=== PATIENT | female | born 1975 | race Two or more races ===

== ENCOUNTER → 2020-03-31 14:31 | Outpatient (BNVA) | payer MEDICARE, MEDICAID, SELFPAY | PROVIDERS: Visit Provider Nurse Practitioner | DX: R10.9 Unspecified abdominal pain (principal); K58.2 Mixed irritable bowel syndrome; R82.998 Other abnormal findings in urine; N39.0 Urinary tract infection, site not specified | CPT/HCPCS: 99213 ==

== ENCOUNTER → 2020-04-21 08:48 | Outpatient (BNVA) | payer MEDICARE, MEDICAID, SELFPAY | PROVIDERS: PCP Nurse Practitioner Family; Visit Provider Nurse Practitioner | DX: K21.9 Gastro-esophageal reflux disease without esophagitis (principal); K58.9 Irritable bowel syndrome, unspecified; R82.998 Other abnormal findings in urine; R14.0 Abdominal distension (gaseous); R35.0 Frequency of micturition; R10.33 Periumbilical pain | CPT/HCPCS: 99214 ==

== ENCOUNTER → 2020-04-28 08:06 | Outpatient (REF) | payer MEDICARE, MEDICAID, SELFPAY ==
--- NOTE | 2020-04-28 08:12 | NM_ITS ---
EXAMINATION: BILIARY TRACT IMAGING STUDY WITH CCK CLINICAL INFORMATION: Periumbilical pain.. COMPARISON: No previous biliary scan is available for comparison. The diagnostic CT scan of the abdomen and pelvis, dated 01/29/2020, is available for comparison.. TECHNIQUE: Serial gamma scintillation camera images were obtained over the abdomen for a total observation period of 93 minutes following the intravenous administration of 5.1 mCi Tc-99m Mebrofenin. FINDINGS: There is good concentration of activity in the liver by 5 minutes post injection. Biliary activity is visualized by 8 minutes. The gallbladder is well visualized by 15 minutes. Small bowel is well visualized by 25 minutes. At 60 minutes post radiopharmaceutical injection, a 30-minute infusion of 1.0 micrograms Sincalide was then begun and an additional 40 minutes of images were obtained. There is good emptying of the gallbladder. By the end of the study there is good clearance of activity from the liver and visualization of diffuse small bowel activity. The calculated gallbladder ejection fraction is 90% (normal gallbladder ejection fraction is greater than 35%). NM/NM hepatobiliary w pharm IMPRESSION: Visualization of the gallbladder is evidence of a patent cystic duct and strong evidence against the diagnosis of acute cholecystitis. The common bile duct is patent. Gallbladder emptying and ejection fraction are normal. Liver function appears normal.
== END ==
LOC: HO.NUCMED 08:06
PROVIDERS: PCP Nurse Practitioner Family; Visit Provider Nurse Practitioner
DX: R10.33 Periumbilical pain (principal)
CPT/HCPCS: 78227; A9537

== ENCOUNTER → 2020-05-11 13:29 | Outpatient (BNVA) | payer MEDICARE, MEDICAID, SELFPAY | PROVIDERS: PCP Nurse Practitioner Family; Visit Provider Nurse Practitioner | DX: K58.9 Irritable bowel syndrome, unspecified (principal); K21.9 Gastro-esophageal reflux disease without esophagitis; R10.33 Periumbilical pain; R35.0 Frequency of micturition; R82.998 Other abnormal findings in urine | CPT/HCPCS: 99212 ==

== ENCOUNTER 2020-06-17 09:11 | Outpatient (REF) | payer MEDICARE, MEDICAID, SELFPAY | END 2020-06-17 09:12 | disposition home or self-care (01) | LOC: HO.LAB 09:11 | PROVIDERS: PCP Nurse Practitioner Family; Visit Provider Student in an Organized Health Care Education/Training Program | DX: M25.50 Pain in unspecified joint (principal); R70.0 Elevated erythrocyte sedimentation rate | CPT/HCPCS: 99202 ==

== ENCOUNTER 2020-06-30 11:24 | Outpatient (REF) | payer MEDICARE, MEDICAID, SELFPAY ==
--- NOTE | 2020-06-30 11:55 | XR_ITS ---
EXAMINATION: XR LUMBOSACRAL SPINE CLINICAL INFORMATION: Pain. COMPARISON: CT scan of the abdomen and pelvis dated 01/29/20. TECHNIQUE: Three views of the lumbosacral spine. FINDINGS: There is severe degenerative disc disease at L5-S1 with marked narrowing of the disc space and marginal osteophytosis. There is associated facet arthropathy. The appearance is similar to the prior CT scan. Disc spaces are otherwise well-maintained. Anatomic alignment is maintained. No other abnormality is demonstrated. XR/XR lumbar spine 2-3V IMPRESSION: Severe degenerative disc disease at L5-S1 with associated facet arthropathy. No significant interval change. No other abnormality.
--- NOTE | 2020-06-30 11:55 | XR_ITS ---
EXAMINATION: XR hand LT min 3V, XR hand RT min 3V CLINICAL INFORMATION: Pain. COMPARISON: None. TECHNIQUE: Right hand 3 views. Left hand 3 views. FINDINGS: RIGHT HAND: No bony abnormality is demonstrated. No fracture or malalignment. No bony erosion. Bone density is maintained. Joint spaces are maintained. No soft tissue abnormality is demonstrated. LEFT HAND: 3 views of the left hand are also normal. XR/XR hand LT min 3V IMPRESSION: Normal examination.
--- NOTE | 2020-06-30 11:55 | XR_ITS ---
EXAMINATION: XR hand LT min 3V, XR hand RT min 3V CLINICAL INFORMATION: Pain. COMPARISON: None. TECHNIQUE: Right hand 3 views. Left hand 3 views. FINDINGS: RIGHT HAND: No bony abnormality is demonstrated. No fracture or malalignment. No bony erosion. Bone density is maintained. Joint spaces are maintained. No soft tissue abnormality is demonstrated. LEFT HAND: 3 views of the left hand are also normal. XR/XR hand RT min 3V IMPRESSION: Normal examination.
[2020-06-30 12:39] LABS: MANUAL DIFF FLAG NO
[2020-06-30 12:42] LABS: Basophils Absolute Auto 0.1 X10*3/uL (0.0-0.2); Basophils Percent Auto 0.7 % (0-2); Eosinophils Absolute Auto 0.3 X10*3/uL (0.0-0.4); Eosinophils Percent Auto 4.2 % (0-4); Hematocrit 39.9 % (37-47); Hemoglobin 12.7 g/dl (12.0-16.0); Imm Gran Abs Auto 0.01 X10*3/uL (0.00-0.03); Imm Gran Pct Auto 0.1 % (0.0-0.4); Lymphocytes Absolute Auto 3.2 X10*3/uL (1.2-4.9); Lymphocytes Percent Auto 41.6 % (20-40); Mean Corpuscular HGB Conc 31.8 g/dl (31.0-35.0); Mean Corpuscular Hemoglobin 27.9 pg (27.0-33.0); Mean Corpuscular Volume 87.5 fL (80-98); Mean Platelet Volume 9.1 fL (9.4-12.3); Monocytes Absolute Auto 0.4 X10*3/uL (0.1-1.2); Monocytes Percent Auto 5.5 % (2-11); Neutrophils Absolute Auto 3.7 X10*3/uL (2.0-8.3); Neutrophils Percent Auto 47.9 % (45-73); Platelet Count 476 X10*3/uL (160-400); Red Blood Count 4.56 X10*6/uL (4.20-5.50); Red Cell Distribution Width 14.3 % (11.0-16.0); White Blood Count 7.7 X10*3/uL (4.8-10.8)
[2020-06-30 13:18] LABS: Alanine Aminotransferase 56 U/L (0-31); Albumin Level 4.6 g/dL (3.5-5.0); Alkaline Phosphatase 75 U/L (39-117); Anion Gap 16 (12-20); Aspartate Amino Transferase 28 U/L (5-31); Bilirubin Total 0.2 mg/dL (0.0-1.0); Blood Urea Nitrogen 11 mg/dL (9-16); C Reactive Protein 0.04 mg/dL (< or = 0.50); Calcium 10.3 mg/dL (8.4-10.2); Carbon Dioxide 25 mmol/L (22-29); Chloride 102 mmol/L (96-108); Estimated Glomerular Filt Rate > 60; Glucose Random 111 mg/dL (60-115); Rheumatoid Factor < 15.0 IU/mL (<15.0); Sodium 139 mmol/L (135-145); Total Protein 7.5 g/dL (6.5-8.0)
[2020-06-30 13:25] LABS: Erythrocyte Sedimentation Rate 11 MM/HR (0-20)
[2020-07-02 11:52] LABS: Antibody to SS-A Antigen <1.0 NEG AI (<1.0 NEG); Antibody to SS-B Antigen <1.0 NEG AI (<1.0 NEG)
[2020-07-04 11:47] LABS: Cyclic Citrullinated Peptide <16 UNITS
[2020-07-05 14:31] LABS: Anti Nuclear Antibody Screen POSITIVE (NEGATIVE)
== END 2020-06-30 11:25 | disposition home or self-care (01) ==
LOC: HO.LAB 11:24
PROVIDERS: Visit Provider Student in an Organized Health Care Education/Training Program
DX: M79.642 Pain in left hand (principal); M54.5 Low back pain; M79.641 Pain in right hand
CPT/HCPCS: 36415; 72100; 73130; 80053; 85025; 85652; 86038; 86039; 86140; 86200; 86235; 86431

== ENCOUNTER 2020-07-19 08:00 | Outpatient (RCR) | payer MEDICARE, MEDICAID, SELFPAY ==
--- NOTE | 2020-06-30 12:57 | MHC.PT.EP ---
[facility] [place] Office [place] Office [place] Office [address] Romero Krueger [address] [phone] F: [phone] F: [phone] F: [phone] F: [phone] Physical Therapy Plan of Care Date of Evaluation: 06/30/20 Date of Surgery: NA Diagnosis: Low back pain Assessment: 45 year old female referred for low back pain . Pt reports of having h/o chronic back pain which has gotten worse over the last 7 months. She denies any trauma or falls. Examination reveals a constant low back pain which varies from 5/10 to 9/10, increase pain with bending, prolonged sitting, driving for more than 2 hours and supine lying, TTP over B lumbar PVs and L4- L5 spinous process, decreased trunk ROM, decreased muscle strength, and altered posture. She lives alone and is independent with all ADLs but takes longer to complete them due to pain. She is currently unemployed and is not seeking for employment. She would benefit from PT to decrease pain, improve ROM, increase muscle strength, postural correction and functional training. Frequency and Duration: The patient will be seen 2/week for 5 weeks. Short Term Goals: 1. Pt will have 50% decrease in pain in 2 weeks. 2. Pt will be able to move her trunk through full plane of motion without pain in 3 weeks. Intermediate Goals: 1. Pt will be able to perform all ADLS without pain in 4 weeks. 2. Pt will return to PLOF in 5 weeks. Treatment Plan: Modalities to reduce pain, spasms and effusion. Manual therapy to restore motion and function. Therapeutic exercise to improve strength and flexibility. Neuromuscular re-education for posture and balance. Therapeutic activities to return to functional activities of daily living. Electronically signed by: Azucena Delgado DPT Please sign and return to therapist. Thank you for your referral.
--- NOTE | 2020-08-16 14:23 | MHC.PT.DC ---
[facility] [place] Office [place] Office [place] Office [address] Romero Krueger [address] [phone] F: [phone] F: [phone] F: [phone] F: [phone] Physical Therapy Discharge Report Diagnosis: Low back pain Date of Surgery: NA Date of Evaluation: 06/30/20 Date of Discharge: 08/16/20 Treatments to Date: 5 Cancellations to Date: 3 No Shows to Date: 3 Discharge Status: Visit Non-compliance Discharge Summary: Pt canceled a few visits and no showed for visits after. Pt therefore d/c from therapy for non compliance. Electronically signed by: Azucena Delgado DPT Please sign and return to therapist. Thank you for your referral.
--- NOTE | 2020-08-16 15:19 | MHC.PT.DC ---
[facility] [place] Office [place] Office [place] Office [address] Romero Krueger [address] [phone] F: [phone] F: [phone] F: [phone] F: [phone] Physical Therapy Discharge Report Diagnosis: Low back pain Date of Surgery: NA Date of Evaluation: 06/30/20 Date of Discharge: 08/16/20 Treatments to Date: 5 Cancellations to Date: 3 No Shows to Date: 3 Discharge Status: Visit Non-compliance Discharge Summary: Pt canceled a few visits and no showed for visits after. Pt therefore d/c from therapy for non compliance. Electronically signed by: Azucena Delgado DPT Please sign and return to therapist. Thank you for your referral.
== END 2020-08-16 14:26 | disposition other institution (70) ==
LOC: HO.PT 08:00
PROVIDERS: Visit Provider Student in an Organized Health Care Education/Training Program
DX: M54.5 Low back pain (principal); M25.50 Pain in unspecified joint
CPT/HCPCS: 97110; 97112; 97140; 97161

== ENCOUNTER 2020-07-25 08:30 | Outpatient (RCR) | payer MEDICARE, MEDICAID, SELFPAY | END 2020-12-07 11:28 | disposition other institution (70) | LOC: HO.OT 08:30 | PROVIDERS: Visit Provider Student in an Organized Health Care Education/Training Program | DX: M25.50 Pain in unspecified joint (principal) | CPT/HCPCS: 29125; 97035; 97110; 97165; 97535; 97760 ==

== ENCOUNTER 2020-10-10 07:06 | Emergency (ER) | payer MEDICARE, MEDICAID, SELFPAY ==
--- NOTE | ~2020-10-10 | CT_ITS ---
EXAMINATION: CT ABDOMEN AND PELVIS WITHOUT CONTRAST CLINICAL INFORMATION: Dysuria, flank pain and abdominal pain. COMPARISON: None TECHNIQUE: Multidetector volumetric imaging was performed from the superior aspect of the liver through the pubic symphysis. Sagittal and coronal reformatted images were obtained on the technologist's workstation. This CT examination was performed using dose optimization techniques as appropriate, variously including the following: *Automated exposure control *Adjustment of mA and/or kV according to patient size (this includes techniques or standardized protocols for targeted exams where dose is matched to indication/reason for exam; i.e. extremities or head) *Use of iterative reconstruction technique DLP: 3:30 mGy-cm FINDINGS: LUNG BASES: The visualized lung bases are unremarkable. LIVER, GALLBLADDER, AND BILIARY TREE: The liver is normal in size, shape, and attenuation. No focal hepatic lesion or biliary ductal dilatation is present. The gallbladder is unremarkable with no evidence of radiopaque gallstones, gallbladder wall thickening, or obvious pericholecystic inflammatory changes. PANCREAS: Unremarkable. SPLEEN: Unremarkable. ADRENAL GLANDS: Unremarkable. KIDNEYS AND URETERS: The kidneys are normal in size, shape, and attenuation. No hydronephrosis, hydroureter, or calculi seen. No perinephric stranding. BLADDER: Unremarkable. GASTROINTESTINAL TRACT: There is scattered stool and gas seen throughout the colon without any significant distention. The small bowel loops are normal caliber. The appendix is normal caliber. ABDOMINAL WALL: No significant hernia is appreciated. LYMPH NODES: Normal. VASCULAR: Unremarkable. PELVIC VISCERA: Unremarkable. OSSEOUS STRUCTURES: There are degenerative disc changes, vacuum disc phenomena and ventral and posterior spondylosis L5-S1 disc level. No lytic process seen. CT/CT abdomen pelvis wo con IMPRESSION: No acute intra-abdominal process seen. No definitive urolith or hydroureteronephrosis.
[2020-10-10 07:15] VITALS: BP 147/69; PULSE 107; RESP 20; TEMP 36.8; O2SAT 99; BMI 20.7
--- NOTE | 2020-10-10 07:26 | ED_ITS ---
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 on Saturday - normal pelvic exam, states she had xrays of lower back as well no US or CT scan MD elicited complaint: dysuria, pelvic pain and back pain Pertinent past history: recurrent UTIs Onset (ago): day(s) (3) Location of symptoms: suprapubic and low back Severity: moderate Female Urogenital Radiation: Non-Radiating Quality of pain: cramping, dull and aching Consistency: constant Vaginal discharge: none Vaginal bleeding: none Urinary symptoms: Dysuria and Urgency Exacerbating factors: other (sitting down) Relieving factors: movement Associated symptoms: back pain Treatment prior to arrival: none Patient : No Related Data Home Medications Medication Instructions Recorded Confirmed cetirizine 10 mg tablet 10 mg PO DAILY 03/31/20 03/31/20 lorazepam 1 mg tablet mg PO 03/31/20 03/31/20 ondansetron 4 mg disintegrating 4 mg PO Q6-8H PRN 03/31/20 03/31/20 tablet famotidine 20 mg tablet 20 mg PO DAILY 06/17/20 gabapentin 100 mg capsule 100 mg PO DAILY 06/17/20 Previous Rx's Medication Instructions Recorded simethicone 180 mg capsule 180 mg PO QID 30 Days #120 cap 04/21/20 nitrofurantoin monohyd/m-cryst 100 mg PO BID 7 Days #14 cap 10/10/20 [Macrobid] phenazopyridine [Pyridium] 100 mg PO TID PRN #6 tab 10/10/20 Allergies Allergy/AdvReac Type Severity Reaction Status Date / Time hydrocodone [From VICODIN] Allergy Intermediate DEPRESSES Verified 06/17/20 09:21 BREATHING peach [PEACH] Allergy Intermediate ITCHING Verified 06/17/20 09:21 ibuprofen [IBUPROFEN] Allergy Mild NAUSEA & Verified 06/17/20 09:21 VOMITING oxycodone [From TYLOX] Allergy Mild RASH Verified 06/17/20 09:21 prednisone [PREDNISONE] Allergy Mild RASH Verified 06/17/20 09:21 trazodone AdvReac itch Verified 06/17/20 09:21 Review of Systems Review of Systems: Constitutional : No Weight loss, No Fever, No Chills ENT/Mouth : No sore throat, No Rhinorrhea Eyes: No Swelling, No Redness Cardiovascular : No Chest Pain, No SOB, NoEdema Respiratory : No Cough, No Sputum, No Wheezing Gastrointestinal : no Nausea,no Vomiting,no Diarrhea, positive abdominal Pain, No Hematochezia, No Melena Genitourinary : pos Dysuria, No Urinary Frequency, No Hematuria, No Urgency Musculoskeletal : No joint pain, No Myalgias, No Joint Swelling, pos back pain Skin : No Skin Lesions, No rash Neuro : No Weakness, No Numbness, No Dizziness, No Headache Psych : No Anxiety/Panic, No Depression Heme/Lymph: No Bruising, No Lymphadenopathy Endocrine : No Polyuria, No Polydipsia All other systems reviewed and are negative. [facility] Past Medical History Attestation statement: The following information was validated with the patient. Medical History Tracey infection of genital region Costochondral chest pain Diverticulitis Gastric ulcer UTI (urinary tract infection) Surgical History H/O colonoscopy Hx of endoscopy (01/19/20) Family History Family History Mother CKD (chronic kidney disease) stage 3, GFR 30-59 ml/min Gallbladder calculus with acute cholecystitis Diabetes HTN (hypertension) Father No problems noted. Maternal Grandfather Diabetes HTN (hypertension) Hypercholesteremia Social History Social History Alcohol intake: never Smoking Status: Current every day smoker Tobacco Type: Cigarette Packs Per Day: 0.5 Cigarettes Per Day: 10 Use of substances other than those prescribed or required for medical reasons: No Substance Use Type: Marijuana Advance Directives: Yes Advance Directives Information Provided: Yes Advance Directives on File: No Current occupational status: disabled Physical Exam Vital Signs: Vital Signs: Last Vital Signs Temp 98.2 F 10/10/20 07:15 Pulse 107 H 10/10/20 07:15 Resp 20 10/10/20 07:15 BP 147/69 H 10/10/20 07:15 Pulse Ox 99 10/10/20 07:15 Body Mass Index 20.7 Appearance: Alert. Oriented X3. No acute distress. Eyes: Pupils equal, round and reactive to light. ENT: Pharynx normal. Neck: Normal inspection. Neck supple. CVS: Normal heart rate and rhythm. Pulses normal. Respiratory: No respiratory distress. Breath sounds normal. Abdomen: Soft and moderate suprapubic ttp Back: ttp along lower back Skin: Skin warm and dry. Normal skin color. Normal skin turgor. Extremities: No lower extremity edema. No calf ttp Neuro: Oriented X 3. No motor deficit. No sensory deficit. Course Course Course Narrative: + UA otherwise negative workup MDM - Female Genitourinary MDM Narrative Medical decision making narrative: 45 yo female with hx of UTIs c/o back pain no b/b incontinence no saddle anesthesia no vomiting/diarrhea - could be renal colic vs UTI just had normal pelvic exam with symptoms on Saturday - patient defe rs testing here today at this time labs, UA, CT scan for renal colic/mass ordered Lab Data Result diagrams: 10/10/20 07:51 10/10/20 07:51 Labs: Lab Results 10/10/20 10/10/20 10/10/20 Range/Units 07:51 07:51 07:51 WBC 8.8 (4.8-10.8) X10*3/uL RBC 5.02 (4.20-5.50) X10*6/uL Hgb 13.7 (12.0-16.0) g/dl Hct 43.6 (37-47) % MCV 86.9 (80-98) fL MCH 27.3 (27.0-33.0) pg MCHC 31.4 (31.0-35.0) g/dl RDW 13.4 (11.0-16.0) % Plt Count 417 H (160-400) X10*3/uL MPV 8.5 L (9.4-12.3) fL Immature Gran % (Auto) 0.1 (0.0-0.4) % Neut % (Auto) 51.5 (45-73) % Lymph % (Auto) 39.1 (20-40) % [place] % (Auto) 5.9 (2-11) % Eos % (Auto) 3.1 (0-4) % Baso % (Auto) 0.3 (0-2) % Lymph # (Auto) 3.5 (1.2-4.9) X10*3/uL [place] # (Auto) 0.5 (0.1-1.2) X10*3/uL Eos # (Auto) 0.3 (0.0-0.4) X10*3/uL Baso # (Auto) 0.0 (0.0-0.2) X10*3/uL Abs Immat Gran (auto) 0.01 (0.00-0.03) X10*3/uL Absolute Neuts (auto) 4.6 (2.0-8.3) X10*3/uL Absolute Nucleated RBC 0.000 (0.0-0.012) X10*3/uL Nucleated RBC % (auto) 0.0 (0.0-0.2) /100WBC Hold Blue Top SEE NOTE Sodium 140 (135-145) mmol/L Potassium 4.1 (3.3-5.1) mmol/L Chloride 104 (96-108) mmol/L Carbon Dioxide 24 (22-29) mmol/L Anion Gap 16 (12-20) BUN 13 (9-16) mg/dL Creatinine 0.84 (0.5-1.4) mg/dL Estim Creat Clear Calc 74.9 Estimated GFR > 60 Random Glucose 115 (60-115) mg/dL Calcium 10.2 (8.4-10.2) mg/dL Magnesium 2.0 (1.6-2.6) mg/dL Total Bilirubin 0.3 (0.0-1.0) mg/dL Direct Bilirubin < 0.2 (0.0-0.5) mg/dL AST 16 D (5-31) U/L ALT 9 (0-31) U/L Alkaline Phosphatase 79 (39-117) U/L Total Protein 7.7 (6.5-8.0) g/dL Albumin 4.8 (3.5-5.0) g/dL Lipase 21 (8-78) U/L Urine Color Urine Appearance Urine pH (5.0-8.0) Ur Specific [place] (1.005-1.025) Urine Protein (NEG-TRACE) MG/DL Urine Glucose (UA) (NEG) MG/DL Urine Ketones (NEG) MG/DL Urine Blood (NEG) Urine Nitrite (NEG) Ur Leukocyte Esterase (NEG) Urine RBC (0) /HPF Urine WBC (0-4) /HPF Ur Squamous Epith Cells /LPF Urine Bacteria /LPF 10/10/20 Range/Units 09:06 WBC (4.8-10.8) X10*3/uL RBC (4.20-5.50) X10*6/uL Hgb (12.0-16.0) g/dl Hct (37-47) % MCV (80-98) fL MCH (27.0-33.0) pg MCHC (31.0-35.0) g/dl RDW (11.0-16.0) % Plt Count (160-400) X10*3/uL MPV (9.4-12.3) fL Immature Gran % (Auto) (0.0-0.4) % Neut % (Auto) (45-73) % Lymph % (Auto) (20-40) % [place] % (Auto) (2-11) % Eos % (Auto) (0-4) % Baso % (Auto) (0-2) % Lymph # (Auto) (1.2-4.9) X10*3/uL [place] # (Auto) (0.1-1.2) X10*3/uL Eos # (Auto) (0.0-0.4) X10*3/uL Baso # (Auto) (0.0-0.2) X10*3/uL Abs Immat Gran (auto) (0.00-0.03) X10*3/uL Absolute Neuts (auto) (2.0-8.3) X10*3/uL Absolute Nucleated RBC (0.0-0.012) X10*3/uL Nucleated RBC % (auto) (0.0-0.2) /100WBC Hold Blue Top Sodium (135-145) mmol/L Potassium (3.3-5.1) mmol/L Chloride (96-108) mmol/L Carbon Dioxide (22-29) mmol/L Anion Gap (12-20) BUN (9-16) mg/dL Creatinine (0.5-1.4) mg/dL Estim Creat Clear Calc Estimated GFR Random Glucose (60-115) mg/dL Calcium (8.4-10.2) mg/dL Magnesium (1.6-2.6) mg/dL Total Bilirubin (0.0-1.0) mg/dL Direct Bilirubin (0.0-0.5) mg/dL AST (5-31) U/L ALT (0-31) U/L Alkaline Phosphatase (39-117) U/L Total Protein (6.5-8.0) g/dL Albumin (3.5-5.0) g/dL Lipase (8-78) U/L Urine Color STRAW Urine Appearance CLEAR Urine pH 6.0 (5.0-8.0) Ur Specific [place]wick <= 1.005 (1.005-1.025) Urine Protein NEG (NEG-TRACE) MG/DL Urine Glucose (UA) NEG (NEG) MG/DL Urine Ketones NEG (NEG) MG/DL Urine Blood TRACE (NEG) Urine Nitrite NEG (NEG) Ur Leukocyte Esterase 2+ H (NEG) Urine RBC 0 (0) /HPF Urine WBC 10-14 H (0-4) /HPF Ur Squamous Epith Cells 1+ /LPF Urine Bacteria 1+ /LPF Discharge Plan Discharge Clinical Impression: Cystitis Urinary tract infection Qualifiers: Urinary tract infection type: acute cystitis Hematuria presence: without hematuria Qualified Code(s): N30.00 - Acute cystitis without hematuria Patient Disposition: Home, Self-Care Instructions: Urinary Tract Infection in Women (ED) Additional Instructions: return to ED for any worsening symptoms or concerns Prescriptions: New nitrofurantoin monohyd/m-cryst [Macrobid] 100 mg capsule 100 mg PO BID 7 Days Qty: 14 RF: 0 phenazopyridine [Pyridium] 100 mg tablet 100 mg PO TID PRN (Reason: pain) Qty: 6 RF: 0 No Action cetirizine 10 mg tablet 10 mg PO DAILY RF: 0 lorazepam 1 mg tablet PO RF: 0 ondansetron 4 mg tablet,disintegrating 4 mg PO Q6-8H PRNRF: 0 simethicone 180 mg capsule 180 mg PO QID 30 Days Qty: 120 RF: 3 gabapentin 100 mg capsule 100 mg PO DAILY RF: 0 famotidine 20 mg tablet 20 mg PO DAILY RF: 0 Referrals: Shira Hatch, SHOE FOLDER [Primary Care Provider] - 2 days (if not better)
[2020-10-10] MEDS: diazePAM 5 MG TABLET PO (07:47)
[2020-10-10 07:58] LABS: MANUAL DIFF FLAG NO
[2020-10-10 08:00] LABS: Basophils Percent Auto 0.3 % (0-2); Eosinophils Absolute Auto 0.3 X10*3/uL (0.0-0.4); Eosinophils Percent Auto 3.1 % (0-4); Hematocrit 43.6 % (37-47); Hemoglobin 13.7 g/dl (12.0-16.0); Imm Gran Abs Auto 0.01 X10*3/uL (0.00-0.03); Imm Gran Pct Auto 0.1 % (0.0-0.4); Lymphocytes Absolute Auto 3.5 X10*3/uL (1.2-4.9); Lymphocytes Percent Auto 39.1 % (20-40); Mean Corpuscular HGB Conc 31.4 g/dl (31.0-35.0); Mean Corpuscular Hemoglobin 27.3 pg (27.0-33.0); Mean Corpuscular Volume 86.9 fL (80-98); Mean Platelet Volume 8.5 fL (9.4-12.3); Monocytes Absolute Auto 0.5 X10*3/uL (0.1-1.2); Monocytes Percent Auto 5.9 % (2-11); Neutrophils Absolute Auto 4.6 X10*3/uL (2.0-8.3); Neutrophils Percent Auto 51.5 % (45-73); Platelet Count 417 X10*3/uL (160-400); Red Blood Count 5.02 X10*6/uL (4.20-5.50); Red Cell Distribution Width 13.4 % (11.0-16.0); White Blood Count 8.8 X10*3/uL (4.8-10.8)
[2020-10-10 08:29] LABS: Alanine Aminotransferase 9 U/L (0-31); Albumin Level 4.8 g/dL (3.5-5.0); Alkaline Phosphatase 79 U/L (39-117); Anion Gap 16 (12-20); Aspartate Amino Transferase 16 U/L (5-31); Bilirubin Direct < 0.2 mg/dL (0.0-0.5); Bilirubin Total 0.3 mg/dL (0.0-1.0); Blood Urea Nitrogen 13 mg/dL (9-16); Calcium 10.2 mg/dL (8.4-10.2); Carbon Dioxide 24 mmol/L (22-29); Chloride 104 mmol/L (96-108); Creatinine Clr Calc Pharmacy 74.9; Estimated Glomerular Filt Rate > 60; Glucose Random 115 mg/dL (60-115); Lipase 21 U/L (8-78); Potassium 4.1 mmol/L (3.3-5.1); Sodium 140 mmol/L (135-145); Total Protein 7.7 g/dL (6.5-8.0)
--- NOTE | 2020-10-10 09:38 | PC.NURSE ---
pt ambulating to bathroom w slow, guarded gait to provide ua spec.
[2020-10-10 09:41] LABS: Glucose Urine UA NEG (NEG); Leukocyte Esterase Urine 2+ (NEG); Nitrite Urine NEG (NEG); Specific Gravity - Urine <= 1.005 (1.005-1.025); UACC Culture Trigger YES; Urine Blood TRACE (NEG); Urine Ketones NEG (NEG); Urine Protein NEG (NEG-TRACE)
[2020-10-10 09:45] LABS: Appearance Urine CLEAR; Color Urine STRAW
[2020-10-10 10:04] LABS: Bacteria Urine 1+ /LPF; RBC Urine 0 /HPF (0); Squamous Epithelial Cell Urine 1+ /LPF
[2020-10-10] MEDS: Nitrofurantoin Monohyd/M-Cryst 100 MG CAPSULE PO (10:26)
== END 2020-10-10 10:27 | disposition home or self-care (01) ==
PROVIDERS: Emergency Provider Emergency Medicine; PCP Nurse Practitioner Family
DX: N30.00 Acute cystitis without hematuria (principal); F17.210 Nicotine dependence, cigarettes, uncomplicated; F12.90 Cannabis use, unspecified, uncomplicated
CPT/HCPCS: 36415; 74176; 80048; 80076; 81001; 81003; 83690; 83735; 85025; 87086; 87147; 99284

== ENCOUNTER 2020-10-25 00:37 | Emergency (ER) | payer MEDICARE, MEDICAID, SELFPAY ==
[2020-10-25 00:40] VITALS: BP 170/90; PULSE 111; RESP 18; TEMP 35.9; O2SAT 100; BMI 20.6
--- NOTE | 2020-10-25 01:38 | PC.NURSE ---
Pt ambulatory with steady gait, RR even and unlabored on RA.
[2020-10-25 01:50] VITALS: BP 126/77; PULSE 92; RESP 18; O2SAT 98
[2020-10-25] MEDS: diphenhydrAMINE HCL 25 MG TABLET 50 MG PO (01:52)
--- NOTE | 2020-10-25 01:52 | ED.ALLEREA ---
HPI - Allergic Reaction General Chief complaint: Allergic Reaction Stated complaint: HIVES Time Seen by Provider: 10/25/20 01:42 Source: patient Mode of arrival: ambulatory History of Present Illness HPI narrative: 45-year-old female with history of anxiety presents with onset itchy raised rash this started approximately 4:00 p.m. this afternoon, patient took 1 Benadryl and fell asleep, but when she woke up noted that the rash was ?everywhere?. Patient denies eating any new foods, being placed on any new medications or change in medication does, however she does state that her gabapentin frequency was adjusted from b.i.d. to t.i.d.. Otherwise she denies any detergent, lotions, perfumes, clothing as possible sources. In addition, patient denies any lip/tongue/facial swelling and is able to clear secretions and breathe without difficulty. Related Data Home Medications Medication Instructions Recorded Confirmed cetirizine 10 mg tablet 10 mg PO DAILY 03/31/20 03/31/20 lorazepam 1 mg tablet mg PO 03/31/20 03/31/20 ondansetron 4 mg disintegrating 4 mg PO Q6-8H PRN 03/31/20 03/31/20 tablet famotidine 20 mg tablet 20 mg PO DAILY 06/17/20 gabapentin 100 mg capsule 100 mg PO DAILY 06/17/20 Previous Rx's Medication Instructions Recorded simethicone 180 mg capsule 180 mg PO QID 30 Days #120 cap 04/21/20 nitrofurantoin monohyd/m-cryst 100 mg PO BID 7 Days #14 cap 10/10/20 [Macrobid] phenazopyridine [Pyridium] 100 mg PO TID PRN #6 tab 10/10/20 Allergies Allergy/AdvReac Type Severity Reaction Status Date / Time hydrocodone [From VICODIN] Allergy Intermediate DEPRESSES Verified 06/17/20 09:21 BREATHING peach [PEACH] Allergy Intermediate ITCHING Verified 06/17/20 09:21 ibuprofen [IBUPROFEN] Allergy Mild NAUSEA & Verified 06/17/20 09:21 VOMITING oxycodone [From TYLOX] Allergy Mild RASH Verified 06/17/20 09:21 prednisone [PREDNISONE] Allergy Mild RASH Verified 06/17/20 09:21 trazodone AdvReac itch Verified 06/17/20 09:21 Review of Systems Review of Systems: Pertinent positives and negatives as stated in HPI 10 point review of systems otherwise negative. [facility] Past Medical History Source: nursing notes reviewed Medical History Tracey infection of genital region Costochondral chest pain Diverticulitis Gastric ulcer UTI (urinary tract infection) Surgical History H/O colonoscopy Hx of endoscopy (01/19/20) Family History Family History Mother CKD (chronic kidney disease) stage 3, GFR 30-59 ml/min Gallbladder calculus with acute cholecystitis Diabetes HTN (hypertension) Father No problems noted. Maternal Grandfather Diabetes HTN (hypertension) Hypercholesteremia Social History Social History Alcohol intake: former Smoking Status: Current every day smoker Tobacco Type: Cigarette Packs Per Day: 0.5 Cigarettes Per Day: 10 Use of substances other than those prescribed or required for medical reasons: No Substance Use Type: Marijuana Advance Directives: No Current occupational status: disabled Physical Exam Vital Signs: Vital Signs: Last Vital Signs Temp 96.6 F L 10/25/20 00:40 Pulse 92 10/25/20 01:50 Resp 18 10/25/20 01:50 BP 126/77 10/25/20 01:50 Pulse Ox 98 10/25/20 01:50 Body Mass Index 20.6 VITAL SIGNS: Reviewed. GENERAL: Well developed, well nourished, in no acute distress. HEAD: Normocephalic/atraumatic EYES: PERRLA, EOMI OROPHARYNX: no oral lesions noted, posterior pharynx clear , no for facial/lip/tongue swelling noted NECK: Supple, no adenopathy LUNGS: Normal breath sounds. No adventitious sounds or accessory muscle use. SpO2<98> CARDIOVASCULAR: Regular rate and rhythm without noted murmurs ABDOMEN: Soft, non-tender, non-distended with bowel sounds. SKIN: Inspection of the skin reveals I have noted to neck, bilateral arms as well as bilateral lower extremities. NEUROLOGIC: Alert and oriented x 4. Course Course Course Narrative: 45-year-old female with history and clinical presentation consistent with hives of unknown etiology suspect possibility of increase and gabapentin as that appears to be the only ?new? change. Patient provided with Benadryl 50 mg. Patient re-evaluated and reports improvement with itching as well as rash and continues to deny any facial/lip/tongue swelling. Patient was discharged in stable condition with instructions to continue with Benadryl for the next 24 hours. Discharge Plan Discharge Clinical Impression: Urticaria Patient Disposition: Home, Self-Care Instructions: Urticaria (ED) Additional Instructions: Recommend continue to use Benadryl for the next 24 hours as directed on the outside packaging. Afterwards, may switch to as needed. Return to the emergency department for any acute worsening of your symptoms. Prescriptions: No Action nitrofurantoin monohyd/m-cryst [Macrobid] 100 mg capsule 100 mg PO BID 7 Days Qty: 14 RF: 0 phenazopyridine [Pyridium] 100 mg tablet 100 mg PO TID PRN (Reason: pain) Qty: 6 RF: 0 cetirizine 10 mg tablet 10 mg PO DAILY RF: 0 lorazepam 1 mg tablet PO RF: 0 ondansetron 4 mg tablet,disintegrating 4 mg PO Q6-8H PRNRF: 0 simethicone 180 mg capsule 180 mg PO QID 30 Days Qty: 120 RF: 3 gabapentin 100 mg capsule 100 mg PO DAILY RF: 0 famotidine 20 mg tablet 20 mg PO DAILY RF: 0 Referrals: Physician,Unknown [Primary Care Provider] - 2 days
== END 2020-10-25 03:14 | disposition home or self-care (01) ==
PROVIDERS: Emergency Provider Student in an Organized Health Care Education/Training Program
DX: L50.9 Urticaria, unspecified (principal); F17.210 Nicotine dependence, cigarettes, uncomplicated; F12.90 Cannabis use, unspecified, uncomplicated
CPT/HCPCS: 99284; Q0163

== ENCOUNTER 2020-10-25 13:32 | Emergency (ER) | payer MEDICARE, MEDICAID, SELFPAY ==
[2020-10-25 13:41] VITALS: BP 116/76; PULSE 98; RESP 18; TEMP 36.9; O2SAT 99; BMI 20.6
--- NOTE | 2020-10-25 14:36 | ED_ITS ---
HPI - Skin/Abscess/Foreign Bdy General Chief complaint: Skin/Abscess/Foreign Body Stated complaint: rash Time Seen by Provider: 10/25/20 14:36 History of Present Illness HPI narrative: Patient complains of itchy rash over her body which has been there for 24 hours, she came to the hospital last night for the same thing and it was relieved with Benadryl but then earlier today came back and despite taking Benadryl the rash is spreading and very itchy, no shortness of breath denies any difficulty breathing or swallowing denies any swelling in her throat Related Data Home Medications Medication Instructions Recorded Confirmed cetirizine 10 mg tablet 10 mg PO DAILY 03/31/20 03/31/20 lorazepam 1 mg tablet mg PO 03/31/20 03/31/20 ondansetron 4 mg disintegrating 4 mg PO Q6-8H PRN 03/31/20 03/31/20 tablet famotidine 20 mg tablet 20 mg PO DAILY 06/17/20 gabapentin 100 mg capsule 100 mg PO DAILY 06/17/20 Previous Rx's Medication Instructions Recorded simethicone 180 mg capsule 180 mg PO QID 30 Days #120 cap 04/21/20 phenazopyridine [Pyridium] 100 mg PO TID PRN #6 tab 10/10/20 hydroxyzine HCl 25 mg PO BID PRN #14 tab 10/25/20 lorazepam [Ativan] 0.5 mg PO TID PRN #10 tab 10/25/20 dexamethasone [Decadron] 6 mg PO DAILY 5 Days #5 tab 10/26/20 Allergies Allergy/AdvReac Type Severity Reaction Status Date / Time hydrocodone [From VICODIN] Allergy Intermediate DEPRESSES Verified 10/28/20 10:10 BREATHING nitrofurantoin Allergy Intermediate urticaria Verified 10/28/20 10:10 [From Macrobid] peach [PEACH] Allergy Intermediate ITCHING Verified 10/28/20 10:10 ibuprofen [IBUPROFEN] Allergy Mild NAUSEA & Verified 10/28/20 10:10 VOMITING oxycodone [From TYLOX] Allergy Mild RASH Verified 10/28/20 10:10 prednisone [PREDNISONE] Allergy Mild RASH Verified 10/28/20 10:10 trazodone AdvReac itch Verified 10/28/20 10:10 Review of Systems Review of Systems: Positive for itchy rash Negatives are no fever no chills no headache no neck pain no difficulty breathing or swallowing no throat swelling no chest pain no shortness of breath no abdominal pain no vomiting no joint swelling no numbness weakness or tingling Yes all other systems are reviewed and are negative [facility] Past Medical History Source: nursing notes reviewed Medical History Tracey infection of genital region Costochondral chest pain Diverticulitis Gastric ulcer UTI (urinary tract infection) Surgical History H/O colonoscopy Hx of endoscopy (01/19/20) Family History Family History Mother CKD (chronic kidney disease) stage 3, GFR 30-59 ml/min Gallbladder calculus with acute cholecystitis Diabetes HTN (hypertension) Father No problems noted. Maternal Grandfather Diabetes HTN (hypertension) Hypercholesteremia Social History Social History Alcohol intake: former Smoking Status: Current every day smoker Tobacco Type: Cigarette Packs Per Day: 0.5 Cigarettes Per Day: 10 Substance Use Type: Marijuana Current occupational status: disabled Physical Exam Vital Signs: Vital Signs: Last Vital Signs Temp 98.4 F 10/25/20 13:41 Pulse 98 10/25/20 13:41 Resp 18 10/25/20 13:41 BP 116/76 10/25/20 13:41 Pulse Ox 99 10/25/20 13:41 Body Mass Index 20.6 General appearance no acute distress, cooperative, A&O x3 The pharynx is clear without swelling of tongue and uvula or lips Eyes are clear without discharge or redness The neck is supple Chest is clear to auscultation bilateral with full symmetric equal breath sounds Heart no murmur The skin there is urticarialrash over the body, no petechiae or purpura , no evidence of cellulitis Extremities is full range of motion x4 Course Course Course Narrative: Patient with recurrent hives is treated with a nonsedating long-acting antihistamine, steroid and is well appearing and is discharged Discharge Plan Discharge Clinical Impression: Acute urticaria Patient Disposition: Home, Self-Care Additional Instructions: You can use the cetirizine you have at home once a day starting tomorrow, as we gave you Claritin today which is very similar I wrote a prescription for Atarax which is similar to Benadryl which may be better for itch, you should use 1 or the other every 8 hours but do not take them both at the same time-at night at bedtime it is okay to take 2 of the Atarax tablets, 50 mg We gave 1 dose of steroid Decadron which often helps reduce the hives within 12- 24 hours I wrote a small prescription for Ativan which may help a little with the itch and may help you to sleep at night Return anytime if worse Follow with primary doctor Prescriptions: New hydroxyzine HCl 25 mg tablet 25 mg PO BID PRN (Reason: itching) Qty: 14 RF: 0 lorazepam [Ativan] 0.5 mg tablet 0.5 mg PO TID PRN (Reason: anxiety) Qty: 10 RF: 0 No Action phenazopyridine [Pyridium] 100 mg tablet 100 mg PO TID PRN (Reason: pain) Qty: 6 RF: 0 dexamethasone [Decadron] 6 mg tablet 6 mg PO DAILY 5 Days Qty: 5 RF: 0 cetirizine 10 mg tablet 10 mg PO DAILY RF: 0 lorazepam 1 mg tablet PO RF: 0 ondansetron 4 mg tablet,disintegrating 4 mg PO Q6-8H PRNRF: 0 simethicone 180 mg capsule 180 mg PO QID 30 Days Qty: 120 RF: 3 gabapentin 100 mg capsule 100 mg PO DAILY RF: 0 famotidine 20 mg tablet 20 mg PO DAILY RF: 0 Interventions: ED Discharge Assessment Last Done: 10/25/20 15:08 Discharge Date/Time: 10/25/20 15:09
[2020-10-25] MEDS: Loratadine 10 MG TABLET PO (14:47)
[2020-10-25] MEDS: dexAMETHasone 2 MG TABLET 10 MG PO (14:47)
== END 2020-10-25 15:09 | disposition home or self-care (01) ==
PROVIDERS: Emergency Provider Emergency Medicine; PCP Nurse Practitioner Family
DX: L50.9 Urticaria, unspecified (principal); F17.210 Nicotine dependence, cigarettes, uncomplicated; F12.90 Cannabis use, unspecified, uncomplicated
CPT/HCPCS: 99283; 99284; J8540; Q0163

== ENCOUNTER 2020-10-26 13:27 | Emergency (ER) | payer MEDICARE, MEDICAID, SELFPAY ==
[2020-10-26 13:40] VITALS: BP 128/85; PULSE 104; RESP 18; TEMP 36.6; O2SAT 97; BMI 20.6
--- NOTE | 2020-10-26 15:11 | ED.ALLEREA ---
HPI - Allergic Reaction General Chief complaint: Allergic Reaction Stated complaint: ALLERGIC REACTION Time Seen by Provider: 10/26/20 14:35 Source: patient Mode of arrival: ambulatory Limitations: no limitations History of Present Illness HPI narrative: Patient is a 45-year-old female with a past medical history of diverticulitis, gastric ulcer and IBS who is presenting for the 3rd visit in 2 days complaining of the same allergic reaction. Patient is complaining of full body itching starting 2 days ago. She denies any new foods, drinks, lotions, perfumes, detergents. Denies any difficulty breathing, throat itching or tongue swelling. In the past 48 hours, the Patient has been given shot of Decadron in the ED, Benadryl, Atarax and Ativan but her symptoms are getting worse, spreading and very itchy. She went to her primary care doctor's office and he sent her to the emergency room. She was prescribed Macrobid on 10/10 which she says she took in full. Related Data Home Medications Medication Instructions Recorded Confirmed cetirizine 10 mg tablet 10 mg PO DAILY 03/31/20 03/31/20 lorazepam 1 mg tablet mg PO 03/31/20 03/31/20 ondansetron 4 mg disintegrating 4 mg PO Q6-8H PRN 03/31/20 03/31/20 tablet famotidine 20 mg tablet 20 mg PO DAILY 06/17/20 gabapentin 100 mg capsule 100 mg PO DAILY 06/17/20 Previous Rx's Medication Instructions Recorded simethicone 180 mg capsule 180 mg PO QID 30 Days #120 cap 04/21/20 nitrofurantoin monohyd/m-cryst 100 mg PO BID 7 Days #14 cap 10/10/20 [Macrobid] phenazopyridine [Pyridium] 100 mg PO TID PRN #6 tab 10/10/20 hydroxyzine HCl 25 mg PO BID PRN #14 tab 10/25/20 lorazepam [Ativan] 0.5 mg PO TID PRN #10 tab 10/25/20 dexamethasone [Decadron] 6 mg PO DAILY 5 Days #5 tab 10/26/20 Allergies Allergy/AdvReac Type Severity Reaction Status Date / Time hydrocodone [From VICODIN] Allergy Intermediate DEPRESSES Verified 10/25/20 13:44 BREATHING nitrofurantoin Allergy Intermediate urticaria Verified 10/26/20 15:20 [From Macrobid] peach [PEACH] Allergy Intermediate ITCHING Verified 10/25/20 13:44 ibuprofen [IBUPROFEN] Allergy Mild NAUSEA & Verified 10/25/20 13:44 VOMITING oxycodone [From TYLOX] Allergy Mild RASH Verified 10/25/20 13:44 prednisone [PREDNISONE] Allergy Mild RASH Verified 10/25/20 13:44 trazodone AdvReac itch Verified 10/25/20 13:44 Review of Systems Review of Systems: Yes all other systems are reviewed and are negative [facility] Past Medical History Medical History Tracey infection of genital region Costochondral chest pain Diverticulitis Gastric ulcer UTI (urinary tract infection) Surgical History H/O colonoscopy Hx of endoscopy (01/19/20) Family History Family History Mother CKD (chronic kidney disease) stage 3, GFR 30-59 ml/min Gallbladder calculus with acute cholecystitis Diabetes HTN (hypertension) Father No problems noted. Maternal Grandfather Diabetes HTN (hypertension) Hypercholesteremia Social History Social History Alcohol intake: former Smoking Status: Current every day smoker Tobacco Type: Cigarette Packs Per Day: 0.5 Cigarettes Per Day: 10 Substance Use Type: Marijuana Advance Directives: No Advance Directives Information Provided: No Current occupational status: disabled Physical Exam Vital Signs: Vital Signs: Last Vital Signs Temp 98 F 10/26/20 13:40 Pulse 91 10/26/20 15:27 Resp 16 10/26/20 15:27 BP 129/87 10/26/20 15:27 Pulse Ox 98 10/26/20 15:27 Body Mass Index 20.6 Const: General: cooperative, healthy appearing, comfortable, no acute distress (Scratching incessantly) and well developed Orientation/consciousness: patient oriented x3 Limitations: no limitations HENMT: Head: Yes normal to inspection Eyes: General: appearance normal, both eyes and all related structures EOM: EOMs intact bilaterally Neck: Neck: Yes normal visual inspection and Yes full ROM Resp: Effort & Inspection: normal respiratory effort and able to speak in complete sentences Cardio: Rate: regular rate Skin: General skin exam: turgor normal, dry skin, no erythema, no petechiae and scars (left forearm) Rashes: rashes noted (urticarial rash: b/l upper extremities, b/l lower extremities, trunk, back) Hair: normal Neuro: General: patient oriented x3 Extrem: General: Yes normal to inspection Psych: Appearance: grossly normal Course Course Course Narrative: Patient is a 45-year-old female with a past medical history of diverticulitis, gastric ulcer and IBS who is presenting for the 3rd visit in 2 days complaining of the same allergic reaction. Patient is complaining of full body itching starting 2 days ago. Patient has been taking all the meds prescribed to her but hasn't been rx'd a steroid yet. This rash is likely secondary to a course of Macrobid she took from October 10 to October 15. I will add Macrobid to her allergy list. Reevaluation(s) Reevaluation #1: Patient states she is feeling better. Okay to discharge from, reviewed instructions on when to take each medication. Oddly enough, patient's elevated white blood cell count was due to elevated lymphocytes not Eosinophil's. Time: 16:53 MDM - Allergic Reaction Lab Data Result diagrams: 10/26/20 15:33 Labs: Lab Results 10/26/20 Range/Units 15:33 WBC 17.2 H (4.8-10.8) X10*3/uL RBC 4.66 (4.20-5.50) X10*6/uL Hgb 13.0 (12.0-16.0) g/dl Hct 39.2 (37-47) % MCV 84.1 (80-98) fL MCH 27.9 (27.0-33.0) pg MCHC 33.2 (31.0-35.0) g/dl RDW 13.2 (11.0-16.0) % Plt Count 418 H (160-400) X10*3/uL MPV 8.2 L (9.4-12.3) fL Immature Gran % (Auto) 0.3 (0.0-0.4) % Neut % (Auto) 74.3 H (45-73) % Lymph % (Auto) 19.2 L (20-40) % Cherry % (Auto) 6.1 (2-11) % Eos % (Auto) 0.0 (0-4) % Baso % (Auto) 0.1 (0-2) % Lymph # (Auto) 3.3 (1.2-4.9) X10*3/uL Cherry # (Auto) 1.0 (0.1-1.2) X10*3/uL Eos # (Auto) 0.0 (0.0-0.4) X10*3/uL Baso # (Auto) 0.0 (0.0-0.2) X10*3/uL Abs Immat Gran (auto) 0.05 H (0.00-0.03) X10*3/uL Absolute Neuts (auto) 12.8 H (2.0-8.3) X10*3/uL Absolute Nucleated RBC 0.000 (0.0-0.012) X10*3/uL Nucleated RBC % (auto) 0.0 (0.0-0.2) /100WBC Discharge Plan Discharge Clinical Impression: Urticaria due to drug allergy Patient Disposition: Home, Self-Care Instructions: Antibiotic Medication Allergy (ED) Additional Instructions: As discussed, I have given you a dose of Decadron today in the emergency department, I have also written for you to continue this for 5 more days and sent the prescription to your pharmacy. You may also take Benadryl, Zantac and Atarax with the steroid. I would recommend you follow-up with your PCP in 2-3 days and possibly a health administration teacher if the rash does not get better. If you develop any tingling in the back of your throat or throat tightness tongue swelling or become short of breath, please return to the emergency department [facility] or call 911. Prescriptions: New dexamethasone [Decadron] 6 mg tablet 6 mg PO DAILY 5 Days Qty: 5 RF: 0 No Action nitrofurantoin monohyd/m-cryst [Macrobid] 100 mg capsule 100 mg PO BID 7 Days Qty: 14 RF: 0 phenazopyridine [Pyridium] 100 mg tablet 100 mg PO TID PRN (Reason: pain) Qty: 6 RF: 0 hydroxyzine HCl 25 mg tablet 25 mg PO BID PRN (Reason: itching) Qty: 14 RF: 0 lorazepam [Ativan] 0.5 mg tablet 0.5 mg PO TID PRN (Reason: anxiety) Qty: 10 RF: 0 cetirizine 10 mg tablet 10 mg PO DAILY RF: 0 lorazepam 1 mg tablet PO RF: 0 ondansetron 4 mg tablet,disintegrating 4 mg PO Q6-8H PRNRF: 0 simethicone 180 mg capsule 180 mg PO QID 30 Days Qty: 120 RF: 3 gabapentin 100 mg capsule 100 mg PO DAILY RF: 0 famotidine 20 mg tablet 20 mg PO DAILY RF: 0 Referrals: Shira Hatch, REBECCA [Nurse Practitioner] - 2 days (follow up from urticarial reaction to Macrobid)
[2020-10-26 15:27] VITALS: BP 129/87; PULSE 91; RESP 16; O2SAT 98
[2020-10-26 15:37] LABS: MANUAL DIFF FLAG NO
[2020-10-26 15:39] LABS: Basophils Percent Auto 0.1 % (0-2); Hematocrit 39.2 % (37-47); Imm Gran Abs Auto 0.05 X10*3/uL (0.00-0.03); Imm Gran Pct Auto 0.3 % (0.0-0.4); Lymphocytes Absolute Auto 3.3 X10*3/uL (1.2-4.9); Lymphocytes Percent Auto 19.2 % (20-40); Mean Corpuscular HGB Conc 33.2 g/dl (31.0-35.0); Mean Corpuscular Hemoglobin 27.9 pg (27.0-33.0); Mean Corpuscular Volume 84.1 fL (80-98); Mean Platelet Volume 8.2 fL (9.4-12.3); Monocytes Percent Auto 6.1 % (2-11); Neutrophils Absolute Auto 12.8 X10*3/uL (2.0-8.3); Neutrophils Percent Auto 74.3 % (45-73); Platelet Count 418 X10*3/uL (160-400); Red Blood Count 4.66 X10*6/uL (4.20-5.50); Red Cell Distribution Width 13.2 % (11.0-16.0); White Blood Count 17.2 X10*3/uL (4.8-10.8)
[2020-10-26] MEDS: diphenhydrAMINE HCL 50 MG/ML VIAL IVPUSH (15:39)
[2020-10-26] MEDS: Famotidine/PF 20 MG/2 ML VIAL IVPUSH (15:40)
== END 2020-10-26 17:15 | disposition home or self-care (01) ==
PROVIDERS: Physician Assistant; Emergency Provider Internal Medicine
DX: L50.0 Allergic urticaria (principal); F17.210 Nicotine dependence, cigarettes, uncomplicated; Z71.6 Tobacco abuse counseling; Z79.899 Other long term (current) drug therapy
CPT/HCPCS: 36415; 85025; 96374; 96375; 99284; J1100; J1200

== ENCOUNTER → 2020-10-28 10:07 | Outpatient (BNVA) | payer MEDICARE, MEDICAID, SELFPAY | PROVIDERS: PCP Nurse Practitioner Family; Visit Provider Student in an Organized Health Care Education/Training Program | CPT/HCPCS: Q3014 ==

== ENCOUNTER 2020-10-31 10:56 | Outpatient (REF) | payer MEDICARE, MEDICAID, SELFPAY ==
[2020-10-31 11:54] LABS: Glucose Urine UA NEG (NEG); Leukocyte Esterase Urine NEG (NEG); Nitrite Urine NEG (NEG); Specific Gravity - Urine 1.025 (1.005-1.025); Urine Blood NEG (NEG); Urine Ketones NEG (NEG); Urine Protein NEG (NEG-TRACE)
[2020-10-31 12:23] LABS: Appearance Urine HAZY; Color Urine YELLOW
[2020-10-31 13:14] LABS: Bacteria Urine 2+ /LPF; Calcium Oxalate Crystals Urine 1+ /LPF; RBC Urine 0 /HPF (0); Squamous Epithelial Cell Urine 4+ /LPF; WBC Urine 0-2 /HPF (0-4)
[2020-11-01 10:27] LABS: Anti DNA DS Antibody <1 IU/mL; SM/Ribonucleoprotein Ab <1.0 NEG AI (<1.0 NEG); Smith Protein <1.0 NEG AI (<1.0 NEG)
[2020-11-01 10:52] LABS: Thyroid Peroxidase Antibodies 1 IU/mL (<9)
[2020-11-01 13:17] LABS: Complement C3 112 mg/dL (83-193)
[2020-11-01 17:42] LABS: Thyroglobulin Antibodies <1 IU/mL (< or = 1)
== END 2020-10-31 10:57 | disposition home or self-care (01) ==
LOC: HO.LAB 10:56
PROVIDERS: PCP Nurse Practitioner Family; Visit Provider Student in an Organized Health Care Education/Training Program
DX: R76.8 Other specified abnormal immunological findings in serum (principal)
CPT/HCPCS: 36415; 81001; 86160; 86225; 86235; 86376; 86800

== ENCOUNTER → 2020-11-08 14:55 | Outpatient (BNVA) | payer MEDICARE, MEDICAID, SELFPAY | PROVIDERS: PCP Nurse Practitioner Family; Visit Provider Nurse Practitioner | CPT/HCPCS: Q3014 ==

== ENCOUNTER → 2020-12-09 08:05 | Outpatient (BNVA) | payer MEDICARE, MEDICAID, SELFPAY | PROVIDERS: PCP Nurse Practitioner Family; Visit Provider Student in an Organized Health Care Education/Training Program | CPT/HCPCS: Q3014 ==

== ENCOUNTER 2020-12-16 14:49 | Outpatient (REF) | payer MEDICARE, MEDICAID, SELFPAY ==
[2020-12-16 16:20] LABS: Urine Cytology See Pathology rpt
== END 2020-12-16 14:50 | disposition home or self-care (01) ==
LOC: HO.LNP 14:49
DX: R31.9 Hematuria, unspecified (principal); K59.04 Chronic idiopathic constipation; Z79.899 Other long term (current) drug therapy
CPT/HCPCS: 88112; 99202

== ENCOUNTER → 2021-01-06 10:02 | Outpatient (BNVA) | payer MEDICARE, MEDICAID, SELFPAY | DX: R31.9 Hematuria, unspecified (principal) | CPT/HCPCS: 99212 ==

== ENCOUNTER 2021-02-02 10:04 | Outpatient (REF) | payer MEDICARE, MEDICAID, SELFPAY ==
--- NOTE | ~2021-02-02 | US_ITS ---
EXAMINATION: US RETROPERITONEAL COMPLETE (RENAL) CLINICAL INFORMATION: Hematuria, unspecified. COMPARISON: CT abdomen and pelvis without contrast dated 10/10/2020. Renal only ultrasound dated 03/18/2020. Ultrasound abdomen complete dated 06/23/2019. TECHNIQUE: Real-time imaging of the kidneys and bladder. FINDINGS: RIGHT KIDNEY: 10.2 x 4.3 x 4.3 cm (SAG x AP x TRV). The kidney is normal in size, contour, and echogenicity. Renal cortical thickness is normal. No calculi or focal parenchymal lesions. No hydronephrosis. LEFT KIDNEY: 10.1 x 5.0 x 5.2 cm (SAG x AP x TRV). The kidney is normal in size, contour, and echogenicity. Renal cortical thickness is normal. No calculi or focal parenchymal lesions. No hydronephrosis. BLADDER: Well distended and normal. Bilateral ureteral jets are demonstrated. Prevoid bladder volume is 223 mL. Postvoid bladder volume is 9.9 mL. US/US retroperitoneal comp IMPRESSION: Normal renal and bladder ultrasound.
== END 2021-02-02 10:05 | disposition home or self-care (01) ==
LOC: HO.US 10:04
DX: R31.9 Hematuria, unspecified (principal)
CPT/HCPCS: 76770

== ENCOUNTER 2022-01-30 09:34 | Emergency (ER) | payer MEDICARE, MEDICAID, SELFPAY ==
[2022-01-30 10:47] VITALS: BP 137/76; PULSE 67; RESP 18; TEMP 36.1; O2SAT 100
--- NOTE | 2022-01-30 12:43 | ED.SKABFB ---
HPI - Skin/Abscess/Foreign Bdy General Chief complaint: Skin/Abscess/Foreign Body Stated complaint: Bug bite Time Seen by Provider: 01/30/22 12:06 Source: patient Mode of arrival: ambulatory History of Present Illness HPI narrative: 46-year-old female with a past medical history of diverticulitis and gastric ulcer, presents with a new skin rash. She reports symptoms beginning 4 days ago with itching and pain surrounding bites. She states she tried Benadryl and an eczema ointment with no relief. Patient reports rash noted to right upper arm and posterior right thigh. She denies any active medication use or exposure to any new detergents or dyes. Patient denies any fever, chills, nausea, vomiting, abdominal pain, tick or insect bites, or any other sick symptoms. MD complaint: rash Onset (ago): day(s) Related Data Home Medications Medication Instructions Recorded Confirmed cetirizine 10 mg tablet 10 mg PO DAILY 03/31/20 03/31/20 lorazepam 1 mg tablet mg PO 03/31/20 03/31/20 ondansetron 4 mg disintegrating 4 mg PO Q6-8H PRN 03/31/20 03/31/20 tablet famotidine 20 mg tablet 20 mg PO DAILY 06/17/20 gabapentin 100 mg capsule 100 mg PO DAILY 06/17/20 docusate sodium 100 mg capsule 100 mg PO DAILY 11/08/20 cholecalciferol (vitamin D3) 25 25 mcg PO DAILY 12/09/20 mcg (1,000 unit) capsule mecobalamin (vitamin B12) 1,000 1,000 mcg PO DAILY 12/09/20 mcg chewable tablet acetaminophen 500 mg tablet 500 mg PO Q4H PRN pain 01/06/21 cyanocobalamin (vitamin B-12) 1,000 mcg PO DAILY 01/06/21 1,000 mcg tablet gabapentin 300 mg capsule 0 mg PO 01/06/21 loratadine 10 mg tablet 10 mg PO DAILY 01/06/21 naproxen 375 mg tablet 375 mg PO BID 01/06/21 Previous Rx's Medication Instructions Recorded simethicone 180 mg capsule 180 mg PO QID 30 days #120 caps 04/21/20 phenazopyridine 100 mg tablet 100 mg PO TID PRN pain 6 doses #6 10/10/20 (Pyridium) tabs hydroxyzine HCl 25 mg tablet 25 mg PO BID PRN itching #14 tabs 10/25/20 sennosides 8.6 mg capsule (senna) 17.2 mg PO BEDTIME constipation 30 11/08/20 days #60 caps diazepam 2 mg tablet (Valium) 2 mg PO DAILY anxiety #2 tabs 03/30/21 cetirizine 10 mg tablet (Zyrtec) 10 mg PO DAILY #14 tabs 01/30/22 diphenhydramine HCl 25 mg capsule 25 mg PO TID PRN itching #14 caps 01/30/22 (Benadryl) permethrin 5 % topical cream 1 appl topical Q14D 2 doses #60 01/30/22 grams Allergies Allergy/AdvReac Type Severity Reaction Status Date / Time hydrocodone [From VICODIN] Allergy Intermediate DEPRESSES Verified 01/30/22 10:47 BREATHING nitrofurantoin Allergy Intermediate urticaria Verified 01/30/22 10:47 [From Macrobid] peach [PEACH] Allergy Intermediate ITCHING Verified 01/30/22 10:47 ibuprofen [IBUPROFEN] Allergy Mild NAUSEA & Verified 01/30/22 10:47 VOMITING oxycodone [From TYLOX] Allergy Mild RASH Verified 01/30/22 10:47 prednisone [PREDNISONE] Allergy Mild RASH Verified 01/30/22 10:47 trazodone AdvReac Intermediate itch Verified 01/30/22 10:47 Review of Systems Review of Systems: Constitutional: No Weight loss, No Fever, No Chills ENT/Mouth: No Nasal Congestion, No Sore Throat, No Rhinorrhea, No Swallowing Difficulty Cardiovascular: No Chest Pain, No SOB Respiratory: No Cough, No Sputum, No Wheezing Gastrointestinal: No Nausea, No Vomiting, No Diarrhea, No Constipation, No Abdominal pain Genitourinary: No Dysuria, No Urinary Frequency, No Flank Pain Musculoskeletal: No joint pain, No Myalgias, No Joint Swelling Skin: +Rash Neuro: No Weakness, No Numbness, No Paresthesias Yes all other systems are reviewed and are negative Constitutional: Constitutional: Reports as per [facility] Past Medical History Attestation statement: The following information was validated with the patient. Medical History Tracey infection of genital region Costochondral chest pain Diverticulitis Gastric ulcer UTI (urinary tract infection) Surgical History H/O colonoscopy Hx of endoscopy (01/19/20) Family History Family History Mother CKD (chronic kidney disease) stage 3, GFR 30-59 ml/min Gallbladder calculus with acute cholecystitis Diabetes HTN (hypertension) Father No problems noted. 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 at [employer] Physical Exam Vital Signs: Vital Signs: Last Vital Signs Temp 97.0 F 01/30/22 10:47 Pulse 67 01/30/22 10:47 Resp 18 01/30/22 10:47 BP 137/76 01/30/22 10:47 Pulse Ox 100 01/30/22 10:47 O2 Del Method 01/30/22 10:47 BMI result Body Mass Index 20.0 Const: General: cooperative, healthy appearing and no acute distress Orientation/consciousness: patient oriented x3 Limitations: no limitations HEENT: Head: Yes normal to inspection and Yes atraumatic Ears: hearing grossly normal bilaterally General nose exam: Normal external nose present Face and sinus: Yes normal facial exam Eyes: General: appearance normal, both eyes and all related structures EOM: EOMs intact bilaterally Neck: Neck: Yes normal visual inspection and Yes no meningeal signs Resp: Effort & Inspection: normal respiratory effort and no respiratory distress Auscultation: clear to auscultation bilaterally Cardio: Rate: regular rate Heart sounds: S1 normal heart sound present and S2 normal heart sound present Skin: Other: + small papules located on right upper arm and right posterior thigh with mild surrounding swelling. Mucous membranes, palms, and soles of feet are negative for rash. No evidence of cellulitis, no fluctuance/induration or streaking Wounds: no wounds Neuro: General: patient oriented x3, tone normal and no meningeal signs Gait exam (Neuro): Normal gait present Extrem: General: Yes normal to inspection MDM - Skin/Abscess/Foreign Bdy MDM Narrative Medical decision making narrative: 46-year-old female with a past medical history of diverticulitis and gastric ulcer, presents with a new skin rash. Patient physical exam as above. Mucous membranes, palms, and soles of feet are negative for rash. Suspicious for possible bed bugs vs. scabies vs. fleas. Plan: -Start Permethrin -Benadryl or Zyrtec as needed -Patient to follow up with PCP Differential Diagnosis Differential diagnosis: Likely insect bites; Unlikely cellulitis Medical Records Attestation: I reviewed the patient's medical records. Lab Data Attestation: I reviewed the patient's lab results. Discharge Plan Discharge Clinical Impression: Rash Patient Disposition: Home, Self-Care Instructions: Acute Rash (ED) Additional Instructions: Use permethrin cream as prescribed to help with rash/itching for possible scabies/bugs In addition take Benadryl and Zyrtec for itching. Follow up with your primary care doctor & Dermatology as needed. If symptoms persist or worsen/18 becomes unbearable return to the emergency department Prescriptions: New cetirizine [Zyrtec] 10 mg tablet 10 mg PO DAILY Qty: 14 0RF diphenhydramine HCl [Benadryl] 25 mg capsule 25 mg PO TID PRN (Reason: itching) Qty: 14 0RF permethrin 5 % cream 1 appl topical Q14D Qty: 60 0RF Rx Instructions: apply second treatment 14 days after first treatment if live lice remain No Action diazepam [Valium] 2 mg tablet 2 mg PO DAILY Qty: 2 0RF Rx Instructions: take one tab when arrive for procedure phenazopyridine [Pyridium] 100 mg tablet 100 mg PO TID PRN (Reason: pain) Qty: 6 0RF hydroxyzine HCl 25 mg tablet 25 mg PO BID PRN (Reason: itching) Qty: 14 0RF cetirizine 10 mg tablet 10 mg PO DAILY lorazepam 1 mg tablet PO ondansetron 4 mg tablet,disintegrating 4 mg PO Q6-8H PRN simethicone 180 mg capsule 180 mg PO QID 30 Days Qty: 120 3RF Rx Instructions: after meals gabapentin 100 mg capsule 100 mg PO DAILY famotidine 20 mg tablet 20 mg PO DAILY docusate sodium 100 mg capsule 100 mg PO DAILY senna 8.6 mg capsule 17.2 mg PO BEDTIME 30 Days Qty: 60 6RF cholecalciferol (vitamin D3) 25 mcg (1,000 unit) capsule 25 mcg PO DAILY mecobalamin (vitamin B12) 1,000 mcg tablet,chewable 1,000 mcg PO DAILY Referrals: Caroline Russo PA [Physician Hot Metal Crane Operator] - Miguel Ford MD [Physician] - Jose Guadalupe Richardson MD [Physician] - Mitra Denise PA-C [Physician [employer] Metal Crane Operator] - Stand Alone Forms: Work/School Release Interventions: ED Discharge Assessment Last Done: 01/30/22 13:04 Discharge Date/Time: 01/30/22 13:04
== END 2022-01-30 13:04 | disposition home or self-care (01) ==
PROVIDERS: Emergency Provider Emergency Medicine Emergency Medical Services
DX: R21 Rash and other nonspecific skin eruption (principal)
CPT/HCPCS: 99282; 99283

== ENCOUNTER 2022-02-16 13:16 | Emergency (ER) | payer MEDICARE, MEDICAID, SELFPAY ==
--- NOTE | ~2022-02-16 | XR_ITS ---
EXAMINATION: XR CHEST CLINICAL INFORMATION: Body aches COMPARISON: 05/09/2018 TECHNIQUE: 2 views of the chest were obtained. FINDINGS: No acute finding. No failure or infiltrate. There is no effusion. The cardiac silhouette is comparable to previous. The hilar regions do not appear pathologically enlarged. There is no effusion. XR/XR chest 2V IMPRESSION: No acute finding.
[2022-02-16 13:42] VITALS: BP 118/70; BP 160/88; PULSE 108; PULSE 95; RESP 20; TEMP 37.1; O2SAT 100; O2SAT 99
[2022-02-16 13:47] VITALS: TEMP 38.9
[2022-02-16 13:51] VITALS: BP 152/70; PULSE 100; RESP 19; TEMP 38.9; O2SAT 100; BMI 19.3
--- NOTE | 2022-02-16 13:57 | ED.GENADULT ---
HPI - General Adult General Chief complaint: Fever Stated complaint: FEVER, SKIN PAIN S/P INSECT BITE Time Seen by Provider: 02/16/22 13:46 Source: patient and family () Mode of arrival: ambulatory Limitations: no limitations History of Present Illness HPI narrative: Patient is a 46 year old female presenting to the emergency department today with a fever and body aches. Patient states that she has been having these zinging type feelings all over her body that she thinks are bug bites. Patient states that she has not seen any actual bugs or caught any of them actually biting her. Patient states that she has had a fever and body aches over the last few days. Patient states that she has a history of fibromyalgia and has been seen by our rheumatologists. Patient denies any dizziness, lightheadedness, abdominal pain, nausea, vomiting, chills, blurry vision, double vision, loss of vision, chest pain, difficulty breathing, shortness of breath, back pain, night sweats, pain with urination, increased urinary frequency, increased urinary urgency, blood in her urine or stool, syncope or a near syncopal episode, recent trauma or falls, bowel incontinence, bladder incontinence, bowel retention, bladder retention, or any other complaints at this time. Onset (ago): day(s) Severity: mild Severity scale (1-10): 3 Quality: sharp Pain Consistency: intermittent Relieving factors: none Exacerbating factors: none Associated symptoms: fever/chills and malaise Treatments prior to arrival: none Related Data Home Medications Medication Instructions Recorded Confirmed cetirizine 10 mg tablet 10 mg PO DAILY 03/31/20 03/31/20 lorazepam 1 mg tablet mg PO 03/31/20 03/31/20 ondansetron 4 mg disintegrating 4 mg PO Q6-8H PRN 03/31/20 03/31/20 tablet famotidine 20 mg tablet 20 mg PO DAILY 06/17/20 gabapentin 100 mg capsule 100 mg PO DAILY 06/17/20 docusate sodium 100 mg capsule 100 mg PO DAILY 11/08/20 cholecalciferol (vitamin D3) 25 25 mcg PO DAILY 12/09/20 mcg (1,000 unit) capsule mecobalamin (vitamin B12) 1,000 1,000 mcg PO DAILY 12/09/20 mcg chewable tablet acetaminophen 500 mg tablet 500 mg PO Q4H PRN pain 01/06/21 cyanocobalamin (vitamin B-12) 1,000 mcg PO DAILY 01/06/21 1,000 mcg tablet gabapentin 300 mg capsule 0 mg PO 01/06/21 loratadine 10 mg tablet 10 mg PO DAILY 01/06/21 naproxen 375 mg tablet 375 mg PO BID 01/06/21 Previous Rx's Medication Instructions Recorded simethicone 180 mg capsule 180 mg PO QID 30 days #120 caps 04/21/20 phenazopyridine 100 mg tablet 100 mg PO TID PRN pain 6 doses #6 10/10/20 (Pyridium) tabs hydroxyzine HCl 25 mg tablet 25 mg PO BID PRN itching #14 tabs 10/25/20 sennosides 8.6 mg capsule (senna) 17.2 mg PO BEDTIME constipation 30 11/08/20 days #60 caps diazepam 2 mg tablet (Valium) 2 mg PO DAILY anxiety #2 tabs 03/30/21 cetirizine 10 mg tablet (Zyrtec) 10 mg PO DAILY #14 tabs 01/30/22 diphenhydramine HCl 25 mg capsule 25 mg PO TID PRN itching #14 caps 01/30/22 (Benadryl) permethrin 5 % topical cream 1 appl topical Q14D 2 doses #60 01/30/22 grams ondansetron 4 mg disintegrating 4 mg PO Q8H 3 days #9 tabs 02/16/22 tablet Allergies Allergy/AdvReac Type Severity Reaction Status Date / Time hydrocodone [From VICODIN] Allergy Intermediate DEPRESSES Verified 01/30/22 10:47 BREATHING nitrofurantoin Allergy Intermediate urticaria Verified 01/30/22 10:47 [From Macrobid] peach [PEACH] Allergy Intermediate ITCHING Verified 01/30/22 10:47 ibuprofen [IBUPROFEN] Allergy Mild NAUSEA & Verified 01/30/22 10:47 VOMITING oxycodone [From TYLOX] Allergy Mild RASH Verified 01/30/22 10:47 prednisone [PREDNISONE] Allergy Mild RASH Verified 01/30/22 10:47 trazodone AdvReac Intermediate itch Verified 01/30/22 10:47 Review of Systems Constitutional: Constitutional: Reports no additional constitutional complaints, Reports body ache(s), Denies chills, Reports fever(s) and Denies night sweats Eyes: Eyes: Reports no additional eye complaints, Denies blurry vision, Denies change in vision, Denies diplopia, Denies eye discharge, Denies loss of vision and Denies eye pain ENT: Denies dizziness Cardiovascular: Cardiovascular: Reports no additional cardiovascular complaints, Denies chest pain, Denies lightheadedness, Denies Loss of Consciousness and Denies dyspnea Respiratory: Respiratory: Reports no additional respiratory complaints and Denies dyspnea Gastrointestinal: Gastrointestinal: Reports no additional gastrointestinal complaints, Denies abdominal pain, Denies melena, Denies hematochezia, Denies change in bowel habits and Denies change in stool character Genitourinary: Genitourinary: Denies hematuria, Denies urinary frequency, Denies dysuria, Denies urinary incontinence, Denies urinary hesitancy and Denies urinary urgency Musculoskeletal: Musculoskeletal: Reports no additional musculoskeletal complaints, Denies numbness and Denies tingling Neurologic: Denies dizziness, Denies loss of vision, Denies numbness and Denies tingling Psychiatric: Psychiatric: Reports no additional psychiatric complaints Endocrine: Endocrine: Reports no additional endocrine complaints Hematologic/Lymphatic: Hematologic/Lymphatic: Reports no additional hematologic/lymphatic complaints Allergic/Immunologic: Allergic/Immunologic: Reports no additional allergic/immunologic complaints [facility] Past Medical History Attestation statement: The following information was validated with the patient. Source: old records reviewed Medical History Tracey infection of genital region Costochondral chest pain Diverticulitis Gastric ulcer UTI (urinary tract infection) Surgical History H/O colonoscopy Hx of endoscopy (01/19/20) Family History Family History Mother CKD (chronic kidney disease) stage 3, GFR 30-59 ml/min Gallbladder calculus with acute cholecystitis Diabetes HTN (hypertension) Father No problems noted. 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 at [employer] Physical Exam ED Vital Signs: Vital Signs - 24 hr 02/16/22 13:42 02/16/22 13:47 02/16/22 13:51 Temperature 98.7 F 102.1 F H 102.1 F H Pulse Rate 95 100 Respiratory Rate 20 19 Blood Pressure 118/70 152/70 H Pulse Oximetry 100 100 Oxygen Delivery Method Room Air Room Air 02/16/22 15:39 Temperature 100.3 F Pulse Rate Respiratory Rate Blood Pressure Pulse Oximetry Oxygen Delivery Method BMI result Body Mass Index 19.3 Const General: cooperative, no acute distress, alert and awake Nutritional Appearance: well nourished Orientation/consciousness: patient oriented x3 Limitations: no limitations HENMT Head: Yes normal to inspection and Yes atraumatic Ears: hearing grossly normal bilaterally and external ears normal General nose exam: Normal external nose present, no nasal discharge noted and no epistaxis Face and sinus: Yes normal facial exam, No abrasion and No laceration Mouth: Normal oral and palatal mucosa present, no drooling and no muffled voice Eyes General: appearance normal, both eyes and all related structures Periorbital: periorbital findings normal Eyelids: Yes eyelids normal Conjunctivae: conjunctivae normal Pupils: Equal, round and reactive pupils present EOM: EOMs intact bilaterally Neck Neck: Yes normal visual inspection, Yes full ROM and Yes no lymphadenopathy Chest Chest palpation & inspection: normal inspection of the chest Resp Effort & Inspection: normal respiratory effort and able to speak in complete sentences Auscultation: clear to auscultation bilaterally Cardio Rate: regular rate Rhythm: regular rhythm GI Inspection: Yes normal to inspection Neuro General: patient oriented x3 and moves all extremities Cranial nerves: Yes Equal, round and reactive pupils present Cognition (Neuro): normal cognition Motor exam (neuro): 5/5 motor strength present throughout Sensory Exam: Normal double simultaneous stimulation for sensation Coordination: [id number] test normal Extrem General: Yes normal to inspection, Yes full ROM and Yes capillary refill normal Psych Appearance: grossly normal Mental Status: mental status grossly normal Affect: Anxious affect present Attitude: cooperative Thought process: Normal thought process present Thought content: Normal thought content present Insight: Good insight present (Psych) Medical Decision Making MDM Narrative Medical decision making narrative: Patient is a 46 year old female presenting to the emergency department today with fever and body aches. Patient's physical exam showed a febrile and anxious individual but was otherwise unremarkable. No bite li were appreciated anywhere on the patient's body. Patient's fever improved with PO Tylenol. Patient's blood work showed a slightly elevated lactic acid at 2.1 with a repeat of 0.7 after 1 liter of IV fluids. Patient's urine showed no acute process. Patient's EKG was unremarkable. Patient's chest x-ray showed no acute process. I spoke to MARJORIE Albert and Dr. Funez from [facility]. They believed the bite / zing type feelings to be a flair from her fibromyalgia that could be secondary to a viral infection. Patient's presentation is not consistent with sepsis and at no point did I consider this patient to be septic. I explained my physical exam findings as well as all test results to the patient and the patient's . I answered all questions asked by the patient and the patient's . Patient received PO Ativan and IV fluids which he stated helped her symptoms significantly. I stressed the importance of the patient taking her medication as prescribed. I stressed the importance of the patient following up with her primary care provider. I stressed the importance of the patient returning to the emergency department immediately if her symptoms were to worsen or if she were to develop any dizziness, shortness of breath, difficulty breathing, chest pain, blurry vision, loss of vision, nausea, vomiting, abdominal pain, fever, chills, back pain, or any other complaints. Patient and the patient's verbalized agreement and understanding with this treatment plan and discharge. Differential Diagnosis Differential Diagnosis: viral illness, fibromyalgia Medical Records Medical records reviewed: Yes I reviewed the patient's medical records. Lab Data Lab results reviewed: Yes I reviewed the patient's lab results. Result diagrams: 02/16/22 14:17 02/16/22 14:16 Labs: Lab Results 02/16/22 02/16/22 02/16/22 Range/Units 14:16 14:16 14:17 WBC 6.2 (4.8-10.8) X10*3/uL RBC 4.78 (4.20-5.50) X10*6/uL Hgb 13.4 (12.0-16.0) g/dl Hct 41.1 (37.0-47.0) % MCV 86.0 (80.0-98.0) fL MCH 28.0 (27.0-33.0) pg MCHC 32.6 (31.0-35.0) g/dl RDW 14.4 (11.0-16.0) % Plt Count 441 H (160-400) X10*3/uL MPV 8.4 L (9.4-12.3) fL Immature Gran % (Auto) 0.3 (0.0-0.4) % Neut % (Auto) 75.0 H (45-73) % Lymph % (Auto) 10.4 L (20-40) % [place] % (Auto) 12.0 H (2-11) % Eos % (Auto) 1.8 (0-4) % Baso % (Auto) 0.5 (0-2) % Lymph # (Auto) 0.6 L (1.2-4.9) X10*3/uL [place] # (Auto) 0.7 (0.1-1.2) X10*3/uL Eos # (Auto) 0.1 (0.0-0.4) X10*3/uL Baso # (Auto) 0.0 (0.0-0.2) X10*3/uL Abs Immat Gran (auto) 0.02 (0.00-0.03) X10*3/uL Absolute Neuts (auto) 4.6 (2.0-8.3) x10*3/uL Absolute Nucleated RBC 0.000 (0.0-0.012) X10*3/uL Nucleated RBC % (auto) 0.0 (0.0-0.2) /100WBC ESR (0-20) MM/HR Fibrinogen (259-690) MG/DL VBG pH (7.32-7.43) VBG pCO2 mmHg VBG pO2 mmHg VBG HCO3 (22-26) mmol/L VBG O2 Saturation % VBG Base Excess mmol/L Sodium 139 (135-145) mmol/L Potassium 4.2 (3.3-5.1) mmol/L Chloride 104 (96-108) mmol/L Carbon Dioxide 23 (22-29) mmol/L Anion Gap 16 (12-20) BUN 8 L (9-16) mg/dL Creatinine 0.81 (0.5-1.4) mg/dL Estim Creat Clear Calc 73.7 Estimated GFR > 60 Random Glucose 90 (60-115) mg/dL Lactic Acid (0.5-2.0) mmol/L Lactic Acid F/U @ 2Hr (0.5-2.0) mmol/L Calcium 10.4 H (8.4-10.2) mg/dL Magnesium 1.7 (1.6-2.6) mg/dL Total Bilirubin 0.4 (0.0-1.0) mg/dL AST 29 D (5-31) U/L ALT 38 H (0-31) U/L Alkaline Phosphatase 101 D (39-117) U/L Troponin I High Sens < 3.5 (<3.5-17.0) ng/L C-Reactive Protein 0.08 (< or = 0.50) mg/dL Total Protein 8.0 (6.5-8.0) g/dL Albumin 4.9 (3.5-5.0) g/dL Urine Color Urine Appearance Urine pH (5.0-8.0) Ur Specific [place] (1.005-1.025) Urine Protein (Neg-Trace) mg/dL Urine Glucose (UA) (Negative) mg/dL Urine Ketones (Negative) mg/dL Urine Blood (Negative) Urine Nitrite (Negative) Ur Leukocyte Esterase (Negative) COVID-19 (LEBRON) (Negative) COVID-19 Clin Com 02/16/22 02/16/22 02/16/22 Range/Units 14:18 14:18 14:20 WBC (4.8-10.8) X10*3/uL RBC (4.20-5.50) X10*6/uL Hgb (12.0-16.0) g/dl Hct (37.0-47.0) % MCV (80.0-98.0) fL MCH (27.0-33.0) pg MCHC (31.0-35.0) g/dl RDW (11.0-16.0) % Plt Count (160-400) X10*3/uL MPV (9.4-12.3) fL Immature Gran % (Auto) (0.0-0.4) % Neut % (Auto) (45-73) % Lymph % (Auto) (20-40) % [place] % (Auto) (2-11) % Eos % (Auto) (0-4) % Baso % (Auto) (0-2) % Lymph # (Auto) (1.2-4.9) X10*3/uL [place] # (Auto) (0.1-1.2) X10*3/uL Eos # (Auto) (0.0-0.4) X10*3/uL Baso # (Auto) (0.0-0.2) X10*3/uL Abs Immat Gran (auto) (0.00-0.03) X10*3/uL Absolute Neuts (auto) (2.0-8.3) x10*3/uL Absolute Nucleated RBC (0.0-0.012) X10*3/uL Nucleated RBC % (auto) (0.0-0.2) /100WBC ESR 7 (0-20) MM/HR Fibrinogen (259-690) MG/DL VBG pH (7.32-7.43) VBG pCO2 mmHg VBG pO2 mmHg VBG HCO3 (22-26) mmol/L VBG O2 Saturation % VBG Base Excess mmol/L Sodium (135-145) mmol/L Potassium (3.3-5.1) mmol/L Chloride (96-108) mmol/L Carbon Dioxide (22-29) mmol/L Anion Gap (12-20) BUN (9-16) mg/dL Creatinine (0.5-1.4) mg/dL Estim Creat Clear Calc Estimated GFR Random Glucose (60-115) mg/dL Lactic Acid 2.1 H* (0.5-2.0) mmol/L Lactic Acid F/U @ 2Hr (0.5-2.0) mmol/L Calcium (8.4-10.2) mg/dL Magnesium (1.6-2.6) mg/dL Total Bilirubin (0.0-1.0) mg/dL AST (5-31) U/L ALT (0-31) U/L Alkaline Phosphatase (39-117) U/L Troponin I High Sens (<3.5-17.0) ng/L C-Reactive Protein (< or = 0.50) mg/dL Total Protein (6.5-8.0) g/dL Albumin (3.5-5.0) g/dL Urine Color Urine Appearance Urine pH (5.0-8.0) Ur Specific [place] (1.005-1.025) Urine Protein (Neg-Trace) mg/dL Urine Glucose (UA) (Negative) mg/dL Urine Ketones (Negative) mg/dL Urine Blood (Negative) Urine Nitrite (Negative) Ur Leukocyte Esterase (Negative) COVID-19 (LEBRON) Negative (Negative) COVID-19 Clin Com See Note 02/16/22 02/16/22 02/16/22 Range/Units 14:24 16:44 16:44 WBC (4.8-10.8) X10*3/uL RBC (4.20-5.50) X10*6/uL Hgb (12.0-16.0) g/dl Hct (37.0-47.0) % MCV (80.0-98.0) fL MCH (27.0-33.0) pg MCHC (31.0-35.0) g/dl RDW (11.0-16.0) % Plt Count (160-400) X10*3/uL MPV (9.4-12.3) fL Immature Gran % (Auto) (0.0-0.4) % Neut % (Auto) (45-73) % Lymph % (Auto) (20-40) % [place] % (Auto) (2-11) % Eos % (Auto) (0-4) % Baso % (Auto) (0-2) % Lymph # (Auto) (1.2-4.9) X10*3/uL [place] # (Auto) (0.1-1.2) X10*3/uL Eos # (Auto) (0.0-0.4) X10*3/uL Baso # (Auto) (0.0-0.2) X10*3/uL Abs Immat Gran (auto) (0.00-0.03) X10*3/uL Absolute Neuts (auto) (2.0-8.3) x10*3/uL Absolute Nucleated RBC (0.0-0.012) X10*3/uL Nucleated RBC % (auto) (0.0-0.2) /100WBC ESR (0-20) MM/HR Fibrinogen 475 (259-690) MG/DL VBG pH 7.37 (7.32-7.43) VBG pCO2 36 mmHg VBG pO2 56 mmHg VBG HCO3 21 L (22-26) mmol/L VBG O2 Saturation 82.0 % VBG Base Excess -3.2 mmol/L Sodium (135-145) mmol/L Potassium (3.3-5.1) mmol/L Chloride (96-108) mmol/L Carbon Dioxide (22-29) mmol/L Anion Gap (12-20) BUN (9-16) mg/dL Creatinine (0.5-1.4) mg/dL Estim Creat Clear Calc Estimated GFR Random Glucose (60-115) mg/dL Lactic Acid (0.5-2.0) mmol/L Lactic Acid F/U @ 2Hr 0.7 (0.5-2.0) mmol/L Calcium (8.4-10.2) mg/dL Magnesium (1.6-2.6) mg/dL Total Bilirubin (0.0-1.0) mg/dL AST (5-31) U/L ALT (0-31) U/L Alkaline Phosphatase (39-117) U/L Troponin I High Sens (<3.5-17.0) ng/L C-Reactive Protein (< or = 0.50) mg/dL Total Protein (6.5-8.0) g/dL Albumin (3.5-5.0) g/dL Urine Color Urine Appearance Urine pH (5.0-8.0) Ur Specific [place] (1.005-1.025) Urine Protein (Neg-Trace) mg/dL Urine Glucose (UA) (Negative) mg/dL Urine Ketones (Negative) mg/dL Urine Blood (Negative) Urine Nitrite (Negative) Ur Leukocyte Esterase (Negative) COVID-19 (LEBRON) (Negative) COVID-19 Clin Com 02/16/22 Range/Units 17:34 WBC (4.8-10.8) X10*3/uL RBC (4.20-5.50) X10*6/uL Hgb (12.0-16.0) g/dl Hct (37.0-47.0) % MCV (80.0-98.0) fL MCH (27.0-33.0) pg MCHC (31.0-35.0) g/dl RDW (11.0-16.0) % Plt Count (160-400) X10*3/uL MPV (9.4-12.3) fL Immature Gran % (Auto) (0.0-0.4) % Neut % (Auto) (45-73) % Lymph % (Auto) (20-40) % [place] % (Auto) (2-11) % Eos % (Auto) (0-4) % Baso % (Auto) (0-2) % Lymph # (Auto) (1.2-4.9) X10*3/uL [place] # (Auto) (0.1-1.2) X10*3/uL Eos # (Auto) (0.0-0.4) X10*3/uL Baso # (Auto) (0.0-0.2) X10*3/uL Abs Immat Gran (auto) (0.00-0.03) X10*3/uL Absolute Neuts (auto) (2.0-8.3) x10*3/uL Absolute Nucleated RBC (0.0-0.012) X10*3/uL Nucleated RBC % (auto) (0.0-0.2) /100WBC ESR (0-20) MM/HR Fibrinogen (259-690) MG/DL VBG pH (7.32-7.43) VBG pCO2 mmHg VBG pO2 mmHg VBG HCO3 (22-26) mmol/L VBG O2 Saturation % VBG Base Excess mmol/L Sodium (135-145) mmol/L Potassium (3.3-5.1) mmol/L Chloride (96-108) mmol/L Carbon Dioxide (22-29) mmol/L Anion Gap (12-20) BUN (9-16) mg/dL Creatinine (0.5-1.4) mg/dL Estim Creat Clear Calc Estimated GFR Random Glucose (60-115) mg/dL Lactic Acid (0.5-2.0) mmol/L Lactic Acid F/U @ 2Hr (0.5-2.0) mmol/L Calcium (8.4-10.2) mg/dL Magnesium (1.6-2.6) mg/dL Total Bilirubin (0.0-1.0) mg/dL AST (5-31) U/L ALT (0-31) U/L Alkaline Phosphatase (39-117) U/L Troponin I High Sens (<3.5-17.0) ng/L C-Reactive Protein (< or = 0.50) mg/dL Total Protein (6.5-8.0) g/dL Albumin (3.5-5.0) g/dL Urine Color Yellow Urine Appearance Clear Urine pH 5.5 (5.0-8.0) Ur Specific [place] <= 1.005 (1.005-1.025) Urine Protein Negative (Neg-Trace) mg/dL Urine Glucose (UA) Negative (Negative) mg/dL Urine Ketones Negative (Negative) mg/dL Urine Blood Negative (Negative) Urine Nitrite Negative (Negative) Ur Leukocyte Esterase Negative (Negative) COVID-19 ([facility]) (Negative) COVID-19 Clin Com Imaging Data Chest x-ray: Attestation: I personally reviewed and interpreted this imaging study as follows: My impression: No acute process. Radiologist's impression: EXAMINATION: XR CHEST CLINICAL INFORMATION: Body aches COMPARISON: 05/09/2018 TECHNIQUE: 2 views of the chest were obtained. FINDINGS: No acute finding. No failure or infiltrate. There is no effusion. The cardiac silhouette is comparable to previous. The hilar regions do not appear pathologically enlarged. There is no effusion. XR/XR chest 2V IMPRESSION: No acute finding. Dictated By: Dharmesh Gonzalez MD Signed By: Electronically signed by Dharmesh Gonzalez MD 02/16/22 1664 ECG Data Attestation: I personally reviewed and interpreted this ECG as follows: Prior ECG tracings: available for review Interpretation: Vent. Rate: 094 BPM ? ? Atrial Rate: 094 BPM P-R Int: 156 ms? QRS Dur: 064 ms QT Int: 360 ms ? ? ? P-R-T Axes: 036 042 024 degrees QTc Int: 450 ms ? Normal sinus rhythm Normal ECG When compared with ECG of 08-JAN-2020 07:32, No significant change was found DD/ [id number] Discharge Plan Discharge Clinical Impression: Viral illness, Fibromyalgia Patient Disposition: Home, Self-Care Instructions: Fibromyalgia (ED), Viral Syndrome (ED) Additional Instructions: Follow up with your primary care provider. Return to the emergency department immediately if your symptoms worsen or if you develop any dizziness, shortness of breath, difficulty breathing, chest pain, blurry vision, loss of vision, nausea, vomiting, abdominal pain, fever, chills, back pain, or any other complaints. Prescriptions: New ondansetron 4 mg tablet,disintegrating 4 mg PO Q8H 3 Days Qty: 9 0RF No Action diazepam [Valium] 2 mg tablet 2 mg PO DAILY Qty: 2 0RF Rx Instructions: take one tab when arrive for procedure phenazopyridine [Pyridium] 100 mg tablet 100 mg PO TID PRN (Reason: pain) Qty: 6 0RF hydroxyzine HCl 25 mg tablet 25 mg PO BID PRN (Reason: itching) Qty: 14 0RF cetirizine [Zyrtec] 10 mg tablet 10 mg PO DAILY Qty: 14 0RF diphenhydramine HCl [Benadryl] 25 mg capsule 25 mg PO TID PRN (Reason: itching) Qty: 14 0RF permethrin 5 % cream 1 appl topical Q14D Qty: 60 0RF Rx Instructions: apply second treatment 14 days after first treatment if live lice remain cetirizine 10 mg tablet 10 mg PO DAILY lorazepam 1 mg tablet PO ondansetron 4 mg tablet,disintegrating 4 mg PO Q6-8H PRN simethicone 180 mg capsule 180 mg PO QID 30 Days Qty: 120 3RF Rx Instructions: after meals gabapentin 100 mg capsule 100 mg PO DAILY famotidine 20 mg tablet 20 mg PO DAILY docusate sodium 100 mg capsule 100 mg PO DAILY senna 8.6 mg capsule 17.2 mg PO BEDTIME 30 Days Qty: 60 6RF cholecalciferol (vitamin D3) 25 mcg (1,000 unit) capsule 25 mcg PO DAILY mecobalamin (vitamin B12) 1,000 mcg tablet,chewable 1,000 mcg PO DAILY Referrals: [facility] [Provider Group] (Call to establish and follow up with a primary care provider. If you already have a primary care provider, please follow up with them. ) [facility] [Provider Group] (Call to establish and follow up with a primary care provider. If you already have a primary care provider, please follow up with them. ) [facility] (Call to establish and follow up with a primary care provider. If you already have a primary care provider, please follow up with them. ) [facility] Rheumatology Service [Provider Group] [facility] [Physician] - (Call to establish and follow up with a primary care provider. If you already have a primary care provider, please follow up with them. ) Interventions: ED Discharge Assessment Last Done: 02/16/22 18:15 Discharge Date/Time: 02/16/22 18:15 Print Language: Citizen Of [place]
[2022-02-16] MEDS: Acetaminophen 325 MG TABLET 650 MG PO (14:22)
[2022-02-16] MEDS: LORazepam 1 MG TABLET 2 MG PO (14:22)
[2022-02-16] MEDS: 0.9 % Sodium Chloride 1,000 ML 999 ML IV (14:26)
[2022-02-16 14:28] LABS: MANUAL DIFF FLAG NO
[2022-02-16 14:28] LABS: Venous Blood Gas Refer to POC result
[2022-02-16 14:29] LABS: Basophils Percent Auto 0.5 % (0-2); Eosinophils Absolute Auto 0.1 X10*3/uL (0.0-0.4); Eosinophils Percent Auto 1.8 % (0-4); Hematocrit 41.1 % (37.0-47.0); Hemoglobin 13.4 g/dl (12.0-16.0); Imm Gran Abs Auto 0.02 X10*3/uL (0.00-0.03); Imm Gran Pct Auto 0.3 % (0.0-0.4); Lymphocytes Absolute Auto 0.6 X10*3/uL (1.2-4.9); Lymphocytes Percent Auto 10.4 % (20-40); Mean Corpuscular HGB Conc 32.6 g/dl (31.0-35.0); Mean Platelet Volume 8.4 fL (9.4-12.3); Monocytes Absolute Auto 0.7 X10*3/uL (0.1-1.2); Neutrophils Absolute Auto 4.6 x10*3/uL (2.0-8.3); Platelet Count 441 X10*3/uL (160-400); Red Blood Count 4.78 X10*6/uL (4.20-5.50); Red Cell Distribution Width 14.4 % (11.0-16.0); White Blood Count 6.2 X10*3/uL (4.8-10.8)
[2022-02-16] MEDS: ondansetron HCL 4 MG/2 ML VIAL IVPUSH (14:29)
[2022-02-16 14:30] LABS: VBG Base Excess -3.2 mmol/L; VBG HCO3 21 mmol/L (22-26); VBG pCO2 36 mmHg; VBG pH 7.37 (7.32-7.43); VBG pO2 56 mmHg
[2022-02-16 14:47] LABS: Lactic Acid 2.1 mmol/L (0.5-2.0)
[2022-02-16 14:49] LABS: Alanine Aminotransferase 38 U/L (0-31); Albumin Level 4.9 g/dL (3.5-5.0); Alkaline Phosphatase 101 U/L (39-117); Anion Gap 16 (12-20); Aspartate Amino Transferase 29 U/L (5-31); Bilirubin Total 0.4 mg/dL (0.0-1.0); Blood Urea Nitrogen 8 mg/dL (9-16); C Reactive Protein 0.08 mg/dL (< or = 0.50); Calcium 10.4 mg/dL (8.4-10.2); Carbon Dioxide 23 mmol/L (22-29); Chloride 104 mmol/L (96-108); Creatinine Clr Calc Pharmacy 73.7; Estimated Glomerular Filt Rate > 60; Glucose Random 90 mg/dL (60-115); Magnesium 1.7 mg/dL (1.6-2.6); Potassium 4.2 mmol/L (3.3-5.1); Sodium 139 mmol/L (135-145)
[2022-02-16 14:50] LABS: COVID-19 Test Negative (Negative)
[2022-02-16 14:53] LABS: Troponin-I High Sensitivity < 3.5 ng/L (<3.5-17.0)
[2022-02-16 15:08] LABS: Erythrocyte Sedimentation Rate 7 MM/HR (0-20)
[2022-02-16 15:39] VITALS: TEMP 37.9
[2022-02-16 16:25] LABS: Reflex Lactate? Lactic Acid Added
--- NOTE | 2022-02-16 16:32 | ECG_ITS ---
Test Reason : FEVER Blood Pressure : / mmHG Vent. Rate : 094 BPM Atrial Rate : 094 BPM P-R Int : 156 ms QRS Dur : 064 ms QT Int : 360 ms P-R-T Axes : 036 042 024 degrees QTc Int : 450 ms Normal sinus rhythm Normal ECG When compared with ECG of 08-JAN-2020 07:32, No significant change was found Referred By: Marleny Patel Electronically Signed By:GOYO HENDERSON
--- NOTE | 2022-02-16 16:46 | PC.NURSE ---
remaining labs drawn, pt provided with urine container for clean catch.
[2022-02-16 16:56] LABS: Fibrinogen 475 MG/DL (259-690)
[2022-02-16 17:03] LABS: ~Lactic Acid-LAB USE ONLY 0.7 mmol/L (0.5-2.0)
[2022-02-16 17:44] LABS: Appearance Urine Clear; Color Urine Yellow; Glucose Urine UA Negative (Negative); Leukocyte Esterase Urine Negative (Negative); Nitrite Urine Negative (Negative); PH 5.5 (5.0-8.0); Specific Gravity - Urine <= 1.005 (1.005-1.025); Urine Blood Negative (Negative); Urine Ketones Negative (Negative); Urine Protein Negative (Neg-Trace)
[2022-02-19 19:22] LABS: A. Phagocytphilium DNA,RT-PCR NOT DETECTED (NOT DETECTED); Babesia Microti DNA, RT-PCR NOT DETECTED (NOT DETECTED); Borrelia Miyamotoi,DNA RT-PCR NOT DETECTED (NOT DETECTED); E.Chaffeensis DNA RT-PCR NOT DETECTED (NOT DETECTED); Lyme(Borrelia ssp)DNA RT-PCR NOT DETECTED (NOT DETECTED)
== END 2022-02-16 18:15 | disposition home or self-care (01) ==
PROVIDERS: Physician Assistant Medical; Emergency Provider Emergency Medicine
DX: B34.9 Viral infection, unspecified (principal); R50.9 Fever, unspecified; R06.02 Shortness of breath; M79.10 Myalgia, unspecified site; F17.210 Nicotine dependence, cigarettes, uncomplicated; Z20.822 Contact with and (suspected) exposure to COVID-19; Z71.6 Tobacco abuse counseling; Z79.899 Other long term (current) drug therapy
CPT/HCPCS: 36415; 71046; 80053; 81003; 82803; 83605; 83735; 84484; 85025; 85384; 85652; 86140; 87040; 87635; 87798; 87801; 93005; 96361; 96374; 99284; J2405

== ENCOUNTER 2022-02-27 00:12 | Emergency (ER) | payer MEDICARE, MEDICAID, SELFPAY ==
--- NOTE | ~2022-02-27 | CT_ITS ---
EXAMINATION: CT ABDOMEN AND PELVIS WITH CONTRAST CLINICAL INFORMATION: Severe abdominal pain COMPARISON: 10/10/2020 TECHNIQUE: Multidetector volumetric images were obtained from the superior aspect of the liver through the pubic symphysis following administration 85 mL of Omnipaque 350 intravenous contrast. Sagittal and coronal reformatted images were obtained on the technologist's workstation. Oral contrast: No This CT examination was performed using dose optimization techniques as appropriate, variously including the following: *Automated exposure control *Adjustment of mA and/or kV according to patient size (this includes techniques or standardized protocols for targeted exams where dose is matched to indication/reason for exam; i.e. extremities or head) *Use of iterative reconstruction technique DLP: 318 mGy-cm FINDINGS: LUNG BASES: The visualized lung bases are unremarkable. LIVER, GALLBLADDER, AND BILIARY TREE: The liver is normal in size, shape, and attenuation. No focal hepatic lesion or biliary ductal dilatation is present. Gallbladder unremarkable. PANCREAS: Unremarkable. SPLEEN: Unremarkable. ADRENAL GLANDS: Unremarkable. KIDNEYS AND URETERS: The kidneys are normal in size, shape, and attenuation. No hydronephrosis, hydroureter, or calculi seen. No perinephric stranding. BLADDER: Unremarkable. GASTROINTESTINAL TRACT: Mild submucosal edema within the ascending colon suggestive of colitis. Remainder of the colon unremarkable. Normal appendix. Stomach and small bowel unremarkable. ABDOMINAL WALL: No significant hernia is appreciated. LYMPH NODES: Normal. VASCULAR: Unremarkable. PELVIC VISCERA: Unremarkable. OSSEOUS STRUCTURES: Unremarkable. CT/CT abdomen pelvis w con IMPRESSION: Finding suggestive of mild colitis involving the ascending colon.
[2022-02-27 00:24] VITALS: BP 121/68; PULSE 97; O2SAT 98
[2022-02-27 01:31] VITALS: BP 121/52; PULSE 89; RESP 16; TEMP 36.8; O2SAT 99; BMI 19.8
--- NOTE | 2022-02-27 03:08 | ED.ABDPAIN ---
HPI - Abdominal Pain General Chief Complaint: Abdominal Pain Stated Complaint: abd pain Time Seen by Provider: 02/27/22 03:05 Source: patient Limitations: no limitations History of Present Illness HPI narrative: This is a 46-year-old female who the evening before yesterday developed abdominal pain and some vomiting when she tried to drink water. The pain has progressed and is now worse. The patient had been able to go sleep but woke up with severe pain. She denies any constipation or diarrhea. She denies any fever. She denies any dysuria or urinary frequency. She denies alcohol use. Denies any prior abdominal surgery. Pain is severe, worse with straightening her body/extending her hips, better in a position Related Data Home Medications Medication Instructions Recorded Confirmed cetirizine 10 mg tablet 10 mg PO DAILY 03/31/20 03/31/20 lorazepam 1 mg tablet mg PO 03/31/20 03/31/20 ondansetron 4 mg disintegrating 4 mg PO Q6-8H PRN 03/31/20 03/31/20 tablet famotidine 20 mg tablet 20 mg PO DAILY 06/17/20 gabapentin 100 mg capsule 100 mg PO DAILY 06/17/20 docusate sodium 100 mg capsule 100 mg PO DAILY 11/08/20 cholecalciferol (vitamin D3) 25 25 mcg PO DAILY 12/09/20 mcg (1,000 unit) capsule mecobalamin (vitamin B12) 1,000 1,000 mcg PO DAILY 12/09/20 mcg chewable tablet acetaminophen 500 mg tablet 500 mg PO Q4H PRN pain 01/06/21 cyanocobalamin (vitamin B-12) 1,000 mcg PO DAILY 01/06/21 1,000 mcg tablet gabapentin 300 mg capsule 0 mg PO 01/06/21 loratadine 10 mg tablet 10 mg PO DAILY 01/06/21 naproxen 375 mg tablet 375 mg PO BID 01/06/21 Previous Rx's Medication Instructions Recorded simethicone 180 mg capsule 180 mg PO QID 30 days #120 caps 04/21/20 phenazopyridine 100 mg tablet 100 mg PO TID PRN pain 6 doses #6 10/10/20 (Pyridium) tabs hydroxyzine HCl 25 mg tablet 25 mg PO BID PRN itching #14 tabs 10/25/20 sennosides 8.6 mg capsule (senna) 17.2 mg PO BEDTIME constipation 30 11/08/20 days #60 caps diazepam 2 mg tablet (Valium) 2 mg PO DAILY anxiety #2 tabs 03/30/21 cetirizine 10 mg tablet (Zyrtec) 10 mg PO DAILY #14 tabs 01/30/22 diphenhydramine HCl 25 mg capsule 25 mg PO TID PRN itching #14 caps 01/30/22 (Benadryl) permethrin 5 % topical cream 1 appl topical Q14D 2 doses #60 01/30/22 grams ondansetron 4 mg disintegrating 4 mg PO Q8H 3 days #9 tabs 02/16/22 tablet tramadol 50 mg tablet 50 - 100 mg PO Q6H PRN pain #20 02/27/22 tabs Allergies Allergy/AdvReac Type Severity Reaction Status Date / Time hydrocodone [From VICODIN] Allergy Intermediate DEPRESSES Verified 01/30/22 10:47 BREATHING nitrofurantoin Allergy Intermediate urticaria Verified 01/30/22 10:47 [From Macrobid] peach [PEACH] Allergy Intermediate ITCHING Verified 01/30/22 10:47 ibuprofen [IBUPROFEN] Allergy Mild NAUSEA & Verified 01/30/22 10:47 VOMITING oxycodone [From TYLOX] Allergy Mild RASH Verified 01/30/22 10:47 prednisone [PREDNISONE] Allergy Mild RASH Verified 01/30/22 10:47 trazodone AdvReac Intermediate itch Verified 01/30/22 10:47 Review of Systems Review of Systems Yes all other systems are reviewed and are negative Constitutional: Reports as per HPI and Denies fever(s) Eyes: Reports as per HPI and Reports no additional eye complaints Reports system reviewed and no additional complaints, except as documented, Reports as per HPI, Denies nasal congestion, Denies nasal discharge and Denies sore throat Cardiovascular: Reports as per HPI, Denies chest pain and Denies dyspnea Respiratory: Reports as per HPI, Denies cough and Denies dyspnea Gastrointestinal: Reports as per HPI, Reports abdominal pain, Denies diarrhea, Reports nausea and Reports vomiting Genitourinary: Reports as per HPI, Denies hematuria, Denies urinary frequency and Denies dysuria Musculoskeletal: Reports no additional musculoskeletal complaints and Denies numbness Skin/Breast: Reports as per HPI and Denies rash Reports as per HPI, Denies focal weakness and Denies numbness Psychiatric: Reports no additional psychiatric complaints and Reports as per HPI Endocrine: Reports no additional endocrine complaints and Reports as per HPI Hematologic/Lymphatic: Reports no additional hematologic/lymphatic complaints, Reports as per HPI and Reports other (No peripheral edema) [facility], [facility] Past Medical History Medical History Tracey infection of genital region Costochondral chest pain Diverticulitis Gastric ulcer UTI (urinary tract infection) Surgical History H/O colonoscopy Hx of endoscopy (01/19/20) Family History Family History Mother CKD (chronic kidney disease) stage 3, GFR 30-59 ml/min Gallbladder calculus with acute cholecystitis Diabetes HTN (hypertension) Father No problems noted. Maternal Grandfather Diabetes HTN (hypertension) Hypercholesteremia Social History Social History Alcohol intake: never Patient Tobacco Use Status: Current everyday Tobacco user Cigarette Packs Per Day: 0.5 Cigarettes Per Day: 10 Use of substances other than those prescribed or required for medical reasons: No Substance Use Type: Marijuana Advance Directives: No Advance Directives Information Provided: No Patient : No Current occupational status: disabled Current occupation: She is currently taking classes at [employer] Physical Exam ED Vital Signs: Vital Signs - 24 hr 02/27/22 01:31 Temperature 98.3 F Pulse Rate 89 Respiratory Rate 16 Blood Pressure 121/52 L Pulse Oximetry 99 Oxygen Delivery Method Room Air BMI result Body Mass Index 19.8 Const Other: Patient uncomfortable appearing, lying in a position on her left side General: no acute distress Orientation/consciousness: patient oriented x3 HENMT Head: Yes normal to inspection General nose exam: Normal external nose present Mouth: moist mucous membranes Throat: Yes posterior oropharynx normal, Yes tonsils normal and Yes uvula midline Eyes Eyelids: Yes eyelids normal Conjunctivae: conjunctivae normal Pupils: Equal, round and reactive pupils present Neck Neck: Yes supple Resp Effort & Inspection: normal respiratory effort Auscultation: clear to auscultation bilaterally Cardio Rate: regular rate Rhythm: regular rhythm Heart sounds: S1 normal heart sound present, S2 normal heart sound present, no gallops, no murmurs and no rubs GI Inspection: No distended Palpation (GI): Soft to palpation and Tenderness to palpation present (GI) (Epigastric, left upper quadrant, left lower quadrant) Auscultation: normal bowel sounds Skin General skin exam: other (Warm and dry) Neuro General: patient oriented x3 and CN's II-XI intact bilaterally Cranial nerves: Yes Equal, round and reactive pupils present Extrem General: Yes no pedal edema Psych Affect: normal affect Attitude: cooperative MDM - Abdominal Pain MDM Narrative Medical decision making narrative: Patient with reported severe abdominal pain, was improved after medicine. Labs unremarkable including urinalysis. CT showed mild edema the right colon submucosa suggestive of colitis, however patient's pain is bilateral patient has not had any diarrhea, so colitis is unlikely. Recommend supportive treatment with pain medicine, PCP follow-up Lab Data Attestation: I reviewed the patient's lab results. Result diagrams: 02/27/22 03:23 02/27/22 03:23 Labs: Lab Results 02/27/22 02/27/22 02/27/22 Range/Units 03:23 03:23 05:22 WBC 7.2 (4.8-10.8) X10*3/uL RBC 4.34 (4.20-5.50) X10*6/uL Hgb 11.9 L (12.0-16.0) g/dl Hct 37.1 (37.0-47.0) % MCV 85.5 (80.0-98.0) fL MCH 27.4 (27.0-33.0) pg MCHC 32.1 (31.0-35.0) g/dl RDW 13.8 (11.0-16.0) % Plt Count 359 (160-400) X10*3/uL MPV 9.0 L (9.4-12.3) fL Immature Gran % (Auto) 0.3 (0.0-0.4) % Neut % (Auto) 55.3 (45-73) % Lymph % (Auto) 36.7 (20-40) % [place] % (Auto) 6.4 (2-11) % Eos % (Auto) 1.0 (0-4) % Baso % (Auto) 0.3 (0-2) % Lymph # (Auto) 2.6 (1.2-4.9) X10*3/uL [place] # (Auto) 0.5 (0.1-1.2) X10*3/uL Eos # (Auto) 0.1 (0.0-0.4) X10*3/uL Baso # (Auto) 0.0 (0.0-0.2) X10*3/uL Abs Immat Gran (auto) 0.02 (0.00-0.03) X10*3/uL Absolute Neuts (auto) 4.0 (2.0-8.3) x10*3/uL Absolute Nucleated RBC 0.000 (0.0-0.012) X10*3/uL Nucleated RBC % (auto) 0.0 (0.0-0.2) /100WBC Sodium 146 H (135-145) mmol/L Potassium 4.1 (3.3-5.1) mmol/L Chloride 108 (96-108) mmol/L Carbon Dioxide 26 (22-29) mmol/L Anion Gap 16 (12-20) BUN 12 (9-16) mg/dL Creatinine 0.76 (0.5-1.4) mg/dL Estim Creat Clear Calc 77.9 Estimated GFR > 60 Random Glucose 127 H (60-115) mg/dL Calcium 9.6 D (8.4-10.2) mg/dL Total Bilirubin 0.3 (0.0-1.0) mg/dL AST 14 D (5-31) U/L ALT 13 (0-31) U/L Alkaline Phosphatase 82 (39-117) U/L Total Protein 6.8 (6.5-8.0) g/dL Albumin 4.2 (3.5-5.0) g/dL Lipase 27 (8-78) U/L Beta HCG, Quant < 2 mIU/mL Urine Color Yellow Urine Appearance Clear Urine pH 6.0 (5.0-8.0) Ur Specific [place] >= 1.030 H (1.005-1.025) Urine Protein Trace (Neg-Trace) mg/dL Urine Glucose (UA) Negative (Negative) mg/dL Urine Ketones Negative (Negative) mg/dL Urine Blood Negative (Negative) Urine Nitrite Negative (Negative) Ur Leukocyte Esterase Negative (Negative) Imaging Data CT abdomen and pelvis with IV contrast: Radiologist's impression: IMPRESSION: Finding suggestive of mild colitis involving the ascending colon. Discharge Plan Discharge Clinical Impression: Abdominal pain Patient Disposition: Home, Self-Care Instructions: Abdominal Pain (ED) Additional Instructions: Drink plenty of fluids. Use tramadol as prescribed for pain. Follow up with your primary care physician Prescriptions: New tramadol 50 mg tablet 50 - 100 mg PO Q6H PRN (Reason: pain) Qty: 20 0RF No Action diazepam [Valium] 2 mg tablet 2 mg PO DAILY Qty: 2 0RF Rx Instructions: take one tab when arrive for procedure phenazopyridine [Pyridium] 100 mg tablet 100 mg PO TID PRN (Reason: pain) Qty: 6 0RF hydroxyzine HCl 25 mg tablet 25 mg PO BID PRN (Reason: itching) Qty: 14 0RF cetirizine [Zyrtec] 10 mg tablet 10 mg PO DAILY Qty: 14 0RF diphenhydramine HCl [Benadryl] 25 mg capsule 25 mg PO TID PRN (Reason: itching) Qty: 14 0RF permethrin 5 % cream 1 appl topical Q14D Qty: 60 0RF Rx Instructions: apply second treatment 14 days after first treatment if live lice remain ondansetron 4 mg tablet,disintegrating 4 mg PO Q8H 3 Days Qty: 9 0RF cetirizine 10 mg tablet 10 mg PO DAILY lorazepam 1 mg tablet PO ondansetron 4 mg tablet,disintegrating 4 mg PO Q6-8H PRN simethicone 180 mg capsule 180 mg PO QID 30 Days Qty: 120 3RF Rx Instructions: after meals gabapentin 100 mg capsule 100 mg PO DAILY famotidine 20 mg tablet 20 mg PO DAILY docusate sodium 100 mg capsule 100 mg PO DAILY senna 8.6 mg capsule 17.2 mg PO BEDTIME 30 Days Qty: 60 6RF cholecalciferol (vitamin D3) 25 mcg (1,000 unit) capsule 25 mcg PO DAILY mecobalamin (vitamin B12) 1,000 mcg tablet,chewable 1,000 mcg PO DAILY
[2022-02-27] MEDS: 0.9 % Sodium Chloride 1,000 ML 999 ML IV (03:24)
[2022-02-27] MEDS: HYDROmorphone HCl 1 MG/ML SYRINGE IVPUSH (03:24)
[2022-02-27] MEDS: ondansetron HCL 4 MG/2 ML VIAL IVPUSH (03:24)
[2022-02-27 03:31] LABS: MANUAL DIFF FLAG NO
[2022-02-27 03:32] LABS: Basophils Percent Auto 0.3 % (0-2); Eosinophils Absolute Auto 0.1 X10*3/uL (0.0-0.4); Hematocrit 37.1 % (37.0-47.0); Hemoglobin 11.9 g/dl (12.0-16.0); Imm Gran Abs Auto 0.02 X10*3/uL (0.00-0.03); Imm Gran Pct Auto 0.3 % (0.0-0.4); Lymphocytes Absolute Auto 2.6 X10*3/uL (1.2-4.9); Lymphocytes Percent Auto 36.7 % (20-40); Mean Corpuscular HGB Conc 32.1 g/dl (31.0-35.0); Mean Corpuscular Hemoglobin 27.4 pg (27.0-33.0); Mean Corpuscular Volume 85.5 fL (80.0-98.0); Monocytes Absolute Auto 0.5 X10*3/uL (0.1-1.2); Monocytes Percent Auto 6.4 % (2-11); Neutrophils Percent Auto 55.3 % (45-73); Platelet Count 359 X10*3/uL (160-400); Red Blood Count 4.34 X10*6/uL (4.20-5.50); Red Cell Distribution Width 13.8 % (11.0-16.0); White Blood Count 7.2 X10*3/uL (4.8-10.8)
[2022-02-27 03:49] LABS: Alanine Aminotransferase 13 U/L (0-31); Albumin Level 4.2 g/dL (3.5-5.0); Alkaline Phosphatase 82 U/L (39-117); Anion Gap 16 (12-20); Aspartate Amino Transferase 14 U/L (5-31); Bilirubin Total 0.3 mg/dL (0.0-1.0); Blood Urea Nitrogen 12 mg/dL (9-16); Calcium 9.6 mg/dL (8.4-10.2); Carbon Dioxide 26 mmol/L (22-29); Chloride 108 mmol/L (96-108); Creatinine Clr Calc Pharmacy 77.9; Estimated Glomerular Filt Rate > 60; Glucose Random 127 mg/dL (60-115); Lipase 27 U/L (8-78); Potassium 4.1 mmol/L (3.3-5.1); Sodium 146 mmol/L (135-145); Total Protein 6.8 g/dL (6.5-8.0)
[2022-02-27 03:55] LABS: HCG Quantitative < 2 mIU/mL
[2022-02-27] MEDS: iohexoL 350 MG/ML 100 ML INFUS..BTL IV (04:14)
[2022-02-27 05:32] LABS: Appearance Urine Clear; Color Urine Yellow; Glucose Urine UA Negative (Negative); Leukocyte Esterase Urine Negative (Negative); Nitrite Urine Negative (Negative); Specific Gravity - Urine >= 1.030 (1.005-1.025); Urine Blood Negative (Negative); Urine Ketones Negative (Negative); Urine Protein Trace mg/dL (Neg-Trace)
== END 2022-02-27 06:16 | disposition home or self-care (01) ==
PROVIDERS: Emergency Provider Emergency Medicine
DX: R10.9 Unspecified abdominal pain (principal); F17.210 Nicotine dependence, cigarettes, uncomplicated; F12.90 Cannabis use, unspecified, uncomplicated
CPT/HCPCS: 36415; 74177; 80053; 81003; 83690; 84702; 85025; 96361; 96374; 96375; 99284; J1170; J2405; Q9967

== ENCOUNTER 2022-11-06 13:33 | Emergency (ER) | payer MEDICARE, MEDICAID, SELFPAY ==
--- NOTE | ~2022-11-06 | XR_ITS ---
EXAMINATION: XR CERVICAL SPINE CLINICAL INFORMATION: Cervical radiculopathy COMPARISON: None available. TECHNIQUE: 4views of the cervical spine were obtained. FINDINGS: Bone alignment is normal. No fracture or dislocation. Degenerative spondylosis and disc space narrowing at C3-C4 C5-C6 and C6-C7. Prevertebral soft tissues are normal. XR/XR cervical spine 3V IMPRESSION: Degenerative changes.
--- NOTE | ~2022-11-06 | XR_ITS ---
EXAMINATION: XR CHEST CLINICAL INFORMATION: Shortness of breath COMPARISON: Previous chest x-ray most recent January 2022 TECHNIQUE: 2 views of the chest were obtained. FINDINGS: No significant abnormality is noted involving the heart, lungs, mediastinum, bony thorax or soft tissues. XR/XR chest 2V IMPRESSION: Unremarkable examination.
[2022-11-06 13:35] VITALS: BP 136/86; PULSE 100; RESP 17; TEMP 36.7; O2SAT 100; BMI 22.6
--- NOTE | 2022-11-06 13:36 | ED_ITS ---
HPI - General Adult General Chief complaint: General Medical <BERNABE Schuster - Last Filed: 11/06/22 13:43> Stated complaint: L arm pain/shoulder pain diff breathing <BERNABE Schuster - Last Filed: 11/06/22 13:43> Time Seen by Provider: 11/06/22 14:08 <BERNABE Schuster - Last Filed: 11/06/22 13:43> Source: patient <Drew Song MD - Last Filed: 11/06/22 15:49> Mode of arrival: ambulatory <Drew Song MD - Last Filed: 11/06/22 15:49> Limitations: no limitations <Drew Song MD - Last Filed: 11/06/22 15:49> History of Present Illness HPI narrative: 46-year-old female with a past medical history of diverticulitis, gastric ulcer, GERD, anxiety presents to the ED c/o SOB & L shoulder pain radiating down LUE since yesterday. +cigarette smoker. denies CP, travel. Patient states that she has had neck issues in the past and does suffer from anxiety and panic attacks <Drew Song MD - Last Filed: 11/06/22 15:49> Onset (ago): day(s) <Drew Song MD - Last Filed: 11/06/22 15:49> Location: left and upper extremity <Drew Song MD - Last Filed: 11/06/22 15:49> Severity: moderate <Drew Song MD - Last Filed: 11/06/22 15:49> Pain Consistency: constant <Drew Song MD - Last Filed: 11/06/22 15:49> Associated symptoms: shortness of breath <Drew Song MD - Last Filed: 11/06/22 15:49> Related Data Home medications: Home Medications Medication Instructions Recorded Confirmed cetirizine 10 mg tablet 10 mg PO DAILY 03/31/20 03/31/20 lorazepam 1 mg tablet mg PO 03/31/20 03/31/20 ondansetron 4 mg disintegrating 4 mg PO Q6-8H PRN 03/31/20 03/31/20 tablet famotidine 20 mg tablet 20 mg PO DAILY 06/17/20 gabapentin 100 mg capsule 100 mg PO DAILY 06/17/20 docusate sodium 100 mg capsule 100 mg PO DAILY 11/08/20 cholecalciferol (vitamin D3) 25 25 mcg PO DAILY 12/09/20 mcg (1,000 unit) capsule mecobalamin (vitamin B12) 1,000 1,000 mcg PO DAILY 12/09/20 mcg chewable tablet acetaminophen 500 mg tablet 500 mg PO Q4H PRN pain 01/06/21 cyanocobalamin (vitamin B-12) 1,000 mcg PO DAILY 01/06/21 1,000 mcg tablet gabapentin 300 mg capsule 0 mg PO 01/06/21 loratadine 10 mg tablet 10 mg PO DAILY 01/06/21 naproxen 375 mg tablet 375 mg PO BID 01/06/21 Previous Rx's Medication Instructions Recorded simethicone 180 mg capsule 180 mg PO QID 30 days #120 caps 04/21/20 phenazopyridine 100 mg tablet 100 mg PO TID PRN pain 6 doses #6 10/10/20 (Pyridium) tabs hydroxyzine HCl 25 mg tablet 25 mg PO BID PRN itching #14 tabs 10/25/20 sennosides 8.6 mg capsule (senna) 17.2 mg PO BEDTIME constipation 30 11/08/20 days #60 caps diazepam 2 mg tablet (Valium) 2 mg PO DAILY anxiety #2 tabs 03/30/21 cetirizine 10 mg tablet (Zyrtec) 10 mg PO DAILY #14 tabs 01/30/22 diphenhydramine HCl 25 mg capsule 25 mg PO TID PRN itching #14 caps 01/30/22 (Benadryl) permethrin 5 % topical cream 1 appl topical Q14D 2 doses #60 01/30/22 grams ondansetron 4 mg disintegrating 4 mg PO Q8H 3 days #9 tabs 02/16/22 tablet tramadol 50 mg tablet 50 - 100 mg PO Q6H PRN pain #20 02/27/22 tabs naproxen 500 mg tablet (Naprosyn) 500 mg PO BID #20 tabs 11/06/22 <BERNABE Schuster - Last Filed: 11/06/22 13:43> Allergies/adverse reactions: Allergies Allergy/AdvReac Type Severity Reaction Status Date / Time hydrocodone [From VICODIN] Allergy Intermediate DEPRESSES Verified 01/30/22 10:47 BREATHING nitrofurantoin Allergy Intermediate urticaria Verified 01/30/22 10:47 [From Macrobid] peach [PEACH] Allergy Intermediate ITCHING Verified 01/30/22 10:47 ibuprofen [IBUPROFEN] Allergy Mild NAUSEA & Verified 01/30/22 10:47 VOMITING oxycodone [From TYLOX] Allergy Mild RASH Verified 01/30/22 10:47 prednisone [PREDNISONE] Allergy Mild RASH Verified 01/30/22 10:47 trazodone AdvReac Intermediate itch Verified 01/30/22 10:47 <BERNABE Schuster - Last Filed: 11/06/22 13:43> Review of Systems Review of Systems: Yes all other systems are reviewed and are negative <Drew Song MD - Last Filed: 11/06/22 15:49> ENT: Reports neck pain <Drew Song MD - Last Filed: 11/06/22 15:49> Cardiovascular: Cardiovascular: Reports dyspnea <Drew Song MD - Last Filed: 11/06/22 15:49> Respiratory: Respiratory: Reports dyspnea <Drew Song MD - Last Filed: 11/06/22 15:49> Musculoskeletal: Musculoskeletal: Reports neck pain <Drew Song MD - Last Filed: 11/06/22 15:49> Psychiatric: Psychiatric: Reports panic attacks <Drew Song MD - Last Filed: 11/06/22 15:49> [facility] Past Medical History Medical History: Medical History Tracey infection of genital region Costochondral chest pain Diverticulitis Gastric ulcer UTI (urinary tract infection) <BERNABE Schuster - Last Filed: 11/06/22 13:43> Surgical History: Surgical History H/O colonoscopy Hx of endoscopy (01/19/20) <BERNABE Schuster - Last Filed: 11/06/22 13:43> Family History Family History: Family History Mother CKD (chronic kidney disease) stage 3, GFR 30-59 ml/min Gallbladder calculus with acute cholecystitis Diabetes HTN (hypertension) Father No problems noted. Maternal Grandfather Diabetes HTN (hypertension) Hypercholesteremia <BERNABE Schuster - Last Filed: 11/06/22 13:43> Social History Social History: Social History Alcohol intake: never Patient Tobacco Use Status: Current everyday Tobacco user Cigarette Packs Per Day: 0.5 Cigarettes Per Day: 10 Substance Use Type: Marijuana Current occupational status: disabled Current occupation: She is currently taking classes at [employer] <BERNABE Schuster - Last Filed: 11/06/22 13:43> Physical Exam ED Vital Signs: Vital Signs - 24 hr 11/06/22 13:35 11/06/22 14:00 Temperature 98.0 F 98.7 F Pulse Rate 100 92 Respiratory Rate 17 18 Blood Pressure 136/86 133/97 H Pulse Oximetry 100 99 Oxygen Delivery Method Room Air Room Air BMI result Body Mass Index 22.6 <BERNABE Schuster - Last Filed: 11/06/22 13:43> Vital Signs - 24 hr 11/06/22 13:35 11/06/22 14:00 Temperature 98.0 F 98.7 F Pulse Rate 100 92 Respiratory Rate 17 18 Blood Pressure 136/86 133/97 H Pulse Oximetry 100 99 Oxygen Delivery Method Room Air Room Air BMI result Body Mass Index 22.6 <Drew Song MD - Last Filed: 11/06/22 15:49> Const Other: severely anxious <Drew Song MD - Last Filed: 11/06/22 15:49> General: healthy appearing <Drew Song MD - Last Filed: 11/06/22 15:49> Nutritional Appearance: average body habitus <Drew Song MD - Last Filed: 11/06/22 15:49> Orientation/consciousness: oriented to person and patient oriented x3 <Drew Song MD - Last Filed: 11/06/22 15:49> Limitations: no limitations <Drew Song MD - Last Filed: 11/06/22 15:49> HENMT Head: Yes normal to inspection <Drew Song MD - Last Filed: 11/06/22 15:49> Ears: external ears normal <Drew Song MD - Last Filed: 11/06/22 15:49> General nose exam: Normal external nose present <Drew Song MD - Last Filed: 11/06/22 15:49> Mouth: Normal oral and palatal mucosa present and oropharynx normal <Drew Song MD - Last Filed: 11/06/22 15:49> Throat: Yes posterior oropharynx normal <Drew Song MD - Last Filed: 11/06/22 15:49> Eyes General: appearance normal, both eyes and all related structures <Drew Song MD - Last Filed: 11/06/22 15:49> Neck Neck: Yes normal visual inspection <Drew Song MD - Last Filed: 11/06/22 15:49> Chest Chest palpation & inspection: normal inspection of the chest <Drew Song MD - Last Filed: 11/06/22 15:49> Resp Auscultation: clear to auscultation bilaterally <Drew Song MD - Last Filed: 11/06 15:49> Cardio Jugular venous distension: no JVD <Drew Song MD - Last Filed: 11/06/22 15:49> Rate: regular rate <Drew Song MD - Last Filed: 11/06/22 15:49> Rhythm: regular rhythm <Drew Song MD - Last Filed: 11/06/22 15:49> Heart sounds: S1 normal heart sound present and S2 normal heart sound present <Drew Song MD - Last Filed: 11/06/22 15:49> GI Inspection: Yes normal to inspection <Drew Song MD - Last Filed: 11/06/22 15:49> Palpation (GI): Soft to palpation, nontender and No hepatosplenomegaly present <MD Dong Lizarraga Last Filed: 11/06/22 15:49> Auscultation: normal bowel sounds <Drew Song MD - Last Filed: 11/06/22 15:49> General: Yes no CVA tenderness <Drew Song MD - Last Filed: 11/06/22 15:49> Back/Spine/Pelvis Back: no CVA tenderness <Drew Song MD - Last Filed: 11/06/22 15:49> Skin General skin exam: no rashes or lesions noted <Drew Song MD - Last Filed: 11/06/22 15:49> Neuro General: oriented to person and patient oriented x3 <Drew Song MD - Last Filed: 11/06/22 15:49> Cranial nerves: Yes CN's II-XII intact bilaterally <Drew Song MD - Last Filed: 0 11/06/22 15:49> Motor exam (neuro): 5/5 motor strength present throughout <Drew Song MD - Last Filed: 11/06/22 15:49> Extrem General: Yes normal to inspection <Drew Song MD - Last Filed: 11/06/22 15:49> Psych Other: anxious tearful <Drew Song MD - Last Filed: 11/06/22 15:49> Course Course Course Narrative: RME: 46-year-old female with a past medical history of diverticulitis, gastric ulcer, GERD, anxiety presents to the ED c/o SOB & L shoulder pain radiating down LUE since yesterday. +cigarette smoker. denies CP, travel Diminished lung sounds throughout, patient grunting, appears uncomfortable EKG, labs, CXR ordered Full HPI, ROS and PE to be performed by primary ED provider. <BERNABE Schuster - Last Filed: 11/06/22 13:43> Reevaluation(s) Reevaluation #1: Labs and EKG and CXR are normal. Cervical films show moderated DJD. Will dc with diagnosis of cervical radiculopathy and anxiety <Drew Song MD - Last Filed: 11/06/22 15:49> Time: 15:43 <Drew Song MD - Last Filed: 11/06/22 15:49> Medical Decision Making Differential Diagnosis Differential Diagnoses: The differential diagnosis associated with the presentation includes (cervical radiculopathy, anxiety, panic attack, cardiac ischemia) <Drew Song MD - Last Filed: 11/06/22 15:49> Admission/Observation Consideration of admission/observation: Escalation of care including admission/observation considered (in this 47 yo female who presents with arm pain and shortness of breath, admission was considered) <Drew Song MD - Last Filed: 11/06/22 15:49> Lab Data MDM Lab Attestation statement: I reviewed the patient's lab results. <Drew Song MD - Last Filed: 11/06/22 15:49> Result Diagrams: 11/06/22 14:19 11/06/22 14:19 <BERNABE Schuster - Last Filed: 11/06/22 13:43> Labs: Lab Results 11/06/22 11/06/22 11/06/22 Range/Units 13:48 14:19 14:19 WBC 9.3 (4.8-10.8) X10*3/uL RBC 4.77 (4.20-5.50) X10*6/uL Hgb 13.1 (12.0-16.0) g/dl Hct 39.7 (37.0-47.0) % MCV 83.2 (80.0-98.0) fL MCH 27.5 (27.0-33.0) pg MCHC 33.0 (31.0-35.0) g/dl RDW 14.6 (11.0-16.0) % Plt Count 457 H D (160-400) X10*3/uL MPV 8.4 L (9.4-12.3) fL Immature Gran % (Auto) 0.2 (0.0-0.4) % Neut % (Auto) 50.0 (45-73) % Lymph % (Auto) 42.1 H (20-40) % [place] % (Auto) 5.6 (2-11) % Eos % (Auto) 1.7 (0-4) % Baso % (Auto) 0.4 (0-2) % Lymph # (Auto) 3.9 (1.2-4.9) X10*3/uL [place] # (Auto) 0.5 (0.1-1.2) X10*3/uL Eos # (Auto) 0.2 (0.0-0.4) X10*3/uL Baso # (Auto) 0.0 (0.0-0.2) X10*3/uL Abs Immat Gran (auto) 0.02 (0.00-0.03) X10*3/uL Absolute Neuts (auto) 4.7 (2.0-8.3) x10*3/uL Absolute Nucleated RBC 0.000 (0.0-0.012) X10*3/uL Nucleated RBC % (auto) 0.0 (0.0-0.2) /100WBC PT (10.0-13.1) SEC INR (0.9-1.1) Sodium 143 (135-145) mmol/L Potassium 3.9 (3.3-5.1) mmol/L Chloride 110 H (96-108) mmol/L Carbon Dioxide 24 (22-29) mmol/L Anion Gap 13 (12-20) BUN 10 (9-16) mg/dL Creatinine 0.86 (0.5-1.4) mg/dL Estim Creat Clear Calc 74.9 Estimated GFR > 60 POC Glucose 97 (60-115) mg/dL Random Glucose 90 (60-115) mg/dL Calcium 10.8 H D (8.4-10.2) mg/dL Total Bilirubin 0.4 (0.0-1.0) mg/dL Direct Bilirubin 0.1 (0.0-0.5) mg/dL AST 14 (5-31) U/L ALT 9 (0-31) U/L Alkaline Phosphatase 83 (39-117) U/L Troponin I High Sens (<3.5-17.0) ng/L B-Natriuretic Peptide (<100) pg/mL Total Protein 7.3 (6.5-8.0) g/dL Albumin 4.6 (3.5-5.0) g/dL 11/06/22 11/06/22 11/06/22 Range/Units 14:19 14:19 14:19 WBC (4.8-10.8) X10*3/uL RBC (4.20-5.50) X10*6/uL Hgb (12.0-16.0) g/dl Hct (37.0-47.0) % MCV (80.0-98.0) fL MCH (27.0-33.0) pg MCHC (31.0-35.0) g/dl RDW (11.0-16.0) % Plt Count (160-400) X10*3/uL MPV (9.4-12.3) fL Immature Gran % (Auto) (0.0-0.4) % Neut % (Auto) (45-73) % Lymph % (Auto) (20-40) % [place] % (Auto) (2-11) % Eos % (Auto) (0-4) % Baso % (Auto) (0-2) % Lymph # (Auto) (1.2-4.9) X10*3/uL [place] # (Auto) (0.1-1.2) X10*3/uL Eos # (Auto) (0.0-0.4) X10*3/uL Baso # (Auto) (0.0-0.2) X10*3/uL Abs Immat Gran (auto) (0.00-0.03) X10*3/uL Absolute Neuts (auto) (2.0-8.3) x10*3/uL Absolute Nucleated RBC (0.0-0.012) X10*3/uL Nucleated RBC % (auto) (0.0-0.2) /100WBC PT 11.9 (10.0-13.1) SEC INR 1.0 (0.9-1.1) Sodium (135-145) mmol/L Potassium (3.3-5.1) mmol/L Chloride (96-108) mmol/L Carbon Dioxide (22-29) mmol/L Anion Gap (12-20) BUN (9-16) mg/dL Creatinine (0.5-1.4) mg/dL Estim Creat Clear Calc Estimated GFR POC Glucose (60-115) mg/dL Random Glucose (60-115) mg/dL Calcium (8.4-10.2) mg/dL Total Bilirubin (0.0-1.0) mg/dL Direct Bilirubin (0.0-0.5) mg/dL AST (5-31) U/L ALT (0-31) U/L Alkaline Phosphatase (39-117) U/L Troponin I High Sens < 2.7 (<3.5-17.0) ng/L B-Natriuretic Peptide 11 (<100) pg/mL Total Protein (6.5-8.0) g/dL Albumin (3.5-5.0) g/dL <BERNABE Schuster - Last Filed: 11/06/22 13:43> Lab Results 11/06/22 11/06/22 11/06/22 Range/Units 13:48 14:19 14:19 WBC 9.3 (4.8-10.8) X10*3/uL RBC 4.77 (4.20-5.50) X10*6/uL Hgb 13.1 (12.0-16.0) g/dl Hct 39.7 (37.0-47.0) % MCV 83.2 (80.0-98.0) fL MCH 27.5 (27.0-33.0) pg MCHC 33.0 (31.0-35.0) g/dl RDW 14.6 (11.0-16.0) % Plt Count 457 H D (160-400) X10*3/uL MPV 8.4 L (9.4-12.3) fL Immature Gran % (Auto) 0.2 (0.0-0.4) % Neut % (Auto) 50.0 (45-73) % Lymph % (Auto) 42.1 H (20-40) % [place] % (Auto) 5.6 (2-11) % Eos % (Auto) 1.7 (0-4) % Baso % (Auto) 0.4 (0-2) % Lymph # (Auto) 3.9 (1.2-4.9) X10*3/uL [place] # (Auto) 0.5 (0.1-1.2) X10*3/uL Eos # (Auto) 0.2 (0.0-0.4) X10*3/uL Baso # (Auto) 0.0 (0.0-0.2) X10*3/uL Abs Immat Gran (auto) 0.02 (0.00-0.03) X10*3/uL Absolute Neuts (auto) 4.7 (2.0-8.3) x10*3/uL Absolute Nucleated RBC 0.000 (0.0-0.012) X10*3/uL Nucleated RBC % (auto) 0.0 (0.0-0.2) /100WBC PT (10.0-13.1) SEC INR (0.9-1.1) Sodium 143 (135-145) mmol/L Potassium 3.9 (3.3-5.1) mmol/L Chloride 110 H (96-108) mmol/L Carbon Dioxide 24 (22-29) mmol/L Anion Gap 13 (12-20) BUN 10 (9-16) mg/dL Creatinine 0.86 (0.5-1.4) mg/dL Estim Creat Clear Calc 74.9 Estimated GFR > 60 POC Glucose 97 (60-115) mg/dL Random Glucose 90 (60-115) mg/dL Calcium 10.8 H D (8.4-10.2) mg/dL Total Bilirubin 0.4 (0.0-1.0) mg/dL Direct Bilirubin 0.1 (0.0-0.5) mg/dL AST 14 (5-31) U/L ALT 9 (0-31) U/L Alkaline Phosphatase 83 (39-117) U/L Troponin I High Sens (<3.5-17.0) ng/L B-Natriuretic Peptide (<100) pg/mL Total Protein 7.3 (6.5-8.0) g/dL Albumin 4.6 (3.5-5.0) g/dL 11/06/22 11/06/22 11/06/22 Range/Units 14:19 14:19 14:19 WBC (4.8-10.8) X10*3/uL RBC (4.20-5.50) X10*6/uL Hgb (12.0-16.0) g/dl Hct (37.0-47.0) % MCV (80.0-98.0) fL MCH (27.0-33.0) pg MCHC (31.0-35.0) g/dl RDW (11.0-16.0) % Plt Count (160-400) X10*3/uL MPV (9.4-12.3) fL Immature Gran % (Auto) (0.0-0.4) % Neut % (Auto) (45-73) % Lymph % (Auto) (20-40) % [place] % (Auto) (2-11) % Eos % (Auto) (0-4) % Baso % (Auto) (0-2) % Lymph # (Auto) (1.2-4.9) X10*3/uL [place] # (Auto) (0.1-1.2) X10*3/uL Eos # (Auto) (0.0-0.4) X10*3/uL Baso # (Auto) (0.0-0.2) X10*3/uL Abs Immat Gran (auto) (0.00-0.03) X10*3/uL Absolute Neuts (auto) (2.0-8.3) x10*3/uL Absolute Nucleated RBC (0.0-0.012) X10*3/uL Nucleated RBC % (auto) (0.0-0.2) /100WBC PT 11.9 (10.0-13.1) SEC INR 1.0 (0.9-1.1) Sodium (135-145) mmol/L Potassium (3.3-5.1) mmol/L Chloride (96-108) mmol/L Carbon Dioxide (22-29) mmol/L Anion Gap (12-20) BUN (9-16) mg/dL Creatinine (0.5-1.4) mg/dL Estim Creat Clear Calc Estimated GFR POC Glucose (60-115) mg/dL Random Glucose (60-115) mg/dL Calcium (8.4-10.2) mg/dL Total Bilirubin (0.0-1.0) mg/dL Direct Bilirubin (0.0-0.5) mg/dL AST (5-31) U/L ALT (0-31) U/L Alkaline Phosphatase (39-117) U/L Troponin I High Sens < 2.7 (<3.5-17.0) ng/L B-Natriuretic Peptide 11 (<100) pg/mL Total Protein (6.5-8.0) g/dL Albumin (3.5-5.0) g/dL <Drew Song MD - Last Filed: 11/06/22 15:49> Independent Interpretation I performed an independent interpretation of an: Plain X-Ray <Drew Song MD - Last Filed: 11/06/22 15:49> Interpretation: CXR no ptx or infiltrate, cervical xray shows moderate djd <Drew Song MD - Last Filed: 11/06/22 15:49> Chronic Conditions Patient?s care impacted by: Hypertension <Drew Song MD - Last Filed: 11/06/22 15:49> Discharge Plan Discharge Clinical Impression: Cervical radiculopathy, Anxiety <BERNABE Schuster - Last Filed: 11/06/22 13:43> Patient Disposition: Home, Self-Care <BERNABE Schuster - Last Filed: 11/06/22 13:43> Instructions: Cervical Radiculopathy (ED), Anxiety (ED) <BERNABE Schuster - Last Filed: 11/06/22 13:43> Prescriptions: New naproxen [Naprosyn] 500 mg tablet 500 mg PO BID Qty: 20 0RF No Action diazepam [Valium] 2 mg tablet 2 mg PO DAILY Qty: 2 0RF Rx Instructions: take one tab when arrive for procedure phenazopyridine [Pyridium] 100 mg tablet 100 mg PO TID PRN (Reason: pain) Qty: 6 0RF hydroxyzine HCl 25 mg tablet 25 mg PO BID PRN (Reason: itching) Qty: 14 0RF cetirizine [Zyrtec] 10 mg tablet 10 mg PO DAILY Qty: 14 0RF diphenhydramine HCl [Benadryl] 25 mg capsule 25 mg PO TID PRN (Reason: itching) Qty: 14 0RF permethrin 5 % cream 1 appl topical Q14D Qty: 60 0RF Rx Instructions: apply second treatment 14 days after first treatment if live lice remain ondansetron 4 mg tablet,disintegrating 4 mg PO Q8H 3 Days Qty: 9 0RF tramadol 50 mg tablet 50 - 100 mg PO Q6H PRN (Reason: pain) Qty: 20 0RF cetirizine 10 mg tablet 10 mg PO DAILY lorazepam 1 mg tablet PO ondansetron 4 mg tablet,disintegrating 4 mg PO Q6-8H PRN simethicone 180 mg capsule 180 mg PO QID 30 Days Qty: 120 3RF Rx Instructions: after meals gabapentin 100 mg capsule 100 mg PO DAILY famotidine 20 mg tablet 20 mg PO DAILY docusate sodium 100 mg capsule 100 mg PO DAILY senna 8.6 mg capsule 17.2 mg PO BEDTIME 30 Days Qty: 60 6RF cholecalciferol (vitamin D3) 25 mcg (1,000 unit) capsule 25 mcg PO DAILY mecobalamin (vitamin B12) 1,000 mcg tablet,chewable 1,000 mcg PO DAILY <BERNABE Schuster - Last Filed: 11/06/22 13:43> Referrals: Mohamud Yanez MD [Primary Care Provider] - 5 days <BERNABE Schuster - Last Filed: 11/06/22 13:43>
--- NOTE | 2022-11-06 13:38 | ECG_ITS ---
Test Reason : sob Blood Pressure : / mmHG Vent. Rate : 082 BPM Atrial Rate : 082 BPM P-R Int : 148 ms QRS Dur : 078 ms QT Int : 388 ms P-R-T Axes : 042 058 029 degrees QTc Int : 453 ms Normal sinus rhythm Normal ECG When compared with ECG of 16-FEB-2022 17:19, No significant change was found Referred By: Karine Dubose Electronically Signed By:DANIA BRO
[2022-11-06 13:52] LABS: Glucose, Whole Blood 97 mg/dL (60-115)
--- NOTE | 2022-11-06 13:54 | PC.NURSE ---
Patient felt dizzy and passed out in xray. A & o x 3. no head strike. no loc. no injury. blood sugar-97. Will notify Carlos Villela RN.
[2022-11-06 14:00] VITALS: BP 133/97; PULSE 92; RESP 18; TEMP 37.1; O2SAT 99
[2022-11-06 14:25] LABS: MANUAL DIFF FLAG NO
[2022-11-06 14:28] LABS: Basophils Percent Auto 0.4 % (0-2); Eosinophils Absolute Auto 0.2 X10*3/uL (0.0-0.4); Eosinophils Percent Auto 1.7 % (0-4); Hematocrit 39.7 % (37.0-47.0); Hemoglobin 13.1 g/dl (12.0-16.0); Imm Gran Abs Auto 0.02 X10*3/uL (0.00-0.03); Imm Gran Pct Auto 0.2 % (0.0-0.4); Lymphocytes Absolute Auto 3.9 X10*3/uL (1.2-4.9); Lymphocytes Percent Auto 42.1 % (20-40); Mean Corpuscular Hemoglobin 27.5 pg (27.0-33.0); Mean Corpuscular Volume 83.2 fL (80.0-98.0); Mean Platelet Volume 8.4 fL (9.4-12.3); Monocytes Absolute Auto 0.5 X10*3/uL (0.1-1.2); Monocytes Percent Auto 5.6 % (2-11); Neutrophils Absolute Auto 4.7 x10*3/uL (2.0-8.3); Platelet Count 457 X10*3/uL (160-400); Red Blood Count 4.77 X10*6/uL (4.20-5.50); Red Cell Distribution Width 14.6 % (11.0-16.0); White Blood Count 9.3 X10*3/uL (4.8-10.8)
[2022-11-06 14:34] LABS: Prothrombin Time 11.9 SEC (10.0-13.1)
[2022-11-06 14:46] LABS: Alanine Aminotransferase 9 U/L (0-31); Albumin Level 4.6 g/dL (3.5-5.0); Alkaline Phosphatase 83 U/L (39-117); Anion Gap 13 (12-20); Aspartate Amino Transferase 14 U/L (5-31); Bilirubin Direct 0.1 mg/dL (0.0-0.5); Bilirubin Total 0.4 mg/dL (0.0-1.0); Blood Urea Nitrogen 10 mg/dL (9-16); Calcium 10.8 mg/dL (8.4-10.2); Carbon Dioxide 24 mmol/L (22-29); Chloride 110 mmol/L (96-108); Creatinine Clr Calc Pharmacy 74.9; Estimated Glomerular Filt Rate > 60; Glucose Random 90 mg/dL (60-115); Potassium 3.9 mmol/L (3.3-5.1); Sodium 143 mmol/L (135-145); Total Protein 7.3 g/dL (6.5-8.0)
[2022-11-06 14:49] LABS: B Type Natriuretic Peptide 11 pg/mL (<100)
[2022-11-06 14:54] LABS: Troponin-I High Sensitivity < 2.7 ng/L (<3.5-17.0)
[2022-11-06] MEDS: LORazepam 1 MG TABLET 2 MG PO (15:38)
[2022-11-06] MEDS: Ketorolac Tromethamine 60 MG/2 ML VIAL IM (15:39)
[2022-11-06 15:45] VITALS: BP 132/82; PULSE 71; RESP 12; TEMP 36.7; O2SAT 99
== END 2022-11-06 17:31 | disposition home or self-care (01) ==
PROVIDERS: Physician Assistant; Emergency Provider Emergency Medicine; PCP Family Medicine
DX: M54.12 Radiculopathy, cervical region (principal); F41.9 Anxiety disorder, unspecified; R42 Dizziness and giddiness; R06.02 Shortness of breath; I10 Essential (primary) hypertension; F17.210 Nicotine dependence, cigarettes, uncomplicated; F12.90 Cannabis use, unspecified, uncomplicated; Z79.899 Other long term (current) drug therapy
CPT/HCPCS: 36415; 71046; 72040; 80048; 80076; 82947; 83880; 84484; 85025; 85610; 93005; 96372; 99284; J1885

== ENCOUNTER 2022-12-31 13:50 | Emergency (ER) | payer MEDICARE, MEDICAID, SELFPAY ==
[2022-12-31 14:16] VITALS: BP 150/87; PULSE 80; RESP 16; TEMP 36.8; O2SAT 100; BMI 21.0
--- NOTE | 2022-12-31 14:21 | ED.GENADULT ---
HPI - General Adult General Chief complaint: General Medical Stated complaint: R arm inj/Pain when breathing Time Seen by Provider: 12/31/22 21:31 Source: patient, RN notes reviewed and old records reviewed Mode of arrival: ambulatory Limitations: no limitations History of Present Illness HPI narrative: 47-year-old female past medical history significant for GERD, arthritis, fibromyalgia presents for evaluation of right upper back pain Patient reports her pain started immediately after getting out of bed early this morning She has pain in her right mid upper back The pain radiates into her right arm She reports any kind of movement including standing up causes her pain to be worse She states when she takes a deep breath she also has increased pain in her back No chest pain or abdominal pain Denies any coughing shortness of breath, fevers, chills Related Data Home Medications Medication Instructions Recorded Confirmed cetirizine 10 mg tablet 10 mg PO DAILY 03/31/20 03/31/20 lorazepam 1 mg tablet mg PO 03/31/20 03/31/20 ondansetron 4 mg disintegrating 4 mg PO Q6-8H PRN 03/31/20 03/31/20 tablet famotidine 20 mg tablet 20 mg PO DAILY 06/17/20 gabapentin 100 mg capsule 100 mg PO DAILY 06/17/20 docusate sodium 100 mg capsule 100 mg PO DAILY 11/08/20 cholecalciferol (vitamin D3) 25 25 mcg PO DAILY 12/09/20 mcg (1,000 unit) capsule mecobalamin (vitamin B12) 1,000 1,000 mcg PO DAILY 12/09/20 mcg chewable tablet acetaminophen 500 mg tablet 500 mg PO Q4H PRN pain 01/06/21 cyanocobalamin (vitamin B-12) 1,000 mcg PO DAILY 01/06/21 1,000 mcg tablet gabapentin 300 mg capsule 0 mg PO 01/06/21 loratadine 10 mg tablet 10 mg PO DAILY 01/06/21 naproxen 375 mg tablet 375 mg PO BID 01/06/21 Previous Rx's Medication Instructions Recorded simethicone 180 mg capsule 180 mg PO QID 30 days #120 caps 04/21/20 phenazopyridine 100 mg tablet 100 mg PO TID PRN pain 6 doses #6 10/10/20 (Pyridium) tabs hydroxyzine HCl 25 mg tablet 25 mg PO BID PRN itching #14 tabs 10/25/20 sennosides 8.6 mg capsule (senna) 17.2 mg PO BEDTIME constipation 30 11/08/20 days #60 caps diazepam 2 mg tablet (Valium) 2 mg PO DAILY anxiety #2 tabs 03/30/21 cetirizine 10 mg tablet (Zyrtec) 10 mg PO DAILY #14 tabs 01/30/22 diphenhydramine HCl 25 mg capsule 25 mg PO TID PRN itching #14 caps 01/30/22 (Benadryl) permethrin 5 % topical cream 1 appl topical Q14D 2 doses #60 01/30/22 grams ondansetron 4 mg disintegrating 4 mg PO Q8H 3 days #9 tabs 02/16/22 tablet tramadol 50 mg tablet 50 - 100 mg PO Q6H PRN pain #20 02/27/22 tabs naproxen 500 mg tablet (Naprosyn) 500 mg PO BID #20 tabs 11/06/22 lidocaine 5 % topical patch 1 patch topical DAILY PRN pain #15 12/31/22 ea methocarbamol 500 mg tablet 500 mg PO QID muscle spasms #20 12/31/22 tabs tramadol 50 mg tablet 50 mg PO Q6H PRN severe pain 12/31/22 (scale score 7-10) #12 tabs Allergies Allergy/AdvReac Type Severity Reaction Status Date / Time hydrocodone [From VICODIN] Allergy Intermediate DEPRESSES Verified 01/30/22 10:47 BREATHING nitrofurantoin Allergy Intermediate urticaria Verified 01/30/22 10:47 [From Macrobid] peach [PEACH] Allergy Intermediate ITCHING Verified 01/30/22 10:47 ibuprofen [IBUPROFEN] Allergy Mild NAUSEA & Verified 01/30/22 10:47 VOMITING oxycodone [From TYLOX] Allergy Mild RASH Verified 01/30/22 10:47 prednisone [PREDNISONE] Allergy Mild RASH Verified 01/30/22 10:47 trazodone AdvReac Intermediate itch Verified 01/30/22 10:47 Review of Systems Constitutional: Constitutional: Denies chills and Denies fever(s) Cardiovascular: Cardiovascular: Denies chest pain and Denies dyspnea Respiratory: Respiratory: Denies cough and Denies dyspnea Gastrointestinal: Gastrointestinal: Denies abdominal pain, Denies nausea and Denies vomiting Musculoskeletal: Musculoskeletal: Reports back pain PMFSH Past Medical History Medical History Tracey infection of genital region Costochondral chest pain Diverticulitis Gastric ulcer UTI (urinary tract infection) Surgical History H/O colonoscopy Hx of endoscopy (01/19/20) Family History Family History Mother CKD (chronic kidney disease) stage 3, GFR 30-59 ml/min Gallbladder calculus with acute cholecystitis Diabetes HTN (hypertension) Father No problems noted. Maternal Grandfather Diabetes HTN (hypertension) Hypercholesteremia Social History Social History Alcohol intake: never Patient Tobacco Use Status: Current everyday Tobacco user Cigarette Packs Per Day: 0.5 Cigarettes Per Day: 10 Smoked in Last 30 Days: Yes Use of substances other than those prescribed or required for medical reasons: No Substance Use Type: Marijuana Advance Directives: No Advance Directives Information Provided: Yes Patient : No Current occupational status: disabled Current occupation: She is currently taking classes at [employer] Physical Exam ED Vital Signs: Vital Signs - 24 hr 12/31/22 14:16 12/31/22 20:32 Temperature 98.3 F 97.0 F Pulse Rate 80 73 Respiratory Rate 16 16 Blood Pressure 150/87 H 122/77 Pulse Oximetry 100 99 Oxygen Delivery Method Room Air Room Air BMI result Body Mass Index 21.0 Const General: healthy appearing, comfortable, no acute distress, alert and awake Nutritional Appearance: well nourished Orientation/consciousness: patient oriented x3 HENMT Head: Yes normocephalic and Yes atraumatic Eyes Eyelids: Yes eyelids normal Conjunctivae: conjunctivae normal Sclerae: sclerae normal Corneas: corneas normal Pupils: Equal, round and reactive pupils present EOM: EOMs intact bilaterally Neck Neck: Yes full ROM Resp Effort & Inspection: normal respiratory effort, able to speak in complete sentences, no audible wheezes and not labored Auscultation: clear to auscultation bilaterally Cardio Rate: regular rate Rhythm: regular rhythm Back/Spine/Pelvis Other: Patient is tender to palpation in the right thoracic paraspinous region overlying the scapula. No overlying skin changes. No significant edema, no palpable deformities. Cervical Spine: No cervical muscular tenderness and No Cervical spine tenderness Skin General skin exam: no rashes or lesions noted and elasticity normal Neuro General: patient oriented x3 Cranial nerves: Yes Equal, round and reactive pupils present and Yes Bilaterally intact EOM present Cognition (Neuro): normal cognition Extrem Other: Moving all extremities well without any obvious deformities. No deformity, visual or palpable to the right shoulder. No tenderness in this area. Patient has pain elicited in the right upper back when abduct in her right upper extremity Course Course Course Narrative: RmE: 47 yold male presents to the ED for right sided rib pain after trying to move off the bed and felt pain immeidatley in right rib. patinet is worse on movmenet and has pleurisy. deneis any blunt trauma, leg swellign, calf pain, or recent travel. EKG labs, and d dimder ordered due to pleurisy Medical Decision Making Medical Decision Making MDM Narrative: 39-year-old female presents for evaluation of right upper back pain after getting out of bed. History and exam is consistent musculoskeletal origin. Her labs are without significant abnormalities. She had an extensive workup including chest x-ray, EKG, troponin and D-dimer all of which was reassuring. The patient cannot take NSAIDs due to GERD, will discharge the patient with methocarbamol, tramadol and lidocaine patches Differential Diagnosis Differential Diagnoses: The differential diagnosis associated with the presentation includes Back pain Muscle strain Radiculopathy Fibromyalgia Pneumonia ACS less likely Lab Data [facility] Lab Attestation statement: I reviewed the patient's lab results. (No leukocytosis or anemia. Electrolytes within normal limits, troponin negative, LFTs in normal limits) 12/31/22 17:38 12/31/22 17:38 Labs: Lab Results 12/31/22 12/31/22 12/31/22 Range/Units 17:38 17:38 17:38 WBC 8.3 (4.8-10.8) X10*3/uL RBC 4.53 (4.20-5.50) X10*6/uL Hgb 12.6 (12.0-16.0) g/dl Hct 39.5 (37.0-47.0) % MCV 87.2 (80.0-98.0) fL MCH 27.8 (27.0-33.0) pg MCHC 31.9 (31.0-35.0) g/dl RDW 14.2 (11.0-16.0) % Plt Count 457 H (160-400) X10*3/uL MPV 8.3 L (9.4-12.3) fL Immature Gran % (Auto) 0.1 (0.0-0.4) % Neut % (Auto) 48.3 (45-73) % Lymph % (Auto) 43.6 H (20-40) % Dyer % (Auto) 5.4 (2-11) % Eos % (Auto) 2.0 (0-4) % Baso % (Auto) 0.6 (0-2) % Lymph # (Auto) 3.6 (1.2-4.9) X10*3/uL Dyer # (Auto) 0.5 (0.1-1.2) X10*3/uL Eos # (Auto) 0.2 (0.0-0.4) X10*3/uL Baso # (Auto) 0.1 (0.0-0.2) X10*3/uL Abs Immat Gran (auto) 0.01 (0.00-0.03) X10*3/uL Absolute Neuts (auto) 4.0 (2.0-8.3) x10*3/uL Absolute Nucleated RBC 0.000 (0.0-0.012) X10*3/uL Nucleated RBC % (auto) 0.0 (0.0-0.2) /100WBC PT 12.3 (10.0-13.1) SEC INR 1.1 (0.9-1.1) APTT 30.4 (26.0-36.4) SEC D-Dimer High Sensitivty < 150 NG/ML Sodium 140 (135-145) mmol/L Potassium 4.1 (3.3-5.1) mmol/L Chloride 105 (96-108) mmol/L Carbon Dioxide 23 (22-29) mmol/L Anion Gap 16 (12-20) BUN 10 (9-16) mg/dL Creatinine 0.83 (0.5-1.4) mg/dL Estim Creat Clear Calc 77.1 Estimated GFR > 60 Random Glucose 83 (60-115) mg/dL Calcium 10.2 (8.4-10.2) mg/dL Total Bilirubin 0.5 (0.0-1.0) mg/dL AST 18 (5-31) U/L ALT 20 (0-31) U/L Alkaline Phosphatase 80 (39-117) U/L Troponin I High Sens (<3.5-17.0) ng/L Total Protein 7.7 (6.5-8.0) g/dL Albumin 4.5 (3.5-5.0) g/dL 12/31/22 Range/Units 17:38 WBC (4.8-10.8) X10*3/uL RBC (4.20-5.50) X10*6/uL Hgb (12.0-16.0) g/dl Hct (37.0-47.0) % MCV (80.0-98.0) fL MCH (27.0-33.0) pg MCHC (31.0-35.0) g/dl RDW (11.0-16.0) % Plt Count (160-400) X10*3/uL MPV (9.4-12.3) fL Immature Gran % (Auto) (0.0-0.4) % Neut % (Auto) (45-73) % Lymph % (Auto) (20-40) % Dyer % (Auto) (2-11) % Eos % (Auto) (0-4) % Baso % (Auto) (0-2) % Lymph # (Auto) (1.2-4.9) X10*3/uL Dyer # (Auto) (0.1-1.2) X10*3/uL Eos # (Auto) (0.0-0.4) X10*3/uL Baso # (Auto) (0.0-0.2) X10*3/uL Abs Immat Gran (auto) (0.00-0.03) X10*3/uL Absolute Neuts (auto) (2.0-8.3) x10*3/uL Absolute Nucleated RBC (0.0-0.012) X10*3/uL Nucleated RBC % (auto) (0.0-0.2) /100WBC PT (10.0-13.1) SEC INR (0.9-1.1) APTT (26.0-36.4) SEC D-Dimer High Sensitivty NG/ML Sodium (135-145) mmol/L Potassium (3.3-5.1) mmol/L Chloride (96-108) mmol/L Carbon Dioxide (22-29) mmol/L Anion Gap (12-20) BUN (9-16) mg/dL Creatinine (0.5-1.4) mg/dL Estim Creat Clear Calc Estimated GFR Random Glucose (60-115) mg/dL Calcium (8.4-10.2) mg/dL Total Bilirubin (0.0-1.0) mg/dL AST (5-31) U/L ALT (0-31) U/L Alkaline Phosphatase (39-117) U/L Troponin I High Sens < 2.7 (<3.5-17.0) ng/L Total Protein (6.5-8.0) g/dL Albumin (3.5-5.0) g/dL Independent Interpretation I performed an independent interpretation of an: EKG (Sinus rhythm with a rate of 73 beats per minute. No ST segment elevation or depressions. No ectopy) and Plain X-Ray (Rib x-rays without acute fractures. Chest x-ray without infiltrates or pneumothorax) Radiology Impression Discussion of test interpretation with radiology: I have reviewed the radiologist's reading. Radiologist Impression: No significant pathology to the chest or ribs Discharge Plan Discharge Clinical Impression: Upper back pain on right side Patient Disposition: Home, Self-Care Instructions: Muscle Strain (ED) Additional Instructions: Your history and exam is most consistent with a muscle strain Your workup in the emergency department including your blood work, chest x-ray, rib x-ray and EKG were reassuring Use Tylenol and the lidocaine patches as needed for the pain You may use methocarbamol as needed for muscle spasms Use tramadol for more severe, breakthrough pain These medications may make you sleepy, did not drink alcohol or drive after taking them Follow-up with your primary doctor Prescriptions: New lidocaine 5 % adhesive patch,medicated 1 patch topical DAILY PRN (Reason: pain) Qty: 15 0RF Rx Instructions: leave on most painful area for up to 12 hrs methocarbamol 500 mg tablet 500 mg PO QID Qty: 20 0RF tramadol 50 mg tablet 50 mg PO Q6H PRN (Reason: severe pain (scale score 7-10)) Qty: 12 0RF No Action diazepam [Valium] 2 mg tablet 2 mg PO DAILY Qty: 2 0RF Rx Instructions: take one tab when arrive for procedure phenazopyridine [Pyridium] 100 mg tablet 100 mg PO TID PRN (Reason: pain) Qty: 6 0RF hydroxyzine HCl 25 mg tablet 25 mg PO BID PRN (Reason: itching) Qty: 14 0RF cetirizine [Zyrtec] 10 mg tablet 10 mg PO DAILY Qty: 14 0RF diphenhydramine HCl [Benadryl] 25 mg capsule 25 mg PO TID PRN (Reason: itching) Qty: 14 0RF permethrin 5 % cream 1 appl topical Q14D Qty: 60 0RF Rx Instructions: apply second treatment 14 days after first treatment if live lice remain ondansetron 4 mg tablet,disintegrating 4 mg PO Q8H 3 Days Qty: 9 0RF tramadol 50 mg tablet 50 - 100 mg PO Q6H PRN (Reason: pain) Qty: 20 0RF naproxen [Naprosyn] 500 mg tablet 500 mg PO BID Qty: 20 0RF cetirizine 10 mg tablet 10 mg PO DAILY lorazepam 1 mg tablet PO ondansetron 4 mg tablet,disintegrating 4 mg PO Q6-8H PRN simethicone 180 mg capsule 180 mg PO QID 30 Days Qty: 120 3RF Rx Instructions: after meals gabapentin 100 mg capsule 100 mg PO DAILY famotidine 20 mg tablet 20 mg PO DAILY docusate sodium 100 mg capsule 100 mg PO DAILY senna 8.6 mg capsule 17.2 mg PO BEDTIME 30 Days Qty: 60 6RF cholecalciferol (vitamin D3) 25 mcg (1,000 unit) capsule 25 mcg PO DAILY mecobalamin (vitamin B12) 1,000 mcg tablet,chewable 1,000 mcg PO DAILY Interventions: ED Discharge Assessment Last Done: 12/31/22 22:03 Discharge Date/Time: 12/31/22 22:03
--- NOTE | 2022-12-31 17:25 | MHC.EDTECH ---
called this patient when EKG was put in twice the patient did not answer will try again RN AWARE
[2022-12-31 20:32] VITALS: BP 122/77; PULSE 73; RESP 16; TEMP 36.1; O2SAT 99
== END 2022-12-31 22:03 | disposition home or self-care (01) ==
PROVIDERS: Emergency Provider Internal Medicine; PCP Family Medicine
DX: M54.6 Pain in thoracic spine (principal); M79.601 Pain in right arm; M79.7 Fibromyalgia; F17.210 Nicotine dependence, cigarettes, uncomplicated; F12.90 Cannabis use, unspecified, uncomplicated; Z79.899 Other long term (current) drug therapy
CPT/HCPCS: 36415; 71046; 71100; 80053; 84484; 85025; 85379; 85610; 85730; 93005; 99283; 99284

== ENCOUNTER 2023-06-30 21:54 | Emergency (ER) | payer MEDICARE, MEDICAID, SELFPAY ==
--- NOTE | 2023-06-30 | ECG_ITS ---
Test Reason : DIZZINESS Blood Pressure : / mmHG Vent. Rate : 085 BPM Atrial Rate : 085 BPM P-R Int : 144 ms QRS Dur : 074 ms QT Int : 368 ms P-R-T Axes : 052 047 019 degrees QTc Int : 437 ms Normal sinus rhythm Normal ECG When compared with ECG of 31-DEC-2022 17:28, No significant change was found Referred By: Generic ED Physician Electronically Signed By:DANIA BRO
--- NOTE | ~2023-06-30 | CT_ITS ---
EXAMINATION: CTA NECK WITH CONTRAST (STROKE) CTA BRAIN WITH CONTRAST (STROKE) CLINICAL INFORMATION: Pain. Rule out aneurysm. COMPARISON: None available. TECHNIQUE: CTA of the head and neck was performed in the axial plane from the mediastinum to the skull vertex using 80 mL Ultravist-370 intravenous contrast. Additional reformatted multiplanar images including maximum intensity projection MIP images are generated on the CT workstation. This CT examination was performed using dose optimization techniques as appropriate, variously including the following: *Automated exposure control *Adjustment of mA and/or kV according to patient size (this includes techniques or standardized protocols for targeted exams where dose is matched to indication/reason for exam; i.e. extremities or head) *Use of iterative reconstruction technique DLP: 479 mGy-cm FINDINGS: The degree of stenosis determined by criteria similar to NASCET. Head CT: The lateral, third and fourth ventricles are normally outlined. The cortical sulci and basal cisterns are normally outlined as well. There is no acute territorial defect, hemorrhage or midline shift. The extra-axial spaces are unremarkable. Calvarium: Intact. Maxillofacial sinuses and mastoids: Clear as visualized. Chest CTA: The visualized upper lung gupta are clear. Aortic arch is not seen. There is an apparent three-vessel branching pattern from the aortic arch. Neck CTA: The bilateral common carotid, internal and external carotid arteries are patent. The left vertebral artery is dominant. Both vertebral arteries are patent. Brain CTA: The intracranial internal carotid arteries, middle and anterior cerebral arteries are patent. The distal vertebral arteries, basilar artery and branches as well as posterior cerebral arteries are also patent. No aneurysm is seen. CT/CT angio head neck IMPRESSION: 1. Unremarkable CT angiogram of the neck. 2. Unremarkable CT angiogram of the head. Fleischner guidelines were followed.
[2023-06-30 22:02] VITALS: BP 138/88; PULSE 100; RESP 18; TEMP 36.7; O2SAT 99; BMI 24.9
[2023-06-30 22:34] LABS: Basophils Percent Auto 0.5 % (0-2); Eosinophils Absolute Auto 0.3 X10*3/uL (0.0-0.4); Eosinophils Percent Auto 3.6 % (0-4); Hematocrit 39.3 % (37.0-47.0); Imm Gran Abs Auto 0.01 X10*3/uL (0.00-0.03); Imm Gran Pct Auto 0.1 % (0.0-0.4); Lymphocytes Absolute Auto 3.9 X10*3/uL (1.2-4.9); Lymphocytes Percent Auto 46.9 % (20-40); MANUAL DIFF FLAG NO; Mean Corpuscular HGB Conc 33.1 g/dl (31.0-35.0); Mean Corpuscular Hemoglobin 27.5 pg (27.0-33.0); Mean Corpuscular Volume 83.3 fL (80.0-98.0); Monocytes Absolute Auto 0.5 X10*3/uL (0.1-1.2); Monocytes Percent Auto 5.8 % (2-11); Neutrophils Absolute Auto 3.6 x10*3/uL (2.0-8.3); Neutrophils Percent Auto 43.1 % (45-73); Platelet Count 466 X10*3/uL (160-400); Red Blood Count 4.72 X10*6/uL (4.20-5.50); Red Cell Distribution Width 14.1 % (11.0-16.0); White Blood Count 8.4 X10*3/uL (4.8-10.8)
[2023-06-30 22:52] LABS: Alanine Aminotransferase 20 U/L (0-31); Albumin Level 4.5 g/dL (3.5-5.0); Alkaline Phosphatase 92 U/L (39-117); Anion Gap 16 (12-20); Aspartate Amino Transferase 22 U/L (5-31); Bilirubin Total 0.3 mg/dL (0.0-1.0); Blood Urea Nitrogen 11 mg/dL (9-16); Calcium 10.1 mg/dL (8.4-10.2); Carbon Dioxide 26 mmol/L (22-29); Chloride 105 mmol/L (96-108); Creatinine Clr Calc Pharmacy 74.6; Estimated Glomerular Filt Rate > 60; Glucose Random 102 mg/dL (60-115); Magnesium 1.8 mg/dL (1.6-2.6); Potassium 4.1 mmol/L (3.3-5.1); Sodium 143 mmol/L (135-145); Total Protein 7.9 g/dL (6.5-8.0)
[2023-06-30 22:59] LABS: Troponin-I High Sensitivity < 2.7 ng/L (<3.5-17.0)
--- NOTE | 2023-06-30 23:18 | ED.DIZZY ---
HPI - Dizziness General Chief Complaint: Dizziness Stated Complaint: dizziness,nausea,headache Time Seen by Provider: 06/30/23 23:00 Source: patient and family Mode of arrival: ambulatory Limitations: no limitations History of Present Illness HPI Narrative: 48-year-old female came in for evaluation of severe headache. Mild headache started last night but then today headache becoming very severe described as 10/10 not relieved with Tylenol or Sudafed headache is associated with photophobia, nausea no vomiting and intermittent blurry vision feeling dizzy, unsteady to walk. patient had a history of migraine when she was younger, no family history of cerebral aneurysm or intracranial bleed. No fever, no chills. Related Data Home Medications Medication Instructions Recorded Confirmed cetirizine 10 mg tablet 10 mg PO DAILY 03/31/20 03/31/20 lorazepam 1 mg tablet mg PO 03/31/20 03/31/20 ondansetron 4 mg disintegrating 4 mg PO Q6-8H PRN 03/31/20 03/31/20 tablet famotidine 20 mg tablet 20 mg PO DAILY 06/17/20 gabapentin 100 mg capsule 100 mg PO DAILY 06/17/20 docusate sodium 100 mg capsule 100 mg PO DAILY 11/08/20 cholecalciferol (vitamin D3) 25 25 mcg PO DAILY 12/09/20 mcg (1,000 unit) capsule mecobalamin (vitamin B12) 1,000 1,000 mcg PO DAILY 12/09/20 mcg chewable tablet acetaminophen 500 mg tablet 500 mg PO Q4H PRN pain 01/06/21 cyanocobalamin (vitamin B-12) 1,000 mcg PO DAILY 01/06/21 1,000 mcg tablet gabapentin 300 mg capsule 0 mg PO 01/06/21 loratadine 10 mg tablet 10 mg PO DAILY 01/06/21 naproxen 375 mg tablet 375 mg PO BID 01/06/21 Previous Rx's Medication Instructions Recorded simethicone 180 mg capsule 180 mg PO QID 30 days #120 caps 04/21/20 phenazopyridine 100 mg tablet 100 mg PO TID PRN pain 6 doses #6 10/10/20 (Pyridium) tabs hydroxyzine HCl 25 mg tablet 25 mg PO BID PRN itching #14 tabs 10/25/20 sennosides 8.6 mg capsule (senna) 17.2 mg (2 x 8.6 mg) PO BEDTIME 11/08/20 constipation 30 days #60 caps diazepam 2 mg tablet (Valium) 2 mg PO DAILY anxiety #2 tabs 03/30/21 cetirizine 10 mg tablet (Zyrtec) 10 mg PO DAILY #14 tabs 01/30/22 diphenhydramine HCl 25 mg capsule 25 mg PO TID PRN itching #14 caps 01/30/22 (Benadryl) permethrin 5 % topical cream 1 appl topical Q14D 2 doses #60 01/30/22 grams ondansetron 4 mg disintegrating 4 mg PO Q8H 3 days #9 tabs 02/16/22 tablet tramadol 50 mg tablet 50 - 100 mg (1 - 2 x 50 mg) PO Q6H 02/27/22 PRN pain #20 tabs naproxen 500 mg tablet (Naprosyn) 500 mg PO BID #20 tabs 11/06/22 lidocaine 5 % topical patch 1 patch topical DAILY PRN pain #15 12/31/22 ea methocarbamol 500 mg tablet 500 mg PO QID muscle spasms #20 12/31/22 tabs tramadol 50 mg tablet 50 mg PO Q6H PRN severe pain 12/31/22 (scale score 7-10) #12 tabs Allergies Allergy/AdvReac Type Severity Reaction Status Date / Time hydrocodone [From VICODIN] Allergy Intermediate DEPRESSES Verified 06/30/23 22:01 BREATHING nitrofurantoin Allergy Intermediate urticaria Verified 06/30/23 22:01 [From Macrobid] peach [PEACH] Allergy Intermediate ITCHING Verified 06/30/23 22:01 ibuprofen [IBUPROFEN] Allergy Mild NAUSEA & Verified 06/30/23 22:01 VOMITING oxycodone [From TYLOX] Allergy Mild RASH Verified 06/30/23 22:01 prednisone [PREDNISONE] Allergy Mild RASH Verified 06/30/23 22:01 trazodone AdvReac Intermediate itch Verified 06/30/23 22:01 Review of Systems Review of Systems: All other systems are reviewed and are negative Constitutional: Reports as per HPI and Reports no additional constitutional complaints Eyes: Reports as per HPI and Reports no additional eye complaints Reports system reviewed and no additional complaints, except as documented Cardiovascular: Reports as per HPI and Reports no additional cardiovascular complaints Respiratory: Reports as per HPI and Reports no additional respiratory complaints Gastrointestinal: Reports as per HPI and Reports no additional gastrointestinal complaints Genitourinary: Reports no additional female genitourinary complaints Musculoskeletal: Reports no additional musculoskeletal complaints Skin/Breast: Reports system reviewed and no additional complaints, except as docu Psychiatric: Reports no additional psychiatric complaints Endocrine: Reports no additional endocrine complaints Hematologic/Lymphatic: Reports no additional hematologic/lymphatic complaints Allergic/Immunologic: Reports no additional allergic/immunologic complaints Reports system reviewed and no additional complaints, except as documented and Reports Abnormal speech present [facility] Past Medical History Medical History Tracey infection of genital region UTI (urinary tract infection) Costochondral chest pain Diverticulitis Gastric ulcer Surgical History H/O colonoscopy Hx of endoscopy (01/19/20) Family History Family History Mother CKD (chronic kidney disease) stage 3, GFR 30-59 ml/min Gallbladder calculus with acute cholecystitis Diabetes HTN (hypertension) Father No problems noted. Maternal Grandfather Diabetes HTN (hypertension) Hypercholesteremia Social History Social History Alcohol intake: never Patient Tobacco Use Status: Current everyday Tobacco user Cigarette Packs Per Day: 0.5 Cigarettes Per Day: 10 Substance Use Type: Marijuana Advance Directives: No Advance Directives Information Provided: Yes Current occupational status: disabled Current occupation: She is currently taking classes at [employer] Physical Exam Vital Signs: Vital Signs: Last Vital Signs Temp 98.0 F 06/30/23 22:02 Pulse 100 06/30/23 22:02 Resp 18 06/30/23 22:02 BP 138/88 06/30/23 22:02 Pulse Ox 99 06/30/23 22:02 O2 Del Method Room Air 06/30/23 22:02 BMI result Body Mass Index 24.9 Vital signs have been reviewed and appear to be correct. Blood pressure elevated. Heart rate normal. Respiratory rate normal. Temperature normal. Oxygen saturation normal. Appearance: Alert. Oriented X3. No acute distress. Head: Normal external exam. Normocephalic. Atraumatic. No Winslow signs noted. No raccoon eyes noted Eyes: PERRLA. EOMI. Conjunctiva and sclera normal. Eyelids normal. ENT: TM's Normal. Pharynx normal. Uvula midline. Moist mucous membranes. No trismus noted. No drooling noted. No muffled voice noted. Neck: Normal inspection. Neck supple. FROM. No adenopathy. Thyroid Normal. No meningeal signs. No neck mass noted. CVS: Normal heart rate and rhythm. Heart sound normal. No murmurs noted. Pulses normal throughout. Respiratory: No respiratory distress. Painless inspiration. Breath sounds normal. No wheezes/rales/rhonchi noted. Chest nontender. No accessory muscle usage noted or decreased air movement noted. Abdomen: Soft and nontender. Bowel sounds normal in all 4 quadrants. No distention noted. No organomegaly noted. No visible injury noted. Back: No CVA tenderness. Full range of motion noted. Skin: Skin warm and dry. Normal skin color. Normal skin turgor. No rashes/lesions/lacerations noted. Extremities: No lower extremity edema. Extremities exhibit normal range of motion. Extremities nontender. Neuro: Oriented X 3. Cranial nerve exam: II-XII are grossly intact No motor deficit. No sensory deficit. Reflexes normal. NIH Stroke Scale Time: 23:22 Level of Consciousness: Alert Level of Consciousness Questions: Answers both questions correctly Level of Consciousness Commands: Performs both tasks correctly Best Gaze: Normal Visual: No visual loss Facial Palsy: Normal Motor Arm (Right): No drift Motor Arm (Left): No drift Motor Leg (Right): No drift Motor Leg (Left): No drift Limb Ataxia: Absent Sensory: Normal Best Language: No aphasia Dysarthia: Normal Extinction and Inattention: No abnormality Score: 0 Course Reevaluation(s) Reevaluation #1: headache improved to 7/10 less dizzy with improvement of the nausea and vomiting, awaiting for CT/CT angio rule out cerebral aneurysm case signed out to . Time: 02:17 Medications Administered Discontinued Medications Generic Name Dose Route Start Last Admin Trade Name Freq PRN Reason Stop Dose Admin Diphenhydramine HCl 50 mg 06/30/23 23:08 06/30/23 23:39 Diphenhydramine Hcl 50 Mg/Ml Vial IVPUSH 06/30/23 23:09 50 mg ONCE ONE Administration Sodium Chloride 1,000 mls @ 999 mls/hr 06/30/23 23:08 06/30/23 23:34 Ns IV 07/01/23 00:08 999 mls/hr .Q1H1M ONE Administration Iohexol 70 ml 07/01/23 00:20 07/01/23 00:20 Iohexol 350 Mg/Ml 100 Ml Infus..Btl IV 07/01/23 00:21 70 ml ONCE ONE Administration Ondansetron HCl 4 mg 06/30/23 23:08 06/30/23 23:39 Ondansetron Hcl 4 Mg/2 Ml Vial IVPUSH 06/30/23 23:09 4 mg ONCE ONE Administration Medical Decision Making Differential Diagnosis Differential Diagnoses: The differential diagnosis associated with the presentation includes ( subarachnoid hemorrhage, intracranial bleed, cerebral aneurysm, migraine, headache, viral infection.) Admission/Observation Consideration of admission/observation: Escalation of care including admission/observation considered Lab Data MDM Lab Attestation statement: I reviewed the patient's lab results. 06/30/23 22:29 06/30/23 22:29 Labs: Lab Results 06/30/23 07/01/23 Range/Units 22:29 01:02 WBC 8.4 (4.8-10.8) X10*3/uL RBC 4.72 (4.20-5.50) X10*6/uL Hgb 13.0 (12.0-16.0) g/dl Hct 39.3 (37.0-47.0) % MCV 83.3 (80.0-98.0) fL MCH 27.5 (27.0-33.0) pg MCHC 33.1 (31.0-35.0) g/dl RDW 14.1 (11.0-16.0) % Plt Count 466 H (160-400) X10*3/uL MPV 8.0 L (9.4-12.3) fL Immature Gran % (Auto) 0.1 (0.0-0.4) % Neut % (Auto) 43.1 L (45-73) % Lymph % (Auto) 46.9 H (20-40) % [place] % (Auto) 5.8 (2-11) % Eos % (Auto) 3.6 (0-4) % Baso % (Auto) 0.5 (0-2) % Lymph # (Auto) 3.9 (1.2-4.9) X10*3/uL [place] # (Auto) 0.5 (0.1-1.2) X10*3/uL Eos # (Auto) 0.3 (0.0-0.4) X10*3/uL Baso # (Auto) 0.0 (0.0-0.2) X10*3/uL Abs Immat Gran (auto) 0.01 (0.00-0.03) X10*3/uL Absolute Neuts (auto) 3.6 (2.0-8.3) x10*3/uL Absolute Nucleated RBC 0.000 (0.0-0.012) X10*3/uL Nucleated RBC % (auto) 0.0 (0.0-0.2) /100WBC Sodium 143 (135-145) mmol/L Potassium 4.1 (3.3-5.1) mmol/L Chloride 105 (96-108) mmol/L Carbon Dioxide 26 (22-29) mmol/L Anion Gap 16 (12-20) BUN 11 (9-16) mg/dL Creatinine 0.82 (0.5-1.4) mg/dL Estim Creat Clear Calc 74.6 Estimated GFR > 60 Random Glucose 102 (60-115) mg/dL Calcium 10.1 (8.4-10.2) mg/dL Magnesium 1.8 (1.6-2.6) mg/dL Total Bilirubin 0.3 (0.0-1.0) mg/dL AST 22 (5-31) U/L ALT 20 (0-31) U/L Alkaline Phosphatase 92 (39-117) U/L Troponin I High Sens < 2.7 (<3.5-17.0) ng/L Total Protein 7.9 (6.5-8.0) g/dL Albumin 4.5 (3.5-5.0) g/dL Influenza Type A (PCR) NEGATIVE (Negative) Influenza Type B (PCR) NEGATIVE (Negative) RSV RNA Qual (PCR) NEGATIVE (Negative) SARS-CoV-2 RNA (RT-PCR) NEGATIVE (Negative) Discharge Plan Discharge Clinical Impression: Headache, Dizziness Patient Disposition: Still a Patient Prescriptions: No Action diazepam [Valium] 2 mg tablet 2 mg PO DAILY Qty: 2 0RF Rx Instructions: take one tab when arrive for procedure phenazopyridine [Pyridium] 100 mg tablet 100 mg PO TID PRN (Reason: pain) Qty: 6 0RF hydroxyzine HCl 25 mg tablet 25 mg PO BID PRN (Reason: itching) Qty: 14 0RF cetirizine [Zyrtec] 10 mg tablet 10 mg PO DAILY Qty: 14 0RF diphenhydramine HCl [Benadryl] 25 mg capsule 25 mg PO TID PRN (Reason: itching) Qty: 14 0RF permethrin 5 % cream 1 appl topical Q14D Qty: 60 0RF Rx Instructions: apply second treatment 14 days after first treatment if live lice remain ondansetron 4 mg tablet,disintegrating 4 mg PO Q8H 3 Days Qty: 9 0RF tramadol 50 mg tablet 50 - 100 mg PO Q6H PRN (Reason: pain) Qty: 20 0RF lidocaine 5 % adhesive patch,medicated 1 patch topical DAILY PRN (Reason: pain) Qty: 15 0RF Rx Instructions: leave on most painful area for up to 12 hrs methocarbamol 500 mg tablet 500 mg PO QID Qty: 20 0RF tramadol 50 mg tablet 50 mg PO Q6H PRN (Reason: severe pain (scale score 7-10)) Qty: 12 0RF naproxen [Naprosyn] 500 mg tablet 500 mg PO BID Qty: 20 0RF cetirizine 10 mg tablet 10 mg PO DAILY lorazepam 1 mg tablet PO ondansetron 4 mg tablet,disintegrating 4 mg PO Q6-8H PRN simethicone 180 mg capsule 180 mg PO QID 30 Days Qty: 120 3RF Rx Instructions: after meals gabapentin 100 mg capsule 100 mg PO DAILY famotidine 20 mg tablet 20 mg PO DAILY docusate sodium 100 mg capsule 100 mg PO DAILY senna 8.6 mg capsule 17.2 mg PO BEDTIME 30 Days Qty: 60 6RF cholecalciferol (vitamin D3) 25 mcg (1,000 unit) capsule 25 mcg PO DAILY mecobalamin (vitamin B12) 1,000 mcg tablet,chewable 1,000 mcg PO DAILY
[2023-06-30] MEDS: 0.9 % Sodium Chloride 1,000 ML 999 ML IV (23:34)
[2023-06-30] MEDS: diphenhydrAMINE HCL 50 MG/ML VIAL IVPUSH (23:39)
[2023-06-30] MEDS: ondansetron HCL 4 MG/2 ML VIAL IVPUSH (23:39)
[2023-07-01] MEDS: iohexoL 350 MG/ML 100 ML INFUS..BTL 70 ML IV (00:20)
[2023-07-01 02:03] LABS: Influenza A PCR NEGATIVE (Negative); Influenza B PCR NEGATIVE (Negative); Resp Syncy Virus RNA Qual PCR NEGATIVE (Negative); SARS COV2 PCR INHOUSE NEGATIVE (Negative)
[2023-07-01 02:17] VITALS: BP 119/63; PULSE 87; RESP 16; TEMP 36.7; O2SAT 99
--- NOTE | 2023-07-01 02:52 | PC.NURSE ---
pt states she is still in 9 out of 10 pain. offered tylenol that MD has ordered. pt very upset, states she has been here for hours and feels like nothing has been done. explained still waiting on results of CT scan, to which patient expressed that she did not find this acceptable. pt then asked to speak to the MD immediately in regards to her pain control. MD notified - will see patient shortly.
[2023-07-01] MEDS: HYDROmorphone HCl 1 MG/ML SYRINGE IVPUSH ×2 (03:05→05:55)
[2023-07-01 05:10] VITALS: BP 105/63; PULSE 73; RESP 15; O2SAT 99
== END 2023-07-01 06:06 | disposition home or self-care (01) ==
PROVIDERS: Emergency Medicine; Emergency Provider Emergency Medicine Emergency Medical Services; PCP Family Medicine
DX: R42 Dizziness and giddiness (principal); R51.9 Headache, unspecified; Z20.822 Contact with and (suspected) exposure to COVID-19; Z20.828 Contact with and (suspected) exposure to other viral communicable diseases
CPT/HCPCS: 0241U; 36415; 70496; 70498; 80053; 83735; 84484; 85025; 93005; 96361; 96374; 96375; 96376; 99284; 99285; J1170; J1200; J2405; Q9967

== ENCOUNTER → 2023-06-30 22:22 | Outpatient (BNV) | payer OTHER, MEDICAID, SELFPAY | PROVIDERS: Emergency Provider Emergency Medicine Emergency Medical Services; PCP Family Medicine; Visit Provider Internal Medicine | DX: R42 Dizziness and giddiness (principal) | CPT/HCPCS: 93010 ==

== ENCOUNTER 2023-08-28 10:17 | Outpatient (AMB) | payer OTHER, MEDICAID, SELFPAY ==
--- NOTE | 2023-08-28 10:22 | A.OFFVIS_ITS ---
Intake Vital Signs 08/28/23 10:30 Height 5 ft 5 in Weight 148 lb 9.465 oz BMI 24.7 BP 93/55 L Blood Pressure Location Rt brachial Position Sitting Pulse 79 Intake Visit Reasons: Stomach issues Intake Note: Patient presents to in office visit today for stomach issues . CC: She c/o abdominal bloating, feeling her abdomen gets stiff and hard , lower abdominal pain when she needs to have a BM. She also c/o nausea loose stools with different colors like yellow, rodrigues, ligth brown, and dark colored stools. Per patients symptoms onset about a year ago. Allergies hydrocodone [From VICODIN] Allergy (Intermediate, Verified 08/28/23 10:36) DEPRESSES BREATHING nitrofurantoin [From Macrobid] Allergy (Intermediate, Verified 08/28/23 10:36) urticaria peach [PEACH] Allergy (Intermediate, Verified 08/28/23 10:36) ITCHING ibuprofen [IBUPROFEN] Allergy (Mild, Verified 08/28/23 10:36) NAUSEA & VOMITING oxycodone [From TYLOX] Allergy (Mild, Verified 08/28/23 10:36) RASH prednisone [PREDNISONE] Allergy (Mild, Verified 08/28/23 10:36) RASH trazodone Adverse Reaction (Intermediate, Verified 08/28/23 10:36) itch acetaminophen [From Excedrin Extra Strength] Adverse Reaction (Unknown, Verified 08/28/23 10:41) stomach issues aspirin [From Excedrin Extra Strength] Adverse Reaction (Unknown, Verified 08/28/23 10:41) stomach issues caffeine [From Excedrin Extra Strength] Adverse Reaction (Unknown, Verified 08/28/23 10:41) stomach issues HPI Stomach issues HPI Details Assessment & Plan (1) Periumbilical abdominal pain: Code(s): R10.33 - Periumbilical pain Plan - ARAM Reece-C: She has been having constipation recently, she had a bottle of mag citrate at home, but this gave her too strong of a response. I suggest we try something more mild like senna 1-2 tabs qhs and that she try to titrate a regular regimen of 1 tab a day or qod to keep her bowels in a good habit. She is already taking 1 colace a day. She has a poor appetite, no pain or nausea but no desire to eat. She has some bloating after eating. This is around the umbilcus. She has intermittent RLQ pain that wraps around to her back. She has had pain in the LLQ at times as well in the exact same location. She tells she is quite worried because the career technical education teacher called and told her she ?might have lupus great? she does not see her for another month and she finds this concerning. I try to explain that specially providers are quite backed up with the COVID situation but she could try calling the office to see if they can put her on a waiting list. [facility] is [facility] so I gave her the phone number to the urology office so she can call and confirm if she has a patient there yet her not. She does have a history of calcium oxalate crystals in her urine. She tells me she has a soreness starts in the bilateral axillary area and goes down the sides to her waist. This sounds like more of a hematologic or muscle soreness problem so I have made her aware that she should report this to her career technical education teacher. She is having bloating after eating but the bloating manifests more in the periumbilical area than the upper abdomen. This sounds to me like it is gas trapping with her constipation so if moving her bowels does not alleviate the problem then will consider if any other intervention is needed. She had a bad reaction to the neck natural feel ran 10 breaking out in a rash, or at least that is what they think might have done it. This seems like it is a highly uncertain diagnosis and she was treated with some steroids to make this highly itchy welt like rash disappear. She is agreeable to follow-up in 2-3 weeks to evaluate evac this of these interventions. (2) Abdominal bloating: Code(s): R14.0 - Abdominal distension (gaseous) (3) IBS (irritable bowel syndrome): Comment: Not helped by dicyclomine Code(s): K58.9 - Irritable bowel syndrome without diarrhea (4) GERD (gastroesophageal reflux diseas e): Code(s): K21.9 - Gastro-esophageal reflux disease without esophagitis (5) Chronic idiopathic constipation: Comment: not currently a problem Code(s): K59.04 - Chronic idiopathic constipation Medications: New: sennosides (senna) 17.2 mg (2 x 8.6 m g) PO BEDTIME 30 d ays 60 caps 6RF co nstipation (6) Calcium oxalate crystals in urine: Code(s): R82.998 - Other abnormal findings in urine Orders: Referrals: Urology Referral TODAY'S VISIT THIS PATIENT HAS BEEN LOST TO FOLLOW-UP SINCE 10/2020 Over the past year she has had a lot of bloating. At one point it was extremely swollen and tight and she presented to the ER. She also presented for migraines - she was given fioricet which made my stomach worse. At times she is so bloated she can't eat; she feels over satiety. Her stools have been loose and goes from yellow to dark brown. She moves her bowels well with this, the BM's will be preceded by stomach cramping. She actually had one fecal accident because I thought is was gas. Moving her bowels does not relieve the bloating. It seems to start in the lower abdomen, but when bad it is the whole abdomen. Obviously this is a change from her stooling patterns when she used to have constipation. She stopped taking the famotidine and omeprazole because it was not doing anything for her. Sauces seem to bother her the most, and pizza - these will also give her a burning CP sensation. She eats a lot of fruits and veggies and fish (flounder) but no sushi. She has cut out fried foods, but this will cause bloating. New dx FMS, sciatica, migraines, IBS. ROV 3 weeks. [facility] Medical History (Updated 08/28/23 @ 11:08 by SHARON Reece) Chronic idiopathic constipation Tracey infection of genital region UTI (urinary tract infection) Costochondral chest pain Diverticulitis Gastric ulcer Surgical History H/O colonoscopy Hx of endoscopy (01/19/20) Family History Mother CKD (chronic kidney disease) stage 3, GFR 30-59 ml/min Gallbladder calculus with acute cholecystitis Diabetes HTN (hypertension) Father No problems noted. Maternal Grandfather Diabetes HTN (hypertension) Hypercholesteremia Social History Alcohol intake: never Patient Tobacco Use Status: Current everyday Tobacco user Cigarette Packs Per Day: 0.5 Cigarettes Per Day: 10 Substance Use Type: Marijuana Current occupational status: disabled Current occupation: She is currently taking classes at [employer] [facility] [place] Review of Systems Const Denies fatigue, Denies fever(s), Denies night sweats, Reports poor appetite and Denies weight loss ENT Reports Normal hearing present, Denies dental pain, Denies dysphagia, Denies hearing loss, Denies mouth pain, Denies odynophagia, Denies throat swelling, Denies tongue swelling and Reports other (Dentition adequate) Card Reports no additional complaints Resp Reports no additional complaints GI Details: Reports abdominal pain, Denies melena, Reports bloating, Denies hematochezia, Denies constipation, Reports GI cramping, Denies dysphagia, Denies excessive flatus, Reports early satiety, Reports heartburn, Reports diarrhea, Reports loose stools, Denies nausea, Denies odynophagia, Denies vomiting and Denies hematemesis Skin/Breast Denies pruritus, Denies lesions, Denies rash and Denies jaundice Neuro Reports Normal hearing present and Denies Abnormal speech present Endo Denies fatigue Aller/Immun Denies throat swelling and Denies tongue swelling Physical Exam Vital Signs: Last Vital Signs Pulse 79 08/28/23 10:30 BP 93/55 L 08/28/23 10:30 BMI result Body Mass Index 24.7 Const General: cooperative, no acute distress, well developed and well groomed Nutritional Appearance: average body habitus and well nourished Orientation/consciousness: oriented to person, oriented to place and oriented to time Limitations: No language barrier HEENT Head: Yes normocephalic and Yes atraumatic Eyes General: appearance normal, both eyes and all related structures Pupils: Equal, round and reactive pupils present Neck Neck: Yes normal visual inspection and Yes no lymphadenopathy Thyroid: Thyroid normal Resp Effort & Inspection: normal respiratory effort and able to speak in complete sentences Auscultation: clear to auscultation bilaterally Cardio Rate: regular rate Rhythm: regular rhythm Heart sounds: Normal, physiologic split S2 sound present Peripheral pulses: radial pulses present and posterior tibial pulses present GI Inspection: Yes distended and No Abdominal panniculus present Palpation (GI): Soft to palpation, Tenderness to palpation present (GI) in the epigastrum, in the LUQ and periumbilically, no guarding, not rigid and No hepatosplenomegaly present Percussion: Yes normal to percussion Auscultation: normal bowel sounds Rectal Exam - Female: deferred Skin General skin exam: no rashes or lesions noted, turgor normal, skin not dry, no jaundice, No spider nevi and no striae Rashes: no rashes Nails: normal Neuro General: oriented to person, oriented to place and oriented to time Cranial nerves: Yes Equal, round and reactive pupils present and Yes Normal hearing present Speech: No Abnormal speech present Extrem General: Yes normal to inspection, No clubbing, No cyanosis and No edema Psych Appearance: grossly normal and well kempt Mental Status: mental status grossly normal Speech and movement: Normal speech and movement present Affect: normal affect Attitude: cooperative Thought process: Normal thought process present and not confabulating Thought content: Normal thought content present Insight: Limited insight present (Psych) Judgement: Limited judgement present (Psych) Assessment & Plan Assessment & Plan (1) Abdominal bloating: Code(s): R14.0 - Abdominal distension (gaseous) (2) IBS (irritable bowel syndrome): Comment: Not helped by dicyclomine Code(s): K58.9 - Irritable bowel syndrome without diarrhea (3) GERD (gastroesophageal reflux disease): Code(s): K21.9 - Gastro-esophageal reflux disease without esophagitis (4) Loose stools: Code(s): R19.5 - Other fecal abnormalities Plan THIS PATIENT HAS BEEN LOST TO FOLLOW-UP SINCE 10/2020 Over the past year she has had a lot of bloating. At one point it was extremely swollen and tight and she presented to the ER. She also presented for migraines - she was given fioricet which made my stomach worse. At times she is so bloated she can't eat; she feels over satiety. Her stools have been loose and goes from yellow to dark brown. She moves her bowels well with this, the BM's will be preceded by stomach cramping. She actually had one fecal accident because I thought is was gas. Moving her bowels does not relieve the bloating. It seems to start in the lower abdomen, but when bad it is the whole abdomen. Obviously this is a change from her stooling patterns when she used to have constipation. She stopped taking the famotidine and omeprazole because it was not doing anything for her. Sauces seem to bother her the most, and pizza - these will also give her a burning CP sensation. She eats a lot of fruits and veggies and fish (flounder) but no sushi. She has cut out fried foods, but this will cause bloating. New dx FMS, sciatica, migraines, IBS. ROV 3 weeks. Orders: Orders TSH reflex Free T4 Today R14.0 - Abdominal distension (gaseous), R19.5 - Other fecal abnormalities Transglutaminase IgA Today R14.0 - Abdominal distension (gaseous), R19.5 - Other fecal abnormalities Pancreatic Elastase-1 Today R14.0 - Abdominal distension (gaseous), R19.5 - Other fecal abnormalities Rast Allergen Today R14.0 - Abdominal distension (gaseous), R19.5 - Other fecal abnormalities Transglutaminase Ab IgG Today R14.0 - Abdominal distension (gaseous), R19.5 - Other fecal abnormalities C Reactive Protein Today R14.0 - Abdominal distension (gaseous), R19.5 - Other fecal abnormalities Calprotectin, Fecal Today R14.0 - Abdominal distension (gaseous), R19.5 - Other fecal abnormalities US abdomen complete Today R14.0 - Abdominal distension (gaseous), R19.5 - Other fecal abnormalities Medications: New metronidazole 500 mg PO TID 10 days 30 tabs 0RF Discontinued ondansetron Discontinued Reason: Patient no longer taking 4 mg PO Q8H 3 days 9 tabs 0RF metoclopramide HCl (Reglan) Discontinued Reason: Patient Completed Course 10 mg PO Q6H PRN 14 tabs 0RF nausea and vomiting simethicone after meals Discontinued Reason: Doctor's Order 180 mg PO QID 30 days 120 caps 3RF R14.0 - Abdominal distension (gaseous) sennosides (senna) Discontinued Reason: Doctor's Order 17.2 mg (2 x 8.6 mg) PO BEDTIME 30 days 60 caps 6RF constipation K59.04 - Chronic idiopathic constipation Coding Level of Care Code Est Pt Level 4 (61759) Diagnoses Abdominal bloating R14.0 IBS (irritable bowel syndrome) K58.9 GERD (gastroesophageal reflux disease) K21.9 Loose stools R19.5
[2023-08-28 10:30] VITALS: BP 93/55; PULSE 79; BMI 24.7
== END 2023-08-28 11:20 | disposition home or self-care (01) ==
PROVIDERS: PCP Family Medicine; Visit Provider Nurse Practitioner
DX: R14.0 Abdominal distension (gaseous) (principal); K58.9 Irritable bowel syndrome, unspecified; K21.9 Gastro-esophageal reflux disease without esophagitis; R19.5 Other fecal abnormalities
CPT/HCPCS: 99214

== ENCOUNTER → 2023-08-28 10:17 | Outpatient (BNVA) | payer OTHER, MEDICAID, SELFPAY | PROVIDERS: PCP Family Medicine; Visit Provider Nurse Practitioner ==

== ENCOUNTER 2023-09-19 10:31 | Outpatient (REF) | payer OTHER, MEDICAID, SELFPAY ==
--- NOTE | ~2023-09-19 | US_ITS ---
EXAMINATION: US ABDOMEN COMPLETE CLINICAL INFORMATION: Abdominal distension (gaseous). COMPARISON: CT abdomen and pelvis 02/27/2022. Ultrasound kidneys and bladder 02/02/2021. Renal ultrasound 03/18/2020. TECHNIQUE: Real-time imaging of the abdominal viscera. FINDINGS: PANCREAS: Normal. ABDOMINAL AORTA: The proximal, mid, and distal segments are normal in caliber. INFERIOR VENA CAVA: Visualized portions are normal. LIVER: Normal. The liver is normal in size. The liver contour is normal. Parenchymal echogenicity is normal. No focal hepatic lesion. There is no intrahepatic biliary duct dilatation seen. GALLBLADDER: Normal. The gallbladder is physiologically distended without evidence of stones, sludge, polyps, wall thickening or pericholecystic fluid. COMMON BILE DUCT: Normal in caliber measuring 0.2 cm in diameter. RIGHT KIDNEY: Normal. No hydronephrosis. No renal calculi or focal parenchymal lesions. The kidney measures 9.0 cm in maximum dimension. LEFT KIDNEY: Normal. No hydronephrosis. No renal calculi or focal parenchymal lesions. The kidney measures 8.8 cm in maximum dimension. SPLEEN: Normal. The spleen measures 9.2 cm in maximum dimension. FREE FLUID: None. US/US abdomen complete IMPRESSION: Unremarkable examination.
== END 2023-09-19 10:32 | disposition home or self-care (01) ==
LOC: HO.HMGCX 10:31
PROVIDERS: PCP Family Medicine; Visit Provider Nurse Practitioner
DX: R14.0 Abdominal distension (gaseous) (principal); R19.5 Other fecal abnormalities
CPT/HCPCS: 76700

== ENCOUNTER 2023-09-26 11:35 | Outpatient (REF) | payer OTHER, MEDICAID, SELFPAY ==
[2023-09-26 13:00] LABS: C Reactive Protein < 0.10 mg/dL (< or = 0.50)
[2023-09-26 13:18] LABS: TSH reflex Free T4 1.01 uIU/mL (0.32-4.0)
[2023-09-27 19:37] LABS: Transglutaminase Ab IgG <1.0 U/mL; Transglutaminase IgA <1.0 U/mL
== END 2023-09-26 11:36 | disposition home or self-care (01) ==
LOC: HO.LAB 11:35
PROVIDERS: PCP Family Medicine; Visit Provider Nurse Practitioner
DX: R14.0 Abdominal distension (gaseous) (principal); R19.5 Other fecal abnormalities; Z91.09 Other allergy status, other than to drugs and biological substances
CPT/HCPCS: 36415; 84443; 86003; 86140; 86364

== ENCOUNTER → 2023-09-27 13:09 | Outpatient (BNVA) | payer OTHER, MEDICAID, SELFPAY | PROVIDERS: PCP Family Medicine; Visit Provider Nurse Practitioner ==

== ENCOUNTER 2023-10-01 14:59 | Outpatient (AMB) | payer OTHER, MEDICAID, SELFPAY ==
--- NOTE | 2023-10-01 15:06 | A.OFFVIS_ITS ---
Vital Signs 10/01/23 15:11 Height 5 ft 5 in Weight 152 lb 1.903 oz BMI 25.3 BP 115/66 Blood Pressure Location Lt brachial Position Sitting Pulse 72 Intake Visit Reasons: Follow up labs Intake Note: Patient presents to in office visit today in follow up of labs. CC: She continue having lower abdominal pain that are getting more intense before having a BM and abdominal bloating. Patient states that she never got the Metronidazole from the pharmacy. Capacity Planning Manager Required: No Accompanied by: Self / Same As Patient Allergies hydrocodone [From VICODIN] Allergy (Intermediate, Verified 10/01/23 15:14) DEPRESSES BREATHING nitrofurantoin [From Macrobid] Allergy (Intermediate, Verified 10/01/23 15:14) urticaria peach [PEACH] Allergy (Intermediate, Verified 10/01/23 15:14) ITCHING ibuprofen [IBUPROFEN] Allergy (Mild, Verified 10/01/23 15:14) NAUSEA & VOMITING oxycodone [From TYLOX] Allergy (Mild, Verified 10/01/23 15:14) RASH prednisone [PREDNISONE] Allergy (Mild, Verified 10/01/23 15:14) RASH trazodone Adverse Reaction (Intermediate, Verified 10/01/23 15:14) itch acetaminophen [From Excedrin Extra Strength] Adverse Reaction (Unknown, Verified 10/01/23 15:14) stomach issues aspirin [From Excedrin Extra Strength] Adverse Reaction (Unknown, Verified 10/01/23 15:14) stomach issues caffeine [From Excedrin Extra Strength] Adverse Reaction (Unknown, Verified 10/01/23 15:14) stomach issues HPI HPI Follow up labs: Details: Assessment & Plan (1) Abdominal bloating: Code(s): R14.0 - Abdominal distension (gaseous) (2) IBS (irritable bowel syndrome): Comment: Not helped by dicyclomine Code(s): K58.9 - Irritable bowel syndrome without diarrhea (3) GERD (gastroesophageal reflux disease): Code(s): K21.9 - Gastro-esophageal reflux disease without esophagitis (4) Loose stools: Code(s): R19.5 - Other fecal abnormalities Plan THIS PATIENT HAS BEEN LOST TO FOLLOW-UP SINCE 10/2020 Over the past year she has had a lot of bloating. At one point it was extremely swollen and tight and she presented to the ER. She also presented for migraines - she was given fioricet which made my stomach worse. At times she is so bloated she can't eat; she feels over satiety. Her stools have been loose and goes from yellow to dark brown. She moves her bowels well with this, the BM's will be preceded by stomach cramping. She actually had one fecal accident because I thought is was gas. Moving her bowels does not relieve the bloating. It seems to start in the lower abdomen, but when bad it is the whole abdomen. Obviously this is a change from her stooling patterns when she used to have constipation. She stopped taking the famotidine and omeprazole because it was not doing anything for her. Sauces seem to bother her the most, and pizza - these will also give her a burning CP sensation. She eats a lot of fruits and veggies and fish (flounder) but no sushi. She has cut out fried foods, but this will cause bloating. New dx FMS, sciatica, migraines, IBS. ROV 3 weeks. Orders: Orders TSH reflex Free T4 Today R14.0 - Abdominal distension (gaseous), R19.5 - Other fecal abnormalities Transglutaminase IgA Today R14.0 - Abdominal distension (gaseous), R19.5 - Other fecal abnormalities Pancreatic Elastase-1 Today R14.0 - Abdominal distension (gaseous), R19.5 - Other fecal abnormalities Rast Allergen Today R14.0 - Abdominal distension (gaseous), R19.5 - Other fecal abnormalities Transglutaminase Ab IgG Today R14.0 - Abdominal distension (gaseous), R19.5 - Other fecal abnormalities C Reactive Protein Today R14.0 - Abdominal distension (gaseous), R19.5 - Other fecal abnormalities Calprotectin, Fecal Today R14.0 - Abdominal distension (gaseous), R19.5 - Other fecal abnormalities US abdomen complete Today R14.0 - Abdominal distension (gaseous), R19.5 - Other fecal abnormalities Medications: New metronidazole 500 mg PO TID 10 days 30 tabs 0RF Discontinued ondansetron Discontinued Reason: Patient no longer taking 4 mg PO Q8H 3 days 9 tabs 0RF metoclopramide HCl (Reglan) Discontinued Reason: Patient Completed Course 10 mg PO Q6H PRN 14 tabs 0RF nausea and vomiting simethicone after meals Discontinued Reason: Doctor's Order 180 mg PO QID 30 days 120 caps 3RF R14.0 - Abdominal distension (gaseous) sennosides (senna) Discontinued Reason: Doctor's Order 17.2 mg (2 x 8.6 mg) PO BEDTIME 30 days 60 caps 6RF constipation K59.04 - Chronic idiopathic constipation LABS: Laboratory Tests 09/26/23 11:53 C-Reactive Protein < 0.10 TSH 1.01 RAST Allergens Pending Tiss Transglutamin IgG <1.0 Tiss Transglutamin IgA <1.0 THE STOOL STUDIES HAVE NOT BEEN OBTAINED ULTRASOUND OF THE ABDOMEN 09/24/23 FINDINGS: PANCREAS: Normal. ABDOMINAL AORTA: The proximal, mid, and distal segments are normal in caliber. INFERIOR VENA CAVA: Visualized portions are normal. LIVER: Normal. The liver is normal in size. The liver contour is normal. Parenchymal echogenicity is normal. No focal hepatic lesion. There is no intrahepatic biliary duct dilatation seen. GALLBLADDER: Normal. The gallbladder is physiologically distended without evidence of stones, sludge, polyps, wall thickening or pericholecystic fluid. COMMON BILE DUCT: Normal in caliber measuring 0.2 cm in diameter. RIGHT KIDNEY: Normal. No hydronephrosis. No renal calculi or focal parenchymal lesions. The kidney measures 9.0 cm in maximum dimension. LEFT KIDNEY: Normal. No hydronephrosis. No renal calculi or focal parenchymal lesions. The kidney measures 8.8 cm in maximum dimension. SPLEEN: Normal. The spleen measures 9.2 cm in maximum dimension. FREE FLUID: None. US/US abdomen complete IMPRESSION: Unremarkable examination. TODAY'S VISIT Her stooling his some what less watery unsure why. She did not get the flagyl, although there is confusing information about what abx and whether she got it per pharmacy. Will resend it. We review all the current labs and testing in nothing is coming back with a definitive results although the RAST panel is still pending. She has early satiety and she says she had a gastric emptying study in the past that may have been abnormal. I can not find any record of that in our system so it may have been [place] of [place]. Will reorder the gastric emptying study but in the meantime will start her on an empiric trial of Reglan 3 times a day with meals. She has been applying for disability and apparently they say they have not heard from our office even though we have nothing to do with her disability situation. I give her my business card so they can see if they are faxing the forms to the correct place and will go from there since I do not like to hold her up. However we do not like to give out medical records without good reason. Return office visit in 6 weeks [facility] Medical History Chronic idiopathic constipation Tracey infection of genital region UTI (urinary tract infection) Costochondral chest pain Diverticulitis Gastric ulcer Surgical History H/O colonoscopy Hx of endoscopy (01/19/20) Family History Mother CKD (chronic kidney disease) stage 3, GFR 30-59 ml/min Gallbladder calculus with acute cholecystitis Diabetes HTN (hypertension) Father No problems noted. Maternal Grandfather Diabetes HTN (hypertension) Hypercholesteremia Social History Alcohol intake: never Patient Tobacco Use Status: Current everyday Tobacco user Cigarette Packs Per Day: 0.5 Cigarettes Per Day: 10 Substance Use Type: Marijuana Current occupational status: disabled Current occupation: She is currently taking classes at [employer] [facility] [place] Review of Systems Const Denies fatigue, Denies fever(s), Reports headache(s), Denies night sweats, Reports poor appetite and Denies weight loss ENT Reports Normal hearing present, Denies dental pain, Denies dysphagia, Reports headache(s), Denies hearing loss, Denies mouth pain, Denies odynophagia, Denies throat swelling, Denies tongue swelling and Reports other (Dentition adequate) Card Reports no additional complaints Resp Reports no additional complaints GI Details: Reports abdominal pain, Denies melena, Reports bloating, Denies hematochezia, Denies constipation, Denies GI cramping, Denies dysphagia, Denies excessive flatus, Reports early satiety, Denies heartburn, Reports diarrhea, Denies nausea, Denies odynophagia, Denies vomiting and Denies hematemesis Musc Details: Myalgias Reports back pain, Reports myalgias and Reports radiating pain into limb Skin/Breast Denies pruritus, Denies lesions, Denies rash and Denies jaundice Neuro Reports Normal hearing present, Denies Abnormal speech present and Reports headache(s) Endo Denies fatigue Aller/Immun Denies throat swelling and Denies tongue swelling Physical Exam Vital Signs: Last Vital Signs Pulse 72 10/01/23 15:11 BP 115/66 10/01/23 15:11 BMI result Body Mass Index 25.3 Const General: cooperative, no acute distress, well developed and well groomed Nutritional Appearance: average body habitus and well nourished Orientation/consciousness: oriented to person, oriented to place and oriented to time Limitations: No language barrier HEENT Head: Yes normocephalic and Yes atraumatic Eyes General: appearance normal, both eyes and all related structures Pupils: Equal, round and reactive pupils present Neck Neck: Yes normal visual inspection and Yes no lymphadenopathy Thyroid: Thyroid normal Resp Effort & Inspection: normal respiratory effort and able to speak in complete sentences Auscultation: clear to auscultation bilaterally Cardio Rate: regular rate Rhythm: regular rhythm Heart sounds: Normal, physiologic split S2 sound present Peripheral pulses: radial pulses present and posterior tibial pulses present GI Inspection: No distended and No Abdominal panniculus present Palpation (GI): Soft to palpation, nontender, no guarding, not rigid and No hepatosplenomegaly present Percussion: Yes normal to percussion Auscultation: normal bowel sounds Rectal Exam - Female: deferred Skin General skin exam: no rashes or lesions noted, turgor normal, skin not dry, no jaundice, No spider nevi and no striae Rashes: no rashes Nails: normal Neuro General: oriented to person, oriented to place and oriented to time Cranial nerves: Yes Equal, round and reactive pupils present and Yes Normal hearing present Speech: No Abnormal speech present Extrem General: Yes normal to inspection, No clubbing, No cyanosis and No edema Psych Appearance: grossly normal and well kempt Mental Status: mental status grossly normal Speech and movement: Normal speech and movement present Affect: normal affect Attitude: cooperative Thought process: Normal thought process present and not confabulating Thought content: Normal thought content present Insight: Limited insight present (Psych) Judgement: Limited judgement present (Psych) Results Reviewed Results Reviewed: Laboratory Tests 09/26/23 11:53 C-Reactive Protein < 0.10 TSH 1.01 RAST Allergens Pending Tiss Transglutamin IgG <1.0 Tiss Transglutamin IgA <1.0 THE STOOL STUDIES HAVE NOT BEEN OBTAINED ULTRASOUND OF THE ABDOMEN 09/24/23 FINDINGS: PANCREAS: Normal. ABDOMINAL AORTA: The proximal, mid, and distal segments are normal in caliber. INFERIOR VENA CAVA: Visualized portions are normal. LIVER: Normal. The liver is normal in size. The liver contour is normal. Parenchymal echogenicity is normal. No focal hepatic lesion. There is no intrahepatic biliary duct dilatation seen. GALLBLADDER: Normal. The gallbladder is physiologically distended without evidence of stones, sludge, polyps, wall thickening or pericholecystic fluid. COMMON BILE DUCT: Normal in caliber measuring 0.2 cm in diameter. RIGHT KIDNEY: Normal. No hydronephrosis. No renal calculi or focal parenchymal lesions. The kidney measures 9.0 cm in maximum dimension. LEFT KIDNEY: Normal. No hydronephrosis. No renal calculi or focal parenchymal lesions. The kidney measures 8.8 cm in maximum dimension. SPLEEN: Normal. The spleen measures 9.2 cm in maximum dimension. FREE FLUID: None. US/US abdomen complete IMPRESSION: Unremarkable examination. Assessment & Plan Assessment & Plan (1) Loose stools: Code(s): R19.5 - Other fecal abnormalities Category: Medical (2) Periumbilical abdominal pain: Code(s): R10.33 - Periumbilical pain Category: Medical (3) Abdominal bloating: Code(s): R14.0 - Abdominal distension (gaseous) Category: Medical (4) GERD (gastroesophageal reflux disease): Code(s): K21.9 - Gastro-esophageal reflux disease without esophagitis Category: Medical (5) IBS (irritable bowel syndrome): Comment: Not helped by dicyclomine Code(s): K58.9 - Irritable bowel syndrome without diarrhea Category: Medical (6) Early satiety: Code(s): R68.81 - Early satiety Category: Medical Plan Her stooling his some what less watery unsure why. She did not get the flagyl, although there is confusing information about what abx and whether she got it per pharmacy. Will resend it. We review all the current labs and testing in nothing is coming back with a definitive results although the RAST panel is still pending. She has early satiety and she says she had a gastric emptying study in the past that may have been abnormal. I can not find any record of that in our system so it may have been out of state. Will reorder the gastric emptying study but in the meantime will start her on an empiric trial of Reglan 3 times a day with meals. She has been applying for disability and apparently they say they have not heard from our office even though we have nothing to do with her disability situation. I give her my business card so they can see if they are faxing the forms to the correct place and will go from there since I do not like to hold her up. Harvey jacobo we do not like to give out medical records without good reason. Return office visit in 6 weeks Orders: Orders NM gastric emptying study 10/01/23 R68.81 - Early satiety Medications: New metoclopramide HCl (Reglan) 5 mg PO .tidac 90 tabs 6RF R68.81 - Early satiety Refilled metronidazole 500 mg PO TID 30 tabs 0RF 10 days Coding Level of Care Code Est Pt Level 3 (58602) Diagnoses Loose stools R19.5 Periumbilical abdominal pain R10.33 Abdominal bloating R14.0 GERD (gastroesophageal reflux disease) K21.9 IBS (irritable bowel syndrome) K58.9 Early satiety R68.81
[2023-10-01 15:11] VITALS: BP 115/66; PULSE 72; BMI 25.3
== END 2023-10-01 15:56 | disposition home or self-care (01) ==
PROVIDERS: PCP Family Medicine; Visit Provider Nurse Practitioner
DX: R19.5 Other fecal abnormalities (principal); R10.33 Periumbilical pain; R14.0 Abdominal distension (gaseous); K21.9 Gastro-esophageal reflux disease without esophagitis; K58.9 Irritable bowel syndrome, unspecified; R68.81 Early satiety
CPT/HCPCS: 99213

== ENCOUNTER → 2023-10-01 14:59 | Outpatient (BNVA) | payer OTHER, MEDICAID, SELFPAY | PROVIDERS: PCP Family Medicine; Visit Provider Nurse Practitioner ==

== ENCOUNTER → 2023-11-12 07:37 | Outpatient (REF) | payer OTHER, MEDICAID, SELFPAY ==
--- NOTE | ~2023-11-12 | NM_ITS ---
EXAMINATION: RI RADIONUCLIDE SOLID FOOD GASTRIC EMPTYING 4-HOUR STUDY CLINICAL INFORMATION: Early satiety. COMPARISON: None TECHNIQUE: A standard meal consisting of 4 oz of Egg Beaters brand tagged with 1000 microcuries Tc-99m Sulfur Colloid, 8 oz water and 2 slices of toast with jelly was administered orally to the patient. Images were obtained using a dual head gamma camera in the anterior and posterior projections over of the stomach immediately post ingestion and at hourly intervals up to 4 hours post ingestion. The anterior and posterior counts at each time interval were averaged using the geometric mean and expressed as percentage of the immediate post ingestion counts. FINDINGS: There is good visualization of activity in the stomach immediately post ingestion. As the study progresses, there is good clearance of activity from the stomach and visualization of progressively increasing small bowel activity. By the end of the study, there is mild retention noted in the stomach. Retention in the stomach at each time interval was: 1 hour 86% (normal 37%-90%) 2 hours 66% (normal 30%-60%) 3 hours 37% 4 hours 16% (normal 0%-10%) RI/RI gastric emptying study IMPRESSION: Mild 4 hours delayed gastric emptying time (grade 1 retention). For solid meal, rapid gastric emptying is less than 30% at 60 minutes. Delayed gastric emptying criteria is more than 60% remaining at 120 minutes or more than 10% at 240 minutes. The 4-hour value is the best discriminator of a normal or abnormal result). Gastric emptying study grading per JNMT Consensus Recommendations in 2008 (https://tech.snmjournals.org/content/36/144) Grade 1 (mild retention): 11-20% at 4h Grade 2 (moderate retention): 21-35% at 4h Grade 3 (severe retention): 36-50% at 4h Grade 4 (very severe retention): >50% retention at 4h
== END ==
LOC: HO.NUCMED 07:37
PROVIDERS: PCP Family Medicine; Visit Provider Nurse Practitioner
DX: R68.81 Early satiety (principal)
CPT/HCPCS: 78264; A9541

== ENCOUNTER 2023-11-19 08:50 | Outpatient (AMB) | payer OTHER, MEDICAID, SELFPAY ==
--- NOTE | 2023-11-19 09:06 | A.OFFVIS_ITS ---
Vital Signs 11/19/23 09:07 Height 5 ft 5 in Weight 154 lb 5.177 oz BMI 25.7 BP 126/67 Blood Pressure Location Lt brachial Position Sitting Pulse 78 Intake Visit Reasons: early satiety, bloating Intake Note: Vera presents in the office as a follow up for early satiety and abdominal bloating. CC: She states that she got the flagyl and reglan - she states that one of them upset her stomach and the other had her having spams in her cheek. First it felt like a numbing and then cheek would start jumping. She took medications for 3 days and the symptoms all went away. Allergies hydrocodone [From VICODIN] Allergy (Intermediate, Verified 11/19/23 09:08) DEPRESSES BREATHING nitrofurantoin [From Macrobid] Allergy (Intermediate, Verified 11/19/23 09:08) urticaria peach [PEACH] Allergy (Intermediate, Verified 11/19/23 09:08) ITCHING ibuprofen [IBUPROFEN] Allergy (Mild, Verified 11/19/23 09:08) NAUSEA & VOMITING oxycodone [From TYLOX] Allergy (Mild, Verified 11/19/23 09:08) RASH prednisone [PREDNISONE] Allergy (Mild, Verified 11/19/23 09:08) RASH trazodone Adverse Reaction (Intermediate, Verified 11/19/23 09:08) itch acetaminophen [From Excedrin Extra Strength] Adverse Reaction (Unknown, Verified 11/19/23 09:08) stomach issues aspirin [From Excedrin Extra Strength] Adverse Reaction (Unknown, Verified 11/19/23 09:08) stomach issues caffeine [From Excedrin Extra Strength] Adverse Reaction (Unknown, Verified 11/19/23 09:08) stomach issues Medication List - Last Reconciled 11/19/23 by SHARON Reece acetaminophen 500 mg PO Q4H PRN calcium carbonate-vitamin D3 600 mg-20 mcg (800 unit) 1 tab PO BID cyanocobalamin (vitamin B-12) 1,000 mcg PO DAILY diphenhydramine HCl (Benadryl) 25 mg PO TID PRN loratadine 10 mg PO DAILY lorazepam 1 mg PO DAILY PRN metoclopramide HCl (Reglan) 5 mg PO .tidac naproxen 375 mg PO BID senna leaf mL PO simethicone 180 mg PO QID 30 days HPI HPI early satiety, bloating: Details: Assessment & Plan (1) Loose stools: Code(s): R19.5 - Other fecal abnormalities Category: Medical (2) Periumbilical abdominal pain: Code(s): R10.33 - Periumbilical pain Category: Medical (3) Abdominal bloating: Code(s): R14.0 - Abdominal distension (gaseous) Category: Medical (4) GERD (gastroesophageal reflux disease): Code(s): K21.9 - Gastro-esophageal reflux disease without esophagitis Category: Medical (5) IBS (irritable bowel syndrome): Comment: Not helped by dicyclomine Code(s): K58.9 - Irritable bowel syndrome without diarrhea Category: Medical (6) Early satiety: Code(s): R68.81 - Early satiety Category: Medical Plan Her stooling his some what less watery unsure why. She did not get the flagyl, although there is confusing information about what abx and whether she got it per pharmacy. Will resend it. We review all the current labs and testing in no thing is coming back with a definitive results although the RAST panel is still pending. She has early satiety and she says she had a gastric emptying study in the past that may have been abnormal. I can not find any record of that in our system so it may have been [place] of state. Will reorder the gastric emptying study but in the meantime will start her on an empiric trial of Reglan 3 times a day with meals. She has been applying for disability and apparently they say they have not heard from our office even though we have nothing to do with her disability situation. I give her my business card so they can see if they are faxing the forms to the correct place and will go from there since I do not like to hold her up. However we do not like to give out medical records without good reason. Return office visit in 6 weeks Orders: Orders NM gastric emptying study 10/01/23 R68.81 - Early satiety Medications: New metoclopramide HCl (Reglan) 5 mg PO .tidac 90 tabs 6RF R68.81 - Early satiety Refilled metronidazole 500 mg PO TID 30 tabs 0RF 10 days GASTRIC EMPTYING STUDY Not read at the time of prepping this chart RAST panel shows no significant food allergies STOOL STUDIES STILL HAVE NOT BEEN OBTAINED TODAY'S VISIT She had an upset stomach from one of the pills (was taking reglan and Flagyl) and something caused her facial numbness. Uncertain which med but she stopped both. She has senna tea at home and this has worked for her in the past. She was taking chronic dulcolax but stopped r/t varying opinions of multiple healthcare providers. She does not like taking meds, so will start with this. also discussed magnesium supplements. Will try Gas X. her severe bloating continues. We could consider moving to [facility] or even to [facility] except her dislike of medications is definitely a barrier to this method of treatment. ROV 4 weeks. PFSH Medical History Chronic idiopathic constipation Tracey infection of genital region UTI (urinary tract infection) Costochondral chest pain Diverticulitis Gastric ulcer Surgical History H/O colonoscopy Hx of endoscopy (01/19/20) Family History Mother CKD (chronic kidney disease) stage 3, GFR 30-59 ml/min Gallbladder calculus with acute cholecystitis Diabetes HTN (hypertension) Father No problems noted. Maternal Grandfather Diabetes HTN (hypertension) Hypercholesteremia Social History Alcohol intake: never Patient Tobacco Use Status: Current everyday Tobacco user Cigarette Packs Per Day: 0.5 Cigarettes Per Day: 10 Substance Use Type: Marijuana Current occupational status: disabled Current occupation: She is currently taking classes at [employer] [facility] [employer] [facility] [place] Review of Systems Const Denies fatigue, Denies fever(s), Denies night sweats, Denies poor appetite and Denies weight loss ENT Reports Normal hearing present, Denies dental pain, Denies dysphagia, Denies hearing loss, Denies mouth pain, Denies odynophagia, Denies throat swelling, Denies tongue swelling and Reports other (Dentition adequate) Card Reports no additional complaints Resp Reports no additional complaints GI Details: Denies abdominal pain, Denies melena, Reports bloating, Denies hematochezia, Denies constipation, Denies GI cramping, Denies dysphagia, Denies excessive flatus, Denies early satiety, Denies heartburn, Denies diarrhea, Denies nausea, Denies odynophagia, Denies vomiting and Denies hematemesis Skin/Breast Denies pruritus, Denies lesions, Denies rash and Denies jaundice Neuro Reports Normal hearing present and Denies Abnormal speech present Endo Denies fatigue Aller/Immun Denies throat swelling and Denies tongue swelling Physical Exam Vital Signs: Last Vital Signs Pulse 78 11/19/23 09:07 BP 126/67 11/19/23 09:07 BMI result Body Mass Index 25.7 Const General: cooperative, no acute distress, well developed and well groomed Nutritional Appearance: average body habitus and well nourished Orientation/consciousness: oriented to person, oriented to place and oriented to time Limitations: No language barrier HEENT Head: Yes normocephalic and Yes atraumatic Eyes General: appearance normal, both eyes and all related structures Pupils: Equal, round and reactive pupils present Neck Neck: Yes normal visual inspection and Yes no lymphadenopathy Thyroid: Thyroid normal Resp Effort & Inspection: normal respiratory effort and able to speak in complete sentences Auscultation: clear to auscultation bilaterally Cardio Rate: regular rate Rhythm: regular rhythm Heart sounds: Normal, physiologic split S2 sound present Peripheral pulses: radial pulses present and posterior tibial pulses present GI Inspection: No distended and No Abdominal panniculus present Palpation (GI): Soft to palpation, nontender, no guarding, not rigid and No hepatosplenomegaly present Percussion: Yes normal to percussion Auscultation: normal bowel sounds Rectal Exam - Female: deferred Skin General skin exam: no rashes or lesions noted, turgor normal, skin not dry, no jaundice, No spider nevi and no striae Rashes: no rashes Nails: normal Neuro General: oriented to person, oriented to place and oriented to time Cranial nerves: Yes Equal, round and reactive pupils present and Yes Normal hearing present Speech: No Abnormal speech present Extrem General: Yes normal to inspection, No clubbing, No cyanosis and No edema Psych Appearance: grossly normal and well kempt Mental Status: mental status grossly normal Speech and movement: Normal speech and movement present Affect: normal affect Attitude: cooperative Thought process: Normal thought process present and not confabulating Thought content: Normal thought content present Insight: Fair insight present (Psych) and Limited insight present (Psych) Judgement: Fair judgement present (Psych) and Limited judgement present (Psych) Results Reviewed Results Reviewed: GASTRIC EMPTYING STUDY Not read at the time of prepping this chart RAST panel shows no significant food allergies STOOL STUDIES STILL HAVE NOT BEEN OBTAINED Assessment & Plan Assessment & Plan (1) Early satiety: Code(s): R68.81 - Early satiety Category: Medical (2) Loose stools: Code(s): R19.5 - Other fecal abnormalities Category: Medical (3) Abdominal bloating: Code(s): R14.0 - Abdominal distension (gaseous) Category: Medical (4) IBS (irritable bowel syndrome): Comment: Not helped by dicyclomine Code(s): K58.9 - Irritable bowel syndrome without diarrhea Category: Medical (5) GERD (gastroesophageal reflux disease): Code(s): K21.9 - Gastro-esophageal reflux disease without esophagitis Category: Medical Plan She had an upset stomach from one of the pills (was taking reglan and Flagyl) and something caused her facial numbness. Uncertain which med but she stopped both. She has senna tea at home and this has worked for her in the past. She was taking chronic dulcolax but stopped r/t varying opinions of multiple healthcare providers. She does not like taking meds, so will start with this. also discussed magnesium supplements. Will try Gas X. her severe bloating continues. We could consider moving to [facility] or even to [facility] except her dislike of medications is definitely a barrier to this method of treatment. ROV 4 weeks. GASTRIC EMPTYING STUDY Not read at the time of prepping this chart STOOL STUDIES STILL HAVE NOT BEEN OBTAINED Medications: New simethicone after meals 180 mg PO QID 120 caps 3RF 30 days Discontinued metronidazole Discontinued Reason: Patient Completed Course 500 mg PO TID 10 days 30 tabs 0RF On Hold metoclopramide HCl (Reglan) Hold Comment: Doctor's Order 5 mg PO .tidac 90 tabs 6RF R68.81 - Early satiety Coding Level of Care Code Est Pt Level 3 (07446) Diagnoses Early satiety R68.81 Loose stools R19.5 Abdominal bloating R14.0 IBS (irritable bowel syndrome) K58.9 GERD (gastroesophageal reflux disease) K21.9
[2023-11-19 09:07] VITALS: BP 126/67; PULSE 78; BMI 25.7
== END 2023-11-19 09:50 | disposition home or self-care (01) ==
PROVIDERS: PCP Family Medicine; Visit Provider Nurse Practitioner
DX: R68.81 Early satiety (principal); R19.5 Other fecal abnormalities; R14.0 Abdominal distension (gaseous); K58.9 Irritable bowel syndrome, unspecified; K21.9 Gastro-esophageal reflux disease without esophagitis
CPT/HCPCS: 99213

== ENCOUNTER → 2023-11-19 08:50 | Outpatient (BNVA) | payer OTHER, MEDICAID, SELFPAY | PROVIDERS: PCP Family Medicine; Visit Provider Nurse Practitioner ==

== ENCOUNTER 2023-12-02 16:54 | Emergency (ER) | payer MEDICARE, MEDICAID, SELFPAY ==
[2023-12-02 17:22] VITALS: BP 130/76; PULSE 81; RESP 16; TEMP 36.7; O2SAT 99; BMI 26.2
== END 2023-12-03 00:34 | disposition left against medical advice (07) ==
PROVIDERS: Emergency Provider Emergency Medicine; PCP Family Medicine
DX: Z53.21 Procedure and treatment not carried out due to patient leaving prior to being seen by health care provider (principal); L29.9 Pruritus, unspecified
CPT/HCPCS: 99281

== ENCOUNTER 2023-12-26 10:37 | Outpatient (AMB) | payer MEDICARE, MEDICAID, SELFPAY ==
[2023-12-26 10:39] VITALS: BP 117/68; PULSE 98; BMI 26.1
--- NOTE | 2023-12-26 10:39 | A.OFFVIS_ITS ---
Vital Signs 12/26/23 10:39 Height 5 ft 5 in Weight 156 lb 15.506 oz BMI 26.1 BP 117/68 Blood Pressure Location Lt brachial Position Sitting Pulse 98 Intake Visit Reasons: follow up Intake Note: Vera presents in the office as a follow up for early satiety and abdominal bloating. CC: She states that she continues to have abdominal bloating and she feels full even when she had not eaten anything. Per patient she wants to start exercising but it hurts her stomach. Denies other GI symptoms today. Equipment Records Supervisor Required: No Accompanied by: Self / Same As Patient Allergies hydrocodone [From VICODIN] Allergy (Intermediate, Verified 12/26/23 10:44) DEPRESSES BREATHING nitrofurantoin [From Macrobid] Allergy (Intermediate, Verified 12/26/23 10:44) urticaria peach [PEACH] Allergy (Intermediate, Verified 12/26/23 10:44) ITCHING ibuprofen [IBUPROFEN] Allergy (Mild, Verified 12/26/23 10:44) NAUSEA & VOMITING oxycodone [From TYLOX] Allergy (Mild, Verified 12/26/23 10:44) RASH prednisone [PREDNISONE] Allergy (Mild, Verified 12/26/23 10:44) RASH trazodone Adverse Reaction (Intermediate, Verified 12/26/23 10:44) itch acetaminophen [From Excedrin Extra Strength] Adverse Reaction (Unknown, Verified 12/26/23 10:44) stomach issues aspirin [From Excedrin Extra Strength] Adverse Reaction (Unknown, Verified 12/26/23 10:44) stomach issues caffeine [From Excedrin Extra Strength] Adverse Reaction (Unknown, Verified 12/26/23 10:44) stomach issues HPI HPI follow up: Details: Assessment & Plan (1) Early satiety: Code(s): R68.81 - Early satiety Category: Medical (2) Loose stools: Code(s): R19.5 - Other fecal abnormalities Category: Medical (3) Abdominal bloating: Code(s): R14.0 - Abdominal distension (gaseous) Category: Medical (4) IBS (irritable bowel syndrome): Comment: Not helped by dicyclomine Code(s): K58.9 - Irritable bowel syndrome without diarrhea Category: Medical (5) GERD (gastroesophageal reflux disease): Code(s): K21.9 - Gastro-esophageal reflux disease without esophagitis Category: Medical Plan She had an upset stomach from one of the pills (was taking reglan and Flagyl) and something caused her facial numbness. Uncertain which med but she stopped both. She has senna tea at home and this has worked for her in the past. She was taking chronic dulcolax but stopped r/t varying opinions of multiple healthcare providers. She does not like taking meds, so will start with this. also discussed magnesium supplements. Will try Gas X. her severe bloating continues. We could consider moving to [place] or even to [facility] except her dislike of medications is definitely a barrier to this method of treatment. ROV 4 weeks. Medications: New simethicone after meals 180 mg PO QID 120 caps 3RF 30 days Discontinued metronidazole Discontinued Reason: Patient Completed Course 500 mg PO TID 10 days 30 tabs 0RF On Hold metoclopramide HCl (Reglan) Hold Comment: Doctor's Order 5 mg PO .tidac 90 tabs 6RF R68.81 - Early satiety TODAY'S VISIT Bloating not better with simethicone. She gets to bloated that she will feel too full and can't eat anymore. She does get diarrhea from milk products, but she also has loose stools with salads (? EPI). Trial of creon. She is due for screening colonoscopy - agreeable. There are no prior problems with anesthesia or sedation. She denies any cardiac or respiratory problems. There are no infectious disease problems. She says that her mother had a colon polyp removed. ROV 6 weeks. PFSH Medical History Chronic idiopathic constipation Tracey infection of genital region UTI (urinary tract infection) Costochondral chest pain Diverticulitis Gastric ulcer Surgical History H/O colonoscopy Hx of endoscopy (01/19/20) Family History Mother CKD (chronic kidney disease) stage 3, GFR 30-59 ml/min Gallbladder calculus with acute cholecystitis Diabetes HTN (hypertension) Father No problems noted. Maternal Grandfather Diabetes HTN (hypertension) Hypercholesteremia Social History Alcohol intake: never Patient Tobacco Use Status: Current everyday Tobacco user Cigarette Packs Per Day: 0.5 Cigarettes Per Day: 10 Substance Use Type: Marijuana Current occupational status: disabled Current occupation: She is currently taking classes at [employer] [facility] [place] Review of Systems Const Denies fatigue, Denies fever(s), Denies night sweats, Denies poor appetite and Denies weight loss ENT Reports Normal hearing present, Denies dental pain, Denies dysphagia, Denies hearing loss, Denies mouth pain, Denies odynophagia, Denies throat swelling, Denies tongue swelling and Reports other (Dentition adequate) Card Reports no additional complaints Resp Reports no additional complaints GI Details: Denies abdominal pain, Denies melena, Reports bloating, Denies hematochezia, Denies constipation, Denies GI cramping, Denies dysphagia, Denies excessive flatus, Denies early satiety, Denies heartburn, Denies diarrhea, Reports loose stools, Denies nausea, Denies odynophagia, Denies vomiting and Denies hematemesis Skin/Breast Denies pruritus, Denies lesions, Denies rash and Denies jaundice Neuro Reports Normal hearing present and Denies Abnormal speech present Endo Denies fatigue Aller/Immun Denies throat swelling and Denies tongue swelling Physical Exam Vital Signs: Last Vital Signs Pulse 98 12/26/23 10:39 BP 117/68 12/26/23 10:39 BMI result Body Mass Index 26.1 Const General: cooperative, no acute distress, well developed and well groomed Nutritional Appearance: average body habitus and well nourished Orientation/consciousness: oriented to person, oriented to place and oriented to time Limitations: No language barrier HEENT Head: Yes normocephalic and Yes atraumatic Eyes General: appearance normal, both eyes and all related structures Pupils: Equal, round and reactive pupils present Neck Neck: Yes normal visual inspection and Yes no lymphadenopathy Thyroid: Thyroid normal Resp Effort & Inspection: normal respiratory effort and able to speak in complete sentences Auscultation: clear to auscultation bilaterally Cardio Rate: regular rate Rhythm: regular rhythm Heart sounds: Normal, physiologic split S2 sound present Peripheral pulses: radial pulses present and posterior tibial pulses present GI Inspection: No distended and No Abdominal panniculus present Palpation (GI): Soft to palpation, nontender, no guarding, not rigid and No hepatosplenomegaly present Percussion: Yes normal to percussion Auscultation: normal bowel sounds Rectal Exam - Female: deferred Skin General skin exam: no rashes or lesions noted, turgor normal, skin not dry, no jaundice, No spider nevi and no striae Rashes: no rashes Nails: normal Neuro General: oriented to person, oriented to place and oriented to time Cranial nerves: Yes Equal, round and reactive pupils present and Yes Normal hearing present Speech: No Abnormal speech present Extrem General: Yes normal to inspection, No clubbing, No cyanosis and No edema Psych Appearance: grossly normal and well kempt Mental Status: mental status grossly normal Speech and movement: Normal speech and movement present Affect: normal affect Attitude: cooperative Thought process: Normal thought process present and not confabulating Thought content: Normal thought content present Insight: Fair insight present (Psych) and Limited insight present (Psych) Judgement: Fair judgement present (Psych) and Limited judgement present (Psych) Assessment & Plan Assessment & Plan (1) Abdominal bloating: Code(s): R14.0 - Abdominal distension (gaseous) Category: Medical (2) IBS (irritable bowel syndrome): Comment: Not helped by dicyclomine Code(s): K58.9 - Irritable bowel syndrome without diarrhea Category: Medical (3) GERD (gastroesophageal reflux disease): Code(s): K21.9 - Gastro-esophageal reflux disease without esophagitis Category: Medical (4) Early satiety: Comment: Unsure if Reglan or Flagyl caused her facial numbness aeb Code(s): R68.81 - Early satiety Category: Medical (5) Pre-op examination: Code(s): Z01.818 - Encounter for other preprocedural examination Category: Medical (6) Family history of polyps in the colon: Comment: Mother Code(s): Z83.719 - Family history of colon polyps, unspecified Category: Medical Plan Bloating not better with simethicone. She gets to bloated that she will feel too full and can't eat anymore. She does get diarrhea from milk products, but she also has loose stools with salads (? EPI). Trial of creon. She is due for screening colonoscopy - agreeable. There are no prior problems with anesthesia or sedation. She denies any cardiac or respiratory problems. There are no infectious disease problems. She says that her mother had a colon polyp removed. ROV 6 weeks. Orders: Orders Complete Blood Count Auto Diff Today Z01.818 - Encounter for other preprocedural examination Colonoscopy - GI Use Only Today Z01.818 - Encounter for other preprocedural examination Comprehensive Met. Panel Today Z.818 - Encounter for other preprocedural examination Medications: New anurih-ruawyxxl-ryeaxgi 36,000-114,000- 180,000 unit (Creon) administer with meals and/or snacks 2 caps PO BID 120 caps 6RF K58.9 - Irritable bowel syndrome without diarrhea bisacodyl (Dulcolax (bisacodyl)) 10 mg (2 x 5 mg) PO BEDTIME 4 tabs 0RF 2 days peg 3350-electrolytes 236-22.74-6.74 -5.86 gram (Golytely) until fecal effluent is clear; do not exceed a total volume of 2,000 mL 240 mL PO Q10M 4,000 mL 0RF 1 day Z12.11 - Encounter for screening for malignant neoplasm of colon Coding Level of Care Code Est Pt Level 4 (23840) Diagnoses Abdominal bloating R14.0 IBS (irritable bowel syndrome) K58.9 GERD (gastroesophageal reflux disease) K21.9 Early satiety R68.81 Pre-op examination Z01.818 Family history of polyps in the colon Z83.719
== END 2023-12-26 11:29 | disposition home or self-care (01) ==
PROVIDERS: PCP Family Medicine; Visit Provider Nurse Practitioner
DX: R14.0 Abdominal distension (gaseous) (principal); K58.9 Irritable bowel syndrome, unspecified; K21.9 Gastro-esophageal reflux disease without esophagitis; R68.81 Early satiety; Z01.818 Encounter for other preprocedural examination; Z83.719 Family history of colon polyps, unspecified
CPT/HCPCS: 99214

== ENCOUNTER → 2023-12-26 10:37 | Outpatient (BNVA) | payer MEDICARE, MEDICAID, SELFPAY | PROVIDERS: PCP Family Medicine; Visit Provider Nurse Practitioner | DX: Z01.818 Encounter for other preprocedural examination (principal); R68.81 Early satiety; R14.0 Abdominal distension (gaseous); R19.5 Other fecal abnormalities; K58.9 Irritable bowel syndrome, unspecified; K21.9 Gastro-esophageal reflux disease without esophagitis; Z83.719 Family history of colon polyps, unspecified | CPT/HCPCS: 99212 ==

== ENCOUNTER 2024-02-06 12:34 | Outpatient (REF) | payer MEDICARE, MEDICAID, SELFPAY ==
[2024-02-06 12:45] LABS: MANUAL DIFF FLAG NO
[2024-02-06 13:40] LABS: Basophils Percent Auto 0.5 % (0-2); Eosinophils Absolute Auto 0.3 X10*3/uL (0.0-0.4); Eosinophils Percent Auto 3.5 % (0-4); Hematocrit 39.3 % (37.0-47.0); Hemoglobin 12.5 g/dl (12.0-16.0); Imm Gran Abs Auto 0.02 X10*3/uL (0.00-0.03); Imm Gran Pct Auto 0.3 % (0.0-0.4); Lymphocytes Absolute Auto 3.1 X10*3/uL (1.2-4.9); Lymphocytes Percent Auto 41.1 % (20-40); Mean Corpuscular HGB Conc 31.8 g/dl (31.0-35.0); Mean Corpuscular Hemoglobin 27.5 pg (27.0-33.0); Mean Corpuscular Volume 86.6 fL (80.0-98.0); Mean Platelet Volume 8.9 fL (9.4-12.3); Monocytes Absolute Auto 0.6 X10*3/uL (0.1-1.2); Monocytes Percent Auto 7.5 % (2-11); Neutrophils Absolute Auto 3.5 x10*3/uL (2.0-8.3); Neutrophils Percent Auto 47.1 % (45-73); Platelet Count 471 X10*3/uL (160-400); Red Blood Count 4.54 X10*6/uL (4.20-5.50); Red Cell Distribution Width 14.4 % (11.0-16.0); White Blood Count 7.5 X10*3/uL (4.8-10.8)
[2024-02-06 14:12] LABS: Alanine Aminotransferase 13 U/L (0-31); Albumin Level 4.3 g/dL (3.5-5.0); Alkaline Phosphatase 90 U/L (39-117); Anion Gap 10 (12-20); Aspartate Amino Transferase 15 U/L (5-31); Bilirubin Total 0.2 mg/dL (0.0-1.0); Blood Urea Nitrogen 13 mg/dL (9-16); Calcium 10.1 mg/dL (8.4-10.2); Carbon Dioxide 28 mmol/L (22-29); Chloride 108 mmol/L (96-108); Estimated Glomerular Filt Rate > 60; Glucose Random 119 mg/dL (60-115); Sodium 142 mmol/L (135-145); Total Protein 7.2 g/dL (6.5-8.0)
== END 2024-02-06 12:35 | disposition home or self-care (01) ==
LOC: HO.LAB 12:34
PROVIDERS: PCP Family Medicine; Visit Provider Nurse Practitioner
DX: Z01.818 Encounter for other preprocedural examination (principal)
CPT/HCPCS: 36415; 80053; 85025

== ENCOUNTER 2024-03-19 14:42 | Outpatient (AMB) | payer MEDICARE, MEDICAID, SELFPAY ==
[2024-03-19 14:44] VITALS: BP 134/80; PULSE 93; BMI 26.8
--- NOTE | 2024-03-19 14:44 | A.OFFVIS_ITS ---
Vital Signs 03/19/24 14:44 Height 5 ft 5 in Weight 160 lb 14.999 oz BMI 26.8 BP 134/80 Blood Pressure Location Lt brachial Position Sitting Pulse 93 Intake Visit Reasons: Labs FUV. R/S from 02/05 (PROV EMERG) Intake Note: Patient presents to in office follow up of labs. CC: Patient reports having a little bit of abdominal bloating and sometimes a sharp pain in her stomach. Release Of Information Clerk Required: No Accompanied by: Self / Same As Patient Allergies hydrocodone [From VICODIN] Allergy (Intermediate, Verified 03/19/24 15:02) DEPRESSES BREATHING nitrofurantoin [From Macrobid] Allergy (Intermediate, Verified 03/19/24 15:02) urticaria peach [PEACH] Allergy (Intermediate, Verified 03/19/24 15:02) ITCHING ibuprofen [IBUPROFEN] Allergy (Mild, Verified 03/19/24 15:02) NAUSEA & VOMITING oxycodone [From TYLOX] Allergy (Mild, Verified 03/19/24 15:02) RASH prednisone [PREDNISONE] Allergy (Mild, Verified 03/19/24 15:02) RASH trazodone Adverse Reaction (Intermediate, Verified 03/19/24 15:02) itch acetaminophen [From Excedrin Extra Strength] Adverse Reaction (Unknown, Verified 03/19/24 15:02) stomach issues aspirin [From Excedrin Extra Strength] Adverse Reaction (Unknown, Verified 03/19/24 15:02) stomach issues caffeine [From Excedrin Extra Strength] Adverse Reaction (Unknown, Verified 03/19/24 15:02) stomach issues HPI HPI Labs FUV. R/S from 02/05 (PROV EMERG): Details: Assessment & Plan (1) Abdominal bloating: Code(s): R14.0 - Abdominal distension (gaseous) Category: Medical (2) IBS (irritable bowel syndrome): Comment: Not helped by dicyclomine Code(s): K58.9 - Irritable bowel syndrome without diarrhea Category: Medical (3) GERD (gastroesophageal reflux disease): Code(s): K21.9 - Gastro-esophageal reflux disease without esophagitis Category: Medical (4) Early satiety: Comment: Unsure if Reglan or Flagyl caused her facial numbness aeb Code(s): R68.81 - Early satiety Category: Medical (5) Pre-op examination: Code(s): Z01.818 - Encounter for other preprocedural examination Category: Medical (6) Family history of polyps in the colon: Comment: Mother Code(s): Z83.719 - Family history of colon polyps, unspecified Category: Medical Plan Bloating not better with simethicone. She gets to bloated that she will feel too full and can't eat anymore. She does get diarrhea from milk products, but she also has loose stools with salads (? EPI). Trial of creon. She is due for screening colonoscopy - agreeable. There are no prior problems with anesthesia or sedation. She denies any cardiac or respiratory problems. There are no infectious disease problems. She says that her mother had a colon polyp removed. ROV 6 weeks. Orders: Orders Complete Blood Count Auto Diff Today Z01.818 - Encounter for other preprocedural examination Colonoscopy - GI Use Only Today Z01.818 - Encounter for other preprocedural examination Comprehensive Met. Panel Today Z01.818 - Encounter for other preprocedural examination Medications: New vjkxyp-nnruryth-qdkrlzv 36,000-114,000- 180,000 unit (Creon) administer with meals and/or snacks 2 caps PO BID 120 caps 6RF K58.9 - Irritable bowel syndrome without diarrhea bisacodyl (Dulcolax (bisacodyl)) 10 mg (2 x 5 mg) PO BEDTIME 4 tabs 0RF 2 days peg 3350-electrolytes 236-22.74-6.74 -5.86 gram (Golytely) until fecal effluent is clear; do not exceed a total volume of 2,000 mL 240 mL PO Q10M 4,000 mL 0RF 1 day Z12.11 - Encounter for screening for malignant neoplasm of colon LABS: Laboratory Tests 02/06/24 12:43 WBC 7.5 Hgb 12.5 Hct 39.3 Plt Count 471 H Estimated GFR > 60 Total Bilirubin 0.2 AST 15 ALT 13 Alkaline Phosphatase 90 COLONOSCOPY 05/26/2024 BIOPSY TODAY'S VISIT She did not get the Creon because apparently it was not covered by insurance and her insurance company did not notify us. We will try to get on this and see if they want another brand or if we need a prior approval. Of course her symptoms continue. She also experiences severe fecal urgency of sudden onset, this does not produce diarrhea or loose stools but soft to solid stooling but if she does not get to a bathroom she will not be able to control the outcome. This is usually preceded by severe cramping. She also has been having some episodes of near regurg especially later in the day. 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 I explained how this could be working against her in terms of gas motility and how these things tend to feed on each other. For now we are going to continue to work on getting her the digestive enzymes and I have also suggested that she do a trial of IV guard since meant has a lot of clinical evidence that it works well for this kind of thing. She is also getting tired of eating yogurt for her probiotic so we discussed things like Amanda and Tanisha narayan. And of course she could always consider an inexpensive store brand probiotic supplement. ROV 6 weeks. [facility] Medical History Pre-op examination Chronic idiopathic constipation Tracey infection of genital region UTI (urinary tract infection) Costochondral chest pain Diverticulitis Gastric ulcer Surgical History H/O colonoscopy Hx of endoscopy (01/19/20) Family History Mother CKD (chronic kidney disease) stage 3, GFR 30-59 ml/min Gallbladder calculus with acute cholecystitis Diabetes HTN (hypertension) Father No problems noted. Maternal Grandfather Diabetes HTN (hypertension) Hypercholesteremia Social History Alcohol intake: never Patient Tobacco Use Status: Current everyday Tobacco user Cigarette Packs Per Day: 0.5 Cigarettes Per Day: 10 Substance Use Type: Marijuana Current occupational status: disabled Current occupation: She is currently taking classes at [employer] Review of Systems Const Denies fatigue, Denies fever(s), Denies night sweats, Denies poor appetite and Denies weight loss Eyes Reports requires corrective lenses ENT Reports Normal hearing present, Denies dental pain, Denies dysphagia, Denies hearing loss, Denies mouth pain, Denies odynophagia, Denies throat swelling, Denies tongue swelling and Reports other (Dentition adequate) GI Details: Denies abdominal pain, Denies melena, Denies bloating, Denies hematochezia, Denies constipation, Denies GI cramping, Denies dysphagia, Denies excessive flatus, Denies early satiety, Denies heartburn, Denies diarrhea, Denies nausea, Denies odynophagia, Denies vomiting and Denies hematemesis Skin/Breast Denies pruritus, Denies lesions, Denies rash and Denies jaundice Neuro Reports Normal hearing present and Denies Abnormal speech present Endo Denies fatigue Aller/Immun Denies throat swelling and Denies tongue swelling Physical Exam Vital Signs: Last Vital Signs Pulse 93 03/19/24 14:44 BP 134/80 03/19/24 14:44 BMI result Body Mass Index 26.8 Const General: cooperative, no acute distress, well developed and well groomed Nutritional Appearance: well nourished, obese and overweight Orientation/consciousness: oriented to person, oriented to place and oriented to time Limitations: No language barrier, ambulation with cane, ambulation with walker and wheelchair HEENT Head: Yes normocephalic and Yes atraumatic Eyes General: appearance normal, both eyes and all related structures Pupils: Equal, round and reactive pupils present Neck Neck: Yes normal visual inspection and Yes no lymphadenopathy Thyroid: Thyroid normal Resp Effort & Inspection: normal respiratory effort and able to speak in complete sentences Auscultation: clear to auscultation bilaterally Cardio Rate: regular rate Rhythm: regular rhythm Heart sounds: Normal, physiologic split S2 sound present Peripheral pulses: radial pulses present and posterior tibial pulses present GI Inspection: No distended and No Abdominal panniculus present Palpation (GI): Soft to palpation, nontender, no guarding, not rigid, No hepatosplenomegaly present and Hepatosplenomegaly present Percussion: Yes normal to percussion Auscultation: normal bowel sounds Rectal Exam - Female: deferred Skin General skin exam: no rashes or lesions noted, turgor normal, skin not dry, no jaundice, No spider nevi and no striae Rashes: no rashes Nails: normal Neuro General: oriented to person, oriented to place and oriented to time Cranial nerves: Yes Equal, round and reactive pupils present and Yes Normal hearing present Speech: No Abnormal speech present Extrem General: Yes normal to inspection, No clubbing, No cyanosis and No edema Psych Thought process: Normal thought process present and not confabulating Thought content: Normal thought content present Insight: Good insight present (Psych) Judgement: Good judgement present (Psych) Results Reviewed Results Reviewed: Laboratory Tests 02/06/24 12:43 WBC 7.5 Hgb 12.5 Hct 39.3 Plt Count 471 H Estimated GFR > 60 Total Bilirubin 0.2 AST 15 ALT 13 Alkaline Phosphatase 90 Assessment & Plan Assessment & Plan (1) Loose stools: Code(s): R19.5 - Other fecal abnormalities Category: Medical (2) GERD (gastroesophageal reflux disease): Code(s): K21.9 - Gastro-esophageal reflux disease without esophagitis Category: Medical (3) Abdominal bloating: Code(s): R14.0 - Abdominal distension (gaseous) Category: Medical Plan She did not get the Creon because apparently it was not covered by insurance and her insurance company did not notify us. We will try to get on this and see if they want another brand or if we need a prior approval. Of course her symptoms continue. She also experiences severe fecal urgency of sudden onset, this does not produce diarrhea or loose stools but soft to solid stooling but if she does not get to a bathroom she will not be able to control the outcome. This is usually preceded by severe cramping. She also has been having some episodes of near regurg especially later in the day. 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 I explained how this could be working against her in terms of gas motility and how these things tend to feed on each other. For now we are going to continue to work on getting her the digestive enzymes and I have also suggested that she do a trial of IV guard since meant has a lot of clinical evidence that it works well for this kind of thing. She is also getting tired of eating yogurt for her probiotic so we discussed things like Kombucha and Tanisha narayan. And of course she could always consider an inexpensive store brand probiotic supplement. ROV 6 weeks. COLONOSCOPY 05/26/2024 BIOPSY Coding Level of Care Code Est Pt Level 3 (66834) Diagnoses Loose stools R19.5 GERD (gastroesophageal reflux disease) K21.9 Abdominal bloating R14.0
== END 2024-03-19 15:48 | disposition home or self-care (01) ==
PROVIDERS: PCP Family Medicine; Visit Provider Nurse Practitioner
DX: R19.5 Other fecal abnormalities (principal); K21.9 Gastro-esophageal reflux disease without esophagitis; R14.0 Abdominal distension (gaseous)
CPT/HCPCS: 99213

== ENCOUNTER → 2024-03-19 14:42 | Outpatient (BNVA) | payer MEDICARE, MEDICAID, SELFPAY | PROVIDERS: PCP Family Medicine; Visit Provider Nurse Practitioner | DX: Z01.818 Encounter for other preprocedural examination (principal); R14.0 Abdominal distension (gaseous); K58.9 Irritable bowel syndrome, unspecified; K21.9 Gastro-esophageal reflux disease without esophagitis; R68.81 Early satiety; Z83.719 Family history of colon polyps, unspecified | CPT/HCPCS: 99212 ==

== ENCOUNTER 2024-07-07 09:14 | Emergency (ER) | payer MEDICARE, MEDICAID, SELFPAY ==
[2024-07-07 09:26] VITALS: BP 145/72; PULSE 85; RESP 16; TEMP 36.1; O2SAT 100; BMI 27.6
[2024-07-07 11:30] VITALS: BP 119/61; PULSE 65; RESP 16; TEMP 36.4; O2SAT 100
--- NOTE | 2024-07-07 11:38 | ED.SKABFB ---
HPI - Skin/Abscess/Foreign Bdy General Chief complaint: Skin/Abscess/Foreign Body Stated complaint: Bumps/rash on hands & feet Time Seen by Provider: 07/07/24 11:25 Source: patient Mode of arrival: ambulatory Limitations: no limitations History of Present Illness ED Provider: Leighann Marsh PA-C HPI narrative: 49 y/o female with history of eczema, psoriasis previously on otezla and following with Dr. Arias (Derm) who presents to the ER for evaluation of acute on chronic bilateral hand and foot rash that is painful and very itchy. She was supposed to start a new treatment with her golf course assistant today but they told her they no longer take her insurance. She has been using topical betamethadone cream with some relief in the itch. She reports the rash and blisters have been present for 10 months and are not getting better. She has pain with walking and using her hands. No fevers. No drainage from the rash. MD complaint: rash Onset (ago): month(s) Location: L hand, R hand, L foot and R foot Severity: severe Quality: burning and pruritic Pain Consistency: constant Relieving factors: topical medication Exacerbating factors: none Context: none Associated symptoms: denies other symptoms Treatments prior to arrival: bandages Related Data Home Medications ?Medication ?Instructions ?Recorded ?Confirmed acetaminophen 500 mg tablet 500 mg PO Q4H PRN pain 01/06/21 11/19/23 cyanocobalamin (vitamin B-12) 1,000 mcg PO DAILY 01/06/21 11/19/23 1,000 mcg tablet calcium 600 mg (as 1 tab PO BID 08/28/23 11/19/23 carbonate)-vitamin D3 20 mcg (800 unit) tablet lorazepam 1 mg tablet 1 mg PO DAILY PRN 08/28/23 11/19/23 senna leaf ml PO 11/19/23 11/19/23 Previous Rx's ?Medication ?Instructions ?Recorded diphenhydramine HCl 25 mg capsule 25 mg PO TID PRN itching #14 caps 01/30/22 (Benadryl) metoclopramide HCl 5 mg tablet 5 mg PO .tidac #90 tabs 10/01/23 (Reglan) simethicone 180 mg capsule 180 mg PO QID 30 days #120 caps 11/19/23 bisacodyl 5 mg tablet,delayed 10 mg (2 x 5 mg) PO BEDTIME 2 days 12/26/23 release (Dulcolax (bisacodyl)) #4 tabs ifzfsi-fiyketnf-medsyhl 2 cap PO BID #120 caps 12/26/23 36,000-114,000-180,000 unit capsule,delay rel (Creon) peg 3350-electrolytes 236 240 ml PO Q10M 1 day #4,000 mL 12/26/23 gram-22.74 gram-6.74 gram-5.86 gram solution (Golytely) triamcinolone acetonide 0.5 % 1 appl topical BID #15 grams 07/07/24 topical ointment Allergies Allergy/AdvReac Type Severity Reaction Status Date / Time hydrocodone [From VICODIN] Allergy Intermediate DEPRESSES Verified 07/07/24 09:29 BREATHING nitrofurantoin Allergy Intermediate urticaria Verified 07/07/24 09:29 [From Macrobid] peach [PEACH] Allergy Intermediate ITCHING Verified 07/07/24 09:29 ibuprofen [IBUPROFEN] Allergy Mild NAUSEA & Verified 07/07/24 09:29 VOMITING oxycodone [From TYLOX] Allergy Mild RASH Verified 07/07/24 09:29 prednisone [PREDNISONE] Allergy Mild RASH Verified 07/07/24 09:29 trazodone AdvReac Intermediate itch Verified 07/07/24 09:29 acetaminophen AdvReac Unknown stomach Verified 07/07/24 09:29 [From Excedrin Extra issues Strength] aspirin AdvReac Unknown stomach Verified 07/07/24 09:29 [From Excedrin Extra issues Strength] caffeine AdvReac Unknown stomach Verified 07/07/24 09:29 [From Excedrin Extra issues Strength] apremilast [From Otezla] AdvReac Gastrointestinal Verified 07/07/24 09:31 Upset Review of Systems Review of Systems: Yes all other systems are reviewed and are negative PMFSH Past Medical History Medical History Pre-op examination Chronic idiopathic constipation Tracey infection of genital region UTI (urinary tract infection) Costochondral chest pain Diverticulitis Gastric ulcer Surgical History H/O colonoscopy Hx of endoscopy (01/19/20) Family History Family History Mother CKD (chronic kidney disease) stage 3, GFR 30-59 ml/min Gallbladder calculus with acute cholecystitis Diabetes HTN (hypertension) Father No problems noted. Maternal Grandfather Diabetes HTN (hypertension) Hypercholesteremia Social History Social History Alcohol intake: never Patient Tobacco Use Status: Current everyday Tobacco user Cigarette Packs Per Day: 0.5 Cigarettes Per Day: 10 Substance Use Type: Marijuana Advance Directives: No Advance Directives Information Provided: Yes Current occupational status: disabled Current occupation: She is currently taking classes at [employer] Physical Exam Vital Signs: Vital Signs: Last Vital Signs Temp 97.7 F 07/07/24 13:34 Pulse 71 07/07/24 13:34 Resp 16 07/07/24 13:34 BP 124/59 L 07/07/24 13:34 Pulse Ox 100 07/07/24 13:34 O2 Del Method Room Air 07/07/24 13:34 BMI result Body Mass Index 27.6 Appearance: Alert. Oriented X3. No acute distress. HEENT: normal inspection CVS: Normal heart rate and rhythm. Pulses normal. Respiratory: No respiratory distress. Skin: Skin warm and dry. Normal skin color. Normal skin turgor. bilateral hands and feet have a blistering rash with flaking dry skin, on the palms and soles. no surrounding erythema or induration, no drainage. Extremities: no peripheral edema, no joint swelling Neuro: Oriented X 3. grossly normal, nonfocal Medications Administered Discontinued Medications Generic Name Dose Route Start Last Admin Trade Name Freq PRN Reason Stop Dose Admin Hydrocortisone 1 appl 07/07/24 12:17 07/07/24 13:30 Hydrocortisone 1 % Ointment 28.35 Gm Tube TOPICAL 07/07/24 12:18 1 appl ONCE ONE Administration Protocol Medical Decision Making Medical Decision Making [facility] Narrative: 49-year-old female with reported history eczema, psoriasis, psoriatic arthritis who presents to the ER for evaluation of an acute on chronic rash in her bilateral hands and feet. Rash is extremely itchy and burning sensation. She previously had a golf course assistant who no longer takes her insurance. She was due to start new treatment today. Rash is consistent with dyshidrotic eczema. No evidence of a superimposed bacterial infection or cellulitis. We discussed the importance of PCP and Dermatology follow-up, treatments are limited here in the emergency department. She reports allergy to prednisone but able to tolerate topical steroids. Will prescribe a higher potency triamcinolone ointment for her to try. Will provide other options for dermatology office is to call, also encouraged to call her insurance company to see which Dermatology officers would be taking her insurance at this time. Patient is stable for discharge home with local wound care, derm and PCP follow-up. Differential Diagnosis Differential Diagnoses: The differential diagnosis associated with the presentation includes Dyshidrotic eczema, psoriasis, syphilis, inflammatory arthritis, hand foot and mouth Independent Historian Clinical information obtained from an independent historian. History obtained from or confirmed by: Spouse External Record Review External record reviewed: Outpatient record and Prior outpatient labs Prescription Management I considered prescription management with: Pain Medication, Antibiotic and Other (steroids ) Chronic Conditions Patient?s care impacted by: Other (eczema, psoriasis) Social Determinants Patient?s care significantly limited by Social Determinants of Health including: Other Social Determinant of Health (insurance issues) Critical Care Time Critical Care Time Critical Care Time: No Discharge Plan Discharge Clinical Impression: Dyshidrotic eczema Patient Disposition: Home, Self-Care Instructions: Dyshidrotic Eczema (ED) Additional Instructions: Recommend trial of the prescribed higher potency steroid ointment to your hands and feet. Recommend starting daily Clairitin or Zyrtec to help with the itch Call your insurance company to see which dermatologists take your insurance Call your PCP to see if they can help prescribe biologic agents to treat you Topical treatments:?Creams, lotions, or ointments that can help with inflammation, dry skin, and itching:?recommend CereVe or Eucerin Corticosteroids to reduce inflammation? Calcineurin creams, like tacrolimus (Protopic), to limit steroid exposure? Prescription anti-itch medicines?like benadryl Phototherapy:?A special lamp emits ultraviolet light to treat the skin:? Narrowband UVB:?A type of ultraviolet light therapy? PUVA (psoralen and ultraviolet A):?A type of ultraviolet light therapy for chronic, severe disease? Controlling sweating:?Anti-perspirants or injections with botulinum toxin A can help reduce sweating? Draining blisters:?A healthcare professional can drain very large blisters? Avoiding triggers:?Wear breathable clothing and shoes, and avoid things that cause symptoms You can also try [facility] ([phone]) or the Dermatologists listed below Prescriptions: New triamcinolone acetonide 0.5 % ointment 1 appl topical BID Qty: 15 1RF No Action diphenhydramine HCl [Benadryl] 25 mg capsule 25 mg PO TID PRN (Reason: itching) Qty: 14 0RF lorazepam 1 mg tablet 1 mg PO DAILY PRN acetaminophen 500 mg tablet 500 mg PO Q4H PRN (Reason: pain) cyanocobalamin (vitamin B-12) 1,000 mcg tablet 1,000 mcg PO DAILY calcium carbonate-vitamin D3 600 mg-20 mcg (800 unit) tablet 1 tab PO BID metoclopramide HCl [Reglan] 5 mg tablet 5 mg PO .tidac Qty: 90 6RF Creon 36,000-114,000- 180,000 unit capsule,delayed release(DR/EC) 2 cap PO BID Qty: 120 6RF Rx Instructions: administer with meals and/or snacks peg 3350-electrolytes [Golytely] 236-22.74-6.74 -5.86 gram recon soln 240 ml PO Q10M 1 Days Qty: 4000 0RF Rx Instructions: until fecal effluent is clear; do not exceed a total volume of 2,000 mL bisacodyl [Dulcolax (bisacodyl)] 5 mg tablet,delayed release (DR/EC) 10 mg PO BEDTIME 2 Days Qty: 4 0RF simethicone 180 mg capsule 180 mg PO QID 30 Days Qty: 120 3RF Rx Instructions: after meals senna leaf Tea PO Referrals: Kar Serna MD [Physician] - Miguel Araujo MD [Physician] - Interventions: ED Discharge Assessment Last Done: 07/07/24 13:34 Discharge Date/Time: 07/07/24 13:42 Print Language: Turkish
[2024-07-07 12:34] VITALS: BP 124/59; PULSE 71; RESP 16; TEMP 36.5; O2SAT 100
[2024-07-07] MEDS: Hydrocortisone 1 % Ointment 28.35 GM TUBE 1 APPL TOPICAL (13:30)
[2024-07-07 13:34] VITALS: BP 124/59; PULSE 71; RESP 16; TEMP 36.5; O2SAT 100
== END 2024-07-07 13:42 | disposition home or self-care (01) ==
PROVIDERS: Emergency Provider Emergency Medicine; PCP Family Medicine
DX: L30.1 Dyshidrosis [pompholyx] (principal); F17.210 Nicotine dependence, cigarettes, uncomplicated; Z79.899 Other long term (current) drug therapy
CPT/HCPCS: 99283

== ENCOUNTER 2024-08-24 15:46 | Emergency (ER) | payer MEDICARE, MEDICAID, SELFPAY ==
[2024-08-24 15:55] VITALS: BP 129/74; PULSE 104; O2SAT 98
[2024-08-24 16:28] VITALS: BP 108/78; PULSE 112; RESP 18; TEMP 37.5; O2SAT 96; BMI 26.3
[2024-08-24 17:55] LABS: MANUAL DIFF FLAG NO
[2024-08-24 17:56] LABS: Basophils Percent Auto 0.2 % (0-2); Hematocrit 38.9 % (37.0-47.0); Hemoglobin 13.1 g/dl (12.0-16.0); Imm Gran Abs Auto 0.03 X10*3/uL (0.00-0.03); Imm Gran Pct Auto 0.2 % (0.0-0.4); Lymphocytes Absolute Auto 0.8 X10*3/uL (1.2-4.9); Lymphocytes Percent Auto 6.3 % (20-40); Mean Corpuscular HGB Conc 33.7 g/dl (31.0-35.0); Mean Corpuscular Hemoglobin 27.8 pg (27.0-33.0); Mean Corpuscular Volume 82.6 fL (80.0-98.0); Monocytes Absolute Auto 0.7 X10*3/uL (0.1-1.2); Monocytes Percent Auto 5.2 % (2-11); Neutrophils Absolute Auto 11.2 x10*3/uL (2.0-8.3); Neutrophils Percent Auto 88.1 % (45-73); Platelet Count 443 X10*3/uL (160-400); Red Blood Count 4.71 X10*6/uL (4.20-5.50); Red Cell Distribution Width 14.6 % (11.0-16.0); White Blood Count 12.8 X10*3/uL (4.8-10.8)
[2024-08-24 18:19] LABS: Alanine Aminotransferase 18 U/L (0-31); Albumin Level 4.5 g/dL (3.5-5.0); Alkaline Phosphatase 94 U/L (39-117); Anion Gap 14 (12-20); Aspartate Amino Transferase 25 U/L (5-31); Bilirubin Total 0.5 mg/dL (0.0-1.0); Blood Urea Nitrogen 9 mg/dL (9-16); Calcium 9.8 mg/dL (8.4-10.2); Carbon Dioxide 21 mmol/L (22-29); Chloride 108 mmol/L (96-108); Creatinine Clr Calc Pharmacy 80.4; Estimated Glomerular Filt Rate > 60; Glucose Random 117 mg/dL (60-115); Potassium 3.9 mmol/L (3.3-5.1); Sodium 139 mmol/L (135-145); Total Protein 8.2 g/dL (6.5-8.0)
[2024-08-24 18:31] LABS: Influenza A PCR POSITIVE (Negative); Influenza B PCR NEGATIVE (Negative); Resp Syncy Virus RNA Qual PCR NEGATIVE (Negative); SARS COV2 PCR INHOUSE NEGATIVE (Negative)
--- OUTSIDE RECORDS SUMMARY | 2024-08-24 18:46 | XMS_ITS | Clinical Summary ---
Author Organization [address] [facility] Address [address] [place] [address] Phone Care Team Providers Care Senior Accounting Analyst Name Role Phone Helder Mason MD Primary Care Provider [phone] Social History Tobacco Use Types Packs/Day Years Used Date Smoking Tobacco: Never Assessed Comments Unknown Sex and Gender Information Value Date Recorded Sex Assigned at Not on file Legal Sex Female 4:25 PM EST Gender Identity Not on file Sexual Orientation Not on file Plan of Treatment Health Maintenance Due Date Last Done Comments Breast Cancer Screening 1974 DTaP,Tdap,and Td Vaccines (1 - Tdap) 1993 Hepatitis B Vaccines (1 of 3 - 19+ 3-dose series) 1993 Cervical Cancer Screening: P ap Smear 1995 COVID-19 Vaccine ( - 2023-2 5 season) 2024 Influenza Vaccine (#1) 2024 Pneumococcal Vaccine: 50+ Ye ars (1 of 1 - PCV) 2024 Zoster Vaccines (1 of 2) 2024 Colorectal Cancer Screening: Colonoscopy 08/18/2024 Depression Screening 08/18/2024 HIV Screening 08/18/2024 Hepatitis C Screening 08/18/2024 Medicare Annual Wellness Visit 08/18/2024 Social Influencers of Health Screening 08/18/2024 HIB Vaccines Aged Out No longer eligi ble based on patient's age to complete this topic HPV Vaccines Aged Out No longer eligi ble based on patient's age to complete this topic Hepatitis A Vaccines Aged Out No long er eligible based on patient's age to complete this topic IPV Vaccines Aged Out No longer eligi ble based on patient's age to complete this topic MMR Vaccines Aged Out No longer eligi ble based on patient's age to complete this topic Meningococcal ACWY Vaccine Aged Out N o longer eligible based on patient's age to complete this topic Meningococcal B Vacine Aged Out No lo nger eligible based on patient's age to complete this topic Pneumococcal Vaccine: Pediat rics (0 to 5 Years) and At-Risk Patients (6 to 64 Years) Aged Out No longer eligible b ased on patient's age to complete this topic RSV Immunization Patients Un nita 20 months Aged Out No longer eligible b ased on patient's age to complete this topic Varicella Vaccines Aged Out No longer eligible based on patient's age to complete this topic Insurance MEDICARE MEDICAID - [place] Care Teams Senior Accounting Analyst Relationship Specialty Start Date End Date Helder Mason MD [address] [facility] [address] [place] [address] PCP - General Internal Medicine 08/18/24
[2024-08-24] MEDS: Ondansetron ODT 4 MG TAB.RAPDIS TRANSLINGU (23:02)
[2024-08-24] MEDS: Acetaminophen 325 MG TABLET 975 MG PO (23:02)
[2024-08-24 23:37] VITALS: BP 127/67; PULSE 116; RESP 20; TEMP 37.7; O2SAT 95
--- NOTE | 2024-08-24 23:38 | ED_ITS ---
HPI - Nausea/Vomiting/Diarrhea General Chief complaint: Nausea/Vomiting/Diarrhea Stated complaint: flu like symtoms Time Seen by Provider: 08/24/24 21:45 Source: patient Limitations: no limitations History of Present Illness ED Provider: Sarah Soares PA-C HPI Narrative: 49-year-old female presents with viral symptoms x1 day. Patient's partner is sick with the same symptoms. Associated fever, body aches, headache, nausea vomiting diarrhea. Associated nausea: Yes Related Data Home Medications ?Medication ?Instructions ?Recorded ?Confirmed acetaminophen 500 mg tablet 500 mg PO Q4H PRN pain 01/06/21 11/19/23 cyanocobalamin (vitamin B-12) 1,000 mcg PO DAILY 01/06/21 11/19/23 1,000 mcg tablet calcium 600 mg (as 1 tab PO BID 08/28/23 11/19/23 carbonate)-vitamin D3 20 mcg (800 unit) tablet lorazepam 1 mg tablet 1 mg PO DAILY PRN 08/28/23 11/19/23 senna leaf ml PO 11/19/23 11/19/23 Previous Rx's ?Medication ?Instructions ?Recorded diphenhydramine HCl 25 mg capsule 25 mg PO TID PRN itching #14 caps 01/30/22 (Benadryl) metoclopramide HCl 5 mg tablet 5 mg PO .tidac #90 tabs 10/01/23 (Reglan) simethicone 180 mg capsule 180 mg PO QID 30 days #120 caps 11/19/23 bisacodyl 5 mg tablet,delayed 10 mg (2 x 5 mg) PO BEDTIME 2 days 12/26/23 release (Dulcolax (bisacodyl)) #4 tabs [id number]-bdykygt 2 cap PO BID #120 caps 12/26/23 36,000-114,000-180,000 unit capsule,delay rel (Creon) peg 3350-electrolytes 236 240 ml PO Q10M 1 day #4,000 mL 12/26/23 gram-22.74 gram-6.74 gram-5.86 gram solution (Golytely) triamcinolone acetonide 0.5 % 1 appl topical BID #15 grams 07/07/24 topical ointment dicyclomine 20 mg tablet 20 mg PO BID PRN diarrhea #6 tabs 08/24/24 ondansetron HCl 4 mg tablet 4 mg PO Q8H PRN nausea and 08/24/24 vomiting #10 tabs Allergies Allergy/AdvReac Type Severity Reaction Status Date / Time hydrocodone [From VICODIN] Allergy Intermediate DEPRESSES Verified 08/24/24 16:30 BREATHING nitrofurantoin Allergy Intermediate urticaria Verified 08/24/24 16:30 [From Macrobid] peach [PEACH] Allergy Intermediate ITCHING Verified 08/24/24 16:30 ibuprofen [IBUPROFEN] Allergy Mild NAUSEA & Verified 08/24/24 16:30 VOMITING oxycodone [From TYLOX] Allergy Mild RASH Verified 08/24/24 16:30 prednisone [PREDNISONE] Allergy Mild RASH Verified 08/24/24 16:30 trazodone AdvReac Intermediate itch Verified 08/24/24 16:30 acetaminophen AdvReac Unknown stomach Verified 08/24/24 16:30 [From Excedrin Extra issues Strength] aspirin AdvReac Unknown stomach Verified 08/24/24 16:30 [From Excedrin Extra issues Strength] caffeine AdvReac Unknown stomach Verified 08/24/24 16:30 [From Excedrin Extra issues Strength] apremilast [From Otezla] AdvReac Gastrointestinal Verified 08/24/24 16:30 Upset Review of Systems 2 Review of Systems: Yes all other systems are reviewed and are negative Constitutional: Constitutional: Reports fatigue, Reports fever(s) and Reports malaise Cardiovascular: Cardiovascular: Denies chest pain and Denies dyspnea Respiratory: Respiratory: Denies chest congestion, Reports cough, Denies dyspnea and Denies wheezing Gastrointestinal: Gastrointestinal: Denies abdominal pain, Reports diarrhea, Reports nausea and Reports vomiting Endocrine: Endocrine: Reports fatigue Allergic/Immunologic: Allergic/Immunologic: Denies wheezing PMFSH Past Medical History Attestation statement: The following information was validated with the patient. Medical History Pre-op examination Chronic idiopathic constipation Tracey infection of genital region UTI (urinary tract infection) Costochondral chest pain Diverticulitis Gastric ulcer Surgical History H/O colonoscopy Hx of endoscopy (01/19/20) Family History Family History Mother CKD (chronic kidney disease) stage 3, GFR 30-59 ml/min Gallbladder calculus with acute cholecystitis Diabetes HTN (hypertension) Father No problems noted. Maternal Grandfather Diabetes HTN (hypertension) Hypercholesteremia Social History Social History Alcohol intake: never Patient Tobacco Use Status: Current everyday Tobacco user Cigarette Packs Per Day: 0.5 Cigarettes Per Day: 10 Substance Use Type: Marijuana Advance Directives: No Advance Directives Information Provided: No Current occupational status: disabled Current occupation: She is currently taking classes at [employer] Physical Exam 2 Vital Signs: Vital Signs: Last Vital Signs Temp 99.5 F 08/24/24 16:28 Pulse 112 H 08/24/24 16:28 Resp 18 08/24/24 16:28 BP 108/78 08/24/24 16:28 Pulse Ox 96 08/24/24 16:28 BMI result Body Mass Index 26.3 Const: Other: Alert Orientation/consciousness: patient oriented x3 Resp: Other: Active dry cough Effort & Inspection: normal respiratory effort Cardio: Other: Normal peripheral perfusion Skin: Other: Warm dry no rash Neuro: General: patient oriented x3, gait normal, no focal motor deficits and CN's II-XI intact bilaterally Psych: Other: Cooperative Medications Administered Discontinued Medications Generic Name Dose Route Start Last Admin Trade Name Freq PRN Reason Stop Dose Admin Acetaminophen 975 mg 08/24/24 22:34 08/24/24 23:02 Acetaminophen 325 Mg Tablet PO 08/24/24 22:35 975 mg ONCE ONE Administration Ondansetron HCl 4 mg 08/24/24 22:34 08/24/24 23:02 Ondansetron Odt 4 Mg Tab.Rapdis TRANSLINGU 08/24/24 22:35 4 mg ONCE ONE Administration Medical Decision Making Medical Decision Making MDM Narrative: 49-year-old female presents with viral symptoms x1 day. Patient's partner is sick with the same symptoms. Associated fever, body aches, headache, nausea vomiting diarrhea. No relevant chronic issues History: Per patient I have considered the following differential diagnoses: Viral syndrome, pneumonia, bronchitis, gastroenteritis Plan: Viral panel obtained from triage the patient is positive for influenza a, the other screening labs were normal. We will send with home care instructions. I have independently reviewed the following tests: Labs: No leukocytosis, not anemic, no electrolyte abnormality noted, influenza a positive Lab Data 08/24/24 17:45 08/24/24 17:45 Labs: Lab Results 08/24/24 Range/Units 17:45 WBC 12.8 H (4.8-10.8) X10*3/uL RBC 4.71 (4.20-5.50) X10*6/uL Hgb 13.1 (12.0-16.0) g/dl Hct 38.9 (37.0-47.0) % MCV 82.6 (80.0-98.0) fL MCH 27.8 (27.0-33.0) pg MCHC 33.7 (31.0-35.0) g/dl RDW 14.6 (11.0-16.0) % Plt Count 443 H (160-400) X10*3/uL MPV 8.0 L (9.4-12.3) fL Immature Gran % (Auto) 0.2 (0.0-0.4) % Neut % (Auto) 88.1 H (45-73) % Lymph % (Auto) 6.3 L (20-40) % [place] % (Auto) 5.2 (2-11) % Eos % (Auto) 0.0 (0-4) % Baso % (Auto) 0.2 (0-2) % Lymph # (Auto) 0.8 L (1.2-4.9) X10*3/uL [place] # (Auto) 0.7 (0.1-1.2) X10*3/uL Eos # (Auto) 0.0 (0.0-0.4) X10*3/uL Baso # (Auto) 0.0 (0.0-0.2) X10*3/uL Abs Immat Gran (auto) 0.03 (0.00-0.03) X10*3/uL Absolute Neuts (auto) 11.2 H (2.0-8.3) x10*3/uL Absolute Nucleated RBC 0.000 (0.0-0.012) X10*3/uL Nucleated RBC % (auto) 0.0 (0.0-0.2) /100WBC Sodium 139 (135-145) mmol/L Potassium 3.9 (3.3-5.1) mmol/L Chloride 108 (96-108) mmol/L Carbon Dioxide 21 L (22-29) mmol/L Anion Gap 14 (12-20) BUN 9 (9-16) mg/dL Creatinine 0.83 (0.5-1.4) mg/dL Estim Creat Clear Calc 80.4 Estimated GFR > 60 Random Glucose 117 H (60-115) mg/dL Calcium 9.8 (8.4-10.2) mg/dL Total Bilirubin 0.5 (0.0-1.0) mg/dL AST 25 (5-31) U/L ALT 18 (0-31) U/L Alkaline Phosphatase 94 (39-117) U/L Total Protein 8.2 H (6.5-8.0) g/dL Albumin 4.5 (3.5-5.0) g/dL Influenza Type A (PCR) POSITIVE A (Negative) Influenza Type B (PCR) NEGATIVE (Negative) RSV RNA Qual (PCR) NEGATIVE (Negative) SARS-CoV-2 RNA (RT-PCR) NEGATIVE (Negative) Discharge Plan Discharge Clinical Impression: Influenza A Patient Disposition: Home, Self-Care Instructions: Influenza (ED) Additional Instructions: You tested positive for influenza a, the rest your screening labs were normal. See home care instructions. Use [id number] Tylenol 1000 mg taken every 8 hours as needed for fever, headache and body ache. Uses Zofran as needed for nausea. Use the dicyclomine as needed if the diarrhea becomes bothersome. Follow up with your primary care provider. Prescriptions: New ondansetron HCl 4 mg tablet 4 mg PO Q8H PRN (Reason: nausea and vomiting) Qty: 10 0RF dicyclomine 20 mg tablet 20 mg PO BID PRN (Reason: diarrhea) Qty: 6 0RF No Action diphenhydramine HCl [Benadryl] 25 mg capsule 25 mg PO TID PRN (Reason: itching) Qty: 14 0RF triamcinolone acetonide 0.5 % ointment 1 appl topical BID Qty: 15 1RF lorazepam 1 mg tablet 1 mg PO DAILY PRN acetaminophen 500 mg tablet 500 mg PO Q4H PRN (Reason: pain) cyanocobalamin (vitamin B-12) 1,000 mcg tablet 1,000 mcg PO DAILY calcium carbonate-vitamin D3 600 mg-20 mcg (800 unit) tablet 1 tab PO BID metoclopramide HCl [Reglan] 5 mg tablet 5 mg PO .tidac Qty: 90 6RF Creon 36,000-114,000- 180,000 unit capsule,delayed release(DR/EC) 2 cap PO BID Qty: 120 6RF Rx Instructions: administer with meals and/or snacks peg 3350-electrolytes [Golytely] 236-22.74-6.74 -5.86 gram recon soln 240 ml PO Q10M 1 Days Qty: 4000 0RF Rx Instructions: until fecal effluent is clear; do not exceed a total volume of 2,000 mL bisacodyl [Dulcolax (bisacodyl)] 5 mg tablet,delayed release (DR/EC) 10 mg PO BEDTIME 2 Days Qty: 4 0RF simethicone 180 mg capsule 180 mg PO QID 30 Days Qty: 120 3RF Rx Instructions: after meals senna leaf Tea PO Print Language: Ghanaian
[2024-08-24 23:52] VITALS: BP 127/67; PULSE 116; RESP 20; TEMP 37.7; O2SAT 95
== END 2024-08-24 23:52 | disposition home or self-care (01) ==
PROVIDERS: Emergency Provider Emergency Medicine; PCP Family Medicine
DX: J10.1 Influenza due to other identified influenza virus with other respiratory manifestations (principal); R11.2 Nausea with vomiting, unspecified; R50.9 Fever, unspecified; M79.10 Myalgia, unspecified site; R19.7 Diarrhea, unspecified; F17.210 Nicotine dependence, cigarettes, uncomplicated; Z03.818 Encounter for observation for suspected exposure to other biological agents ruled out; Z79.899 Other long term (current) drug therapy
CPT/HCPCS: 0241U; 80053; 85025; 99283; 99284

== ENCOUNTER 2024-08-25 07:40 | Emergency (ER) | payer MEDICARE, MEDICAID, SELFPAY ==
[2024-08-25 07:43] VITALS: BP 152/80; PULSE 125; RESP 20; TEMP 37.7; O2SAT 95; BMI 25.2
--- NOTE | 2024-08-25 07:49 | ECG_ITS ---
Test Reason : tachycardia Blood Pressure : */* mmHG Vent. Rate : 125 BPM Atrial Rate : 125 BPM P-R Int : 156 ms QRS Dur : 68 ms QT Int : 298 ms P-R-T Axes : 78 64 6 degrees QTcB Int : 430 ms Sinus tachycardia Otherwise normal ECG When compared with ECG of 30-Jun-2023 22:22, No significant change was found Referred By: Generic ED Physician Electronically Signed By: DANIA BRO
--- NOTE | 2024-08-25 08:17 | ED.NAVMDI ---
HPI - Nausea/Vomiting/Diarrhea General Chief complaint: Upper Respiratory Symptoms Stated complaint: flu+ , high fever Time Seen by Provider: 08/25/24 08:09 Source: patient Mode of arrival: ambulatory Limitations: no limitations History of Present Illness HPI Narrative: THIS IS A 49 YEARS OLD THE PATIENT PRESENTED TO THE EMERGENCY DEPARTMENT WITH A CHIEF COMPLAINT OF NAUSEA VOMITING UNABLE TO KEEP ANY FLUIDS THE DOWN, SHE WAS SEEN IN THE EMERGENCY ROOM YESTERDAY DIAGNOSED WITH INFLUENZA. SHE HAS A HISTORY OF POLYARTHRALGIA MD elicited complaint: nausea and vomiting Onset (ago): day(s) (1) Description of vomiting: watery Associated nausea: Yes Associated abdominal pain: Yes Related Data Home Medications ?Medication ?Instructions ?Recorded ?Confirmed acetaminophen 500 mg tablet 500 mg PO Q4H PRN pain 01/06/21 11/19/23 cyanocobalamin (vitamin B-12) 1,000 mcg PO DAILY 01/06/21 11/19/23 1,000 mcg tablet calcium 600 mg (as 1 tab PO BID 08/28/23 11/19/23 carbonate)-vitamin D3 20 mcg (800 unit) tablet lorazepam 1 mg tablet 1 mg PO DAILY PRN 08/28/23 11/19/23 senna leaf ml PO 11/19/23 11/19/23 Previous Rx's ?Medication ?Instructions ?Recorded diphenhydramine HCl 25 mg capsule 25 mg PO TID PRN itching #14 caps 01/30/22 (Benadryl) metoclopramide HCl 5 mg tablet 5 mg PO .tidac #90 tabs 10/01/23 (Reglan) simethicone 180 mg capsule 180 mg PO QID 30 days #120 caps 11/19/23 bisacodyl 5 mg tablet,delayed 10 mg (2 x 5 mg) PO BEDTIME 2 days 12/26/23 release (Dulcolax (bisacodyl)) #4 tabs zbkmlk-skkktdfo-xtwlorq 2 cap PO BID #120 caps 12/26/23 36,000-114,000-180,000 unit capsule,delay rel (Creon) peg 3350-electrolytes 236 240 ml PO Q10M 1 day #4,000 mL 12/26/23 gram-22.74 gram-6.74 gram-5.86 gram solution (Golytely) triamcinolone acetonide 0.5 % 1 appl topical BID #15 grams 07/07/24 topical ointment dicyclomine 20 mg tablet 20 mg PO BID PRN diarrhea #6 tabs 08/24/24 ondansetron HCl 4 mg tablet 4 mg PO Q8H PRN nausea and 08/24/24 vomiting #10 tabs oxycodone 5 mg tablet 5 mg PO Q8H PRN pain #10 tabs 08/25/24 Allergies Allergy/AdvReac Type Severity Reaction Status Date / Time hydrocodone [From VICODIN] Allergy Intermediate DEPRESSES Verified 08/25/24 07:47 BREATHING nitrofurantoin Allergy Intermediate urticaria Verified 08/25/24 07:47 [From Macrobid] peach [PEACH] Allergy Intermediate ITCHING Verified 08/25/24 07:47 ibuprofen [IBUPROFEN] Allergy Mild NAUSEA & Verified 08/25/24 07:47 VOMITING oxycodone [From TYLOX] Allergy Mild RASH Verified 08/25/24 07:47 prednisone [PREDNISONE] Allergy Mild RASH Verified 08/25/24 07:47 trazodone AdvReac Intermediate itch Verified 08/25/24 07:47 aspirin AdvReac Unknown stomach Verified 08/25/24 07:47 [From Excedrin Extra issues Strength] caffeine AdvReac Unknown stomach Verified 08/25/24 07:47 [From Excedrin Extra issues Strength] apremilast [From Otezla] AdvReac Gastrointestinal Verified 08/25/24 07:47 Upset Review of Systems Constitutional: Constitutional: Reports no additional constitutional complaints Gastrointestinal: Gastrointestinal: Reports nausea and Reports vomiting PMFSH Past Medical History Source: unable to obtain Medical History Pre-op examination Chronic idiopathic constipation Tracey infection of genital region UTI (urinary tract infection) Costochondral chest pain Diverticulitis Gastric ulcer Surgical History H/O colonoscopy Hx of endoscopy (01/19/20) Family History Family History Mother CKD (chronic kidney disease) stage 3, GFR 30-59 ml/min Gallbladder calculus with acute cholecystitis Diabetes HTN (hypertension) Father No problems noted. Maternal Grandfather Diabetes HTN (hypertension) Hypercholesteremia Social History Social History Alcohol intake: never Patient Tobacco Use Status: Current everyday Tobacco user Cigarette Packs Per Day: 0.5 Cigarettes Per Day: 10 Substance Use Type: Marijuana Advance Directives: No Advance Directives Information Provided: Yes Do you have a plan to hurt others: No Plan Current occupational status: disabled Current occupation: She is currently taking classes at [employer] Physical Exam Vital Signs: Vital Signs: Last Vital Signs Temp 98.9 F 08/25/24 10:04 Pulse 106 H 08/25/24 10:04 Resp 18 08/25/24 10:04 BP 121/65 08/25/24 10:04 Pulse Ox 98 08/25/24 10:04 O2 Del Method Room Air 08/25/24 10:04 BMI result Body Mass Index 25.2 MILD DISTRESS TACHYCARDIC HEART RATE 125 Const: General: cooperative Nutritional Appearance: well nourished Orientation/consciousness: patient oriented x3 HEENT: Head: Yes normal to inspection Ears: hearing grossly normal bilaterally Face and sinus: Yes normal facial exam Neck: Neck: Yes normal visual inspection and Yes full ROM Chest: Chest palpation & inspection: normal inspection of the chest Resp: Effort & Inspection: normal respiratory effort Auscultation: clear to auscultation bilaterally Cardio: Jugular venous distension: no JVD Rate: regular rate Rhythm: regular rhythm GI: Inspection: Yes normal to inspection Palpation (GI): Soft to palpation, not firm, nontender and no guarding : General: Yes no CVA tenderness Back/Spine/Pelvis: Back: no CVA tenderness Skin: General skin exam: no rashes or lesions noted and elasticity normal Lesions: no lesions Rashes: no rashes Neuro: General: patient oriented x3 Extrem: General: Yes normal to inspection and Yes full ROM Right upper extremity: normal to inspection Course Reevaluation(s) Reevaluation #1: PATIENT WAS RE-EXAMINED AT THIS TIME SHE IS DOING MUCH BETTER TOLERATING P.O. WELL LABS WITHIN NORMAL LIMITS ELECTROLYTES NORMAL ANTICIPATE DISCHARGE Time: 10:02 Reevaluation #2: Doing much better, she is complaining of body aches she can not take ibuprofen I will send a prescription for 10 oxycodone Time: 11:03 Reevaluation #3: Feeling better okay to discharge she has multiple allergy for ibuprofen the Tylenol is not enough to control her body aches I will send a 10 oxycodone Time: 11:47 Medications Administered Discontinued Medications Generic Name Dose Route Start Last Admin Trade Name Rich PRN Reason Stop Dose Admin Guaifenesin 10 ml 08/25/24 08:56 08/25/24 09:20 Guaifenesin 200 Mg/10 Ml 10 Ml Liquid PO 08/25/24 08:57 10 ml ONCE ONE Administration Sodium Chloride 1,000 mls @ 999 mls/hr 08/25/24 08:30 08/25/24 10:07 Ns IVCONT 08/25/24 09:30 Infused .Q1H1M ANAMIKA Infusion Acetaminophen 1,000 mg in 100 mls @ 400 mls/hr 08/25/24 08:16 08/25/24 09:22 Ofirmev IV 08/25/24 08:30 Infused ONCE ONE Infusion Ketorolac Tromethamine 15 mg 08/25/24 09:52 08/25/24 10:06 Ketorolac Tromethamine 15 Mg/Ml Vial IVPUSH 08/25/24 09:53 15 mg ONCE ONE Administration Lorazepam 1 mg 08/25/24 10:26 08/25/24 10:36 Lorazepam 2 Mg/Ml Vial IVPUSH 08/25/24 10:27 1 mg ONCE ONE Administration Ondansetron HCl 4 mg 08/25/24 08:16 08/25/24 09:00 Ondansetron Hcl 4 Mg/2 Ml Vial IVPUSH 08/25/24 08:17 4 mg ONCE ONE Administration Oxycodone HCl 5 mg 08/25/24 11:07 08/25/24 11:12 Oxycodone Hcl Immed Release 5 Mg Tablet PO 08/25/24 11:08 5 mg ONCE ONE Administration Medical Decision Making Medical Decision Making [facility] Narrative: PATIENT WAS SEEN IN THE EMERGENCY ROOM YESTERDAY WITH INFLUENZA BACK TODAY WITH NAUSEA VOMITING, NOTED TO BE TACHYCARDIC HEART RATE 125 IT IS REASONABLE TO ADMINISTER IV FLUID CHECK BLOOD WORK Differential Diagnosis Differential Diagnoses: The differential diagnosis associated with the presentation includes DEHYDRATION/LIZ/GASTROENTERITIS Lab Data [facility] Lab Attestation statement: I reviewed the patient's lab results. 08/25/24 09:02 08/25/24 09:02 Labs: Lab Results 02/25/25 Range/Units 09:02 WBC 8.1 (4.8-10.8) X10*3/uL RBC 4.51 (4.20-5.50) X10*6/uL Hgb 12.7 (12.0-16.0) g/dl Hct 38.1 (37.0-47.0) % MCV 84.5 (80.0-98.0) fL MCH 28.2 (27.0-33.0) pg MCHC 33.3 (31.0-35.0) g/dl RDW 14.7 (11.0-16.0) % Plt Count 380 (160-400) X10*3/uL MPV 8.3 L (9.4-12.3) fL Immature Gran % (Auto) 0.5 H (0.0-0.4) % Neut % (Auto) 85.0 H (45-73) % Lymph % (Auto) 5.3 L (20-40) % [place] % (Auto) 8.9 (2-11) % Eos % (Auto) 0.1 (0-4) % Baso % (Auto) 0.2 (0-2) % Lymph # (Auto) 0.4 L (1.2-4.9) X10*3/uL [place] # (Auto) 0.7 (0.1-1.2) X10*3/uL Eos # (Auto) 0.0 (0.0-0.4) X10*3/uL Baso # (Auto) 0.0 (0.0-0.2) X10*3/uL Abs Immat Gran (auto) 0.04 H (0.00-0.03) X10*3/uL Absolute Neuts (auto) 6.9 (2.0-8.3) x10*3/uL Absolute Nucleated RBC 0.000 (0.0-0.012) X10*3/uL Nucleated RBC % (auto) 0.0 (0.0-0.2) /100WBC Sodium 139 (135-145) mmol/L Potassium 3.8 (3.3-5.1) mmol/L Chloride 106 (96-108) mmol/L Carbon Dioxide 22 (22-29) mmol/L Anion Gap 15 (12-20) BUN 13 (9-16) mg/dL Creatinine 0.89 (0.5-1.4) mg/dL Estim Creat Clear Calc 70.7 Estimated GFR > 60 Random Glucose 100 (60-115) mg/dL Calcium 9.8 (8.4-10.2) mg/dL Magnesium 1.9 (1.6-2.6) mg/dL Total Bilirubin 0.4 (0.0-1.0) mg/dL AST 30 (5-31) U/L ALT 24 (0-31) U/L Alkaline Phosphatase 88 (39-117) U/L Total Protein 8.0 (6.5-8.0) g/dL Albumin 4.3 (3.5-5.0) g/dL Lipase 12 (8-78) U/L Independent Historian Clinical information obtained from an independent historian. History obtained from or confirmed by: Spouse External Record Review External record reviewed: Inpatient record Discharge Plan Discharge Clinical Impression: Influenza Vomiting Qualifiers: Vomiting type: unspecified Nausea presence: with nausea Qualified Code(s): R11.2 - Nausea with vomiting, unspecified Patient Disposition: Home, Self-Care Instructions: Influenza (DC), Acute Nausea and Vomiting (ED) Additional Instructions: FOLLOW-UP WITH YOUR PRIMARY CARE PHYSICIAN DRINK LOT OF FLUIDS RETURN IN 4 Prescriptions: New oxycodone 5 mg tablet 5 mg PO Q8H PRN (Reason: pain) Qty: 10 0RF Rx Instructions: Partial Fill upon patient request. No Action diphenhydramine HCl [Benadryl] 25 mg capsule 25 mg PO TID PRN (Reason: itching) Qty: 14 0RF triamcinolone acetonide 0.5 % ointment 1 appl topical BID Qty: 15 1RF ondansetron HCl 4 mg tablet 4 mg PO Q8H PRN (Reason: nausea and vomiting) Qty: 10 0RF dicyclomine 20 mg tablet 20 mg PO BID PRN (Reason: diarrhea) Qty: 6 0RF lorazepam 1 mg tablet 1 mg PO DAILY PRN acetaminophen 500 mg tablet 500 mg PO Q4H PRN (Reason: pain) cyanocobalamin (vitamin B-12) 1,000 mcg tablet 1,000 mcg PO DAILY calcium carbonate-vitamin D3 600 mg-20 mcg (800 unit) tablet 1 tab PO BID metoclopramide HCl [Reglan] 5 mg tablet 5 mg PO .tidac Qty: 90 6RF Creon 36,000-114,000- 180,000 unit capsule,delayed release(DR/EC) 2 cap PO BID Qty: 120 6RF Rx Instructions: administer with meals and/or snacks peg 3350-electrolytes [Golytely] 236-22.74-6.74 -5.86 gram recon soln 240 ml PO Q10M 1 Days Qty: 4000 0RF Rx Instructions: until fecal effluent is clear; do not exceed a total volume of 2,000 mL bisacodyl [Dulcolax (bisacodyl)] 5 mg tablet,delayed release (DR/EC) 10 mg PO BEDTIME 2 Days Qty: 4 0RF simethicone 180 mg capsule 180 mg PO QID 30 Days Qty: 120 3RF Rx Instructions: after meals senna leaf Tea PO Print Language: Tajik
--- OUTSIDE RECORDS SUMMARY | 2024-08-25 08:18 | XMS_ITS | Clinical Summary ---
Author Organization [address] [facility] Address [address] [place] [address] Phone Care Team Providers Care Moth Proofer Name Role Phone Helder Mason MD Primary Care Provider [phone] Social History Tobacco Use Types Packs/Day Years [...] Insurance MEDICARE MEDICAID - [place] Care Teams Moth Proofer Relationship Specialty Start Date End Date Helder Mason MD [address] [facility] [address] [place] [address] PCP - General Internal Medicine 08/18/24
[2024-08-25] MEDS: ondansetron HCL 4 MG/2 ML VIAL IVPUSH (09:00)
[2024-08-25] MEDS: Acetaminophen 1,000 MG/100 ML PIGGYBACK 400 MG IV (09:00)
[2024-08-25] MEDS: 0.9 % Sodium Chloride 1,000 ML 999 ML IVCONT (09:01)
[2024-08-25 09:06] LABS: MANUAL DIFF FLAG NO
[2024-08-25 09:09] LABS: Basophils Percent Auto 0.2 % (0-2); Eosinophils Percent Auto 0.1 % (0-4); Hematocrit 38.1 % (37.0-47.0); Hemoglobin 12.7 g/dl (12.0-16.0); Imm Gran Abs Auto 0.04 X10*3/uL (0.00-0.03); Imm Gran Pct Auto 0.5 % (0.0-0.4); Lymphocytes Absolute Auto 0.4 X10*3/uL (1.2-4.9); Lymphocytes Percent Auto 5.3 % (20-40); Mean Corpuscular HGB Conc 33.3 g/dl (31.0-35.0); Mean Corpuscular Hemoglobin 28.2 pg (27.0-33.0); Mean Corpuscular Volume 84.5 fL (80.0-98.0); Mean Platelet Volume 8.3 fL (9.4-12.3); Monocytes Absolute Auto 0.7 X10*3/uL (0.1-1.2); Monocytes Percent Auto 8.9 % (2-11); Neutrophils Absolute Auto 6.9 x10*3/uL (2.0-8.3); Platelet Count 380 X10*3/uL (160-400); Red Blood Count 4.51 X10*6/uL (4.20-5.50); Red Cell Distribution Width 14.7 % (11.0-16.0); White Blood Count 8.1 X10*3/uL (4.8-10.8)
[2024-08-25] MEDS: guaiFENesin 200 MG/10 ML 10 ML LIQUID PO (09:20)
[2024-08-25 09:26] LABS: Alanine Aminotransferase 24 U/L (0-31); Albumin Level 4.3 g/dL (3.5-5.0); Alkaline Phosphatase 88 U/L (39-117); Anion Gap 15 (12-20); Aspartate Amino Transferase 30 U/L (5-31); Bilirubin Total 0.4 mg/dL (0.0-1.0); Blood Urea Nitrogen 13 mg/dL (9-16); Calcium 9.8 mg/dL (8.4-10.2); Carbon Dioxide 22 mmol/L (22-29); Chloride 106 mmol/L (96-108); Creatinine Clr Calc Pharmacy 70.7; Estimated Glomerular Filt Rate > 60; Glucose Random 100 mg/dL (60-115); Lipase 12 U/L (8-78); Magnesium 1.9 mg/dL (1.6-2.6); Potassium 3.8 mmol/L (3.3-5.1); Sodium 139 mmol/L (135-145)
[2024-08-25 10:04] VITALS: BP 121/65; PULSE 106; RESP 18; TEMP 37.2; O2SAT 98
[2024-08-25] MEDS: Ketorolac Tromethamine 15 MG/ML VIAL IVPUSH (10:06)
[2024-08-25] MEDS: LORazepam 2 MG/ML VIAL 1 MG IVPUSH (10:36)
[2024-08-25] MEDS: oxyCODONE HCl Immed Release 5 MG TABLET PO (11:12)
--- NOTE | 2024-08-25 11:12 | PC.NURSE ---
per MD Vargas to give oxycodone and will monitor for allergic reaction
[2024-08-25 11:54] VITALS: BP 121/65; PULSE 106; RESP 18; TEMP 37.2; O2SAT 98
== END 2024-08-25 11:55 | disposition home or self-care (01) ==
PROVIDERS: Emergency Provider Emergency Medicine; PCP Family Medicine
DX: J10.1 Influenza due to other identified influenza virus with other respiratory manifestations (principal); R00.0 Tachycardia, unspecified; R11.2 Nausea with vomiting, unspecified; Z79.899 Other long term (current) drug therapy
CPT/HCPCS: 36415; 80053; 83690; 83735; 85025; 93005; 96361; 96365; 96375; 99284; J0131; J1885; J2060; J2405

== ENCOUNTER → 2024-08-25 07:49 | Outpatient (BNV) | payer MEDICARE, MEDICAID, SELFPAY | PROVIDERS: Emergency Provider Emergency Medicine; PCP Family Medicine; Visit Provider Internal Medicine | DX: R00.0 Tachycardia, unspecified (principal) | CPT/HCPCS: 93010 ==

== ENCOUNTER 2025-01-03 22:36 | Emergency (ER) | payer MEDICAID, SELFPAY ==
--- NOTE | ~2025-01-03 | XR_ITS ---
CLINICAL HISTORY: R pleuritic pain 2 view chest x-ray. Comparison: CR/SR - XR CHEST 2V - 12/31/22 14:37 EDT Findings: The lungs appear clear. There is no consolidation, effusion, or pneumothorax. Cardiomediastinal silhouette is within normal limits. No fracture is seen. IMPRESSION: No acute cardiopulmonary abnormality. This document has been electronically signed by: Ajit Olsen MD on 01/04/2025 02:22:55
[2025-01-03 22:39] VITALS: BP 153/82; PULSE 89; RESP 19; TEMP 36.9; O2SAT 99; BMI 23.3
[2025-01-03 22:56] LABS: MANUAL DIFF FLAG NO
[2025-01-03 22:58] LABS: Hematocrit 36.2 % (37.0-47.0); Hemoglobin 12.0 g/dl (12.0-16.0); Imm Gran Abs Auto 0.01 X10*3/uL (0.00-0.03); Imm Gran Pct Auto 0.1 % (0.0-0.4); Lymphocytes Absolute Auto 4.1 X10*3/uL (1.2-4.9); Mean Corpuscular HGB Conc 33.1 g/dl (31.0-35.0); Mean Corpuscular Hemoglobin 27.7 pg (27.0-33.0); Mean Corpuscular Volume 83.6 fL (80.0-98.0); NRBC Abs Auto 0.000 X10*3/uL (0.0-0.012); NRBC Pct Auto 0.0 /100WBC (0.0-0.2); Platelet Count 393 X10*3/uL (160-400); Red Blood Count 4.33 X10*6/uL (4.20-5.50); White Blood Count 7.2 X10*3/uL (4.8-10.8)
[2025-01-03 23:09] LABS: Alanine Aminotransferase 14 U/L (0-31); Albumin Level 4.6 g/dL (3.5-5.0); Alkaline Phosphatase 79 U/L (39-117); Anion Gap 13 (12-20); Aspartate Amino Transferase 23 U/L (5-31); Blood Urea Nitrogen 9 mg/dL (9-16); Calcium 9.4 mg/dL (8.4-10.2); Carbon Dioxide 22 mmol/L (22-29); Chloride 113 mmol/L (96-108); Creatinine Clr Calc Pharmacy 86.4; Estimated Glomerular Filt Rate > 60; Potassium 4.4 mmol/L (3.3-5.1); Sodium 144 mmol/L (135-145); Total Protein 7.3 g/dL (6.5-8.0)
[2025-01-03 23:20] VITALS: BP 131/65; PULSE 72; RESP 18; TEMP 36.7; O2SAT 100
--- OUTSIDE RECORDS SUMMARY | 2025-01-03 23:32 | XMS_ITS | Data Portability ---
Author Organization [place] - [facility] Address [address] [place] [id number] Assessment Encounter Date Assessment Date Assessment LastModified by Organization Details LastModified Time 10/28/2020 10/28/2020 Time On Scene with Patient: 00:35:12 DDX; allergic dermatitis, urticaria, medications reaction, anxiety Pt has no visible rash with complaints of urticaria. She has no involvement of other organ systems. She has no respiratory or airway involvement. PT has been evaluated 3 times prior in the ED over the past 3 days for these symptoms. They overall seem to be improving. Reviewed prescriptions given to patient and advised the followin. Take the dexamethasone once daily as prescribed by provider in ED 2. Take the cetirizine daily in the morning as prescribed for itchiness. 3. Take the hydroxyzine only as needed for itchiness that persists after taking cetirizine. 4. Abstain from using ativan unless unable to sleep and then take one dose only . 5. Take the pepcid every 12 hours as prescribed. Pt was grateful to review these medications and to have a plan for her urticaria. She is feeling that her symptoms are improving but was concerned with the persistent itchiness. PT walked staff to the door, in NAD, resp easy, and speaking complete sentences without difficulty Not available 10/28/2020 18:21:36 Plan of Treatment Reminders Order Date Submit Date Provider Last Modified By Organization Details Last Modified Time Details Appointments None record ed. Lab None record ed. Referral None record ed. Procedures None record ed. Surgeries None record ed. Imaging None record ed. Medication Orders None record ed. Patient TargetsNo targets recorded. Patient Instructions Encounter Date Encounter Id Patient Instructions Last Modified By Organization Details Last Modified Time 10/28/2020 [id number] [facility] came to evaluate you for a rash. you have had this itchiness now for 5 days and the rash is gone. We looked at all of your medications that were prescribed to you over the past 3 ED visits. This is the plan: 1. take the dexamethasone,pepc id (famotidine) and cetirizine every morning. 2. If you have continued itchiness, you can take the hydroxyzine. 3. Take your other medications - Vit B12 Vit D, gabapentin as prescribed. 4. The lorazepam can be taken at night to help you sleep. If this does not improve, please call PCP and get re-evaluated. Thank you for your visit with [facility] today. We cannot always find the exact cause of your symptoms during your initial visit. Please follow up with your primary care provider or specialist to be rechecked or seek medical attention if your symptoms do not go away or get worse. If you develop any new or worsening symptoms and need after hours care, please go to nearest ER and/or call 911. If you have additional concerns or develop a change in your condition between 8am-10pm, please call [facility] at [phone] to help navigate your care. Please seek care or call your primary provider if the rash: 1. Worsens 2. Lasts longer than one week 3. Shows signs of local infection (redness, oozing, or swelling) 4. Occurs together with fever, chills, swollen glands, or other symptoms of infection 5. Looks dark purple or spotted 6. Occurs together with symptoms that suggest autoimmune disorder (recurring fever, malaise, fatigue, unexplained weight loss, or joint swelling) If you have additional concerns or develop a change in your condition between 8am-10pm, please call [facility] at [phone] to help navigate your care. Not available 10/28/2020 13:33:27 Reason for Referral None Reported. Medical Equipment None Reported. Allergies Allergen ID Allergen Name Allergen Category Reaction Reaction Severity Criticality Documentation Date Start Date Code Code System Note Provider Name and Address Organization Details Recorded Time [id number] [facility] Not available Not available Not available Not available 10/28/2020 5489 RxNorm ENRIQUE CHAPMAN NP [address] [place], [phone] , [place] [facility] 13:07:42 [id number] prednison e medicatio n Not available Not available Not available 10/28/2020 8640 RxNorm ENRIQUE CHAPMAN, [employer] [address], [place], [address], [place] [facility] 13:07:51 [id number] codeine medicatio n Not available Not available Not available 10/28/2020 2670 RxNorm ENRIQUE CHAPMAN, [employer] [address], [place], [phone], [place] [facility] 13:08:01 [id number] ibuprofen medicatio n Not available Not available Not available 10/28/2020 5640 RxNorm ENRIQUE CHAPMAN, [employer] [address], [place], [address], [place] [facility] 13:08:33 [id number] Macrobid medicatio n itching Not available Not available 10/28/2020 55175 1 RxNorm ENRIQUE CHAPMAN, [employer] [address], [place], [phone], [place] [facility] 13:09:15 Medications Name Sig Start Date Stop Date Status Note LastModified by Organization Details LastModified Time doxycycline hyclate 100 mg capsule TK 1 C PO BID FOR 14 DAYS active Not Available Not Available No t Available naproxen 375 mg tablet TAKE 1 TABLET BY MOUTH TWICE DAILY WITH FOOD active Not Available Not Available No t Available cetirizine 10 mg tablet TAKE 1 TABLET BY MOUTH DAILY NEEDED FOR ALLERGY SYMPTOMS active Not Available Not Available No t Available senna 8.6 mg tablet TK 2 TS PO HS PRN active Not Available Not Available No t Available fluconazole 200 mg tablet TK 1 T PO D FOR 1 DAY active Not Available Not Available No t Available phenazopyrid ine 200 mg tablet TK 1 T PO Q 8 H PRF URINARY PROBLEMS active Not Available Not Available No t Available metronidazol e 0.75 % (37.5 mg/5 gram) vaginal gel I 1 APL VAGINALLY D HS FOR 5 DAYS active Not Available Not Available No t Available dexamethason e 6 mg tablet TAKE 1 TABLET BY MOUTH DAILY FOR 5 DAYS active Not Available Not Available N ot Available miconazole nitrate 2 % vaginal cream INSERT 1 APPLICATORF UL VAGINALLY HS FOR 7 DAYS active Not Available Not Available No t Available cyanocobalam in (vit B-12) 1,000 mcg tablet TAKE 1 TABLET BY MOUTH DAILY active Not Available Not Available Not Available metronidazol e 500 mg tablet TK 1 T PO Q 12 H FOR 7 DAYS. DO NOT DRK ALCOHOL. MAY TK WF TO MINIMIZE ABD DISCOMFORT active Not Available Not Available N ot Available prochlorpera zine maleate 10 mg tablet TK 1 T PO TID FOR 10 DAYS PRN active Not Available Not Available No t Available sulfamethoxa zole 800 mg-trimethop rim 160 mg tablet TK 1 T PO BID FOR 10 DAYS active Not Available Not Available No t Available acetaminophe n 500 mg tablet TAKE 1 TABLET BY MOUTH EVERY 4 HOURS NEEDED FOR PAIN active Not Available Not Available No t Available famotidine 20 mg tablet TAKE 1 TABLET BY MOUTH TWICE DAILY active Not Available Not Available No t Available lorazepam 0.5 mg tablet TAKE 1 TABLET BY MOUTH THREE TIMES DAILY NEEDED FOR ANXIETY active Not Available Not Available Not Available DOK 100 mg capsule TAKE 1 CAPSULE BY MOUTH DAILY active Not Available Not Available Not Available pantoprazole 40 mg tablet,delay ed release TK 1 T PO QD. DISCONTINUE RANITIDINE active Not Available Not Available N ot Available gabapentin 300 mg capsule active Not Available Not Available Not Available sertraline 25 mg tablet TAKE 1 TABLET BY MOUTH DAILY FOR 10 DAYS active Not Available Not Available Not Available omeprazole 20 mg capsule,elizabeth yed release TK 1 C PO BID active Not Available Not Available No t Available hydroxyzine HCl 25 mg tablet TAKE 1 TABLET BY MOUTH TWICE DAILY NEEDED FOR ITCHING active Not Available Not Available No t Available lorazepam 1 mg tablet TAKE 1 TABLET BY MOUTH DAILY FOR 10 DAYS NEEDED FOR ANXIETY active Not Available Not Available Not Available cefuroxime axetil 500 mg tablet TK 1 T PO Q 12 H FOR 5 DAYS active Not Available Not Available No t Available ondansetron 4 mg disintegrati ng tablet DIS ONE T PO Q 8 H PRF NAUSEA AND VOMITING active Not Available Not Available No t Available doxycycline hyclate 100 mg tablet TK 1 T PO BID FOR 10 DAYS. MAY TK WF TO MINIMIZE ABD DISCOMFORT active Not Available Not Available N ot Available dicyclomine 10 mg capsule TK 1 TO 2 CS PO PRF CRAMPING QID active Not Available Not Available No t Available naproxen 500 mg tablet TK 1 T PO EVERY 12 HOURS NEEDED FOR PAIN active Not Available Not Available No t Available metocloprami de 10 mg tablet TK 1 T PO QID. 30 MIN BEFORE EACH MEAL AND HS active Not Available Not Available Not Available Gas Relief (simethicone ) 180 mg capsule TK 1 C PO QID AFTER MEALS active Not Available Not Available No t Available Vitamin D3 25 mcg (1,000 unit) capsule TAKE 1 CAPSULE BY MOUTH DAILY active Not Available Not Available Not Available nitrofuranto in monohydrate/ macrocrystal s 100 mg capsule TAKE 1 CAPSULE BY MOUTH TWICE DAILY FOR 7 DAYS active Not Available Not Available No t Available Vitals Date Recorded Heart rate Respiratory rate Oxygen saturation Oxygen saturation in Arterial blood by Pulse oximetry Body temperature Systolic And Diastolic Provider Name and Address Organization Details Last Updated DateTime 1 100 /min 18 /min 98 % 98 % 96.8 [degF] 130/60 mm[Hg] Not Available [facility] 13:11:27 Social History None recorded. Functional Status None recorded. Mental Status None recorded. Family History Nothing Reported. Medical History No medical history recorded. Gynecological HistoryNo gynecological history recorded. Obstetrics History GPAL:G 0 P 0 0 0 0 Past Encounters Encounter ID Performer Location Encounter Start Date Encounter Closed Date Diagnosis/Indication Diagnosis SNOMED-CT Code Diagnosis ICD10 Code Diagnosis Note [id number] ENRIQUE CHAPMAN NP [facility] [address] [place] [address] 10/28/2020 13:05:41 10/30/2020 15:42:45 [place] 906016235 L50.9 Health Concerns Section Related Observation LastModified by Organization Detai ls LastModified Time None Recorded Concern Status LastModified by Organization Details LastModified Time None Recorded Advance Directives Directive None Recorded Payers Insurance Date Sequence Insurance Name Policy Number Policy Judd Covered Member ID Judd Member ID Guarantor Name 10/31/2020 1 [place] [employer] Vera Olivas [id number] Vera Olivas 10/31/2020 2 [place] [facility] Vera Olivas [id number] Vera Olivas 10/28/2020 1 [place] [employer] Vera Olivas [id number] Vera Olivas 10/28/2020 1 *SELF PAY* Vera Olivas [id number] Vera Olivas Notes Date Note Type Note Provider Name and Address Organization Details Recorded Time 10/28/2020 text/html 4 days ago - itc hy whereever there was hair, then welts showed up on arms, legs, armpits, swollen knees. She went to see ED - given dexamethasone for it. Once home no better and 12 hours later, rash all over body. She went back to ED - then she was given rx for hydroxyzine with claritin. The rash didn't get any better and then she went back again 12 hours later, given ativan, dexamethasone and hydoxyzine. She then went home - this was yesterday. She was given meds in the ED and she felt better. Once home she has been taking the dexamethasone and hydroxyzine as prescribed and they give her help but this morning when she took them, the itchiness persisted. There is no further rash. She denies any fevers, malaise, body aches, swollen joints, shortness of breath, chest pain, abdominal pain, nausea or vomiting. She has been eating well and having normal bowel and bladder patterns for her.She finished macrobid about 2 weeks prior to this rash and itchiness starting. She has not had any other medications. She admits to feeling nervous about this rash and that she got a phone call from PCP office that her tests were inconclusive regarding having lupus and they need more tests done. ENRIQUE CHAPMAN, REBECCA [facility] [address], [place], [address], [place] [facility] 10/28/2020 18:21:44 OBGyn Episode No OBEpisode recorded.
--- NOTE | 2025-01-03 23:48 | ED_ITS ---
HPI - General Adult General Chief complaint: General Medical Stated complaint: pain behind ear/down back,abd Time Seen by Provider: 01/03/25 23:47 History of Present Illness ED Provider: rusty HPI narrative: 49-year-old female with right neck pain abruptly no trauma feel sensitive over the sternocleidomastoid and right-sided neck musculature. No midline pain no recent injuries or falls denies focal neurologic symptoms pain radiates to the right side anterior chest she says ?behind my breast? no cough, difficulty breathing denies chest pain no history of DVT PE Related Data Home Medications ?Medication ?Instructions ?Recorded ?Confirmed acetaminophen 500 mg tablet 500 mg PO Q4H PRN pain 03/2111/19/23 cyanocobalamin (vitamin B-12) 1,000 mcg PO DAILY 01/0611/19/23 1,000 mcg tablet calcium 600 mg (as 1 tab PO BID 08/28/23 carbonate)-vitamin D3 20 mcg (800 unit) tablet lorazepam 1 mg tablet 1 mg PO DAILY PRN 08/28/23 0 11/19/23 senna leaf ml PO 11/19/23 11/19/23 Previous Rx's ?Medication ?Instructions ?Recorded diphenhydramine HCl 25 mg capsule 25 mg PO TID PRN itc candis #14 caps 01/30/22 (Benadryl) metoclopramide HCl 5 mg tablet 5 mg PO .tidac #90 tabs 10/01/23 (Reglan) Held on 11/19/23. Instructions: Doctor's Order simethicone 180 mg capsule 180 mg PO QID 30 days #120 caps 11/19/23 bisacodyl 5 mg tablet,delayed 10 mg (2 x 5 mg) PO BEDT VIRGIL 2 days 12/26/23 release (Dulcolax (bisacodyl)) #4 tabs fytrxt-ebjtuadt-shaceoo 2 cap PO BID #120 caps 12/25 36,000-114,000-180,000 unit capsule,delay rel (Creon) peg 3350-electrolytes 236 240 ml PO Q10M 1 day #4,000 mL 12/26/23 gram-22.74 gram-6.74 gram-5.86 gram solution (Golytely) triamcinolone acetonide 0.5 % 1 appl topical BID #15 g renny 07/07/24 topical ointment dicyclomine 20 mg tablet 20 mg PO BID PRN diarrhea #6 tabs 08/24/24 ondansetron HCl 4 mg tablet 4 mg PO Q8H PRN nausea and 08/24/24 vomiting #10 tabs oxycodone 5 mg tablet 5 mg PO Q8H PRN pain #10 tab s 08/25/24 methocarbamol 750 mg tablet 750 mg PO Q8H PRN spasm #1 0 tabs 01/04/25 Allergies Allergy/AdvReac Type Severity Reaction Status Date / Time hydrocodone (From VICODIN) Allergy Intermediate DEPRESSES Verified 01/03/25 22:39 BREATHING nitrofurantoin (From Allergy Intermediate urticaria Verified 01/03/25 22:39 Macrobid) peach (PEACH) Allergy Intermediate ITCHING Verified 01/03/25 22:39 ibuprofen (IBUPROFEN) Allergy Mild NAUSEA & Verified 01/03/25 22:39 VOMITING oxycodone (From TYLOX) Allergy Mild RASH Verified 01/03/25 22:39 prednisone (PREDNISONE) Allergy Mild RASH Verified 01/03/25 22:39 trazodone AdvReac Intermediate itch Verified 01/03/25 22:39 aspirin (From Excedrin Extra AdvReac Unknown stomach Verified 01/03/25 22:39 Strength) issues caffeine (From Excedrin AdvReac Unknown stomach Verified 01/03/25 22:39 Extra Strength) issues apremilast (From Otezla) AdvReac Gastrointestinal Verified 01/03/25 22:39 Upset PMFSH Past Medical History Medical History Pre-op examination Chronic idiopathic constipation Tracey infection of genital region UTI (urinary tract infection) Costochondral chest pain Diverticulitis Gastric ulcer Surgical History H/O colonoscopy Hx of endoscopy (01/19/20) Family History Family History Mother CKD (chronic kidney disease) stage 3, GFR 30-59 ml/min Gallbladder calculus with acute cholecystitis Diabetes HTN (hypertension) Father No problems noted. Maternal Grandfather Diabetes HTN (hypertension) Hypercholesteremia Social History Social History Alcohol intake: never Patient Tobacco Use Status: Current everyday Tobacco user Cigarette Packs Per Day: 0.5 Cigarettes Per Day: 10 Smoked in Last 30 Days: Yes Use of substances other than those prescribed or required for medical reasons: Yes Substance Use Type: Marijuana Advance Directives: No Advance Directives Information Provided: No Current occupational status: disabled Current occupation: She is currently taking classes at [employer] Physical Exam ED Vital Signs: Vital Signs - 24 hr 01/03/25 22:39 01/03/25 23:20 01/04/25 01:20 Temperature 98.5 F 98.1 F 97.8 F Pulse Rate 89 72 59 Respiratory Rate 19 18 15 Blood Pressure 153/82 H 131/65 126/72 Pulse Oximetry 99 100 100 Oxygen Delivery Method Room Air Room Air Room Air 01/04/25 01:23 Temperature 97.8 F Pulse Rate 59 Respiratory Rate 15 Blood Pressure 126/72 Pulse Oximetry 100 Oxygen Delivery Method Room Air BMI result Body Mass Index 23.3 Const Other: EXAM: Gen: Alert, awake, well appearing, well hydrated. In pain appears uncomfortable Head: Atraumatic Eyes: Anicteric, Normal conjunctiva. ENT: Moist mucosa, no pallor. ? Neck: Resists rotation of the neck. Palpable spasm tenderness exquisitely along the right sternocleidomastoid. No midline tenderness no masses. Trachea is midline Skin: ?No observable rash or bruising on exposed or examined skin Respiratory: Breathing comfortably, No distress.Clear to auscultation bilaterally, symmetric chest expansion, No wheeze, rales, ronchi. Cardiovascular: Regular rate and rhythm. No murmurs or rub. Well perfused periphery, warm extremities. No edema. ? Abdominal: No focal tenderness. Soft, no objective distension. No palpable masses or obvious organomegaly. ?No guarding, no rebound tenderness or other peritoneal findings. : No flank tenderness. Neuro: Alert. Gross movement of all extremities intact. ? Psych: Calm. Cooperative. MSK: No grossly visible deformity. Vital signs: See flowsheet Medications Administered Discontinued Medications Generic Name Dose Route Start Last Admin Trade Name Freq PRN Reason Stop Dose Admin Acetaminophen 975 mg 01/04/25 00:47 01/04/25 00:58 Acetaminophen 325 Mg Tablet PO 01/04/25 00:48 975 mg ONCE ONE Administration Diazepam 4 mg 01/04/25 00:47 01/04/25 00:58 Diazepam 2 Mg Tablet PO 01/04/25 00:48 4 mg ONCE ONE Administration Ibuprofen 800 mg 01/04/25 00:47 01/04/25 00:57 Ibuprofen 800 Mg Tablet PO 01/04/25 00:48 Not Given ONCE ONE Lidocaine 1 patch 01/04/25 00:47 01/04/25 00:57 Lidocaine 4 % Patch Adh..Patch TRANSDERMA 01/04/25 00:48 1 patch ONCE ONE Administration Protocol Medical Decision Making Medical Decision Making MDM Narrative: Medical Decision Making: Acute atraumatic neck pain. Likely torticollis/neck spasm musculoskeletal. The presentation and examination highly suggests spasm of the neck musculature. There was no traumatic injury. Chest x-ray is clear without signs of pneumothorax, pleural effusion pneumonia or other consolidation. In the ED multimodal analgesia was attempted and heating pad to the right neck antispasmodics. Preliminary Favored Differential Diagnosis: Neck spasm/torticollis, radiculopathy, peripheral neuropathy, pneumothorax, pleuritis among additional considered etiologies Testing Interpreted Independently: Two-view chest x-ray with no signs of pneumothorax, mediastinal gas or abnormality in the neck Radiology or Lab testing Results Reviewed: Not Applicable Consults: Not Applicable Independent Historians/External Chart Reviews: Not Applicable Social Determinants of Health Impacting MDM/Planning: Not Applicable Lab Data 01/03/25 22:52 01/03/25 22:52 Labs: Lab Results 01/03/25 Range/Units 22:52 WBC 7.2 (4.8-10.8) X10*3/uL RBC 4.33 (4.20-5.50) X10*6/uL Hgb 12.0 (12.0-16.0) g/dl Hct 36.2 L (37.0-47.0) % MCV 83.6 (80.0-98.0) fL MCH 27.7 (27.0-33.0) pg MCHC 33.1 (31.0-35.0) g/dl RDW 13.9 (11.0-16.0) % Plt Count 393 (160-400) X10*3/uL MPV 8.4 L (9.4-12.3) fL Immature Gran % (Auto) 0.1 (0.0-0.4) % Neut % (Auto) 34.8 L (45-73) % Lymph % (Auto) 57.1 H (20-40) % Lasalle % (Auto) 5.3 (2-11) % Eos % (Auto) 1.9 (0-4) % Baso % (Auto) 0.8 (0-2) % Lymph # (Auto) 4.1 (1.2-4.9) X10*3/uL Lasalle # (Auto) 0.4 (0.1-1.2) X10*3/uL Eos # (Auto) 0.1 (0.0-0.4) X10*3/uL Baso # (Auto) 0.1 (0.0-0.2) X10*3/uL Abs Immat Gran (auto) 0.01 (0.00-0.03) X10*3/uL Absolute Neuts (auto) 2.5 (2.0-8.3) x10*3/uL Absolute Nucleated RBC 0.000 (0.0-0.012) X10*3/uL Nucleated RBC % (auto) 0.0 (0.0-0.2) /100WBC Sodium 144 (135-145) mmol/L Potassium 4.4 (3.3-5.1) mmol/L Chloride 113 H (96-108) mmol/L Carbon Dioxide 22 (22-29) mmol/L Anion Gap 13 (12-20) BUN 9 (9-16) mg/dL Creatinine 0.70 (0.5-1.4) mg/dL Estim Creat Clear Calc 86.4 Estimated GFR > 60 Random Glucose 91 (60-115) mg/dL Calcium 9.4 (8.4-10.2) mg/dL Total Bilirubin 0.2 (0.0-1.0) mg/dL AST 23 (5-31) U/L ALT 14 (0-31) U/L Alkaline Phosphatase 79 (39-117) U/L Total Protein 7.3 (6.5-8.0) g/dL Albumin 4.6 (3.5-5.0) g/dL Discharge Plan Discharge Clinical Impression: Neck muscle spasm Patient Disposition: Home, Self-Care Instructions: Muscle Spasm (ED) Additional Instructions: _ DISCHARGE DIAGNOSES: Neck pain likely due to spasm of the neck muscles HISTORY OF PRESENTATION: ?Pain in the neck without injury EMERGENCY DEPARTMENT COURSE,TESTS, TREATMENTS: While in the ED today you had a chest x-ray that was reassuring with no signs of collapsed lung or other acute problems. You were given a heating pad and multiple medications including lidocaine patch, Tylenol, nonsteroidal anti-inflammatory medication, Valium spasm medicine. DISCHARGE MEDICATIONS: ?We have prescribed for you and antispasm medicine methocarbamol. Take this but do not drive while on this. You can use oral nonsteroidal anti-inflammatories like ibuprofen we recommend putting heating pad and massaging the neck FOLLOW-UP: ?Call your primary or general physician soon as possible to discuss your symptoms, your ED visit and to discuss follow up plans Call your PCP for follow up INSTRUCTIONS ?& RETURN PRECAUTIONS: If any symptoms change first call your primary physician, if it is after-hours your primary doctors office should have a provider investor relations analyst you can speak with. If the symptoms are severe or very concerning to you then call 911 or return to the ED. [[id number]] Jesus Ennis MD Emergency Physician [facility] Prescriptions: New methocarbamol 750 mg tablet 750 mg PO Q8H PRN (Reason: spasm) Qty: 10 0RF No Action diphenhydramine HCl [Benadryl] 25 mg capsule 25 mg PO TID PRN (Reason: itching) Qty: 14 0RF triamcinolone acetonide 0.5 % ointment 1 appl topical BID Qty: 15 1RF oxycodone 5 mg tablet 5 mg PO Q8H PRN (Reason: pain) Qty: 10 0RF Rx Instructions: Partial Fill upon patient request. ondansetron HCl 4 mg tablet 4 mg PO Q8H PRN (Reason: nausea and vomiting) Qty: 10 0RF dicyclomine 20 mg tablet 20 mg PO BID PRN (Reason: diarrhea) Qty: 6 0RF lorazepam 1 mg tablet 1 mg PO DAILY PRN acetaminophen 500 mg tablet 500 mg PO Q4H PRN (Reason: pain) cyanocobalamin (vitamin B-12) 1,000 mcg tablet 1,000 mcg PO DAILY calcium carbonate-vitamin D3 600 mg-20 mcg (800 unit) tablet 1 tab PO BID metoclopramide HCl [Reglan] 5 mg tablet 5 mg PO .tidac Qty: 90 6RF Creon 36,000-114,000- 180,000 unit capsule,delayed release(DR/EC) 2 cap PO BID Qty: 120 6RF Rx Instructions: administer with meals and/or snacks peg 3350-electrolytes [Golytely] 236-22.74-6.74 -5.86 gram recon soln 240 ml PO Q10M 1 Days Qty: 4000 0RF Rx Instructions: until fecal effluent is clear; do not exceed a total volume of 2,000 mL bisacodyl [Dulcolax (bisacodyl)] 5 mg tablet,delayed release (DR/EC) 10 mg PO BEDTIME 2 Days Qty: 4 0RF simethicone 180 mg capsule 180 mg PO QID 30 Days Qty: 120 3RF Rx Instructions: after meals senna leaf Tea PO Interventions: ED Discharge Assessment Last Done: 01/04/25 01:23 Discharge Date/Time: 01/04/25 01:29 Print Language: Yoruba
[2025-01-04] MEDS: Lidocaine 4 % Patch ADH..PATCH 1 PATCH TRANSDERMA (00:57)
--- NOTE | 2025-01-04 01:05 | PC.NURSE ---
pt medicated per aug, tolerated whole well with water
[2025-01-04 01:20] VITALS: BP 126/72; PULSE 59; RESP 15; TEMP 36.6; O2SAT 100
[2025-01-04 01:23] VITALS: BP 126/72; PULSE 59; RESP 15; TEMP 36.6; O2SAT 100
== END 2025-01-04 01:29 | disposition home or self-care (01) ==
PROVIDERS: Emergency Provider Emergency Medicine; PCP Internal Medicine
DX: M62.838 Other muscle spasm (principal); R07.81 Pleurodynia; Z79.899 Other long term (current) drug therapy
CPT/HCPCS: 36415; 71046; 80053; 85025; 99283; 99284

== ENCOUNTER → 2025-01-04 00:47 | Outpatient (BNV) | payer MEDICAID, SELFPAY | PROVIDERS: Emergency Provider Emergency Medicine; PCP Internal Medicine; Visit Provider Radiology Diagnostic Radiology | DX: R07.81 Pleurodynia (principal) | CPT/HCPCS: 71046 ==

== ENCOUNTER 2025-01-25 11:56 | Day surgery (SDC) | payer MEDICAID, SELFPAY ==
--- OUTSIDE RECORDS SUMMARY | 2025-01-11 12:48 | XMS_ITS | Clinical Summary ---
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 Name Role Phone Helder Mason MD Primary Care Provider [phone] Social History Tobacco Use Types Packs/Day Years [...] Vaccine ( - 2023-2 5 season) 2024 Pneumococcal Vaccine: 50+ Ye ars (1 of 1 - PCV) 2024 Zoster Vaccines (1 of 2) 2024 Colorectal Cancer Screening: Colonoscopy 08/18/2024 Depression Screening 08/18/2024 HIV Screening 08/18/2024 Hepatitis C Screening 08/18/2024 Medicare Annual Wellness Visit 08/18/2024 Social Influencers of Health Screening 08/18/2024 Influenza Vaccine (#1) 2025 HIB Vaccines Aged Out No longer eligi [...] age to complete this topic Meningococcal B Vaccine Aged Out No l onger eligible based on patient's age to complete this topic RSV Immunization Patients Un nita 20 months Aged Out No longer eligible b ased on patient's age to complete this topic Varicella Vaccines Aged Out No longer eligible based on patient's age to complete this topic Insurance MEDICARE MEDICAID - [place] Care Teams Swinging Cut 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
--- OUTSIDE RECORDS SUMMARY | 2025-01-11 12:49 | XMS_ITS | Data Portability ---
Author Organization [place] - [facility] Address [address] [place] [id number] Assessment Encounter Date Assessment Date Assessment LastModified [...] By Organization Details Last Modified Time 10/28/2020 [id number] [facility] came to evaluate you for a [...] re-evaluated. Thank you for your visit with [facility] today. We cannot always find the exact [...] in your condition between 8am-10pm, please call [facility] at [phone] to help navigate your care. Please seek [...] in your condition between 8am-10pm, please call [facility] at [phone] to help navigate your care. Not available 10/28/2020 13:33:27 Reason for Referral None Reported. Medical Equipment None Reported. Allergies Allergen ID Allergen Name Allergen Category Reaction Reaction Severity Criticality Documentation Date Start Date Code Code System Note Provider Name and Address Organization Details Recorded Time [id number] [facility] Not available Not available Not available Not available 10/28/2020 5489 RxNorm ENRIQUE CHAPMAN NP [address] [facility] [place], [address] , [place] [facility] 13:07:42 [id number] prednison e medicatio n Not available Not available Not available 10/28/2020 8640 RxNorm ENRIQUE CHAPMAN, LANGUAGE TRANSLATOR [address], [place], [address], [place] [facility] 13:07:51 [id number] codeine medicatio n Not available Not available Not available 10/28/2020 2670 RxNorm ENRIQUE CHAPMAN, LANGUAGE TRANSLATOR [address], [place], [address], [place] [facility] 13:08:01 [id number] ibuprofen medicatio n Not available Not available Not available 10/28/2020 5640 RxNorm ENRIQUE CHAPMAN, LANGUAGE TRANSLATOR [address], [place], [address], [place] [facility] 13:08:33 [id number] Macrobid medicatio n itching Not available Not available 10/28/2020 09560 1 RxNorm ENRIQUE CHAPMAN, LANGUAGE TRANSLATOR [address], [place], [address], [place] [facility] 13:09:15 [...] SNOMED-CT Code Diagnosis ICD10 Code Diagnosis Note [id number] ENRIQUE CHAPMAN NP [facility] [address] [place] [address] 10/28/2020 13:05:41 10/30/2020 15:42:45 Urticaria 767513811 L50.9 Health Concerns Section Related Observation LastModified by Organization Detai ls LastModified Time None Recorded Concern Status LastModified by Organization Details LastModified Time None Recorded Advance Directives Directive None Recorded Payers Insurance Date Sequence Insurance Name Policy Number Policy Judd Covered Member ID Judd Member ID Guarantor Name 10/31/2020 1 [place] [employer] Vera Olivas [id number] Vera Olivas 10/31/2020 2 [place] [facility] Vera Olivas [id number] Vera Olivas 10/28/2020 1 [place] [employer] Vera Olivas [id number] Vera Olivas 10/28/2020 1 *SELF PAY* Vera Olivas [id number] Vera Olivas Notes Date Note Type Note [...] [facility] [address], [place], [address], [place] [facility] 10/28/2020 18:21:44 OBGyn Episode No OBEpisode recorded.
[2025-01-21 11:33] VITALS: BMI 26.8
[2025-01-25 12:25] VITALS: BMI 21.5
[2025-01-25 12:39] LABS: UPreg QC Valid YES
[2025-01-25 12:41] VITALS: BMI 21.5
[2025-01-25 12:46] VITALS: BP 127/79; PULSE 94; RESP 16; TEMP 36.5; O2SAT 98
[2025-01-25] MEDS: Lactated Ringers 1,000 ML 100 ML IVCONT (12:56)
--- NOTE | 2025-01-25 12:57 | MHC.SHP ---
Pre-Procedural Eval Section A - 24 Hr Update-Section A only Date of Service: 01/25/25 The patient is an INPATIENT: No The patient has been examined within 24 hours of the surgical procedure. The History & Physical has been completed within 30 days and I have reviewed it.: No Section B - Complete if H&P > 30 days Chief Complaint: screening, IBS Relevant Social History: Tobacco Use Present Medications: see Short Stay Collaborative assessment Medical History: Significant History (Chronic idiopathic constipation Tracey infection of genital region UTI (urinary tract infection) Costochondral chest pain Diverticulitis Gastric ulcer) History of Previous Operations: Relevant previous surgery/procedure and date(s) (History of EGD, history of colonoscopy) Allergies: Allergies Allergy/AdvReac Type Severity Reaction Status Date / Time hydrocodone (From VICODIN) Allergy Intermediate DEPRESSES Verified 01/03/25 22:39 BREATHING nitrofurantoin (From Allergy Intermediate urticaria Verified 01/03/25 22:39 Macrobid) peach (PEACH) Allergy Intermediate ITCHING Verified 01/03/25 22:39 ibuprofen (IBUPROFEN) Allergy Mild NAUSEA & Verified 01/03/25 22:39 VOMITING oxycodone (From TYLOX) Allergy Mild RASH Verified 01/03/25 22:39 prednisone (PREDNISONE) Allergy Mild RASH Verified 01/03/25 22:39 trazodone AdvReac Intermediate itch Verified 01/03/25 22:39 aspirin (From Excedrin Extra AdvReac Unknown stomach Verified 01/03/25 22:39 Strength) issues caffeine (From Excedrin AdvReac Unknown stomach Verified 01/03/25 22:39 Extra Strength) issues apremilast (From Otezla) AdvReac Gastrointestinal Verified 01/03/25 22:39 Upset risankizumab-rzaa (From AdvReac Dizziness Verified 01/25/25 12:33 Skyrizi) Review of Systems Sugical H&P ROS: Negative: Constitution, Cardiovascular and Respiratory and Yes, Specify: Gastrointestinal (IBS) Exam Surgical H&P Exam: Normal: Heart, Normal: Lungs, Normal: Extremities and Normal: Abdomen Plan Diagnosis/Plan: Unchanged I have reviewed the history and physical and performed a pertinent physical examination on my patient. No changes have occurred unless specified. Time Spent With Patient Time: Total time managing care of this patient today ____ minutes.
--- NOTE | 2025-01-25 13:49 | HO.ANESPROP2 ---
[facility] Active Problems Active Problems: All Active Problems (Updated 01/25/25 @ 12:25 by Shyann Andrea RN) Family history of polyps in the colon (Acute) Early satiety (Acute) Loose stools (Acute) Hematuria (Acute) SUNSHINE positive (Acute) Polyarthralgia (Acute) Elevated erythrocyte sedimentation rate (Acute) Microscopic hematuria (Acute) Urinary frequency (Acute) Periumbilical abdominal pain (Acute) Abdominal bloating (Acute) IBS (irritable bowel syndrome) (Acute) Calcium oxalate crystals in urine (Acute) GERD (gastroesophageal reflux disease) (Acute) Anxiety (Acute) Past Medical History Medical History Menopause IBS (irritable bowel syndrome) Anxiety GERD (gastroesophageal reflux disease) Chronic idiopathic constipation Diverticulitis Gastric ulcer Functional capacity: independent ambulation Patient : No Family History Family History Mother CKD (chronic kidney disease) stage 3, GFR 30-59 ml/min Gallbladder calculus with acute cholecystitis Diabetes HTN (hypertension) Father No problems noted. Maternal Grandfather Diabetes HTN (hypertension) Hypercholesteremia Family history of problems with anesthesia: No Surgical History Surgical History H/O eye surgery Hx of endoscopy (01/19/20) History of Problems with Anesthesia: No Social History Social History Alcohol intake: never Patient Tobacco Use Status: Current everyday Tobacco user Tobacco use type: Cigarette Cigarette Packs Per Day: 0.5 Cigarettes Per Day: 7 Use of substances other than those prescribed or required for medical reasons: No Substance Use Type: Marijuana Are you DNR?: No Advance Directives: No Advance Directives Information Provided: Yes Patient : No : No Poor oral hygiene: No Current occupational status: disabled Current occupation: She is currently taking classes at [employer] Allergies Allergy/AdvReac Type Severity Reaction Status Date / Time hydrocodone (From VICODIN) Allergy Intermediate DEPRESSES Verified 01/03/25 22:39 BREATHING nitrofurantoin (From Allergy Intermediate urticaria Verified 01/03/25 22:39 Macrobid) peach (PEACH) Allergy Intermediate ITCHING Verified 01/03/25 22:39 ibuprofen (IBUPROFEN) Allergy Mild NAUSEA & Verified 01/03/25 22:39 VOMITING oxycodone (From TYLOX) Allergy Mild RASH Verified 01/03/25 22:39 prednisone (PREDNISONE) Allergy Mild RASH Verified 01/03/25 22:39 trazodone AdvReac Intermediate itch Verified 01/03/25 22:39 aspirin (From Excedrin Extra AdvReac Unknown stomach Verified 01/03/25 22:39 Strength) issues caffeine (From Excedrin AdvReac Unknown stomach Verified 01/03/25 22:39 Extra Strength) issues apremilast (From Otezla) AdvReac Gastrointestinal Verified 01/03/25 22:39 Upset risankizumab-rzaa (From AdvReac Dizziness Verified 01/25/25 12:33 Skyrizi) Active Medications: Current Medications Lactated Ringer's (Lr) 1,000 mls @ 100 mls/hr IVCONT .Q10H ANAMIKA Last Admin: 01/25/25 12:56 Dose: 100 mls/hr Home Medications ?Medication ?Instructions ?Recorded ?Confirmed ?Last Taken ?Type acetaminophen 500 mg tablet 500 mg PO Q4H PRN pain 01/06/21 11/19/23 Unknown History cyanocobalamin (vitamin B-12) 1,000 mcg PO DAILY 01/06/21 11/19/23 Unknown History 1,000 mcg tablet calcium 600 mg (as 1 tab PO BID 08/28/23 11/19/23 Unknown History carbonate)-vitamin D3 20 mcg (800 unit) tablet lorazepam 1 mg tablet 1 mg PO DAILY PRN Anxiety 08/28/23 01/25/25 01/25/25 11:30 History senna leaf ml PO 11/19/23 11/19/23 Unknown History Exam Height,Weight and Vital Signs: Height 5 ft 5 in Weight 58.6 kg Last Vital Signs Temp 97.7 F 01/25/25 12:46 Pulse 94 01/25/25 12:46 Resp 16 01/25/25 12:46 BP 127/79 01/25/25 12:46 Pulse Ox 98 01/25/25 12:46 O2 Del Method Room Air 01/25/25 12:46 Pertinent Lab Results Pertinent Lab Results: Laboratory Tests 01/25/25 12:25 Urine Test NEGATIVE Airway Mallampati Class: II TM Dist: >3cm Heart: RRR Lungs: CT A Assessment and Plan Assessment Anesthesia Assessment: Anesthesia Plan Discussed Final Anesthetic Review Family History of Problems with Anesthesia: No History of Problems with Anesthesia: No NPO: Yes ASA Class: II Final Preanesthetic Review: Meds/Allgs Chart Reviewed, Consent Obtained/Reviewed and Anes Risks/Benef Reviewed Patient Risk: Low Procedure Risk: Low Anesthetic Plan Anesthetic Plan: MAC: Disposition: Standard PACU
--- NOTE | 2025-01-25 14:28 | HO.OPN-COLON ---
Colonoscopy Operative Note Operative Note Date of Service: 01/25/25 Narrative: COLONOSCOPY TILL CECUM WITH BIOPSIES AND SNARE POLYPECTOMY Pre-op diagnosis: Colon cancer screening (first colon). Post-op diagnosis:? Colon polyps, Diverticulosis, hemorrhoids Endoscopist:? Narciso Byrd MD Anesthesia:?MAC Consent: Indications for the procedure and potential complications of bleeding, perforation, reaction to medications and missed diagnosis were discussed with the patient and informed consent was obtained. Instrument: Olympus PCF H 190 L variable stiffness pediatric colonoscope Monitoring: Vital signs and clinical assessment, intermittent blood pressure monitoring, continuous EKG monitoring, Pulse oximetry and Carbon Dioxide monitoring were done throughout the procedure. Please see anesthesia flowsheet. Colon withdrawl time was 20 minutes. Procedure: The patient was placed in the left lateral decubitis position and pre-procedure medications were administered. After a digital rectal examination of the ano-rectum, the video colonoscope was inserted into the rectum and advanced through the colon to the cecum. The colonoscope was slowly withdrawn in a retrograde panoramic fashion and the colon mucosa was carefully examined including a retroflexed view of the rectum. Findings and interventions are described below. Procedure Difficulty: without difficulty Findings: Terminal Ileum: Not evaluated Cecum: Normal Ascending Colon: A 4-5 mm sessile polyp in the distal AC - removed with a cold snare Transverse Colon: Normal Descending Colon: Normal Sigmoid Colon: A 3-4 mm diminutive appearing polyp - removed with a cold snare. Moderate diverticulosis Rectum: A 4-5 mm whittish appearing polyp in the distal rectum - removed with a cold biopsy. Colon preparation: Good after some irrigation. Stanford Bowel Preparation Scale Right colon; 2 Transverse colon: 2 Left colon; 2 (0 = Unprepared colon segment with mucosa not seen due to solid stool that cannot be cleared. 1 = Portion of mucosa of the colon segment seen, but other areas of the colon segment not well seen due to staining, residual stool and/or opaque liquid. 2 = Minor amount of residual staining, small fragments of stool and/or opaque liquid, but mucosa of colon segment seen well. 3 = Entire mucosa of colon segment seen well with no residual staining, small fragments of stool or opaque liquid) Impression and Post Procedure Diagnosis: Colonoscopy Findings: Three small polyps were removed Moderate diverticulosis seen in the sigmoid colon Plan: Pt to schedule a FU appointment with Ebony Wild NP, Repeat Colonoscopy in 3-5 years if polyps are adenomatous and 10 year if polyps are hyperplastic. Above findings were reviewed with the patient and relevant handouts were given and the discharge area. BIOPSY SHOWED: A. Colon, ascending, polyp: Tubular adenoma; negative for high-grade dysplasia and carcinoma. B. Colon, sigmoid, polyp: Hyperplastic polyp. C. 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 Plan: Flexible sigmoidoscopy in 3-4 weeks to check polypectomy site
[2025-01-25 14:30] VITALS: BP 90/45; PULSE 79; RESP 16; TEMP 36.1; O2SAT 97
[2025-01-25 14:45] VITALS: BP 101/54; PULSE 73; RESP 20; O2SAT 99
[2025-01-25 15:00] VITALS: BP 111/56; PULSE 79; RESP 20; TEMP 36.2; O2SAT 99
== END 2025-01-25 15:17 | disposition home or self-care (01) ==
PROVIDERS: Nurse Practitioner; PCP Internal Medicine; Visit Provider Internal Medicine Gastroenterology
PROC: 0DJD8ZZ Inspection of Lower Intestinal Tract, Via Natural or Artificial Opening Endoscopic (ICD-10-PCS; CPT 45378; principal; 2025-01-25 13:50)
DX: Z12.11 Encounter for screening for malignant neoplasm of colon (principal); K58.9 Irritable bowel syndrome, unspecified; D3A.026 Benign carcinoid tumor of the rectum; D12.2 Benign neoplasm of ascending colon; K63.5 Polyp of colon; K57.30 Diverticulosis of large intestine without perforation or abscess without bleeding; K64.8 Other hemorrhoids; K59.04 Chronic idiopathic constipation; M94.0 Chondrocostal junction syndrome [Tietze]; K25.9 Gastric ulcer, unspecified as acute or chronic, without hemorrhage or perforation; Z87.440 Personal history of urinary (tract) infections; Z87.19 Personal history of other diseases of the digestive system; Z79.899 Other long term (current) drug therapy; Z88.8 Allergy status to other drugs, medicaments and biological substances; Z88.6 Allergy status to analgesic agent; Z88.5 Allergy status to narcotic agent; F17.210 Nicotine dependence, cigarettes, uncomplicated
CPT/HCPCS: 45385; 45380; 81025; 88305; 88342; J2704

== ENCOUNTER → 2025-01-25 11:56 | Outpatient (BNV) | payer MEDICAID, SELFPAY | PROVIDERS: PCP Internal Medicine; Visit Provider Internal Medicine Gastroenterology | DX: Z12.11 Encounter for screening for malignant neoplasm of colon (principal); K63.5 Polyp of colon; K57.90 Diverticulosis of intestine, part unspecified, without perforation or abscess without bleeding; K64.8 Other hemorrhoids | CPT/HCPCS: 45380; 45385 ==

== ENCOUNTER 2025-02-22 13:39 | Emergency (ER) | payer MEDICAID, SELFPAY ==
[2025-02-22 13:58] VITALS: BP 133/73; PULSE 79; RESP 17; TEMP 36.8; O2SAT 99; BMI 22.5
--- NOTE | 2025-02-22 14:02 | ED.GENADULT ---
HPI - General Adult General Chief complaint: Headache Stated complaint: headache Time Seen by Provider: 02/22/25 14:13 Source: patient, RN notes reviewed and old records reviewed Mode of arrival: ambulatory Limitations: no limitations History of Present Illness ED Provider: Ashley RIVERO narrative: Patient is a 49-year-old female with history of migraines, anxiety, GERD, IBS, SUNSHINE positive presenting to the emergency department with a complaint of headache for the past 7 days. Reports associated nausea since yesterday. Has been using 500 mg of Tylenol with little relief, today took 1 g of Tylenol also with little relief. Complaining of photophobia, phonophobia and complains of occasional white flashes to her left eye. Denies other visual changes, blurred vision or double vision. Denies recent fall or other trauma. She denies recent fevers. Denies sudden onset, denies worst headache of life, not worse with standing or in the am. MD complaint: headache Onset (ago): week(s) Related Data Home Medications ?Medication ?Instructions ?Recorded ?Confirmed acetaminophen 500 mg tablet 500 mg PO Q4H PRN pain 01/06/21 11/19/23 cyanocobalamin (vitamin B-12) 1,000 mcg PO DAILY 01/06/21 11/19/23 1,000 mcg tablet calcium 600 mg (as 1 tab PO BID 08/28/23 11/19/23 carbonate)-vitamin D3 20 mcg (800 unit) tablet lorazepam 1 mg tablet 1 mg PO DAILY PRN Anxiety 08/28/23 01/25/25 senna leaf ml PO 11/19/23 11/19/23 Previous Rx's ?Medication ?Instructions ?Recorded diphenhydramine HCl 25 mg capsule 25 mg PO TID PRN itching #14 caps 01/30/22 (Benadryl) metoclopramide HCl 5 mg tablet 5 mg PO .tidac #90 tabs 10/01/23 (Reglan) simethicone 180 mg capsule 180 mg PO QID 30 days #120 caps 11/19/23 [id number]-ocnwlfry-[id number] 2 cap PO BID #120 caps 12/26/23 36,000-114,000-180,000 unit capsule,delay rel (Creon) triamcinolone acetonide 0.5 % 1 appl topical BID #15 grams 07/07/24 topical ointment dicyclomine 20 mg tablet 20 mg PO BID PRN diarrhea #6 tabs 08/24/24 ondansetron HCl 4 mg tablet 4 mg PO Q8H PRN nausea and 08/24/24 vomiting #10 tabs oxycodone 5 mg tablet 5 mg PO Q8H PRN pain #10 tabs 08/25/24 methocarbamol 750 mg tablet 750 mg PO Q8H PRN spasm #10 tabs 01/04/25 cyclobenzaprine 5 mg tablet 5 mg PO TID PRN muscle spasm #10 02/22/25 tabs Allergies Allergy/AdvReac Type Severity Reaction Status Date / Time hydrocodone (From VICODIN) Allergy Intermediate DEPRESSES Verified 02/22/25 14:01 BREATHING nitrofurantoin (From Allergy Intermediate urticaria Verified 02/22/25 14:01 Macrobid) peach (PEACH) Allergy Intermediate ITCHING Verified 02/22/25 14:01 ibuprofen (IBUPROFEN) Allergy Mild NAUSEA & Verified 02/22/25 14:01 VOMITING oxycodone (From TYLOX) Allergy Mild RASH Verified 02/22/25 14:01 prednisone (PREDNISONE) Allergy Mild RASH Verified 02/22/25 14:01 trazodone AdvReac Intermediate itch Verified 02/22/25 14:01 aspirin (From Excedrin Extra AdvReac Unknown stomach Verified 02/22/25 14:01 Strength) issues caffeine (From Excedrin AdvReac Unknown stomach Verified 02/22/25 14:01 Extra Strength) issues apremilast (From Otezla) AdvReac Gastrointestinal Verified 02/22/25 14:01 Upset risankizumab-rzaa (From AdvReac Dizziness Verified 02/22/25 14:01 Skyrizi) Review of Systems Review of Systems: As per HPI Yes all other systems are reviewed and are negative Constitutional: Constitutional: Reports as per HPI PMFSH Past Medical History Medical History Menopause IBS (irritable bowel syndrome) Anxiety GERD (gastroesophageal reflux disease) Chronic idiopathic constipation Diverticulitis Gastric ulcer Surgical History H/O eye surgery Hx of endoscopy (01/19/20) Family History Family History Mother CKD (chronic kidney disease) stage 3, GFR 30-59 ml/min Gallbladder calculus with acute cholecystitis Diabetes HTN (hypertension) Father No problems noted. Maternal Grandfather Diabetes HTN (hypertension) Hypercholesteremia Social History Social History Alcohol intake: never Patient Tobacco Use Status: Current everyday Tobacco user Tobacco use type: Cigarette Cigarette Packs Per Day: 0.5 Cigarettes Per Day: 7 Use of substances other than those prescribed or required for medical reasons: No Substance Use Type: Marijuana Advance Directives: No Advance Directives Information Provided: Yes Do you have a plan to hurt others: No Plan Patient : No Current occupational status: disabled Current occupation: She is currently taking classes at [employer] Physical Exam ED Vital Signs: Vital Signs - 24 hr 02/22/25 13:58 Temperature 98.2 F Pulse Rate 79 Respiratory Rate 17 Blood Pressure 133/73 Pulse Oximetry 99 Oxygen Delivery Method Room Air BMI result Body Mass Index 22.5 Vital signs have been reviewed and appear to be correct. Blood pressure normal. Heart rate normal. Respiratory rate normal. Temperature normal. Oxygen saturation normal. Const General: cooperative, healthy appearing and no acute distress Orientation/consciousness: oriented to person, oriented to place, oriented to time and patient oriented x3 Limitations: no limitations HENMT Head: Yes normocephalic and Yes atraumatic Ears: external ears normal, TM's normal bilaterally and EAC's normal General nose exam: Normal external nose present Face and sinus: Yes face symmetric Mouth: oropharynx normal and moist mucous membranes Throat: Yes uvula midline Eyes Pupils: Equal, round and reactive pupils present Neck Neck: Yes normal visual inspection and Yes supple Resp Effort & Inspection: normal respiratory effort and able to speak in complete sentences Auscultation: clear to auscultation bilaterally Cardio Rate: regular rate Rhythm: regular rhythm Heart sounds: S1 normal heart sound present and S2 normal heart sound present GI Palpation (GI): Soft to palpation and nontender Auscultation: normoactive bowel sounds General: Yes no CVA tenderness Back/Spine/Pelvis Back: no CVA tenderness Skin General skin exam: elasticity normal and turgor normal Neuro General: oriented to person, oriented to place, oriented to time, patient oriented x3, moves all extremities, no focal motor deficits and CN's II-XI intact bilaterally Cranial nerves: Yes Equal, round and reactive pupils present Cognition (Neuro): normal cognition Extrem General: Yes full ROM, Yes no pedal edema and Yes no calf tenderness Psych Mental Status: mental status grossly normal Affect: normal affect Thought process: Normal thought process present Course Course Course Narrative: Rapid medical examination performed in triage by Marleny Patel PA-C. Patient is a 49 year old assigned female at presenting to the emergency department with a left sided headache with occasional flashing of light in her left eye. Detailed physical exam and review of systems are deferred to the psychology clinician. Labs ordered. Patient placed back in the waiting room pending room availability and results. Medications Administered Discontinued Medications Generic Name Dose Route Start Last Admin Trade Name Maksimq PRN Reason Stop Dose Admin Diazepam 4 mg 02/22/25 16:29 02/22/25 16:35 Diazepam 2 Mg Tablet PO 02/22/25 16:30 4 mg ONCE ONE Administration Diphenhydramine HCl 25 mg 02/22/25 14:39 02/22/25 15:19 Diphenhydramine Hcl 50 Mg/Ml Vial IVPUSH 02/22/25 14:40 25 mg ONCE ONE Administration Sodium Chloride 1,000 mls @ 999 mls/hr 02/22/25 14:45 02/22/25 16:49 Ns IV 02/22/25 15:45 Infused .Q1H1M ANAMIKA Infusion Ketorolac Tromethamine 15 mg 02/22/25 14:40 02/22/25 15:19 Ketorolac Tromethamine 15 Mg/Ml Vial IVPUSH 02/22/25 14:41 15 mg ONCE ONE Administration Lidocaine 1 patch 02/22/25 16:29 02/22/25 16:34 Lidocaine 4 % Patch Adh..Patch TRANSDERMA 02/22/25 16:30 1 patch ONCE ONE Administration Protocol Metoclopramide HCl 10 mg 02/22/25 14:34 02/22/25 15:19 Metoclopramide Hcl 10 Mg/2 Ml Vial IVPUSH 02/22/25 14:35 10 mg ONCE ONE Administration Medical Decision Making Medical Decision Making MDM Narrative: Patient is a 49-year-old female with history of migraines, anxiety, GERD, IBS, SUNSHINE positive presenting to the emergency department with a complaint of headache for the past 7 days. On exam patient is awake, A+Ox3, VS WNL, afebrile, normal neurological exam without focal deficits, physical exam findings as above. Given reported symptoms and physical exam findings, initial differential includes but is not limited to migraine, tension headache, cluster headache. No red flag findings concerning for ICH/SAH, acute glaucoma, carotid artery dissection, CO poisoning, encephalitis, meningitis, preeclampsia, pseudotumor, temporal arteritis/giant cell arteritis. Labs unremarkable. Reports some improvement in pain after medications ordered but complains of ongoing pain around left ear and neck area. Will try PO diazepam as suspect musculoskeletal/tension component. Patient also recently seen here in December for neck muscle spasm. Patient reports significant improvement in headache after second round of medications and feels comfortable with discharge home. Likely tension related. Will discharge with prescription for flexeril. Advised continued use of Tylenol. Follow up with PCP as needed. Return precautions discussed. Patient verbalized understanding of and agreement with plan. Differential Diagnosis Differential Diagnoses: The differential diagnosis associated with the presentation includes as per [facility] Admission/Observation Consideration of admission/observation: Escalation of care including admission/observation considered Patient would have been admitted to the hospital had their clinical presentation warranted hospital admission. Lab Data [facility] Lab Attestation statement: I reviewed the patient's lab results. as per [facility] 02/22/25 14:36 02/22/25 14:36 Labs: Lab Results 02/22/25 Range/Units 14:36 WBC 7.4 (4.8-10.8) X10*3/uL RBC 4.17 L (4.20-5.50) X10*6/uL Hgb 11.8 L (12.0-16.0) g/dl Hct 35.3 L (37.0-47.0) % MCV 84.7 (80.0-98.0) fL MCH 28.3 (27.0-33.0) pg MCHC 33.4 (31.0-35.0) g/dl RDW 13.7 (11.0-16.0) % Plt Count 367 (160-400) X10*3/uL MPV 8.5 L (9.4-12.3) fL Immature Gran % (Auto) 0.1 (0.0-0.4) % Neut % (Auto) 48.2 (45-73) % Lymph % (Auto) 45.0 H (20-40) % [place] % (Auto) 5.1 (2-11) % Eos % (Auto) 1.1 (0-4) % Baso % (Auto) 0.5 (0-2) % Lymph # (Auto) 3.3 (1.2-4.9) X10*3/uL [place] # (Auto) 0.4 (0.1-1.2) X10*3/uL Eos # (Auto) 0.1 (0.0-0.4) X10*3/uL Baso # (Auto) 0.0 (0.0-0.2) X10*3/uL Abs Immat Gran (auto) 0.01 (0.00-0.03) X10*3/uL Absolute Neuts (auto) 3.6 (2.0-8.3) x10*3/uL Absolute Nucleated RBC 0.000 (0.0-0.012) X10*3/uL Nucleated RBC % (auto) 0.0 (0.0-0.2) /100WBC Sodium 142 (135-145) mmol/L Potassium 3.7 (3.3-5.1) mmol/L Chloride 111 H (96-108) mmol/L Carbon Dioxide 26 (22-29) mmol/L Anion Gap 9 L (12-20) BUN 14 (9-16) mg/dL Creatinine 0.78 (0.5-1.4) mg/dL Estim Creat Clear Calc 77.6 Estimated GFR > 60 Random Glucose 85 (60-115) mg/dL Calcium 9.5 (8.4-10.2) mg/dL Magnesium 1.8 (1.6-2.6) mg/dL Total Bilirubin 0.3 (0.0-1.0) mg/dL AST 25 (5-31) U/L ALT 17 (0-31) U/L Alkaline Phosphatase 80 (39-117) U/L Total Protein 6.5 (6.5-8.0) g/dL Albumin 4.2 (3.5-5.0) g/dL External Record Review External record reviewed: Inpatient record, Office record and Outpatient record Prescription Management I considered prescription management with: Other Discharge Plan Discharge Clinical Impression: Tension headache Patient Disposition: Home, Self-Care Instructions: Tension Headache (ED) Additional Instructions: You have been evaluated in the emergency department today for headache. Your evaluation did not show evidence of medical conditions requiring emergent intervention at this time, and your pain improved with medication in the ED. We recommend you take Tylenol 650 mg every 6 hours as needed for pain. You are being prescribed cyclobenzaprine which is a muscle relaxer that you can use every 8 hours as needed. Do not take this medication with alcohol as it can cause excessive drowsiness. Please follow-up with your primary care provider within 2 days. Return to the emergency department if you experience worsening or uncontrolled pain, vision changes, recurrent vomiting, difficulty with normal activities, abnormal behavior, difficulty walking, numbness, weakness, or any other concerning symptoms. Prescriptions: New cyclobenzaprine 5 mg tablet 5 mg PO TID PRN (Reason: muscle spasm) Qty: 10 0RF No Action diphenhydramine HCl [Benadryl] 25 mg capsule 25 mg PO TID PRN (Reason: itching) Qty: 14 0RF triamcinolone acetonide 0.5 % ointment 1 appl topical BID Qty: 15 1RF oxycodone 5 mg tablet 5 mg PO Q8H PRN (Reason: pain) Qty: 10 0RF Rx Instructions: Partial Fill upon patient request. ondansetron HCl 4 mg tablet 4 mg PO Q8H PRN (Reason: nausea and vomiting) Qty: 10 0RF dicyclomine 20 mg tablet 20 mg PO BID PRN (Reason: diarrhea) Qty: 6 0RF methocarbamol 750 mg tablet 750 mg PO Q8H PRN (Reason: spasm) Qty: 10 0RF lorazepam 1 mg tablet 1 mg PO DAILY PRN (Reason: Anxiety) acetaminophen 500 mg tablet 500 mg PO Q4H PRN (Reason: pain) cyanocobalamin (vitamin B-12) 1,000 mcg tablet 1,000 mcg PO DAILY calcium carbonate-vitamin D3 600 mg-20 mcg (800 unit) tablet 1 tab PO BID metoclopramide HCl [Reglan] 5 mg tablet 5 mg PO .tidac Qty: 90 6RF Creon 36,000-114,000- 180,000 unit capsule,delayed release(DR/EC) 2 cap PO BID Qty: 120 6RF Rx Instructions: administer with meals and/or snacks simethicone 180 mg capsule 180 mg PO QID 30 Days Qty: 120 3RF Rx Instructions: after meals senna leaf Tea PO Print Language: Greenlandic
[2025-02-22 14:40] LABS: MANUAL DIFF FLAG NO
[2025-02-22 14:43] LABS: Hematocrit 35.3 % (37.0-47.0); Hemoglobin 11.8 g/dl (12.0-16.0); Imm Gran Abs Auto 0.01 X10*3/uL (0.00-0.03); Imm Gran Pct Auto 0.1 % (0.0-0.4); Lymphocytes Absolute Auto 3.3 X10*3/uL (1.2-4.9); Mean Corpuscular HGB Conc 33.4 g/dl (31.0-35.0); Mean Corpuscular Hemoglobin 28.3 pg (27.0-33.0); Mean Corpuscular Volume 84.7 fL (80.0-98.0); NRBC Abs Auto 0.000 X10*3/uL (0.0-0.012); NRBC Pct Auto 0.0 /100WBC (0.0-0.2); Platelet Count 367 X10*3/uL (160-400); Red Blood Count 4.17 X10*6/uL (4.20-5.50); White Blood Count 7.4 X10*3/uL (4.8-10.8)
[2025-02-22 14:57] LABS: Alanine Aminotransferase 17 U/L (0-31); Albumin Level 4.2 g/dL (3.5-5.0); Alkaline Phosphatase 80 U/L (39-117); Anion Gap 9 (12-20); Aspartate Amino Transferase 25 U/L (5-31); Blood Urea Nitrogen 14 mg/dL (9-16); Calcium 9.5 mg/dL (8.4-10.2); Carbon Dioxide 26 mmol/L (22-29); Chloride 111 mmol/L (96-108); Creatinine Clr Calc Pharmacy 77.6; Estimated Glomerular Filt Rate > 60; Magnesium 1.8 mg/dL (1.6-2.6); Potassium 3.7 mmol/L (3.3-5.1); Sodium 142 mmol/L (135-145); Total Protein 6.5 g/dL (6.5-8.0)
--- OUTSIDE RECORDS SUMMARY | 2025-02-22 16:09 | XMS_ITS | Clinical Summary ---
Author Organization [address] [facility] Address [address] [place] [address] Phone Care Team Providers Care Mobile Patrol Officer Name Role Phone Helder Mason MD Primary Care Provider [phone] Social History Tobacco Use Types Packs/Day Years [...] 2024 Zoster Vaccines (1 of 2) 2024 Depression Screening 07/01/2024 Colorectal Cancer Screening: Colonoscopy 08/18/2024 HIV Screening 08/18/2024 Hepatitis C Screening [...] Insurance MEDICARE [place]ICAID - [place] Care Teams Mobile Patrol Officer Relationship Specialty Start Date End Date Helder Mason MD [address] [place] [address] PCP - General Internal Medicine 08/18/24
--- OUTSIDE RECORDS SUMMARY | 2025-02-22 16:09 | XMS_ITS | Clinical Summary ---
Author Organization [facility] Address [address] [place] [id number] Phone Care Team Providers Care Java Web Application Developer Name Role Phone Mohamud Yanez MD Primary Care Provider + Encounters Date Type Department Care Team Description 12/01/2024 Transcribe Orders [facility] Rheumatology [address] [place] [address] [place] [address] Mohamud Yanez MD Polyarthralgia (Primary Dx) from Last 3 Months Social History Tobacco Use Types Packs/Day Years Used Date Smoking Tobacco: Never Assessed Comments Unknown Sex and Gender Information Value Date Recorded Sex Assigned at Not on file Legal Sex Female 4:13 PM EDT Gender Identity Not on file Sexual Orientation Not on file Plan of Treatment Not on file Medical Devices Not on file Insurance [facility] [phone] [facility] [place] [phone] Care Teams Java Web Application Developer Relationship Specialty Start Date End Date Mohamud Yanez MD [address] [place] [phone] PCP - General Family Medicine 11/24/24 Additional Source Comments The information contained in this document represents components of the legal health record. It is not the complete legal health record.[facility]
[2025-02-22] MEDS: Lidocaine 4 % Patch ADH..PATCH 1 PATCH TRANSDERMA (16:34)
[2025-02-22 17:56] VITALS: BP 129/69; PULSE 82; RESP 14; TEMP 36.8; O2SAT 99
--- NOTE | 2025-02-22 17:56 | PC.NURSE ---
Pt reports + effectiveness of meds on pain sx's at this time; denies visual disturbance; PERRLA; denies nausea
[2025-02-22 17:57] VITALS: BP 129/69; PULSE 82; RESP 14; TEMP 36.8; O2SAT 99
== END 2025-02-22 17:58 | disposition home or self-care (01) ==
PROVIDERS: Physician Assistant Medical; Emergency Provider Emergency Medicine; PCP Family Medicine
DX: G44.209 Tension-type headache, unspecified, not intractable (principal); R11.0 Nausea; H53.143 Visual discomfort, bilateral; F17.210 Nicotine dependence, cigarettes, uncomplicated; Z79.899 Other long term (current) drug therapy
CPT/HCPCS: 36415; 80053; 83735; 85025; 96361; 96374; 96375; 99284; J1200; J1885; J2765

== ENCOUNTER 2025-03-04 13:19 | Outpatient (AMB) | payer MEDICAID, SELFPAY ==
[2025-03-04 13:29] VITALS: BP 125/61; PULSE 85; BMI 21.7
--- NOTE | 2025-03-04 13:29 | MHC.OFFVIS ---
Vital Signs 03/04/25 13:29 Height 5 ft 5 in Weight 130 lb 8.218 oz BMI 21.7 BP 125/61 Blood Pressure Location Lt brachial Position Sitting Pulse 85 Intake Visit Reasons: Post op Intake Note: Vera presents in follow up s/p colonoscopy. CC: Patient states that she would like to know why she gained weight (169) and then lost so much weight so rapidly. Logistics Lead Required: No Accompanied by: Self / Same As Patient Allergies hydrocodone (From VICODIN) Allergy (Intermediate, Verified 03/04/25 13:40) DEPRESSES BREATHING nitrofurantoin (From Macrobid) Allergy (Intermediate, Verified 03/04/25 13:40) urticaria peach (PEACH) Allergy (Intermediate, Verified 03/04/25 13:40) ITCHING ibuprofen (IBUPROFEN) Allergy (Mild, Verified 03/04/25 13:40) NAUSEA & VOMITING oxycodone (From TYLOX) Allergy (Mild, Verified 03/04/25 13:40) RASH prednisone (PREDNISONE) Allergy (Mild, Verified 03/04/25 13:40) RASH apremilast (From Otezla) Adverse Reaction (Intermediate, Verified 03/04/25 13:40) Gastrointestinal Upset aspirin (From Excedrin Extra Strength) Adverse Reaction (Intermediate, Verified 03/04/25 13:40) stomach issues caffeine (From Excedrin Extra Strength) Adverse Reaction (Intermediate, Verified 03/04/25 13:40) stomach issues risankizumab-rzaa (From Skyrizi) Adverse Reaction (Intermediate, Verified 03/04/25 13:40) Dizziness trazodone Adverse Reaction (Intermediate, Verified 03/04/25 13:40) itch HPI HPI Post op: Details: Assessment & Plan (1) Loose stools: Code(s): R19.5 - Other fecal abnormalities Category: Medical (2) GERD (gastroesophageal reflux disease): Code(s): K21.9 - Gastro-esophageal reflux disease without esophagitis Category: Medical (3) Abdominal bloating: Code(s): R14.0 - Abdominal distension (gaseous) Category: Medical Plan She did not get the Creon because apparently it was not covered by insurance and her insurance company did not notify us. We will try to get on this and see if they want another brand or if we need a prior approval. Of course her symptoms continue. She also experiences severe fecal urgency of sudden onset, this does not produce diarrhea or loose stools but soft to solid stooling but if she does not get to a bathroom she will not be able to control the outcome. This is usually preceded by severe cramping. She also has been having some episodes of near regurg especially later in the day. 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 I explained how this could be working against her in terms of gas motility and how these things tend to feed on each other. For now we are going to continue to work on getting her the digestive enzymes and I have also suggested that she do a trial of IV guard since meant has a lot of clinical evidence that it works well for this kind of thing. She is also getting tired of eating yogurt for her probiotic so we discussed things like Amanda and Tanisha narayan. And of course she could always consider an inexpensive store brand probiotic supplement. ROV 6 weeks. COLONOSCOPY Findings: Terminal Ileum: Not evaluated Cecum: Normal Ascending Colon: A 4-5 mm sessile polyp in the distal AC - removed with a cold snare Transverse Colon: Normal Descending Colon: Normal Sigmoid Colon: A 3-4 mm diminutive appearing polyp - removed with a cold snare. Moderate diverticulosis Rectum: A 4-5 mm whittish appearing polyp in the distal rectum - removed with a cold biopsy. Impression and Post Procedure Diagnosis: Colonoscopy Findings: Three small polyps were removed Moderate diverticulosis seen in the sigmoid colon Plan: Pt to schedule a FU appointment with Ebony Wild NP, Repeat Colonoscopy in 3-5 years if polyps are adenomatous and 10 year if polyps are hyperplastic. Above findings were reviewed with the patient and relevant handouts were given and the discharge area. BIOPSY SHOWED: A. Colon, ascending, polyp: Tubular adenoma; negative for high-grade dysplasia and carcinoma. B. Colon, sigmoid, polyp: Hyperplastic polyp. C. 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 Plan: Flexible sigmoidoscopy in 3-4 weeks to check polypectomy site CORRESPONDENCE On 02/25/25 @ 12:07 Hanna Wynn Wrote To Alva Burrell Spoke to Dr. Byrd- recommend to r/s patient after seeing PCP- Dr. Beauchamp Call to patient - apologized for lvm with incorrect prep for flex sig. Correct prep - cld at noon 2 fleet enema. Discussed needing referral from Dr. Beauchamp,and needs to be seen prior to referral. Patient reports she has appt on 03/15 with provider. Alva can you international marketing specialist her gail after the ? Please call her today to r/s. ty On 02/25/25 @ 10:55 Joann Orellana Wrote To Hanna Wynn Patient called back I transferred her to your line. Thanks On 02/25/25 @ 09:15 Hanna Wynn Wrote To Hanna Wynn call to patient- lvm regarding flex sig. tomorrow 02/26. Reviewed needing transportation and prep - m/d. CLD today, stressed drinking plenty of clears today. Prep reviewed. She is aware [facility] will call later today to confirm arrival time. On 02/19/25 @ 17:37 Narciso Byrd Wrote To Narciso Byrd Narciso Byrd completed item. On 02/19/25 @ 17:37 Narciso Bydr Wrote To Narciso Byrd Patient is scheduled for a flexible sigmoidoscopy on 02/26/2025 for follow-up of a small rectal carcinoma On 02/08/25 @ 16:36 Narciso Byrd Wrote To Narciso Byrd Patient is scheduled for a flexible sigmoidoscopy on 02/26/2025 TODAY'S VISIT Bloating sharp/heavy pain RUQ to upper abd. In past tried Reglan for her mild gastric emptying delay but she was taking this along with Flagyl presumptively for treating SIBO and she developed facial numbness uncertain which 1 caused it. She never received Creon because there were insurance coverage issues. I think we are going to get a HIDA scan she does not have gallstones but she has strong right upper quadrant pain and bloating and will also get a pancreatic a last taste to see if this could potentially be exocrine pancreatic insufficiency and if we should really pressed the insurance to get coverage for digestive enzyme. We had to put off scheduling her flex sig because of a change in primary care providers. It seems this may be an insurance driven need for referral from the current PCP and she will be seeing her sometime in mid March. We need to get back to her after this. She is agreeable to the repeat sigmoidoscopy pending primary care referral. The procedure was well tolerated. The results were explained and the patient is agreeable to the follow-up interval as stated. The bowel pattern has returned to normal. Education was provided to tell any 1st degree relatives about their findings to be sure that they are screened by age 45. Educated that they will be put on a recall list when it is time for their repeat scope but should they move out of state or away from the hospital they will need to remember along with their primary to repeat the procedure in a timely fashion to avoid any adverse complications. Return office visit in 4 weeks, I need to research [facility] Medical History Menopause IBS (irritable bowel syndrome) Anxiety GERD (gastroesophageal reflux disease) Chronic idiopathic constipation Diverticulitis Gastric ulcer Surgical History H/O colonoscopy H/O eye surgery Hx of endoscopy (01/19/20) Family History Mother CKD (chronic kidney disease) stage 3, GFR 30-59 ml/min Gallbladder calculus with acute cholecystitis Diabetes HTN (hypertension) Father No problems noted. Maternal Grandfather Diabetes HTN (hypertension) Hypercholesteremia Social History Alcohol intake: never Patient Tobacco Use Status: Current everyday Tobacco user Tobacco use type: Cigarette Cigarette Packs Per Day: 0.5 Cigarettes Per Day: 7 Substance Use Type: Marijuana Current occupational status: disabled Current occupation: She is currently taking classes at [employer] Review of Systems Const Denies fatigue, Denies fever(s), Denies night sweats, Denies poor appetite and Reports weight loss ENT Reports Normal hearing present, Denies dental pain, Denies dysphagia, Denies hearing loss, Denies mouth pain, Denies odynophagia, Denies throat swelling, Denies tongue swelling and Reports other (Dentition adequate) Card Reports no additional complaints Resp Reports no additional complaints GI Details: Reports abdominal pain, Denies melena, Reports bloating, Denies hematochezia, Denies constipation, Denies GI cramping, Denies dysphagia, Denies excessive flatus, Denies early satiety, Denies heartburn, Reports diarrhea, Denies nausea, Denies odynophagia, Denies vomiting and Denies hematemesis Skin/Breast Denies pruritus, Denies lesions, Denies rash and Denies jaundice Neuro Reports Normal hearing present and Denies Abnormal speech present Endo Denies fatigue Aller/Immun Denies throat swelling and Denies tongue swelling Physical Exam Vital Signs: Last Vital Signs Pulse 85 03/04/25 13:29 BP 125/61 03/04/25 13:29 BMI result Body Mass Index 21.7 Const General: cooperative, no acute distress, well developed and well groomed Nutritional Appearance: average body habitus and well nourished Orientation/consciousness: oriented to person, oriented to place and oriented to time Limitations: No language barrier HEENT Head: Yes normocephalic and Yes atraumatic Eyes General: appearance normal, both eyes and all related structures Pupils: Equal, round and reactive pupils present Neck Neck: Yes normal visual inspection and Yes no lymphadenopathy Thyroid: Thyroid normal Resp Effort & Inspection: normal respiratory effort and able to speak in complete sentences Auscultation: clear to auscultation bilaterally Cardio Rate: regular rate Rhythm: regular rhythm Heart sounds: Normal, physiologic split S2 sound present Peripheral pulses: radial pulses present and posterior tibial pulses present GI Inspection: No distended and No Abdominal panniculus present Palpation (GI): Soft to palpation, nontender, no guarding, not rigid and No hepatosplenomegaly present Percussion: Yes normal to percussion Auscultation: normal bowel sounds Rectal Exam - Female: deferred Skin General skin exam: no rashes or lesions noted, turgor normal, skin not dry, no jaundice, No spider nevi and no striae Rashes: no rashes Nails: normal Neuro General: oriented to person, oriented to place and oriented to time Cranial nerves: Yes Equal, round and reactive pupils present and Yes Normal hearing present Speech: No Abnormal speech present Extrem General: Yes normal to inspection, No clubbing, No cyanosis and No edema Psych Appearance: grossly normal and well kempt Mental Status: mental status grossly normal Speech and movement: Normal speech and movement present Affect: normal affect Attitude: cooperative Thought process: Normal thought process present and not confabulating Thought content: Normal thought content present Insight: Fair insight present (Psych) Judgement: Fair judgement present (Psych) Results Reviewed Results Reviewed: COLONOSCOPY 01/25/2025 Findings: Terminal Ileum: Not evaluated Cecum: Normal Ascending Colon: A 4-5 mm sessile polyp in the distal AC - removed with a cold snare Transverse Colon: Normal Descending Colon: Normal Sigmoid Colon: A 3-4 mm diminutive appearing polyp - removed with a cold snare. Moderate diverticulosis Rectum: A 4-5 mm whittish appearing polyp in the distal rectum - removed with a cold biopsy. Impression and Post Procedure Diagnosis: Colonoscopy Findings: Three small polyps were removed Moderate diverticulosis seen in the sigmoid colon Plan: Pt to schedule a FU appointment with Ebony Wild NP, Repeat Colonoscopy in 3-5 years if polyps are adenomatous and 10 year if polyps are hyperplastic. Above findings were reviewed with the patient and relevant handouts were given and the discharge area. BIOPSY SHOWED: A. Colon, ascending, polyp: Tubular adenoma; negative for high-grade dysplasia and carcinoma. B. Colon, sigmoid, polyp: Hyperplastic polyp. C. 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 Plan: Flexible sigmoidoscopy in 3-4 weeks to check polypectomy site Assessment & Plan Assessment & Plan (1) Abdominal bloating: Code(s): R14.0 - Abdominal distension (gaseous) Category: Medical (2) RUQ pain: Code(s): R10.11 - Right upper quadrant pain Category: Medical (3) Neuroendocrine tumor of anus: Comment: 2024 colonoscopy Code(s): D3A.8 - Other benign neuroendocrine tumors Category: Medical (4) Tubular adenoma of colon: Comment: 2024 colonoscopy= 1 TA 1 NET Code(s): D12.6 - Benign neoplasm of colon, unspecified Category: Medical (5) GERD (gastroesophageal reflux disease): Code(s): K21.9 - Gastro-esophageal reflux disease without esophagitis Category: Medical Plan Bloating sharp/heavy pain RUQ to upper abd. In past tried Reglan for her mild gastric emptying delay but she was taking this along with Flagyl presumptively for treating SIBO and she developed facial numbness uncertain which 1 caused it. She never received Creon because there were insurance coverage issues. I think we are going to get a HIDA scan she does not have gallstones but she has strong right upper quadrant pain and bloating and will also get a pancreatic a last taste to see if this could potentially be exocrine pancreatic insufficiency and if we should really pressed the insurance to get coverage for digestive enzyme. We had to put off scheduling her flex sig because of a change in primary care providers. It seems this may be an insurance driven need for referral from the current PCP and she will be seeing her sometime in mid March. We need to get back to her after this. She is agreeable to the repeat sigmoidoscopy pending primary care referral. The procedure was well tolerated. The results were explained and the patient is agreeable to the follow-up interval as stated. The bowel pattern has returned to normal. Education was provided to tell any 1st degree relatives about their findings to be sure that they are screened by age 45. Educated that they will be put on a recall list when it is time for their repeat scope but should they move out of state or away from the hospital they will need to remember along with their primary to repeat the procedure in a timely fashion to avoid any adverse complications. Return office visit in 4 weeks, I need to research Orders: Orders Pancreatic Elastase-1 Today R10.11 - Right upper quadrant pain, R14.0 - Abdominal distension (gaseous) Medications: Discontinued vfjlki-[id number]-[id number] 36,000-114,000- 180,000 unit (Creon) administer with meals and/or snacks Discontinued Reason: Doctor's Order 2 caps PO BID 120 caps 6RF K58.9 - Irritable bowel syndrome, unspecified Coding Level of Care Code Est Pt Level 3 (07729) Diagnoses Abdominal bloating R14.0 RUQ pain R10.11 Neuroendocrine tumor of anus D3A.8 Tubular adenoma of colon D12.6 GERD (gastroesophageal reflux disease) K21.9
--- OUTSIDE RECORDS SUMMARY | 2025-03-04 14:36 | XMS_ITS | Clinical Summary ---
Author Organization 175 [facility] Address [address] [place] [address] Phone Care Team Providers Care Armature Connector Name Role Phone Helder Mason MD Primary Care Provider [phone] Social History Tobacco Use Types Packs/Day Years [...] Insurance MEDICARE MEDICAID - [place] Care Teams Armature Connector Relationship Specialty Start Date End Date Helder Mason MD [address] [facility] [address] [place] [address] PCP - General Internal Medicine 08/18/24
--- OUTSIDE RECORDS SUMMARY | 2025-03-04 14:36 | XMS_ITS | Clinical Summary ---
Author Organization Located Within [facility] Address [address] [place], [place] [id number] Phone Care Team Providers Care Commissioner Of Officials Name Role Phone Mohamud Yanez MD Primary Care Provider + Social History Tobacco Use Types Packs/Day Years Used Date Smoking Tobacco: Never Assessed Comments Unknown Sex and Gender Information Value Date Recorded Sex Assigned at Not on file Legal Sex Female 4:13 PM EDT Gender Identity Not on file Sexual Orientation Not on file Plan of Treatment Not on file Medical Devices Not on file [place] [address] [address] [address] [facility] [place] [facility] Care Teams Commissioner Of Officials Relationship Specialty Start Date End Date Mohamud Yanez MD [address] [place] [address] PCP - General Family Medicine 11/24/24 Additional Source Comments The information contained in this document represents components of the legal health record. It is not the complete legal health record.[facility]
== END 2025-03-04 14:25 | disposition home or self-care (01) ==
LOC: HO.HGI 13:19
PROVIDERS: PCP Family Medicine; Visit Provider Nurse Practitioner
DX: R14.0 Abdominal distension (gaseous) (principal); R10.11 Right upper quadrant pain; D3A.8 Other benign neuroendocrine tumors; D12.6 Benign neoplasm of colon, unspecified; K21.9 Gastro-esophageal reflux disease without esophagitis
CPT/HCPCS: 99213

== ENCOUNTER → 2025-03-04 13:19 | Outpatient (BNVA) | payer MEDICAID, SELFPAY | PROVIDERS: PCP Family Medicine; Visit Provider Nurse Practitioner | DX: R14.0 Abdominal distension (gaseous) (principal); R10.11 Right upper quadrant pain; D3A.8 Other benign neuroendocrine tumors; K21.9 Gastro-esophageal reflux disease without esophagitis | CPT/HCPCS: 99212 ==

== ENCOUNTER 2025-03-27 10:40 | Outpatient (REF) | payer MEDICAID, SELFPAY ==
--- OUTSIDE RECORDS SUMMARY | 2025-03-30 14:04 | XMS_ITS | Clinical Summary ---
Author Organization 175 [facility] Address [address] [place] [address] Phone Care Team Providers Care Admission Nurse Coordinator Name Role Phone Helder Mason MD Primary Care Provider [phone] Social History Tobacco Use Types Packs/Day Years Used Date Smoking Tobacco: Never Assessed Comments Unknown Sex and Gender Information Value Date Recorded Sex Assigned at Not on file Legal Sex Female 4:25 PM EST Gender Identity Not on file Sexual Orientation Not on file Plan of Treatment Health Maintenance Due Date Last Done Comments Breast Cancer Screening 1974 Colorectal Cancer Screening: Colonoscopy 1974 DTaP,Tdap,and Td Vaccines (1 - Tdap) 1993 Hepatitis B Vaccines (1 of 3 - 19+ 3-dose series) 1993 Cervical Cancer Screening: P ap Smear 1995 Pneumococcal Vaccine: 50+ Ye ars (1 of 1 - PCV) 2024 Zoster Vaccines (1 of 2) 2024 Depression Screening 07/01/2024 HIV Screening 08/18/2024 Hepatitis C Screening 08/18/2024 Medicare Annual Wellness Visit 08/18/2024 Social Influencers of Health Screening 08/18/2024 COVID-19 Vaccine ( - 2023-2 5 season) 2025 Influenza Vaccine (#1) 2025 RSV Immunization Adult Patie nts (1 - 1-dose 75+ series) 2049 HIB Vaccines Aged Out No longer eligi [...] Insurance MEDICARE [place]ICA[place] - [place] Care Teams Admission Nurse Coordinator Relationship Specialty Start Date End Date Helder Mason MD [address] [place] [address] [place] [address] PCP - General Internal Medicine 08/18/24
--- OUTSIDE RECORDS SUMMARY | 2025-03-30 14:04 | XMS_ITS | Clinical Summary ---
Author Organization [facility] Address [address] [place], [place] [phone] Phone Care Team Providers Care Glue Bone Drier Name Role Phone Mohamud Yanez MD Primary [...] file Medical Devices Not on file [place] [address] [place] [address] [facility] [place] [facility] Care Teams Glue Bone Drier Relationship Specialty Start Date End Date Mohamud Yanez MD [address] [place] [address] PCP - General Family Medicine 11/24/24 Additional Source Comments The information contained in this document represents components of the legal health record. It is not the complete legal health record.[facility]
== END 2025-03-27 10:41 | disposition home or self-care (01) ==
LOC: HO.LNP 10:40
PROVIDERS: Visit Provider Nurse Practitioner
DX: R10.11 Right upper quadrant pain (principal); R14.0 Abdominal distension (gaseous)
CPT/HCPCS: 82656

== ENCOUNTER 2025-04-01 13:01 | Outpatient (AMB) | payer MEDICAID, SELFPAY ==
[2025-04-01 13:03] VITALS: BP 125/63; PULSE 93; BMI 22.0
--- NOTE | 2025-04-01 13:03 | MHC.OFFVIS ---
Vital Signs 04/01/25 13:03 Height 5 ft 5 in Weight 132 lb 4.438 oz BMI 22.0 BP 125/63 Blood Pressure Location Rt brachial Position Sitting Pulse 93 Intake Visit Reasons: 4wk follow up Intake Note: Vera presents in follow up of abdominal bloating. CC: Patient denies having any new GI concerns today. Bread And Pastry Baker Required: No Accompanied by: Self / Same As Patient Allergies hydrocodone (From VICODIN) Allergy (Intermediate, Verified 04/01/25 13:24) DEPRESSES BREATHING nitrofurantoin (From Macrobid) Allergy (Intermediate, Verified 04/01/25 13:24) urticaria peach (PEACH) Allergy (Intermediate, Verified 04/01/25 13:24) ITCHING ibuprofen (IBUPROFEN) Allergy (Mild, Verified 04/01/25 13:24) NAUSEA & VOMITING oxycodone (From TYLOX) Allergy (Mild, Verified 04/01/25 13:24) RASH prednisone (PREDNISONE) Allergy (Mild, Verified 04/01/25 13:24) RASH apremilast (From Otezla) Adverse Reaction (Intermediate, Verified 04/01/25 13:24) Gastrointestinal Upset aspirin (From Excedrin Extra Strength) Adverse Reaction (Intermediate, Verified 04/01/25 13:24) stomach issues caffeine (From Excedrin Extra Strength) Adverse Reaction (Intermediate, Verified 04/01/25 13:24) stomach issues risankizumab-rzaa (From Skyrizi) Adverse Reaction (Intermediate, Verified 04/01/25 13:24) Dizziness trazodone Adverse Reaction (Intermediate, Verified 04/01/25 13:24) itch HPI HPI 4wk follow up: Details: Assessment & Plan (1) Abdominal bloating: Code(s): R14.0 - Abdominal distension (gaseous) Category: Medical (2) RUQ pain: Code(s): R10.11 - Right upper quadrant pain Category: Medical (3) Neuroendocrine tumor of anus: Comment: 2024 colonoscopy Code(s): D3A.8 - Other benign neuroendocrine tumors Category: Medical (4) Tubular adenoma of colon: Comment: 2024 colonoscopy= 1 TA 1 NET Code(s): D12.6 - Benign neoplasm of colon, unspecified Category: Medical (5) GERD (gastroesophageal reflux disease): Code(s): K21.9 - Gastro-esophageal reflux disease without esophagitis Category: Medical Plan Bloating sharp/heavy pain RUQ to upper abd. In past tried Reglan for her mild gastric emptying delay but she was taking this along with Flagyl presumptively for treating SIBO and she developed facial numbness uncertain which 1 caused it. She never received Creon because there were insurance coverage issues. I think we are going to get a HIDA scan she does not have gallstones but she has strong right upper quadrant pain and bloating and will also get a pancreatic a last taste to see if this could potentially be exocrine pancreatic insufficiency and if we should really pressed the insurance to get coverage for digestive enzyme. We had to put off scheduling her flex sig because of a change in primary care providers. It seems this may be an insurance driven need for referral from the current PCP and she will be seeing her sometime in mid March. We need to get back to her after this. She is agreeable to the repeat sigmoidoscopy pending primary care referral. The procedure was well tolerated. The results were explained and the patient is agreeable to the follow-up interval as stated. The bowel pattern has returned to normal. Education was provided to tell any 1st degree relatives about their findings to be sure that they are screened by age 45. Educated that they will be put on a recall list when it is time for their repeat scope but should they move out of state or away from the hospital they will need to remember along with their primary to repeat the procedure in a timely fashion to avoid any adverse complications. Return office visit in 4 weeks, I need to research Orders: Orders Pancreatic Elastase-1 Today R10.11 - Right upper quadrant pain, R14.0 - Abdominal distension (gaseous) Medications: Discontinued qqqyul-xwjpiuup-qfghmac 36,000-114,000- 180,000 unit (Creon) administer with meals and/or snacks Discontinued Reason: Doctor's Order 2 caps PO BID 120 caps 6RF K58.9 - Irritable bowel syndrome, unspecified LABS: Pancreatic elastase is pending HIDA scan [facility]'S VISIT [facility] Medical History Menopause IBS (irritable bowel syndrome) Anxiety GERD (gastroesophageal reflux disease) Chronic idiopathic constipation Diverticulitis Gastric ulcer Surgical History H/O colonoscopy H/O eye surgery Hx of endoscopy (01/19/20) Family History Mother CKD (chronic kidney disease) stage 3, GFR 30-59 ml/min Gallbladder calculus with acute cholecystitis Diabetes HTN (hypertension) Father No problems noted. Maternal Grandfather Diabetes HTN (hypertension) Hypercholesteremia Social History Alcohol intake: never Patient Tobacco Use Status: Current everyday Tobacco user Tobacco use type: Cigarette Cigarette Packs Per Day: 0.5 Cigarettes Per Day: 7 Substance Use Type: Marijuana Current occupational status: disabled Current occupation: She is currently taking classes at [employer] Review of Systems Const Denies fatigue, Denies fever(s), Denies night sweats, Denies poor appetite and Denies weight loss ENT Reports Normal hearing present, Denies dental pain, Denies dysphagia, Denies hearing loss, Denies mouth pain, Denies odynophagia, Denies throat swelling, Denies tongue swelling and Reports other (Dentition adequate) Card Reports no additional complaints Resp Reports no additional complaints GI Details: Reports abdominal pain, Denies melena, Reports bloating, Denies hematochezia, Reports constipation, Denies GI cramping, Denies dysphagia, Denies excessive flatus, Denies early satiety, Denies heartburn, Denies diarrhea, Denies nausea, Denies odynophagia, Denies vomiting and Denies hematemesis Skin/Breast Denies pruritus, Denies lesions, Denies rash and Denies jaundice Neuro Reports Normal hearing present and Denies Abnormal speech present Endo Denies fatigue Aller/Immun Denies throat swelling and Denies tongue swelling Physical Exam Vital Signs: Last Vital Signs Pulse 93 04/01/25 13:03 BP 125/63 04/01/25 13:03 BMI result Body Mass Index 22.0 Const General: cooperative, no acute distress, well developed and well groomed Nutritional Appearance: average body habitus and well nourished Orientation/consciousness: oriented to person, oriented to place and oriented to time Limitations: No language barrier HEENT Head: Yes normocephalic and Yes atraumatic Eyes General: appearance normal, both eyes and all related structures Pupils: Equal, round and reactive pupils present Neck Neck: Yes normal visual inspection and Yes no lymphadenopathy Thyroid: Thyroid normal Resp Effort & Inspection: normal respiratory effort and able to speak in complete sentences Auscultation: clear to auscultation bilaterally Cardio Rate: regular rate Rhythm: regular rhythm Heart sounds: Normal, physiologic split S2 sound present Peripheral pulses: radial pulses present and posterior tibial pulses present GI Inspection: No distended and No Abdominal panniculus present Palpation (GI): Soft to palpation, nontender, no guarding, not rigid and No hepatosplenomegaly present Percussion: Yes normal to percussion Auscultation: normal bowel sounds Rectal Exam - Female: deferred Skin General skin exam: no rashes or lesions noted, turgor normal, skin not dry, no jaundice, No spider nevi and no striae Rashes: no rashes Nails: normal Neuro General: oriented to person, oriented to place and oriented to time Cranial nerves: Yes Equal, round and reactive pupils present and Yes Normal hearing present Speech: No Abnormal speech present Extrem General: Yes normal to inspection, No clubbing, No cyanosis and No edema Psych Appearance: grossly normal and well kempt Mental Status: mental status grossly normal Speech and movement: Normal speech and movement present Affect: normal affect Attitude: cooperative Thought process: Normal thought process present and not confabulating Thought content: Normal thought content present Insight: Fair insight present (Psych) Judgement: Fair judgement present (Psych) Assessment & Plan Assessment & Plan (1) RUQ pain: Code(s): R10.11 - Right upper quadrant pain Category: Medical (2) Periumbilical abdominal pain: Code(s): R10.33 - Periumbilical pain Category: Medical (3) Constipation: Code(s): K59.00 - Constipation, unspecified Category: Medical Plan - The patient is a 49-year-old female presenting with right upper quadrant abdominal pain and bloating. She also had a carcinoid type tumor removed from her rectum and we will be having a repeat sigmoidoscopy next week. - She continues to experience right upper quadrant abdominal pain with a history of undiagnosed gastrointestinal disturbances. - Bloating has been a persistent issue and was part of the symptomatology under evaluation with pancreatic elastase testing. - The patient has symptoms of constipation presenting as pebble-like stool formations, which is likely a manifestation of irritable bowel syndrome. - Significant amounts of mucus passing in stool, occasionally with black dots, have been observed, consistent with irritable bowel syndrome. - The patient previously underwent evaluation for gastrointestinal symptoms, including a completed gastric emptying study. Time was spent educating her that neuroendocrine tumor such as carcinoid or extremely slow growing entity is usually found in the GI system. Because they are also extremely rare we do not see much of it here and a small [facility]. Sometimes, they can omit hormones like serotonin and sometimes they can spread to other organs. If she really was fearful about this we would probably need to send her to a tertiary hospital which sees more cases of this for definitive treatment; although at times both occupational therapy technician and oncologist are involved in treatment. Usually the clinical documentation clerk role is simply to identify and remove the lesion which is the best route of treatment. This is why it is important for her to keep her sigmoidoscopy if we can not. LABS: Pancreatic elastase is pending HIDA scan Orders: Orders NM hepatobiliary w pharm Today R10.11 - Right upper quadrant pain CT abdomen pelvis w IV con Today R10.33 - Periumbilical pain Medications: New sennosides (Senna Laxative) 17.2 mg (2 x 8.6 mg) PO BEDTIME 60 tabs 6RF K59.00 - Constipation, unspecified Coding Level of Care Code Est Pt Level 4 (42416) Diagnoses RUQ pain R10.11 Periumbilical abdominal pain R10.33 Constipation K59.00 Time Spent (min) 36
--- OUTSIDE RECORDS SUMMARY | 2025-04-01 14:30 | XMS_ITS | Clinical Summary ---
Author Organization [address] [facility] Address [address] [place] [address] Phone Care Team Providers Care Nougat Cutter Machine Name Role Phone Helder Mason MD Primary Care Provider [phone] Social History Tobacco Use Types Packs/Day Years [...] Insurance MEDICARE MEDICAID - [place] Care Teams Nougat Cutter Machine Relationship Specialty Start Date End Date Helder Mason MD [address] [place] [address] PCP - General Internal Medicine 08/18/24
--- OUTSIDE RECORDS SUMMARY | 2025-04-01 14:30 | XMS_ITS | Clinical Summary ---
Author Organization [facility] Address [address] [place], [place] [id number] Phone Care Team Providers Care Jailer Chief Name Role Phone Mohamud Yanez MD Primary [...] file Medical Devices Not on file [place] [address] [address] [place] [address] [facility] Care Teams Jailer Chief Relationship Specialty Start Date End Date Mohamud Yanez MD [address] [place] [id number] PCP - General Family Medicine 11/24/24 Additional Source Comments The information contained in this document represents components of the legal health record. It is not the complete legal health record.[facility]
== END 2025-04-01 16:10 | disposition home or self-care (01) ==
LOC: HO.HGI 13:02
PROVIDERS: PCP Family Medicine; Visit Provider Nurse Practitioner
DX: R10.11 Right upper quadrant pain (principal); R10.33 Periumbilical pain; K59.00 Constipation, unspecified
CPT/HCPCS: 99214

== ENCOUNTER → 2025-04-01 13:01 | Outpatient (BNVA) | payer MEDICAID, SELFPAY | PROVIDERS: PCP Family Medicine; Visit Provider Nurse Practitioner | DX: R10.11 Right upper quadrant pain (principal); R10.33 Periumbilical pain; K59.00 Constipation, unspecified | CPT/HCPCS: 99212 ==

== ENCOUNTER 2025-04-23 09:42 | Day surgery (SDC) | payer MEDICAID, SELFPAY ==
--- OUTSIDE RECORDS SUMMARY | 2025-03-25 11:34 | XMS_ITS ---
Author Name [facility] Organization Unknown Encounters Encounter Type Encounter Reason Primary Diagnosis Location Date Ambulatory [facility] 03/16/2025
--- OUTSIDE RECORDS SUMMARY | 2025-03-25 11:35 | XMS_ITS | Clinical Summary ---
Author Organization [facility] Address [address] [place], [place] [id number] Phone Care Team Providers Care Oil Seal Assembler Name Role Phone Mohamud Yanez MD Primary [...] file Medical Devices Not on file [place] [address] [facility] [place] Care Teams Oil Seal Assembler Relationship Specialty Start Date End Date Mohamud Yanez MD [address] [place] [address] PCP - General Family Medicine 11/24/24 Additional Source Comments The information contained in this document represents components of the legal health record. It is not the complete legal health record.[facility]
--- OUTSIDE RECORDS SUMMARY | 2025-03-25 11:35 | XMS_ITS | Clinical Summary ---
Author Organization 175 [facility] Address [address] [place] [address] Phone Care Team Providers Care Fashion Stylist Name Role Phone Helder Mason MD Primary Care Provider [phone] Social History Tobacco Use Types Packs/Day Years [...] Cervical Cancer Screening: P ap Smear 1995 Pneumococcal Vaccine: 50+ Ye ars (1 of 1 - PCV) 2024 Zoster Vaccines (1 of 2) 2024 Depression Screening 07/01/2024 Colorectal Cancer Screening: Colonoscopy 08/18/2024 HIV Screening 08/18/2024 Hepatitis C Screening 08/18/2024 Medicare Annual Wellness Visit 08/18/2024 Social Influencers of Health Screening 08/18/2024 COVID-19 Vaccine (2023-2 5 season) 2025 Influenza Vaccine (#1) 2025 HIB Vaccines Aged [...] Insurance MEDICARE MEDICA[place] - [place] Care Teams Fashion Stylist Relationship Specialty Start Date End Date Helder Mason MD [address] [facility] [address] [place] [address] PCP - General Internal Medicine 08/18/24
--- NOTE | 2025-04-21 11:14 | HO.ANESPROP2 ---
HPI - Anesthesia Eval Consult details Narrative: 49 yr old female for Sigmoidoscopy Flexible PMFSH Active Problems Active Problems: All Active Problems Constipation (Acute) Neuroendocrine carcinoma of colon (Acute) Tubular adenoma of colon (Acute) Neuroendocrine tumor of anus (Acute) RUQ pain (Acute) Family history of polyps in the colon (Acute) Early satiety (Acute) Loose stools (Acute) Hematuria (Acute) SUNSHINE positive (Acute) Polyarthralgia (Acute) Elevated erythrocyte sedimentation rate (Acute) Microscopic hematuria (Acute) Urinary frequency (Acute) Periumbilical abdominal pain (Acute) Abdominal bloating (Acute) IBS (irritable bowel syndrome) (Acute) Calcium oxalate crystals in urine (Acute) GERD (gastroesophageal reflux disease) (Acute) Anxiety (Acute) Past Medical History Medical History (Updated 04/01/25 @ 13:51 by SHARON Reece) Menopause IBS (irritable bowel syndrome) Anxiety GERD (gastroesophageal reflux disease) Chronic idiopathic constipation Diverticulitis Gastric ulcer Family History Family History Mother CKD (chronic kidney disease) stage 3, GFR 30-59 ml/min Gallbladder calculus with acute cholecystitis Diabetes HTN (hypertension) Father No problems noted. Maternal Grandfather Diabetes HTN (hypertension) Hypercholesteremia Family history of problems with anesthesia: No Surgical History Surgical History (Updated 04/23/25 @ 10:03 by Shyann Andrea RN) H/O tubal ligation H/O colonoscopy H/O eye surgery Hx of endoscopy (01/19/20) History of Problems with Anesthesia: No Social History Social History Alcohol intake: never Patient Tobacco Use Status: Current everyday Tobacco user Tobacco use type: Cigarette Cigarette Packs Per Day: 0.5 Cigarettes Per Day: 10 Use of substances other than those prescribed or required for medical reasons: Yes Substance Use Type: Marijuana Are you DNR?: No Advance Directives: No Advance Directives Information Provided: Yes Patient : No (tubal ligation) : No Current occupational status: disabled Current occupation: She is currently taking classes at [employer] Allergies Allergy/AdvReac Type Severity Reaction Status Date / Time hydrocodone (From VICODIN) Allergy Intermediate DEPRESSES Verified 04/01/25 13:24 BREATHING nitrofurantoin (From Allergy Intermediate urticaria Verified 04/01/25 13:24 Macrobid) peach (PEACH) Allergy Intermediate ITCHING Verified 04/01/25 13:24 ibuprofen (IBUPROFEN) Allergy Mild NAUSEA & Verified 04/01/25 13:24 VOMITING oxycodone (From TYLOX) Allergy Mild RASH Verified 04/01/25 13:24 prednisone (PREDNISONE) Allergy Mild RASH Verified 04/01/25 13:24 apremilast (From Otezla) AdvReac Intermediate Gastrointestinal Verified 04/01/25 13:24 Upset aspirin (From Excedrin Extra AdvReac Intermediate stomach Verified 04/01/25 13:24 Strength) issues caffeine (From Excedrin AdvReac Intermediate stomach Verified 04/01/25 13:24 Extra Strength) issues risankizumab-rzaa (From AdvReac Intermediate Dizziness Verified 04/01/25 13:24 Skyrizi) trazodone AdvReac Intermediate itch Verified 04/01/25 13:24 Home Medications ?Medication ?Instructions ?Recorded ?Confirmed ?Last Taken ?Type acetaminophen 500 mg tablet 500 mg PO Q4H PRN pain 01/06/21 02/24/25 Unknown History cyanocobalamin (vitamin B-12) 1,000 mcg PO DAILY 01/06/21 04/21/25 Unknown History 1,000 mcg tablet calcium 600 mg (as 1 tab PO BID 08/28/23 02/24/25 Unknown History carbonate)-vitamin D3 20 mcg (800 unit) tablet lorazepam 1 mg tablet 1 mg PO DAILY PRN Anxiety 08/28/23 04/21/25 01/25/25 11:30 History docusate sodium 100 mg capsule 100 mg PO DAILY 03/04/25 Unknown History dupilumab 300 mg/2 mL subcutaneous 300 mg subcut Q2W 03/04/25 04/21/25 Unknown History pen injector (Dupixent) estradiol 0.01% (0.1 mg/gram) 1 appl vaginal DAILY 03/04/25 04/21/25 Unknown History vaginal cream magnesium glycinate 300 mg PO BEDTIME 03/04/25 04/21/25 Unknown History Assessment and Plan Final Anesthetic Review Family History of Problems with Anesthesia: No History of Problems with Anesthesia: No
[2025-04-21 12:57] VITALS: BMI 22.0
[2025-04-23 10:06] VITALS: BMI 22.7
[2025-04-23 10:27] VITALS: BP 124/65; PULSE 69; RESP 16; TEMP 36.6; O2SAT 98
[2025-04-23] MEDS: Lactated Ringers 1,000 ML 100 ML IVCONT (10:44)
--- NOTE | 2025-04-23 11:05 | PC.NURSE ---
fleet enema given to patient laying left lateral. buck well. yellow output.
--- NOTE | 2025-04-23 11:40 | MHC.SHP ---
Pre-Procedural Eval Section A - 24 Hr Update-Section A only Date of Service: 04/23/25 The patient is an INPATIENT: No Changes since office visit: Yes Patient answered all questions; No Cold of Flu in the past 2 weeks, No New Medical Problems and No Changes in Medication The patient has been examined within 24 hours of the surgical procedure. The History & Physical has been completed within 30 days and I have reviewed it.: Yes Section B - Complete if H&P > 30 days Chief Complaint: Other malignant neuroendocrine tumors Allergies: Allergies Allergy/AdvReac Type Severity Reaction Status Date / Time hydrocodone (From VICODIN) Allergy Intermediate DEPRESSES Verified 04/01/25 13:24 BREATHING nitrofurantoin (From Allergy Intermediate urticaria Verified 04/01/25 13:24 Macrobid) peach (PEACH) Allergy Intermediate ITCHING Verified 04/01/25 13:24 ibuprofen (IBUPROFEN) Allergy Mild NAUSEA & Verified 04/01/25 13:24 VOMITING oxycodone (From TYLOX) Allergy Mild RASH Verified 04/01/25 13:24 prednisone (PREDNISONE) Allergy Mild RASH Verified 04/01/25 13:24 apremilast (From Otezla) AdvReac Intermediate Gastrointestinal Verified 04/01/25 13:24 Upset aspirin (From Excedrin Extra AdvReac Intermediate stomach Verified 04/01/25 13:24 Strength) issues caffeine (From Excedrin AdvReac Intermediate stomach Verified 04/01/25 13:24 Extra Strength) issues risankizumab-rzaa (From AdvReac Intermediate Dizziness Verified 04/01/25 13:24 Skyrizi) trazodone AdvReac Intermediate itch Verified 04/01/25 13:24 Plan Diagnosis/Plan: Unchanged I have reviewed the history and physical and performed a pertinent physical examination on my patient. No changes have occurred unless specified. Time Spent With Patient Time: Total time managing care of this patient today ____ minutes.
--- NOTE | 2025-04-23 12:12 | HO.OPN-COLON ---
Colonoscopy Operative Note Operative Note Date of Service: 04/23/25 Narrative: FLEXIBLE SIGMOIDOSCOPY TILL 25 CM WITH BIOPSIES AND SNARE POLYPECTOMY Pre-op diagnosis: Follow-up of a small rectal carcinoid. Post-op diagnosis:? Rectal polyps, Diverticulosis, hemorrhoids Endoscopist:? Nraciso Byrd MD Anesthesia:?MAC Consent: Indications for the procedure and potential complications of bleeding, perforation, reaction to medications and missed diagnosis were discussed with the patient and informed consent was obtained. Instrument: Olympus variable stiffness pediatric colonoscope Monitoring: Vital signs and clinical assessment, intermittent blood pressure monitoring, continuous EKG monitoring, Pulse oximetry and Carbon Dioxide monitoring were done throughout the procedure. Please see anesthesia flowsheet. Procedure: The patient was placed in the left lateral decubitis position and pre-procedure medications were administered. After a digital rectal examination of the ano-rectum, the video colonoscope was inserted into the rectum and advanced through the colon to 25 cms into the distal sigmoid colon. The colonoscope was slowly withdrawn in a retrograde panoramic fashion and the colon mucosa was carefully examined including a retroflexed view of the rectum. Findings and interventions are described below. Findings: Sigmoid Colon: Moderate diverticulosis Rectum: Multiple 3-5 mm diminutive appearing polyps in the rectum. Three polyps were removed with biopsy and a cold snare. Exact location of rectal carcinoid could not be identified. Biopsies were obtained from approximate location of the carcinoid. Ano-rectum: Moderate internal hemorrhoids Colon preparation: Good after some irrigation. [place] Bowel Preparation Scale Left colon; 2 (0 = Unprepared colon segment with mucosa not seen due to solid stool that cannot be cleared. 1 = Portion of mucosa of the colon segment seen, but other areas of the colon segment not well seen due to staining, residual stool and/or opaque liquid. 2 = Minor amount of residual staining, small fragments of stool and/or opaque liquid, but mucosa of colon segment seen well. 3 = Entire mucosa of colon segment seen well with no residual staining, small fragments of stool or opaque liquid) Impression and Post Procedure Diagnosis: Colonoscopy Findings: Three small hyperplastic appearing polyps were removed Exact location of rectal carcinoid could not be identified. Biopsies were obtained from approximate location of the carcinoid. Moderate diverticulosis seen in the sigmoid colon Moderate hemorrhoids on retroflexed exam. Plan: Pt has a FU appointment on 05/12/25 with Ebony Wild NP, Repeat flexible sigmoidoscopy in 6 months if rectal biopsies are negative. Above findings were reviewed with the patient and relevant handouts were given and the discharge area. BIOPSIES SHOWED: A. Colon, rectal polyps: Hyperplastic polyps (3 pieces). B. Colon, rectum, biopsy: Colonic mucosa with no specific change Letter sent with biopsy results. Patient was placed on the procedure recall list for repeat flexible sigmoidoscopy in 6 months.
[2025-04-23 12:13] VITALS: BP 96/48; PULSE 76; RESP 16; TEMP 36.6; O2SAT 98
[2025-04-23 12:15] VITALS: BP 94/47; PULSE 63; RESP 16; O2SAT 98
[2025-04-23 12:30] VITALS: BP 105/55; PULSE 59; RESP 16; O2SAT 100
[2025-04-23 12:45] VITALS: BP 101/49; PULSE 65; RESP 16; O2SAT 100
[2025-04-23 13:00] VITALS: BP 120/72; PULSE 58; RESP 16; TEMP 36.6; O2SAT 100
== END 2025-04-23 13:23 | disposition home or self-care (01) ==
PROVIDERS: PCP Family Medicine; Visit Provider Internal Medicine Gastroenterology
PROC: 0DJD8ZZ Inspection of Lower Intestinal Tract, Via Natural or Artificial Opening Endoscopic (ICD-10-PCS; CPT 45330; principal; 2025-04-23 11:10)
DX: D3A.8 Other benign neuroendocrine tumors (principal); R14.0 Abdominal distension (gaseous); K21.9 Gastro-esophageal reflux disease without esophagitis; Z86.0101 Personal history of adenomatous and serrated colon polyps; R10.11 Right upper quadrant pain; R10.33 Periumbilical pain; K59.00 Constipation, unspecified; K64.8 Other hemorrhoids; K57.30 Diverticulosis of large intestine without perforation or abscess without bleeding; K63.5 Polyp of colon
CPT/HCPCS: 45380; 45385; 88305; J2003; J2704

== ENCOUNTER → 2025-04-23 09:42 | Outpatient (BNV) | payer MEDICAID, SELFPAY | PROVIDERS: PCP Family Medicine; Visit Provider Internal Medicine Gastroenterology | DX: D12.8 Benign neoplasm of rectum (principal); K57.30 Diverticulosis of large intestine without perforation or abscess without bleeding; K64.8 Other hemorrhoids | CPT/HCPCS: 45338 ==

== ENCOUNTER → 2025-05-10 07:51 | Outpatient (REF) | payer MEDICAID, SELFPAY ==
--- NOTE | ~2025-05-10 | NM_ITS ---
EXAMINATION: NM BILIARY TRACT CLINICAL INFORMATION: Right upper quadrant pain COMPARISON: None available. TECHNIQUE: Following intravenous administration of 5 mCi of technetium 99m mebrofenin, imaging over right upper quadrant was obtained up to 60 minutes. At 60 minutes 1.2 mcg of CCK was administered with IMED pump and further imaging was obtained for 30 minutes. Patient tolerated procedure extremely well. FINDINGS: There is normal hepatic uptake without any focal defect. CBD is visualized by 25 minutes. The gallbladder is visualized by 29 minutes. Post-CCK the gallbladder ejection fraction is as follows, Ejection fraction 12% at 10 minutes, Ejection fraction 39% at 20 minutes and Ejection fraction 68% at 30 minutes. NM/NM hepatobiliary w pharm IMPRESSION: Multiple hepatic uptake. Patent cystic duct and CBD. Normal gallbladder ejection fraction of 60% at 30 minutes post CCK. Electronically signed by: Tod Ortiz MD 05/10/2025 11:35 AM [facility]
--- OUTSIDE RECORDS SUMMARY | 2025-05-10 07:55 | XMS_ITS | Clinical Summary ---
Author Organization [address] [facility] Address [address] [place] [address] Phone Care Team Providers Care Disc Pad Plate Filler Name Role Phone Helder Mason MD Primary Care Provider Social History Tobacco Use Types Packs/Day Years [...] Insurance MEDICARE MEDICAID - [place] Care Teams Disc Pad Plate Filler Relationship Specialty Start Date End Date Helder Mason MD [address] [place] [address] PCP - General Internal Medicine 08/18/24
--- OUTSIDE RECORDS SUMMARY | 2025-05-10 07:55 | XMS_ITS | Data Portability ---
Author Organization [place] - [facility] Address [address] [place] [id number] Assessment Encounter Date Assessment Date Assessment LastModified [...] By Organization Details Last Modified Time 10/28/2020 [id number] [facility] came to evaluate you for a rash. [...] re-evaluated. Thank you for your visit with [facility] today. We cannot always find the exact [...] in your condition between 8am-10pm, please call [facility] at [phone] to help navigate your care. Please seek [...] in your condition between 8am-10pm, please call [facility] at [phone] to help navigate your care. Not available 10/28/2020 13:33:27 Reason for Referral None Reported. Medical Equipment None Reported. Allergies Allergen ID Allergen Name Allergen Category Reaction Reaction Severity Criticality Documentation Date Start Date Code Code System Note Provider Name and Address Organization Details Recorded Time [id number] [facility] Not available Not available Not available Not available 10/28/2020 5489 RxNorm ENRIQUE CHAPMAN NP [address] [facility] [place], [address] , [place] [facility] 13:07:42 [id number] prednison e medicatio n Not available Not available Not available 10/28/2020 8640 RxNorm ENRIQUE CHAPMAN, PRESSURE WASHER [address], [place], [address], [place] [facility] 13:07:51 [id number] codeine medicatio n Not available Not available Not available 10/28/2020 2670 RxNorm ENRIQUE CHAPMAN, PRESSURE WASHER [address], [place], [address], [place] [facility] 13:08:01 [id number] ibuprofen medicatio n Not available Not available Not available 10/28/2020 5640 RxNorm ENRIQUE CHAPMAN, PRESSURE WASHER [address], [place], [address], [place] [facility] 13:08:33 [id number] Macrobid medicatio n itching Not available Not available 10/28/2020 32489 1 RxNorm ENRIQUE CHAPMAN, PRESSURE WASHER [address], [place], [address], [place] [facility] 13:09:15 [...] Diagnosis SNOMED-CT Code Diagnosis ICD10 Code Diagnosis IMO Codes Diagnosis Note [id number] ENRIQUE CHAPMAN NP [facility] [address] [facility] [place] [address] 10/28/2020 13:05:41 10/30/2020 15:42:45 Urticaria [id number] L50.9 Health Concerns Section Related Observation LastModified by Organization Detai ls LastModified Time None Recorded Concern Status LastModified by Organization Details LastModified Time None Recorded Advance Directives Directive None Recorded Payers Insurance Date Sequence Insurance Name Policy Number Policy Judd Covered Member ID Judd Member ID Guarantor Name 10/31/2020 1 [place] [employer] [employer] Vera Olivas [id number] Vera Olivas 10/31/2020 2 [place] [facility] Vera Olivas [id number] Vera Olivas 10/28/2020 1 [place] [employer] Vera Olivas [id number] Vera Olivas 10/28/2020 1 *SELF PAY* Vera Olivas [id number] Vera Olivas Notes Date Note Type Note Provider Name and Address Organization Details Recorded Time 10/28/2020 text/html General HPI Template - DHReported by Patient 4 days ago - itchy whereever there was hair, then welts showed [...] and they need more tests done. ENRIQUE CHAPMAN [place] [facility] [place], [address], [place] [facility] 10/28/2020 18:21:44 OBGyn Episode No OBEpisode recorded.
--- OUTSIDE RECORDS SUMMARY | 2025-05-10 07:55 | XMS_ITS | Clinical Summary ---
Author Organization [facility] Address [address] [facility] [address] [place] [address] Phone Care Team Providers Care Blind Installer Name Role Phone Mohamud Yanez MD Primary Care Provider + Social History Tobacco Use Types Packs/Day Years Used Date Smoking Tobacco: Never Assessed Education Answer Date Recorded Are you interested in more education? Not on tonya e 04/19/2025 Are you concerned about learning? Not on file 04/19/2025 No 04/19/2025 No 04/19/2025 Digital Access Answer Date Recorded No 04/19/2025 No 04/19/2025 Reliable internet access at home? Not on file 04/19/2025 Device with a working camera? Not on file Comments Unknown Sex and Gender Information Value Date Recorded Sex Assigned at Not on file Legal Sex Female 4:13 PM EDT Gender Identity Not on file Sexual Orientation Not on file Plan of Treatment Upcoming Encounters Date Type Department Care Team (Late st Contact Info) Description 05/18/2025 1:00 PM EST Office Visit [facility] Rheumatology [address] [place] [address] Liset Alvarez MD [address] [facility], [address] [place] [address] Health Maintenance Due Date Last Done Comments Adult Td,Tdap Booster 1974 LIPID PANEL 1974 DEPRESSION SCREENING 1986 SMOKING Hx and SMOKELESS TOB ACCO SCREENING 1987 HEPATITIS C SCREENING 1992 HIV ONE-TIME SCREENING (18-6 5 YEARS) 1992 PAP SMEAR 1995 MAMMOGRAM 2014 COLOGUARD 2019 COLONOSCOPY 2019 COLORECTAL CANCER SCREENING 2019 FIT TEST 2019 FOBT 2019 SIGMOIDOSCOPY 2019 VIRTUAL COLONOSCOPY 2019 PNEUMOCOCCAL VACCINES (50+ y ears) (1 of 1 - PCV) 2024 ZOSTER VACCINES (1 of 2) 2024 INFLUENZA VACCINE (#1) 2025 COVID-19 VACCINE (1 - 2024-2 6 season) 2025 RSV VACCINE (1 - 1-dose 75+ series) 2049 HEPATITIS A VACCINES Aged Out No long er eligible based on patient's age to complete this topic HIB VACCINES Aged Out No longer eligi ble based on patient's age to complete this topic IPV VACCINES Aged Out No longer eligi ble based on patient's age to complete this topic MENINGOCOCCAL VACCINES (ACWY) Aged Out No longer eligible based on patient's age to complete this topic MENINGOCOCCAL VACCINES (B) Aged Out N o longer eligible based on patient's age to complete this topic Medical Devices Not on file Insurance [facility] [place] [address] [place] [id number] [place] [facility] Care Teams Blind Installer Relationship Specialty Start Date End Date Mohamud Yanez MD [address] [place] [address] [id number] PCP - General Family Medicine 11/24/24 Additional Source Comments The information contained in this document represents components of the legal health record. It is not the complete legal health record.[facility]
== END ==
LOC: HO.NUCMED 07:51
PROVIDERS: PCP Family Medicine; Visit Provider Nurse Practitioner
DX: R10.11 Right upper quadrant pain (principal)
CPT/HCPCS: 78227; A9537; J2805

== ENCOUNTER → 2025-05-10 07:52 | Outpatient (BNV) | payer MEDICAID, SELFPAY | PROVIDERS: PCP Family Medicine; Visit Provider Radiology Diagnostic Radiology | DX: K83.5 Biliary cyst (principal) | CPT/HCPCS: 78227 ==

== ENCOUNTER 2025-06-22 08:08 | Emergency (ER) | payer MEDICAID, SELFPAY ==
--- NOTE | ~2025-06-22 | CT_ITS ---
EXAMINATION: CT ABDOMEN PELVIS WITH IV CONTRAST HISTORY: L Flank Pain COMPARISON: Comparison is made with the prior examination dated 02/27/2022. TECHNIQUE: CT scan of the abdomen and pelvis was performed following administration of 85 mL Omnipaque 350 using standard departmental protocol. Coronal and sagittal reformatted images were generated and reviewed. Oral contrast material was not administered at the request of the referring physician. This CT exam was performed with one or more of the following dose reduction techniques: automated exposure control, adjustment of the mA and/or kV according to patient size, use of iterative reconstruction technique. DLP: 360 mGy-cm FINDINGS: LOWER CHEST: The visualized lung bases are clear. There is no pleural effusion. CARDIOVASCULATURE: The heart is normal in size. There is no pericardial effusion. LIVER: The liver is normal in size and contour. No liver mass is identified. The hepatic and portal veins are patent. GALLBLADDER / BILE DUCTS: The gallbladder is unremarkable. There is no intra or extrahepatic biliary ductal dilatation. SPLEEN: The spleen is normal in size. No focal splenic lesion is identified. PANCREAS: The pancreas is unremarkable in appearance. ADRENAL GLANDS: Within normal limits. KIDNEYS/RETROPERITONEUM: No renal calculi are identified. There is no hydronephrosis. No renal masses are identified. LYMPH NODES: No abdominal or pelvic lymphadenopathy. VASCULATURE: The abdominal aorta is normal in caliber. MESENTERY/PERITONEUM: No free fluid. No masses. There is no free intraperitoneal gas. STOMACH: The stomach is collapsed, limiting evaluation. SMALL BOWEL: The small bowel is normal in caliber. COLON: The colon is unremarkable. APPENDIX: Normal. URINARY BLADDER/PELVIC ORGANS: The urinary bladder is collapsed, limiting evaluation. The uterus is unremarkable. BONES / SOFT TISSUES: No suspicious bony or soft tissue abnormalities. CT/CT abdomen pelvis w IV con IMPRESSION: Unremarkable contrast-enhanced CT of the abdomen and pelvis. Electronically signed by: Calvin Lujan MD 06/22/2025 12:03 PM [facility] [place]
--- NOTE | ~2025-06-22 | XR_ITS ---
EXAMINATION: XR CHEST 2 VIEWS HISTORY: SOB COMPARISON: Comparison is made with the prior examination dated 01/04/2025. FINDINGS: PA and lateral views of the chest are submitted. The lungs are expanded and clear. There is no pleural effusion, pneumothorax, or pulmonary vascular congestion. The heart is normal in size. The bones are intact. A clip is seen in the right upper quadrant. XR/XR chest 2V IMPRESSION: No acute cardiopulmonary abnormality. Electronically signed by: Calvin Lujan MD 06/22/2025 01:14 PM [facility]
[2025-06-22 08:22] VITALS: BP 130/72; PULSE 109; RESP 22; TEMP 36.8; O2SAT 98; BMI 21.6
--- NOTE | 2025-06-22 08:33 | ECG_ITS ---
Test Reason : dizziness Blood Pressure : */* mmHG Vent. Rate : 84 BPM Atrial Rate : 84 BPM P-R Int : 138 ms QRS Dur : 70 ms QT Int : 356 ms P-R-T Axes : 36 58 36 degrees QTcB Int : 420 ms Normal sinus rhythm Normal ECG When compared with ECG of 25-Aug-2024 07:59, Vent. rate has decreased by 41 bpm Nonspecific T wave abnormality has replaced inverted T waves in Inferior leads Referred By: Generic ED Physician Electronically Signed By: ROULA OSPINA MD
[2025-06-22 10:13] VITALS: BP 115/72; PULSE 78; RESP 16; TEMP 36.7; O2SAT 99
--- NOTE | 2025-06-22 10:20 | ED.GENADULT ---
HPI - General Adult General Chief complaint: Back Pain/Injury Stated complaint: back pain 5 days, SOB Time Seen by Provider: 06/22/25 10:17 History of Present Illness ED Provider: Neda Mgcee NP HPI narrative: 49-year-old female medical history significant for neuroendocrine carcinoma of the colon, tubular adenoma of the colon, neuroendocrine tumor of the anus, polyarthralgia, IBS, GERD, anxiety presents to the ED for evaluation of left-sided flank pain ongoing for about 6 days. Patient reports the pain occasionally wraps around to the left upper quadrant of the abdomen. Reports when the pain is very severe she feels very short of breath. Denies any substernal chest pain or pressure, difficulty with breathing. No recent illness, fever, chills. Does report urinary frequency at baseline however feel she is urinating even more frequently than that. Does report some dysuria, urgency, but no foul odor or hematuria. Endorsing nausea, no vomiting. Reports that she is unable to lay on her back to sleep. Related Data Home Medications ?Medication ?Instructions ?Recorded ?Confirmed acetaminophen 500 mg tablet 500 mg PO Q4H PRN pain 01/06/21 02/24/25 cyanocobalamin (vitamin B-12) 1,000 mcg PO DAILY 01/06/21 04/21/25 1,000 mcg tablet calcium 600 mg (as 1 tab PO BID 08/28/23 02/24/25 carbonate)-vitamin D3 20 mcg (800 unit) tablet lorazepam 1 mg tablet 1 mg PO DAILY PRN Anxiety 08/28/23 04/21/25 docusate sodium 100 mg capsule 100 mg PO DAILY 03/04/25 dupilumab 300 mg/2 mL subcutaneous 300 mg subcut Q2W 03/04/25 04/21/25 pen injector ([employer]) estradiol 0.01% (0.1 mg/gram) 1 appl vaginal DAILY 03/04/25 04/21/25 vaginal cream magnesium glycinate 300 mg PO BEDTIME 03/04/25 04/21/25 Previous Rx's ?Medication ?Instructions ?Recorded diphenhydramine HCl 25 mg capsule 25 mg PO TID PRN itching #14 caps 01/30/22 (Benadryl) metoclopramide HCl 5 mg tablet 5 mg PO .tidac #90 tabs 10/01/23 (Reglan) simethicone 180 mg capsule 180 mg PO QID 30 days #120 caps 11/19/23 triamcinolone acetonide 0.5 % 1 appl topical BID #15 grams 07/07/24 topical ointment dicyclomine 20 mg tablet 20 mg PO BID PRN diarrhea #6 tabs 08/24/24 ondansetron HCl 4 mg tablet 4 mg PO Q8H PRN nausea and 08/24/24 vomiting #10 tabs oxycodone 5 mg tablet 5 mg PO Q8H PRN pain #10 tabs 08/25/24 methocarbamol 750 mg tablet 750 mg PO Q8H PRN spasm #10 tabs 01/04/25 cyclobenzaprine 5 mg tablet 5 mg PO TID PRN muscle spasm #10 02/22/25 tabs sennosides 8.6 mg tablet (Senna 17.2 mg (2 x 8.6 mg) PO BEDTIME 04/01/25 Laxative) #60 tabs gabapentin 100 mg capsule 100 mg PO BID 10 days #20 caps 06/22/25 Allergies Allergy/AdvReac Type Severity Reaction Status Date / Time hydrocodone (From VICODIN) Allergy Intermediate DEPRESSES Verified 06/22/25 08:22 BREATHING nitrofurantoin (From Allergy Intermediate urticaria Verified 06/22/25 08:22 Macrobid) peach (PEACH) Allergy Intermediate ITCHING Verified 06/22/25 08:22 ibuprofen (IBUPROFEN) Allergy Mild NAUSEA & Verified 06/22/25 08:22 VOMITING oxycodone (From TYLOX) Allergy Mild RASH Verified 06/22/25 08:22 prednisone (PREDNISONE) Allergy Mild RASH Verified 06/22/25 08:22 apremilast (From Otezla) AdvReac Intermediate Gastrointestinal Verified 06/22/25 08:22 Upset aspirin (From Excedrin Extra AdvReac Intermediate stomach Verified 06/22/25 08:22 Strength) issues caffeine (From Excedrin AdvReac Intermediate stomach Verified 06/22/25 08:22 Extra Strength) issues risankizumab-rzaa (From AdvReac Intermediate Dizziness Verified 06/22/25 08:22 Skyrizi) trazodone AdvReac Intermediate itch Verified 06/22/25 08:22 Review of Systems Review of Systems: ROS is otherwise negative unless mentioned in HPI. PMFSH Past Medical History Medical History (Updated 06/22/25 @ 14:25 [facility] Menopause IBS (irritable bowel syndrome) Anxiety GERD (gastroesophageal reflux disease) Chronic idiopathic constipation Diverticulitis Gastric ulcer Surgical History (Updated 04/23/25 @ 10:03 by Shyann Andrea RN) H/O tubal ligation H/O colonoscopy H/O eye surgery Hx of endoscopy (01/19/20) Family History Family History Mother CKD (chronic kidney disease) stage 3, GFR 30-59 ml/min Gallbladder calculus with acute cholecystitis Diabetes HTN (hypertension) Father No problems noted. Maternal Grandfather Diabetes HTN (hypertension) Hypercholesteremia Social History Social History Alcohol intake: never Patient Tobacco Use Status: Current everyday Tobacco user Tobacco use type: Cigarette Cigarette Packs Per Day: 0.5 Cigarettes Per Day: 10 Substance Use Type: Marijuana Advance Directives: No Advance Directives Information Provided: Yes Current occupational status: disabled Current occupation: She is currently taking classes at [employer] Physical Exam ED Exam Exam: Nursing notes and vital signs reviewed. Constitutional: Well-appearing, NAD. Alert. Oriented X3. Eyes: EOMI. ENT: Pharynx normal. Neck: Normal inspection. Neck supple. CVS: Normal heart rate and rhythm. Pulses normal. Respiratory: No respiratory distress. Breath sounds normal. Abdomen: Soft, nontender, nondistended. Severe CVA tenderness on the left side. No CVA tenderness on the right. Skin: Skin warm and dry. Normal skin color. Extremities: No lower extremity edema. Neuro: Oriented X 3. No motor deficit. Vital Signs: Vital Signs - 24 hr 06/22/25 08:22 06/22/25 10:13 06/22/25 12:48 Temperature 98.2 F 98.1 F Pulse Rate 109 H 78 74 Respiratory Rate 22 H 16 16 Blood Pressure 130/72 115/72 132/72 Pulse Oximetry 98 99 99 Oxygen Delivery Method Room Air Room Air Room Air BMI result Body Mass Index 21.6 Medications Administered Discontinued Medications Generic Name Dose Route Start Last Admin Trade Name Freq PRN Reason Stop Dose Admin Sodium Chloride 1,000 mls @ 999 mls/hr 06/22/25 10:39 06/22/25 12:13 Ns IV 06/22/25 11:39 Infused .Q1H1M ONE Infusion Iohexol 100 ml 06/22/25 11:46 06/22/25 11:47 Iohexol 350 Mg/Ml 100 Ml Infus..Btl IV 06/22/25 11:47 85 ml ONCE ONE Administration Ketorolac Tromethamine 15 mg 06/22/25 10:39 06/22/25 10:44 Ketorolac Tromethamine 15 Mg/Ml Vial IVPUSH 06/22/25 10:40 15 mg ONCE ONE Administration Morphine Sulfate 4 mg 06/22/25 10:39 06/22/25 11:07 Morphine Sulfate 4 Mg/Ml Cartridge IVPUSH 06/22/25 10:40 4 mg ONCE ONE Administration Protocol Ondansetron HCl 4 mg 06/22/25 10:39 06/22/25 10:43 Ondansetron Hcl 4 Mg/2 Ml Vial IVPUSH 06/22/25 10:40 4 mg ONCE ONE Administration Medical Decision Making Medical Decision Making [facility] Narrative: Upon my initial assessment of the patient, she has a significant left-sided CVA tenderness, without any on the right. I have high clinical suspicion for renal stone versus pyelonephritis, as symptoms have been ongoing for 6 days. The urine sample she provided, noted at bedside, dark in color and cloudy. Pending urinalysis, we will also obtain CT of the abdomen, pelvis to rule out pyelonephritis or renal stone and reassess. I have ordered pain control, antiemetic, and fluid bolus. 1:15 PM-- the CT scan does not show evidence of hydronephrosis, renal stone, in the urinalysis is not overly indicative of any infection either. There is small blood but I have seen in previous urinalysis samples here that she has provided that she has had this before. After the pain control she does report significant improvement, no longer feels as though there is a bandlike substance around the abdomen. I ordered an x-ray to rule out underlying pneumonia. However, I also considered shingles as she feels it is worse when she lays on that side. There is no rash present upon my assessment. I did consider a rib contusion or fracture, though this is not seen on XR. I also considered renal colic but again there was no renal stone. I considered sacroiliac joint dysfunction but there is no pain in the lower back. No renal or splenic infarct noted on CT. Will pend CXR. 2:15 PM-- X-ray of the chest shows no acute pneumonia. I do have high clinical suspicion this may be shingles, though there was no current rash. A rash should have appeared, given symptoms have been ongoing for 6 days. I will treat her with gabapentin, as if this is shingles this should help with the discomfort. I did recommend that if a rash. She needs to come back to the ED for further assessment. I also offered muscle relaxers as this may be musculoskeletal in nature, though she has declined. I recommend they follow up with primary care provider, patient is agreeable. Differential Diagnosis Differential Diagnoses: The differential diagnosis associated with the presentation includes Renal stone, pyelonephritis, cystitis, sacroiliac joint dysfunction, rib contusion or fracture. Admission/Observation Consideration of admission/observation: Escalation of care including admission/observation considered (Not indicated) Lab Data MDM Lab Attestation statement: I reviewed the patient's lab results. (Reassuring overall.) 06/22/25 10:31 06/22/25 10:31 Labs: Lab Results 06/22/25 06/22/25 Range/Units 10:30 10:31 WBC 7.4 (4.8-10.8) X10*3/uL RBC 4.99 (4.20-5.50) X10*6/uL Hgb 13.8 (12.0-16.0) g/dl Hct 42.5 D (37.0-47.0) % MCV 85.2 (80.0-98.0) fL MCH 27.7 (27.0-33.0) pg MCHC 32.5 (31.0-35.0) g/dl RDW 14.3 (11.0-16.0) % Plt Count 432 H (160-400) X10*3/uL MPV 8.3 L (9.4-12.3) fL Immature Gran % (Auto) 0.1 (0.0-0.4) % Neut % (Auto) 58.6 (45-73) % Lymph % (Auto) 34.5 (20-40) % [place] % (Auto) 5.5 (2-11) % Eos % (Auto) 0.5 (0-4) % Baso % (Auto) 0.8 (0-2) % Lymph # (Auto) 2.6 (1.2-4.9) X10*3/uL [place] # (Auto) 0.4 (0.1-1.2) X10*3/uL Eos # (Auto) 0.0 (0.0-0.4) X10*3/uL Baso # (Auto) 0.1 (0.0-0.2) X10*3/uL Abs Immat Gran (auto) 0.01 (0.00-0.03) X10*3/uL Absolute Neuts (auto) 4.3 (2.0-8.3) x10*3/uL Absolute Nucleated RBC 0.000 (0.0-0.012) X10*3/uL Nucleated RBC % (auto) 0.0 (0.0-0.2) /100WBC Sodium 140 (135-145) mmol/L Potassium 4.5 D (3.3-5.1) mmol/L Chloride 109 H (96-108) mmol/L Carbon Dioxide 23 (22-29) mmol/L Anion Gap 13 (12-20) BUN 11 (9-16) mg/dL Creatinine 0.85 (0.5-1.4) mg/dL Estim Creat Clear Calc 71.2 Estimated GFR > 60 Random Glucose 95 (60-115) mg/dL Calcium 10.1 D (8.4-10.2) mg/dL Magnesium 2.0 (1.6-2.6) mg/dL Total Bilirubin 0.4 (0.0-1.0) mg/dL AST 29 (5-31) U/L ALT 28 (0-31) U/L Alkaline Phosphatase 91 (39-117) U/L Troponin I High Sens < 2.7 (<3.5-17.0) ng/L Total Protein 7.7 (6.5-8.0) g/dL Albumin 4.8 (3.5-5.0) g/dL Lipase 28 (8-78) U/L Urine Color Yellow Urine Appearance Clear Urine pH 5.0 (5.0-9.0) Ur Specific [place] 1.025 (1.005-1.025) Urine Protein Trace (Neg-Trace) mg/dL Urine Glucose (UA) Negative (Negative) mg/dL Urine Ketones Trace (Negative) mg/dL Urine Blood Small (1+) H (Negative) Urine Nitrite Negative (Negative) Ur Leukocyte Esterase Trace H (Negative) Urine RBC 3-5 H (0-2) /HPF Urine WBC 0-5 (0-5) /HPF Ur Squamous Epith Cells 3-5 (0-2) /HPF Urine Bacteria Trace (None Seen) Hyaline Casts 0-2 (0-2) /LPF Independent Interpretation I performed an independent interpretation of an: EKG and Plain X-Ray Interpretation: Rate: 84 Rhythm: NSR [place]: 36/58/36 Normal P waves. Normal SIMON. Normal QRS complex. ST T wave : no dep, elev qTC: 420 prior studies: similar The study has been interpreted contemporaneously by me. I have reviewed the patient's imaging and agree with the radiologist's findings. Radiology Impression Discussion of test interpretation with radiology: I have reviewed the radiologist's reading. Radiologist Impression: CT/CT abdomen pelvis w IV con IMPRESSION: Unremarkable contrast-enhanced CT of the abdomen and pelvis. XR/XR chest 2V IMPRESSION: No acute cardiopulmonary abnormality. Independent Historian Clinical information obtained from an independent historian. History obtained from or confirmed by: Other (Family member at bedside) External Record Review External record reviewed: Office record and Outside ED record Prescription Management I considered prescription management with: Antiviral Not currently indicated Chronic Conditions Patient?s care impacted by: Other (Chronic hematuria) Social Determinants Patient?s care significantly limited by Social Determinants of Health including: Problems related to primary support group Discharge Plan Discharge Clinical Impression: Acute left flank pain Patient Disposition: Home, Self-Care Instructions: Abdominal Pain (ED) Additional Instructions: As we discussed, you were seen in the ER today for evaluation of left-sided pain. You had a CT scan of the abdomen and pelvis which revealed no acute abnormalities. You also had an x-ray of the chest which revealed no acute pneumonia. Your cardiac enzyme, and labs overall were very reassuring. The urine sample showed blood, which is chronic, but no evidence of any infection. The source of your pain is unclear. As we discussed, I do have concern this may be related to shingles, without the current rash. Therefore I have prescribed you a course of gabapentin, which can be taken up to twice per day as needed. Please follow up with your PCP within the next 1 week. If you develop a rash, please return back to the ED for additional assessment. If your pain does not improve, please come back to the ED for additional assessment. Prescriptions: New gabapentin 100 mg capsule 100 mg PO BID 10 Days Qty: 20 0RF No Action diphenhydramine HCl [Benadryl] 25 mg capsule 25 mg PO TID PRN (Reason: itching) Qty: 14 0RF triamcinolone acetonide 0.5 % ointment 1 appl topical BID Qty: 15 1RF oxycodone 5 mg tablet 5 mg PO Q8H PRN (Reason: pain) Qty: 10 0RF Rx Instructions: Partial Fill upon patient request. cyclobenzaprine 5 mg tablet 5 mg PO TID PRN (Reason: muscle spasm) Qty: 10 0RF ondansetron HCl 4 mg tablet 4 mg PO Q8H PRN (Reason: nausea and vomiting) Qty: 10 0RF dicyclomine 20 mg tablet 20 mg PO BID PRN (Reason: diarrhea) Qty: 6 0RF methocarbamol 750 mg tablet 750 mg PO Q8H PRN (Reason: spasm) Qty: 10 0RF lorazepam 1 mg tablet 1 mg PO DAILY PRN (Reason: Anxiety) acetaminophen 500 mg tablet 500 mg PO Q4H PRN (Reason: pain) cyanocobalamin (vitamin B-12) 1,000 mcg tablet 1,000 mcg PO DAILY calcium carbonate-vitamin D3 600 mg-20 mcg (800 unit) tablet 1 tab PO BID metoclopramide HCl [Reglan] 5 mg tablet 5 mg PO .tidac Qty: 90 6RF docusate sodium 100 mg capsule 100 mg PO DAILY estradiol 0.01 % (0.1 mg/gram) cream 1 appl vaginal DAILY Dupixent Pen 300 mg/2 mL pen injector 300 mg subcut Q2W magnesium glycinate 100 mg magnesium capsule 300 mg PO BEDTIME simethicone 180 mg capsule 180 mg PO QID 30 Days Qty: 120 3RF Rx Instructions: after meals sennosides [Senna Laxative] 8.6 mg tablet 17.2 mg PO BEDTIME Qty: 60 6RF Referrals: Rahel Beauchamp MD [Primary Care Provider, Internal Medicine] Print Language: Telugu
[2025-06-22 10:37] LABS: MANUAL DIFF FLAG NO
[2025-06-22 10:38] LABS: Hematocrit 42.5 % (37.0-47.0); Hemoglobin 13.8 g/dl (12.0-16.0); Imm Gran Abs Auto 0.01 X10*3/uL (0.00-0.03); Imm Gran Pct Auto 0.1 % (0.0-0.4); Lymphocytes Absolute Auto 2.6 X10*3/uL (1.2-4.9); Mean Corpuscular HGB Conc 32.5 g/dl (31.0-35.0); Mean Corpuscular Hemoglobin 27.7 pg (27.0-33.0); Mean Corpuscular Volume 85.2 fL (80.0-98.0); NRBC Abs Auto 0.000 X10*3/uL (0.0-0.012); NRBC Pct Auto 0.0 /100WBC (0.0-0.2); Platelet Count 432 X10*3/uL (160-400); Red Blood Count 4.99 X10*6/uL (4.20-5.50); White Blood Count 7.4 X10*3/uL (4.8-10.8)
[2025-06-22 10:39] LABS: Appearance Urine Clear; Glucose Urine UA Negative (Negative); PH 5.0 (5.0-9.0); Specific Gravity - Urine 1.025 (1.005-1.025); UMIC TRIGGER UACC YES
[2025-06-22 11:02] LABS: Troponin-I High Sensitivity < 2.7 ng/L (<3.5-17.0)
--- OUTSIDE RECORDS SUMMARY | 2025-06-22 11:04 | XMS_ITS | Clinical Summary ---
Author Organization [facility] Address [address] [facility] [address] [place] [address] Phone Care Team Providers Care Automotive General Sales Manager Name Role Phone Mohamud Yanez MD Primary [...] Sex Female 4:13 PM EDT Gender Identity Female 05/24/2025 11:25 AM EST Sexual Orientation Not on file Plan of Treatment Upcoming Encounters Date Type Department Care Team (Late st Contact Info) Description 07/21/2025 11:00 AM EST Office Visit [facility] [address] [place] [address] Sharon Meehan DO [address] [facility] [address], [address] [place] [address] [email or web address] Health Maintenance Due Date Last Done Comments [...] topic Medical Devices Not on file Insurance [address] [place], [place] [id number] [place] [address] [place] [id number] [place] [address] [place] [id number] [place] [address] [place] [id number] [place] [facility] Care Teams Automotive General Sales Manager Relationship Specialty Start Date End Date Mohamud Yanez MD [address] [place] [address] [phone] PCP - General Family Medicine 11/24/24 Additional Source Comments The information contained in this document represents components of the legal health record. It is not the complete legal health record.[facility]
--- OUTSIDE RECORDS SUMMARY | 2025-06-22 11:04 | XMS_ITS | Clinical Summary ---
Author Organization [facility] Address [address] [place] [address] Phone Care Team Providers Care Cash Application Clerk Name Role Phone Helder Mason MD Primary Care Provider [phone] Social History Tobacco Use Types Packs/Day Years [...] Influencers of Health Screening 08/18/2024 COVID-19 Vaccine (1 - 2024-2 6 season) 2025 Influenza Vaccine (#1) 2025 RSV [...] Insurance MEDICARE MEDICAID - [place] Care Teams Cash Application Clerk Relationship Specialty Start Date End Date Helder Mason MD [address] [place] [address] PCP - General Internal Medicine 08/18/24
[2025-06-22 11:09] LABS: Alanine Aminotransferase 28 U/L (0-31); Albumin Level 4.8 g/dL (3.5-5.0); Alkaline Phosphatase 91 U/L (39-117); Anion Gap 13 (12-20); Aspartate Amino Transferase 29 U/L (5-31); Blood Urea Nitrogen 11 mg/dL (9-16); Calcium 10.1 mg/dL (8.4-10.2); Carbon Dioxide 23 mmol/L (22-29); Chloride 109 mmol/L (96-108); Creatinine Clr Calc Pharmacy 71.2; Estimated Glomerular Filt Rate > 60; Lipase 28 U/L (8-78); Magnesium 2.0 mg/dL (1.6-2.6); Potassium 4.5 mmol/L (3.3-5.1); Sodium 140 mmol/L (135-145); Total Protein 7.7 g/dL (6.5-8.0)
[2025-06-22] MEDS: iohexoL 350 MG/ML 100 ML INFUS..BTL IV (11:47)
[2025-06-22 12:48] VITALS: BP 132/72; PULSE 74; RESP 16; O2SAT 99
[2025-06-22 14:31] VITALS: BP 119/75; PULSE 79; RESP 16; O2SAT 99
[2025-06-22 14:38] VITALS: BP 119/75; PULSE 79; RESP 16; TEMP 36.6; O2SAT 99
== END 2025-06-22 14:39 | disposition home or self-care (01) ==
PROVIDERS: Emergency Provider Emergency Medicine; PCP Internal Medicine
DX: R10.A2 Flank pain, left side (principal); R06.02 Shortness of breath; R42 Dizziness and giddiness; K21.9 Gastro-esophageal reflux disease without esophagitis; Z87.19 Personal history of other diseases of the digestive system; Z85.038 Personal history of other malignant neoplasm of large intestine
CPT/HCPCS: 36415; 71046; 74177; 80053; 81001; 83690; 83735; 84484; 85025; 93005; 96361; 96374; 96375; 99285; J1885; J2270; J2405; Q9967

== ENCOUNTER → 2025-06-22 08:33 | Outpatient (BNV) | payer MEDICAID, SELFPAY | PROVIDERS: PCP Internal Medicine; Visit Provider Internal Medicine Cardiovascular Disease | DX: R42 Dizziness and giddiness (principal) | CPT/HCPCS: 93010 ==

== ENCOUNTER → 2025-06-22 10:39 | Outpatient (BNV) | payer MEDICAID, SELFPAY | PROVIDERS: Emergency Provider Emergency Medicine; PCP Internal Medicine; Visit Provider Radiology Diagnostic Radiology | DX: R10.A2 Flank pain, left side (principal); R06.02 Shortness of breath | CPT/HCPCS: 71046; 74177 ==